=== PATIENT | male | born 1975 | race African-American/Black ===

== ENCOUNTER 2020-08-15 20:55 | Emergency (ER) | payer SELFPAY ==
[2020-08-15] MEDS ORDERED: IBUPROFEN 200 MG TAB PO ONE (21:28)
--- OUTSIDE RECORDS SUMMARY | 2020-08-15 22:19 | XMS REPORT | Continuity of Care Document ---
:1975 Author Organization [facility] t Address [address] [place] [address] Care Team Providers Name Role Phone Unavailable Unavailable Unavailable Problems Condition Condition Condition Status Onset Resolution Last Treating Co mments Source Name Details Category Date Date Treatment Clinician Date Adult BMI Adult BMI Diagnosis Active [facility] 40.0-44.9 40.0-44.9 Luke s - kg/sq m kg/sq m Memoria l [facility] ent Clinics Essential Essential Diagnosis Active C [facility] (primary) (primary) Luke s - hypertensi hypertensi [facility] Clin[facility] Tobacco Tobacco Diagnosis [facility] Clinics Pure Pure Problem Active [facility] hyperchole hyperchole Catrachita kes - sterolemia sterolemia [facility] ent Clinics Family Family Diagnosis Active [facility] history of history of Catrachita kes - heart heart Memoria disease in disease in l male male [facility] family family ent member member Clinics before age before age [age] Allergies, Adverse Reactions, Alerts This patient has no known allergies or adverse reactions. Medications Ordered Filled Start Stop Current Ordering Indication Dosage Frequency Signature Comments Components Source Medication Medication Date Date Medication? Clinician (SIG) Name Name Aspir-81 Aspir-81 2019-0 2019- No Dariel [address] [facility] 2-12 - [facility] - 00:00: 00:00 Memoria 00 :00 [facility] ent Clinics Lisinopril Lisinopril 2017- Yes Dariel [address] [facility] 2-13 [facility] - 00:00: Memoria 00 [facility] Immunizations Ordered Filled Immunization Date Status Comments Sourc e Immunization Name Name TDAP > 7 TDAP > 7 2018-04-[address] [facility] - Years-Adacel Years-Adacel 00:00:00 [facility] Flucelvax - Flucelvax - 2018-04-[address] [facility] multidose vial 00:00:[address] [facility] Outpatient Clinics Procedures This patient has no known procedures. Encounters Start End Encounter Admission Attending Care Care Encounter Source Date/Time Date/Time Type Type Clinicians Facility Department ID 2018-06-30 2018-06-30 Outpatient Milind Gil [id number] 11:30:00 11:30:00 [facility] 2018-05-18 2018-05-18 Outpatient Milind Gil [id number] 09:45:00 09:45:00 [facility] Clinics 2018-04-30 2018-04-30 Outpatient Milind Gil [id number] 14:30:00 14:30:00 [facility] Clinics Results This patient has no known results.
[2020-08-15 22:28] LABS: SARS-COV-2 RT PCR POSITIVE (NEGATIVE)
--- NOTE | 2020-08-15 22:51 | ER ---
Nurse's Notes [facility] Name: Jasbir Dewey Age: 45 yrs Sex: Male : 1975 Arrival Date: 08/15/2020 Time: 20:58 Bed 6 Private MD: Diagnosis: Coronavirus infection, unspecified;Pneumonia, unspecified organism Presentation: 08/15 21:04 Chief complaint: Patient states: Low grade fever since Friday. DENT, chills/sweating, ll1 high fever today. S.O. has tested positive for covid. Coronavirus screen: Client denies travel out of the [place] in the last 14 days. chills, congestion, diarrhea, fatigue, fever, headache, muscle pain, nausea, shaking with chills, Client presents with at least one sign or symptom that may indicate coronavirus-19. Standard/surgical mask placed on the client. Ebola Screen: Patient denies travel to an Ebola-affected area in the 21 days before illness onset. Initial Sepsis Screen: Does the patient meet any 2 criteria? HR > 90 bpm. No. Patient's initial sepsis screen is negative. Does the patient have a suspected source of infection? Yes: Productive cough/pneumonia. Risk Assessment: Do you want to hurt yourself or someone else? Patient reports no desire to harm self or others. Onset of symptoms was August 13, 2020. 21:04 Method Of Arrival: Ambulatory 1 21:04 Acuity: REJI 3 ll1 Historical: - Allergies: 21:04 No Known Allergies; ll1 - PMHx: 21:04 "occassional hypertension; ll1 - PSHx: 21:04 intestinal surgery at age 12; ll1 - Immunization history:: Flu vaccine is not up to date. - Social history:: Smoking status: Reported history of juuling and/or vaping. Patient denies any tobacco usage or history of. - Family history:: not pertinent. - Hospitalizations: : No recent hospitalization is reported. Screenin:01 Abuse screen: Denies threats or abuse. Nutritional screening: No deficits noted. ea Tuberculosis screening: No symptoms or risk factors identified. Fall Risk None identified. Assessment: 22:50 General: Appears uncomfortable, Behavior is appropriate for age. Pain: Denies pain. ea Neuro: Level of Consciousness is awake, alert, obeys commands, Oriented to person, place, time, situation. Cardiovascular: Patient's skin is warm and dry. Respiratory: Airway is patent Respiratory effort is even, unlabored, Respiratory pattern is regular, symmetrical. Derm: Skin is pink, warm \\T\\ dry. 23:02 Reassessment: Patient and/or family updated on plan of care and expected duration. Pain ea level reassessed. Patient is alert, oriented x 3, equal unlabored respirations, skin warm/dry/pink. Discharge instruction given to patient verbalized the understanding of instruction . Pt left ED ambulatory tolerating well. Vital Signs: 21:04 BP 145 / 92; Pulse 106; Resp 18; Temp 103.0; Pulse Ox 95% ; Weight 130.63 kg; Height 5 ll1 ft. 8 in. (172.72 cm); Pain 0/10; 22:36 Pulse 96; Resp 20; Temp 101.8; Pulse Ox 93% on R/A; ea 22:48 BP 101 / 73; ea 21:04 Body Mass Index 43.79 (130.63 kg, 172.72 cm) ll1 ED Course: 20:58 Patient arrived in ED. ag3 21:04 Arm band placed on. ll1 21:08 Triage completed. ll1 22:30 Adonay Luna MD is Attending Physician. rn 22:30 Anay Sher RN is Primary Nurse. ea 22:50 Rashaad Crenshaw MD is Referral Physician. rn 22:50 Patient has correct armband on for positive identification. Bed in low position. Call ea light in reach. 23:03 No provider procedures requiring assistance completed. Patient did not have IV access ea during this emergency room visit. Administered Medications: 21:17 Drug: Motrin 600 mg Route: PO; ll1 23:04 Follow up: Response: No adverse reaction ea 22:54 Drug: SOLU-Medrol 125 mg Route: IM; Site: left deltoid; ea 23:04 Follow up: Response: Medication administered at discharge. ea 22:55 Drug: Tylenol 1000 mg Route: PO; ea 23:05 Follow up: Response: Medication administered at discharge. ea Outcome: 22:50 Discharge ordered by . rn 23:03 Discharged to home ambulatory. ea 23:03 Condition: stable 23:03 Discharge instructions given to patient, Instructed on discharge instructions, follow up and referral plans. medication usage, Demonstrated understanding of instructions, follow-up care, medications, Prescriptions given X 3. 23:03 Patient left the ED. delio Signatures: Adonay Luna MD MD rn Antunez, Elena, RN RN ea Gomez, Alice ag3 Gosia Rouse RN RN ll1 Corrections: (The following items were deleted from the chart) 21:30 21:04 BP 145 / 92; Pulse 106bpm; Resp 18bpm; Pulse Ox 93%; Temp 103.0F; 130.63 kg; ll1 Height 5 ft. 8 in.; BMI: 43.7; Pain 0/10; ll1
--- NOTE | 2020-08-15 22:51 | EDPHYS ---
Physician Documentation [facility] Name: Jasbir Dewey Age: 45 yrs Sex: Male : 1975 Arrival Date: 08/15/2020 Time: 20:58 Bed 6 Private MD: ED Physician Adonay Luna HPI: 08/15 22:44 This 45 yrs old Black Male presents to ER via Ambulatory with complaints of Fever. rn 22:44 The patient reports fever, that was measured at 103 degrees Fahrenheit. Onset: The rn symptoms/episode began/occurred 3 day(s) ago. Modifying factors: The patient has had contact with sick significant other. Associated signs and symptoms: Pertinent positives: chills, cough, myalgias, runny nose, Pertinent negatives: altered mental status, hemoptysis, vomiting. Severity of symptoms: At their worst the symptoms were mild in the emergency department the symptoms are unchanged. The patient has not experienced similar symptoms in the past. The patient has not recently seen a physician. Reports fever, chills, cough, for 3 days, significant other tested Positive for COVID-19, denies chest pain or sob. + vapes. . Historical: - Allergies: 21:04 No Known Allergies; ll1 - PMHx: 21:04 "occassional hypertension; ll1 - PSHx: 21:04 intestinal surgery at age 12; ll1 - Immunization history:: Flu vaccine is not up to date. - Social history:: Smoking status: Reported history of juuling and/or vaping. Patient denies any tobacco usage or history of. - Family history:: not pertinent. - Hospitalizations: : No recent hospitalization is reported. ROS: 22:44 Constitutional: + fever and chills Eyes: Negative for injury, pain, redness, and infusion rn, Neck: Negative for injury, pain, and swelling, Cardiovascular: Negative for chest pain, palpitations, and edema, Respiratory: + cough, neg for sob. Abdomen/GI: Negative for abdominal pain, nausea, vomiting, diarrhea, and constipation, Back: Negative for injury MS/Extremity: Negative for injury and deformity, Skin: Negative for injury, rash, and discoloration, Neuro: + headache and gen weakness Exam: 22:44 Constitutional: This is a well developed, well nourished patient who is awake, alert, rn and in no acute distress. Head/Face: Normocephalic, atraumatic. ENT: no stridor Cardiovascular: Regular rate and rhythm. No pulse deficits. Respiratory: Speaking full sentences, unlabored. No increased work of breathing, no retractions or nasal flaring. Skin: Warm, dry with normal turgor. Normal color with no rashes, no lesions, and no evidence of cellulitis. MS/ Extremity: Pulses equal, no cyanosis. Neurovascular intact. Full, normal range of motion. Equal circumference. Neuro: Awake and alert, GCS 15, oriented to person, place, time, and situation. Cranial nerves II-XII grossly intact. Motor strength 5/5 in all extremities. Sensory grossly intact. Vital Signs: 21:04 BP 145 / 92; Pulse 106; Resp 18; Temp 103.0; Pulse Ox 95% ; Weight 130.63 kg; Height 5 ll1 ft. 8 in. (172.72 cm); Pain 0/10; 22:36 Pulse 96; Resp 20; Temp 101.8; Pulse Ox 93% on R/A; ea 22:48 BP 101 / 73; ea 21:04 Body Mass Index 43.79 (130.63 kg, 172.72 cm) ll1 MDM: 22:30 Patient medically screened. rn 22:49 Differential diagnosis: viral Infection, bacterial infection, URI, bronchitis, rn pneumonia COVID-19. Data reviewed: vital signs, nurses notes, lab test result(s), and as a result, I will discharge patient. Counseling: I had a detailed discussion with the patient and/or guardian regarding: the historical points, exam findings, and any diagnostic results supporting the discharge/admit diagnosis, lab results, radiology results, the need for outpatient follow up, to return to the emergency department if symptoms worsen or persist or if there are any questions or concerns that arise at home. Response to treatment: the patient's symptoms have mildly improved after treatment, and as a result, I will discharge patient. Special discussion: I discussed with the patient/guardian in detail that at this point there is no indication for admission to the hospital. It is understood, however, that if the symptoms persist or worsen the patient needs to return immediately for re-evaluation. ED course: Oxygen 93-95%, unlabored, biggest risk factors are being overweight and vapes, no dyspnea, will dc home for now with return precautions and medication. . 08/15 22:28 Order name: COVID-19/FLU A+B; Complete Time: 22:30 EDMS Administered Medications: 21:17 Drug: Motrin 600 mg Route: PO; ll1 23:04 Follow up: Response: No adverse reaction ea 22:54 Drug: SOLU-Medrol 125 mg Route: IM; Site: left deltoid; ea 23:04 Follow up: Response: Medication administered at discharge. ea 22:55 Drug: Tylenol 1000 mg Route: PO; ea 23:05 Follow up: Response: Medication administered at discharge. ea Disposition: 08/15/20 22:50 Discharged to Home. Impression: Coronavirus infection, unspecified, Pneumonia, unspecified organism. - Condition is Stable. - Discharge Instructions: Community-Acquired Pneumonia, Adult, COVID-19. - Prescriptions for Zithromax Z- David 250 mg Oral Tablet - take 1 tablet by ORAL route as directed for 5 days Day 1 - take two (2) tablets one time. Day 2, 3, 4 , 5 take one (1) tablet once daily.; 6 tablet. Prednisone 20 mg Oral Tablet - take 1 tablet by ORAL route as directed for 14 days Take 2 tablets by mouth daily for 7 days, followed by 1 tablet by mouth daily for 7 days, total of 14 days.; 21 tablet. Albuterol Sulfate 90 mcg/actuation - inhale 1-2 puff by INHALATION route every 4-6 hours; 1 Inhaler. - Medication Reconciliation Form, Thank You Letter, Antibiotic Education, Prescription Opioid Use, Work release form form. - Follow up: Rashaad Crenshaw MD; When: As needed; Reason: Recheck today's complaints, Re-evaluation by your physician. - Problem is new. - Symptoms have improved. Signatures: Dispatcher [employer] EDMS Saúl Leal RN RN em Nieto, Roman, MD MD rn Antunez, Elena, RN RN ea Lewis, Lynsay, RN RN ll1 Corrections: (The following items were deleted from the chart) 21:36 21:14 CORONAVIRUS+MR.LAB.BRZ ordered. EDMS EDMS 21:37 21:14 Influenza Screen (A \\T\\ B)+BA.LAB.BRZ ordered. EDMS EDMS 23:03 22:50 08/15/2020 22:50 Discharged to Home. Impression: Coronavirus infection, ea unspecified; Pneumonia, unspecified organism. Condition is Stable. Forms are Medication Reconciliation Form, Thank You Letter, Antibiotic Education, Prescription Opioid Use. Follow up: Rashaad Crenshaw; When: As needed; Reason: Recheck today's complaints, Re-evaluation by your physician. Problem is new. Symptoms have improved. rn
[2020-08-15] MEDS ORDERED: METHYLPREDNISOLONE 125 MG INJ ONE (23:08)
[2020-08-15] MEDS ORDERED: ACETAMINOPHEN 500 MG TAB ONE (23:08)
[2020-08-15 23:10] VITALS: BP 101/73; TEMP 101.8; O2SAT 93
== END 2020-08-15 23:03 | disposition home or self-care (01) ==
LOC: ER 20:55
DX: U07.1 COVID-19 (principal); J18.9 Pneumonia, unspecified organism
CPT/HCPCS: 0240U; 96372; 99283; J2930

== ENCOUNTER 2020-08-18 15:38 | Inpatient (IN) | payer SELFPAY ==
[~2020-08-18 15:38] MED LIST: IVERMECTIN 3 MG TABLET PO SCH
--- OUTSIDE RECORDS SUMMARY | 2020-08-18 15:40 | XMS REPORT | Continuity of Care Document ---
:1975 Author Organization [facility] t Address [address] [place] [address] Care Team Providers Name Role Phone Unavailable Unavailable Unavailable Problems Condition Condition Condition Status Onset Resolution Last Treating Co mments Source Name Details Category Date Date Treatment Clinician Date Adult BMI Adult BMI Diagnosis Active C [facility] 40.0-44.9 40.0-44.9 Luke s - kg/sq m kg/sq m Memoria l [facility] ent Clinics Essential Essential Diagnosis Active C [facility] (primary) (primary) Luke s - hypertensi hypertensi Me moria on on l [facility] ent Clinics Tobacco Tobacco Diagnosis [facility] Clinics Pure Pure Problem Active [facility] hyperchole hyperchole [facility] kes - sterolemia sterolemia [facility] ent Clinics Family Family Diagnosis Active [facility] history of history of Catr[place]ita kes - heart heart Memoria disease in disease in l male male [facility] family family ent member member Clinics before [...] Lukes - 00:00: 00:00 Memoria 00 :00 [facility] ent Clinics Lisinopril Lisinopril 2017- Yes Dariel [address] [facility] 2-13 Ad[facility]ita [facility] - 00:00: Memoria 00 [facility] ent [facility] Immunizations Ordered Filled Immunization Date Status Comments Sourc e Immunization Name Name TDAP > 7 TDAP > 7 2018-04-[address] [facility] - Years-Adacel Years-Adacel 00:00:00 [facility] Flucelvax - Flucelvax - 2018-04-[address] [facility]:00 [facility] Procedures This patient has no known procedures. Encounters Start End Encounter Admission Attending Care Care Encounter Source Date/Time Date/Time Type Type Clinicians Facility Department ID 2018-06-30 2018-06-30 Outpatient Milind Gil [id number] [facility] 11:30[facility]00 11:30:00 [facility] 2018-05-18 2018-05-18 Outpatient Milind Gil [id number] 09:45:00 09:45:00 [facility] 2018-04-30 2018-04-30 Outpatient Milind Gil [id number] [facility] 14:30:00 14:30:00 [facility] Results This patient has no known results.
[2020-08-18 16:54] LABS: Absolute Lymphocytes (CBC) 0.5 K/uL (0.7-4.9); Basophils % 0.3 % (0-1.3); Hematocrit 38.7 % (39.6-49.0); Lymphocytes % 6.5 % (15.3-44.8); MPV 10.9 fL (7.6-11.3); RBC Red Blood Cell Count 4.22 M/uL (4.33-5.43)
[2020-08-18 16:56] LABS: Protime INR 1.2
[2020-08-18 17:08] LABS: Bilirubin Direct 0.1 mg/dL (0-0.2); Bilirubin Total 0.3 mg/dL (0.2-1.0); CKMB Creatine Kinase MB 1.3 ng/mL (0.3-3.6); Potassium 3.3 mmol/L (3.5-5.1); Protein, Total 7.6 g/dL (6.4-8.2); Troponin (Emerg Dept Use Only) 0.04 ng/mL (0.0-0.045)
[2020-08-18] MEDS ORDERED: NA CHLORIDE 0.9% 1,000 ML ONE (17:13)
[2020-08-18] MEDS ORDERED: METHYLPREDNISOLONE 125 MG INJ ONE (17:13)
[2020-08-18 17:18] LABS: Blood Gas Oxyhemoglobin 94.6 % (94-97); Blood O2 Saturation 96.5 % (92-98.5)
--- NOTE | 2020-08-18 17:27 | ER ---
Nurse's Notes [facility] Name: Jasbir Dewey Age: 45 yrs Sex: Male : 1975 Arrival Date: 08/18/2020 Time: 15:41 Bed 3 Private MD: Diagnosis: Pneumonia due to SARS-associated coronavirus;Acute respiratory failure with hypoxia Presentation: 08/18 15:56 Chief complaint: Patient states: Covid+ 08/15/2020. S/S started 08/13/2020. SOB started ca1 today. Coronavirus screen: Client reports previous positive COVID test result. Date of collection: August 15, 2020. Ebola Screen: Patient negative for fever greater than or equal to 101.5 degrees Fahrenheit, and additional compatible Ebola Virus Disease symptoms Patient denies exposure to infectious person. Patient denies travel to an Ebola-affected area in the 21 days before illness onset. No symptoms or risks identified at this time. Initial Sepsis Screen: Does the patient meet any 2 criteria? RR > 20 per min. HR > 90 bpm. Yes Does the patient have a suspected source of infection? Yes: Productive cough/pneumonia. Risk Assessment: Do you want to hurt yourself or someone else? Patient reports no desire to harm self or others. Onset of symptoms was August 18, 2020. 15:56 Method Of Arrival: Wheelchair ca1 15:56 Acuity: REJI 2 ca1 Triage Assessment: 16:05 General: Appears distressed, uncomfortable, obese, Behavior is cooperative, appropriate bp for age, anxious. Pain: Denies pain. EENT: No deficits noted. Neuro: No deficits noted. Cardiovascular: No deficits noted. Respiratory: Reports shortness of breath. GI: No signs and/or symptoms were reported involving the gastrointestinal system. : No signs and/or symptoms were reported regarding the genitourinary system. Derm: No signs and/or symptoms reported regarding the dermatologic system. Musculoskeletal: No deficits noted. Historical: - Allergies: 16:02 No Known Allergies; ca1 - PMHx: 16:02 "occassional hypertension; ca1 - PSHx: 16:02 intestinal surgery at age 12; ca1 - Immunization history:: Flu vaccine is not up to date. - Social history:: Smoking status: Reported history of juuling and/or vaping. Screenin:10 Abuse screen: Denies threats or abuse. Denies injuries from another. Nutritional jl7 screening: No deficits noted. Tuberculosis screening: No symptoms or risk factors identified. Fall Risk None identified. Assessment: 16:10 General: SEE TRIAGE NOTE. bp 17:03 Reassessment: No changes from previously documented assessment. Patient and/or family jl7 updated on plan of care and expected duration. Pain level reassessed. RT AT B/S FOR ABG. Respiratory: Respiratory effort is even, labored. 18:45 Reassessment: No changes from previously documented assessment. Patient and/or family bp updated on plan of care and expected duration. Pain level reassessed. HOSPITALIST AT B/S. Respiratory: Airway is patent Respiratory effort is labored. 19:04 Reassessment: PT TRIALED ON HI-FRANCISCA, UNABLE TO TOLERATE. bp Vital Signs: 15:56 BP 132 / 70; Pulse 107; Resp 20 S; Temp 98.6(TE); Pulse Ox 43% on R/A; Weight 130.63 kg ca1 (R); Height 5 ft. 8 in. (172.72 cm) (R); 15:56 Pulse Ox 54% on 4 lpm NC; ca1 16:00 Pulse Ox 70% on 4 lpm NC; ca1 16:09 Pulse Ox 91% on Non-rebreather mask; ca1 16:27 BP 134 / 82; Pulse 85; Resp 17; Pulse Ox 94% on 15% Non-rebreather mask; bp 17:04 BP 114 / 59; Pulse 88; Resp 17; Pulse Ox 94% ; jl7 18:46 BP 135 / 82; Pulse 92; Resp 24; Pulse Ox 85% on 15% Non-rebreather mask; bp 19:30 BP 144 / 98; Pulse 94; Resp 23; Temp 98.5; Pulse Ox 92% on Non-rebreather mask; rv 15:56 Body Mass Index 43.79 (130.63 kg, 172.72 cm) ca1 ED Course: 15:41 Patient arrived in ED. ds1 16:01 Triage completed. ca1 16:02 Arm band placed on right wrist. ca1 16:03 Renuka Thomas MD is Attending Physician. ma2 16:05 Merrick Cuellar PA is PHCP. jr8 16:07 Quincy Espana, DEANDRA is Primary Nurse. bp 16:10 Patient has correct armband on for positive identification. Bed in low position. Call jl7 light in reach. Side rails up X2. 16:10 No provider procedures requiring assistance completed. jl7 16:20 Inserted saline lock: 20 gauge in right antecubital area, using aseptic technique. bp Blood collected. 17:05 EKG done, by ED staff, reviewed by Merrick ALBERT. [facility] 17:25 Jann Sanchez DO is Hospitalizing Provider. jr8 17:31 Chest Single View XRAY In Process Unspecified. EDMS 19:05 Patient admitted, IV remains in place. bp 19:55 Primary Nurse role handed off by Quincy Espana, RN sg Administered Medications: 16:05 CANCELLED (na): MethylPrednisoLONE 125 mg IVP once ma2 16:06 CANCELLED (na): AZITHromycin 500 mg IVPB once over 1 hrs; (mix in 250 mL NS) ma2 16:30 Drug: NS 0.9% 1000 ml Route: IV; Rate: 1 bolus; Site: right antecubital; jl7 20:15 Follow up: IV Status: Completed infusion; IV Intake: 1000ml rv 16:30 Drug: SOLU-Medrol 125 mg Route: IVP; Site: right antecubital; jl7 17:03 Follow up: Response: No adverse reaction jl7 Intake: 20:15 IV: 1000ml; Total: 1000ml. rv Outcome: 17:26 Decision to Hospitalize by Provider. jr8 20:07 Admitted to [facility] by [facility], via stretcher, room 412, with chart, Report called to [facility] 20:07 Condition: stable 20:07 Instructed on the need for admit. 20:08 Patient left the ED. Signatures: Dispatcher [employer] EDMS Chapin Rogers, DEANDRA RN sg Deysi Olvera ds1 Merrick Cuellar PA PA jr8 Kareen Gracia 5 Marylu Olea RN RN jl7 Janeth Chand RN RN Quincy Espana, RN RN Renuka Mancia MD MD ma2 Pedro Kaur RN RN rv Olesya Tatum RN RN ca1 Corrections: (The following items were deleted from the chart) 16:02 15:56 BP 132 / 70; Pulse 107bpm; Resp 43bpm; Spontaneous; Pulse Ox 43% RA; Temp 98.6F ca1 Temporal; 130.63 kg Reported; Height 5 ft. 8 in. Reported; BMI: 43.7; ca1
--- NOTE | 2020-08-18 17:42 | RAD REPORT ---
EXAM DESCRIPTION: [place] Single View08/18/2020 5:32 pm CLINICAL HISTORY: Congestion COMPARISON: none FINDINGS: Marked bilateral pulmonary opacities. The heart is probably upper limits normal size IMPRESSION: Marked bilateral pulmonary opacities probably pneumonia
[2020-08-18 18:10] LABS: Blood Morphology Comment NOT SEEN (NOT SEEN); Platelet Estimate ADEQ
--- NOTE | 2020-08-18 18:43 | RAD REPORT ---
EXAM DESCRIPTION: CT - Chest For Pe Angio - 08/18/2020 6:34 pm CLINICAL HISTORY: sob COMPARISON: August 18, 2020 chest x-ray TECHNIQUE: Dynamically enhanced axial 3 mm thick images of the chest were obtained during administra tion of <100> mL Isovue 370 IV contrast. Coronal and oblique reconstruction images were generated and reviewed. Exam utilizes a protocol for optimal evaluation of pulmonary arterial tree. Maximum intensity projections 3D imaging was utilized All CT scans are performed using dose optimization technique as appropriate and may include automated exposure control or mA/KV adjustment according to patient size. FINDINGS: A pulmonary embolus is not seen. A thoracic aortic aneurysm is not noted. A pleural effusion is not seen. A pericardial effusion is not seen. Marked bilateral ground-glass opacities within the lungs IMPRESSION: Negative for a pulmonary embolism. Marked bilateral ground-glass opacities within the lungs probably Covid pneumonia
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
[2020-08-18 19:50] LABS: Urine Blood Negative (Negative); Urine Glucose Negative (Negative); Urine Protein 1+ (Negative); Urine Specific Gravity 1.015 (1.005-1.030)
--- NOTE | 2020-08-18 20:09 | EDPHYS ---
Physician Documentation [facility] Name: Jasbir Dewey Age: 45 yrs Sex: Male : 1975 Arrival Date: 08/18/2020 Time: 15:41 Bed 3 Private MD: ED Physician Renuka Thomas HPI: 08/18 16:47 This 45 yrs old Black Male presents to ER via Wheelchair with complaints of Covid + SOB.jr8 16:47 Patient was diagnosed with COVID this past Friday and started to have difficulty jr8 breathing yesterday. S\\T\\S started Friday. Sats in the low 40s and 50s in triage. PMHx: HTN. 17:28 Associated signs and symptoms: Pertinent positives: cough. The patient has not jr8 experienced similar symptoms in the past. The patient has been recently seen by a physician:. Historical: - Allergies: 16:02 No Known Allergies; ca1 - PMHx: 16:02 "occassional hypertension; ca1 - PSHx: 16:02 intestinal surgery at age 12; ca1 - Immunization history:: Flu vaccine is not up to date. - Social history:: Smoking status: Reported history of juuling and/or vaping. ROS: 16:48 Cardiovascular: Negative for chest pain, palpitations, and edema, Abdomen/GI: Negative jr8 for abdominal pain, nausea, vomiting, diarrhea, and constipation, Skin: Negative for injury, rash, and discoloration, Neuro: Negative for headache, weakness, numbness, tingling, and seizure. 16:48 Respiratory: Positive for cough, shortness of breath, at rest. 16:48 All other systems are negative. jr8 Exam: 16:49 Constitutional: The patient appears alert, awake, in obvious distress, moderately jr8 distressed. 16:49 Respiratory: mild respiratory distress is noted, Respirations: labored breathing, tachypnea, that is moderate, Breath sounds: are clear throughout, Respiratory rate: 26 17:28 Eyes: Pupils equal round and reactive to light, extra-ocular motions intact. Lids and jr8 lashes normal. Conjunctiva and sclera are non-icteric and not injected. Cornea within normal limits. Periorbital areas with no swelling, redness, or edema. ENT: Nares patent. No nasal discharge, no septal abnormalities noted. Tympanic membranes are normal and external auditory canals are clear. Oropharynx with no redness, swelling, or masses, exudates, or evidence of obstruction, uvula midline. Mucous membranes moist. Neck: Trachea midline, no thyromegaly or masses palpated, and no cervical lymphadenopathy. Supple, full range of motion without nuchal rigidity, or vertebral point tenderness. No Meningismus. Cardiovascular: Regular rate and rhythm with a normal S1 and S2. No gallops, murmurs, or rubs. Normal PMI, no JVD. No pulse deficits. Abdomen/GI: Soft, non-tender, with normal bowel sounds. No distension or tympany. No guarding or rebound. No evidence of tenderness throughout. Back: No spinal tenderness. No costovertebral tenderness. Full range of motion. Skin: Warm, dry with normal turgor. Normal color with no rashes, no lesions, and no evidence of cellulitis. MS/ Extremity: Pulses equal, no cyanosis. Neurovascular intact. Full, normal range of motion. Neuro: Awake and alert, GCS 15, oriented to person, place, time, and situation. Cranial nerves II-XII grossly intact. Motor strength 5/5 in all extremities. Sensory grossly intact. Cerebellar exam normal. Normal gait. Vital Signs: 15:56 BP 132 / 70; Pulse 107; Resp 20 S; Temp 98.6(TE); Pulse Ox 43% on R/A; Weight 130.63 kg ca1 (R); Height 5 ft. 8 in. (172.72 cm) (R); 15:56 Pulse Ox 54% on 4 lpm NC; ca1 16:00 Pulse Ox 70% on 4 lpm NC; ca1 16:09 Pulse Ox 91% on Non-rebreather mask; ca1 16:27 BP 134 / 82; Pulse 85; Resp 17; Pulse Ox 94% on 15% Non-rebreather mask; bp 17:04 BP 114 / 59; Pulse 88; Resp 17; Pulse Ox 94% ; jl7 18:46 BP 135 / 82; Pulse 92; Resp 24; Pulse Ox 85% on 15% Non-rebreather mask; bp 19:30 BP 144 / 98; Pulse 94; Resp 23; Temp 98.5; Pulse Ox 92% on Non-rebreather mask; rv 15:56 Body Mass Index 43.79 (130.63 kg, 172.72 cm) ca1 MDM: 16:03 Patient medically screened. ma2 17:28 Data reviewed: vital signs, nurses notes, lab test result(s), EKG, radiologic studies, jr8 plain films. Data interpreted: Pulse oximetry: on 100 % NRB is 96 %. Interpretation: acceptable. Counseling: I had a detailed discussion with the patient and/or guardian regarding: the historical points, exam findings, and any diagnostic results supporting the discharge/admit diagnosis, lab results, radiology results, the need for further work-up and treatment in the hospital. 08/18 16:05 Order name: Amylase, Serum az2 08/18 16:05 Order name: Basic Metabolic Panel az2 08/18 16:05 Order name: Blood Culture Adult (2) az2 08/18 16:05 Order name: CBC with Diff az2 08/18 16:05 Order name: Ckmb; Complete Time: 17:13 az2 08/18 16:05 Order name: CPK; Complete Time: 17:13 az2 08/18 16:05 Order name: Lactate; Complete Time: 17:13 az2 08/18 16:05 Order name: LFT's; Complete Time: 17:13 ma2 08/18 16:05 Order name: Lipase; Complete Time: 17:13 ma2 08/18 16:05 Order name: Procalcitonin; Complete Time: 17:49 ma2 08/18 16:05 Order name: Protime (+inr); Complete Time: 17:13 ma2 08/18 16:05 Order name: Ptt, Activated; Complete Time: 17:13 az2 08/18 16:05 Order name: Troponin (emerg Dept Use Only); Complete Time: 17:13 ma2 08/18 16:05 Order name: Urine Microscopic Only az2 08/18 16:05 Order name: Chest Single View XRAY; Complete Time: 17:49 ma2 08/18 16:05 Order name: Amylase; Complete Time: 17:13 EDMS 08/18 16:05 Order name: Basic Metabolic Panel; Complete Time: 17:13 EDMS 08/18 16:06 Order name: Blood Culture EDAL 08/18 16:06 Order name: CBC with Automated Diff; Complete Time: 18:37 EDMS 08/18 16:09 Order name: ABG; Complete Time: 17:49 jr8 08/18 16:50 Order name: C-Reactive Protein; Complete Time: 17:13 EDMS 08/18 16:50 Order name: Ferritin; Complete Time: 17:13 EDMS 08/18 16:57 Order name: Manual Differential; Complete Time: 18:37 EDMS 08/18 17:49 Order name: CT Chest For PE Angio la1 08/18 18:44 Order name: CT; Complete Time: 19:10 EDMS 08/18 19:51 Order name: Urine Dipstick-Ancillary; Complete Time: 19:51 EDMS 08/18 16:05 Order name: Accucheck; Complete Time: 16:23 ma2 08/18 16:05 Order name: Cardiac monitoring; Complete Time: 16:22 az2 08/18 16:05 Order name: EKG - Nurse/Tech; Complete Time: 17:05 ma2 08/18 16:05 Order name: IV Saline Lock - Large Bore; Complete Time: 16:22 az2 08/18 16:05 Order name: Labs collected and sent; Complete Time: 16:22 az2 08/18 16:05 Order name: O2 Per Protocol; Complete Time: 16:22 ma2 08/18 16:05 Order name: O2 Sat Monitoring; Complete Time: 16:22 ma2 Administered Medications: 16:05 CANCELLED (na): MethylPrednisoLONE 125 mg IVP once ma2 16:06 CANCELLED (na): AZITHromycin 500 mg IVPB once over 1 hrs; (mix in 250 mL NS) ma2 16:30 Drug: NS 0.9% 1000 ml Route: IV; Rate: 1 bolus; Site: right antecubital; jl7 20:15 Follow up: IV Status: Completed infusion; IV Intake: 1000ml rv 16:30 Drug: SOLU-Medrol 125 mg Route: IVP; Site: right antecubital; jl7 17:03 Follow up: Response: No adverse reaction jl7 Disposition: 08/18/20 17:26 Hospitalization ordered by Jann Sanchez for Inpatient Admission. Preliminary diagnosis are Pneumonia due to SARS-associated coronavirus, Acute respiratory failure with hypoxia. - Bed requested for Telemetry/MedSurg (Inpatient). - Status is Inpatient Admission. wh - Condition is Fair. - Problem is new. - Symptoms have improved. Addendum: 08/20/2020 18:39 Co-signature as Attending Physician, Renuka Thomas MD. m a2 Signatures: Dispatcher [employer] EDMS Merrick Cuellar PA PA jr8 Oziel Carter, TUFTING MACHINE OPERATOR SINGLE NEEDLE-C TUFTING MACHINE OPERATOR SINGLE NEEDLE-Cla1 Melina Saucedo, RN RN Marylu Olea RN RN jl7 Janeth Chand RN RN Renuka Thomas MD [facility] Olesya Tatum RN RN [facility] Pedro Kaur RN rv Corrections: (The following items were deleted from the chart) 08/18 16:05 16:05 MethylPrednisoLONE 125 mg IVP once ordered. az2 az2 16:06 16:05 AZITHromycin 500 mg IVPB once over 1 hrs; (mix in 250 mL NS) ordered. [place] [id number] 16:48 16:13 C-REACTIVE PROTEIN+C.LAB.BRZ ordered. EDAL EDMS 16:48 16:13 FERRITIN+C.LAB.BRZ ordered. EDAL EDMS 16:50 16:47 Patient was diagnosed with COVID this past Friday and started to have difficulty jr8 breathing yesterday. S\\T\\S started Friday.. jr8 17:29 16:47 Patient was diagnosed with COVID this past Friday and started to have difficulty jr8 breathing yesterday. S\\T\\S started Friday. Sats in the low80s in triage. PMHx: HTN. jr8 19:03 17:26 Hospitalization Ordered by Jann Sanchez DO for Inpatient Admission. Preliminary cg diagnosis is Pneumonia due to SARS-associated coronavirus; Acute respiratory failure with hypoxia. Bed requested for Telemetry/MedSurg (Inpatient). Status is Inpatient Admission. Condition is Fair. Problem is new. Symptoms have improved. jr8 20:08 19:03 08/18/2020 17:26 Hospitalization Ordered by Jann Sanchez DO for Inpatient Admission. Preliminary diagnosis is Pneumonia due to SARS-associated coronavirus; Acute respiratory failure with hypoxia. Bed requested for Telemetry/MedSurg (Inpatient). Status is Inpatient Admission. Condition is Fair. Problem is new. Symptoms have improved. cg
[2020-08-18] MEDS ORDERED: ONDANSETRON 4 MG/2 ML VIAL IV PRN (20:56)
[2020-08-18] MEDS: APIXABAN 5 MG TABLET PO SCH (21:25)
[2020-08-18] MEDS: ASCORBIC ACID 500 MG TABLET PO SCH (21:25)
[2020-08-18] MEDS: THIAMINE HCL 100 MG TABLET PO SCH (21:25)
[2020-08-18] MEDS: METHYLPREDNISOLONE 125 MG INJ IV SCH (21:25)
[2020-08-18] MEDS: MELATONIN 5 MG TABLET PO SCH (21:25)
[2020-08-18 21:34] LABS: Urine Bacteria 20-50 /HPF (NONE SEEN); Urine RBC <5 /HPF (NONE SEEN)
[2020-08-19] MEDS: BENZONATATE 100 MG CAP PO PRN ×2 (01:18→19:55)
[2020-08-19] MEDS: LORazepam 2 MG/ML VIAL IV PRN (01:52)
[2020-08-19 05:09] LABS: Absolute Lymphocytes (CBC) 0.5 K/uL (0.7-4.9); Basophils % 0.1 % (0-1.3); Hematocrit 38.6 % (39.6-49.0); Lymphocytes % 5.7 % (15.3-44.8); MPV 10.9 fL (7.6-11.3); RBC Red Blood Cell Count 4.13 M/uL (4.33-5.43)
[2020-08-19 05:46] LABS: BUN Blood Urea Nitrogen 11 mg/dL (7-18); Bicarbonate 36 mmol/L (21-32); Ferritin 456.4 ng/mL (26-388); Glucose Level 199 mg/dL (74-106); Magnesium 2.5 mg/dL (1.8-2.4); Potassium 4.3 mmol/L (3.5-5.1); Sodium Level 141 mmol/L (136-145)
[2020-08-19] MEDS ORDERED: Remdesivir 200 MG in NA CHLORIDE 0.9% 250 ML IV ONE (09:00)
[2020-08-19] MEDS ORDERED: Remdesivir 100 MG in NA CHLORIDE 0.9% 250 ML IV SCH (09:00)
[2020-08-19] MEDS ORDERED: CEFTRIAXONE 1 GM/NS 50 ML 1 GM/50 ML BAG IV SCH (09:18)
[2020-08-19] MEDS ORDERED: GLUCAGON 1 MG/VIAL IM PRN (09:19)
--- NOTE | 2020-08-19 09:24 | P.PN ---
Subjective Date of Service: 08/19/20 Primary Care Provider: none Chief Complaint: COVID pneumonia Subjective: Other (Patient stable on BiPAP. Patient reports improvement.) Physical Examination - Vital Signs Temperature: 97.7 F Blood Pressure: 118/60 Pulse: 73 Respirations: 24 Pulse Ox (%): 95 - Studies Laboratory Data (last 24 hrs) 08/18/20 16:18: PT 13.8 H, INR 1.20, APTT 28.4 08/18/20 16:18: WBC 7.60, Hgb 13.0 L, Hct 38.7 L, Plt Count 167 08/18/20 16:18: Sodium 142, Potassium 3.3 L, BUN 10, Creatinine 1.13, Glucose 163 H, Total Bilirubin 0.3, AST 85 H, ALT 74, Alkaline Phosphatase 77, Amylase 64, Lipase 72 L Assessment & Plan Discharge Plan: Home Plan to discharge in: Greater than 2 days Physician Review Additional Text: Physical exam: Patient alert, cooperative. Currently on BiPAP at 100%. Heart: Regular rate and rhythm Lungs: Currently on BiPAP. No significant distress noted. Patient resting in bed. Abdomen: Soft nontender nondistended Extremities: No edema noted. Good range of motion Impression: Acute hypoxic respiratory failure secondary to COVID-19 pneumonia Hyperglycemia suspect diabetes mellitus type 2 UTI Obesity, BMI 44.5 Plan: Acute hypoxic respiratory failure secondary to COVID-19 pneumonia: Patient remains on BiPAP. Continue to wean off. Will have respiratory help in this process. Pulmonology consulted. Continue with IV steroids, oral supplements, remdecevir, ivermectin. Patient on Eliquis for prophylaxis. CT chest shows negative PE. Blood sugar elevated. Will check A1c. Will start sliding scale. Suspect diabetes. Await recommendations from pulmonology. Continue to monitor and adjust oxygen use. Anticipate improvement over the next several days. Hyperglycemia suspect diabetes mellitus type 2: Blood sugar elevated this morning. Will check A1c. Will provide sliding scale. May need to add basal insulin if blood sugars remain elevated. UTI: Procalcitonin elevated. Urinalysis shows bacteria. Will start Rocephin. Await urine and blood culture results. Obesity, BMI 44.5: Addressed lifestyle modification education. Time Spent Managing Pts Care (In Minutes): 55
[2020-08-19] MEDS ORDERED: D50W 25 GM/50 ML VIAL IV PRN (09:37)
[2020-08-19] MEDS: VITAMIN D 1000 UNIT TAB PO SCH (10:03)
[2020-08-19] MEDS: IVERMECTIN 3 MG TABLET PO SCH (10:03)
[2020-08-19] MEDS: ZINC SULFATE 220 MG CAP PO SCH (10:04)
[2020-08-19] MEDS: ASCORBIC ACID 500 MG TABLET PO SCH ×4 (10:04→21:00)
[2020-08-19] MEDS: APIXABAN 5 MG TABLET PO SCH ×2 (10:04→21:00)
[2020-08-19] MEDS: THIAMINE HCL 100 MG TABLET PO SCH ×2 (10:04→21:00)
[2020-08-19] MEDS: METHYLPREDNISOLONE 125 MG INJ IV SCH ×3 (10:05→21:00)
[2020-08-19] MEDS: CEFTRIAXONE/SWI 1gm 1 GM/10 ML SYR IVP SCH (10:08)
[2020-08-19] MEDS: INSULIN -REGULAR HUMAN 50 UNIT/0.5 ML ML SQ SCH ×3 (11:30→21:00)
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
[2020-08-19] MEDS: MELATONIN 5 MG TABLET PO SCH (21:00)
[2020-08-20 03:08] LABS: Urine Appearance CLEAR (Clear); Urine Bilirubin NEGATIVE (Negative); Urine Blood NEGATIVE (Negative); Urine Color YELLOW (Yellow); Urine Glucose NEGATIVE (Negative); Urine Protein 1+ (Negative); Urine Specific Gravity 1.025 (1.005-1.030)
[2020-08-20 03:17] LABS: Urine Microscopic Reflex ORDER UMIC
[2020-08-20 04:13] LABS: Urine Bacteria <20 /HPF (NONE SEEN); Urine RBC <5 /HPF (NONE SEEN); Urine Urothelial Cells <5 /HPF (NONE SEEN)
[2020-08-20 05:08] LABS: Absolute Lymphocytes (CBC) 0.4 K/uL (0.7-4.9); Basophils % 0.2 % (0-1.3); Hematocrit 37.4 % (39.6-49.0); Lymphocytes % 4.8 % (15.3-44.8); MPV 11.6 fL (7.6-11.3); RBC Red Blood Cell Count 4.03 M/uL (4.33-5.43)
[2020-08-20 05:43] LABS: Blood Morphology Comment NOT SEEN (NOT SEEN); Platelet Estimate ADEQ; White Blood Cell Scan OK (OK)
[2020-08-20 05:49] LABS: ALT/SGPT 43 U/L (12-78); AST/SGOT 44 U/L (15-37); Albumin 2.5 g/dL (3.4-5.0); Alkaline Phosphatase 96 U/L (45-117); BUN Blood Urea Nitrogen 15 mg/dL (7-18); Bicarbonate 35 mmol/L (21-32); Bilirubin Direct < 0.1 mg/dL (0-0.2); Bilirubin Total 0.3 mg/dL (0.2-1.0); Ferritin 538.5 ng/mL (26-388); Glucose Level 169 mg/dL (74-106); Magnesium 2.7 mg/dL (1.8-2.4); Potassium 4.2 mmol/L (3.5-5.1); Protein, Total 6.9 g/dL (6.4-8.2); Sodium Level 140 mmol/L (136-145)
[2020-08-20] MEDS: INSULIN -REGULAR HUMAN 50 UNIT/0.5 ML ML SQ SCH ×4 (07:30→21:00)
[2020-08-20] MEDS: ASCORBIC ACID 500 MG TABLET PO SCH ×4 (09:18→21:08)
[2020-08-20] MEDS: VITAMIN D 1000 UNIT TAB PO SCH (09:18)
[2020-08-20] MEDS: ZINC SULFATE 220 MG CAP PO SCH (09:19)
[2020-08-20] MEDS: APIXABAN 5 MG TABLET PO SCH ×2 (09:19→21:08)
[2020-08-20] MEDS: CEFTRIAXONE/SWI 1gm 1 GM/10 ML SYR IVP SCH (09:20)
[2020-08-20] MEDS: THIAMINE HCL 100 MG TABLET PO SCH ×2 (09:20→21:11)
[2020-08-20] MEDS: Remdesivir 100 MG in NA CHLORIDE 0.9% 250 ML IV SCH (09:20)
[2020-08-20] MEDS: METHYLPREDNISOLONE 125 MG INJ IV SCH ×3 (09:20→21:07)
--- NOTE | 2020-08-20 09:46 | P.PN ---
Subjective Date of Service: 08/20/20 Primary Care Provider: none Chief Complaint: COVID pneumonia Subjective: Other (Currently on BiPAP under percent. Patient appears comfortable.) Physical Examination - Vital Signs Temperature: 97 F Blood Pressure: 132/73 Pulse: 68 Respirations: 36 Pulse Ox (%): 85 Assessment & Plan Discharge Plan: Home Plan to discharge in: Greater than 2 days Physician Review Additional Text: Physical exam: Patient alert, cooperative. Patient appears comfortable. Still currently on BiPAP 100%. Heart: Regular rate and rhythm Lungs: Currently on BiPAP. No significant distress noted. Patient resting in bed. Lungs sound clear. Abdomen: Soft nontender nondistended Extremities: No edema noted. Good range of motion Impression: Acute hypoxic respiratory failure secondary to COVID-19 pneumonia Hyperglycemia suspect diabetes mellitus type 2 Obesity, BMI 44.5 Plan: Acute hypoxic respiratory failure secondary to COVID-19 pneumonia: Patient appears stable. No significant respiratory distress noted. Patient remains on BiPAP 100%. Will have respiratory continue to wean off. Continue current plan of care. Continue IV steroids, oral supplements, remdecevir, ivermectin. Patient on Eliquis for prophylaxis. CT chest shows negative for PE. A1c 6.1. Patient with prediabetes. Will monitor labs closely. There was some possibility of UTI but urine culture was negative. Discontinue Rocephin. Continue to monitor and wean off BiPAP. Encourage proning and ambulation. Continue with pulmonology recommendation. I will turn his service over to the hospitalist team tomorrow. I will go plan of care with him. Hyperglycemia secondary to prediabetes: A1c 6.1. Patient with prediabetes. Will monitor this closely. No need for insulin at this time. If blood sugars remain elevated above 200 will consider basal insulin. Obesity, BMI 44.5: Addressed lifestyle modification education. Time Spent Managing Pts Care (In Minutes): 55
[2020-08-20] MEDS: ASPIRIN EC 81 MG TAB PO SCH (13:19)
[2020-08-20] MEDS: MELATONIN 5 MG TABLET PO SCH (21:08)
[2020-08-21 05:02] LABS: Absolute Lymphocytes (CBC) 0.5 K/uL (0.7-4.9); Basophils % 0.1 % (0-1.3); Hematocrit 37.6 % (39.6-49.0); Lymphocytes % 5.1 % (15.3-44.8); MPV 9.8 fL (7.6-11.3)
[2020-08-21 05:28] LABS: Blood Morphology Comment NOT SEEN (NOT SEEN); Platelet Estimate ADEQ
[2020-08-21 05:37] LABS: ALT/SGPT 40 U/L (12-78); AST/SGOT 31 U/L (15-37); Albumin 2.6 g/dL (3.4-5.0); Alkaline Phosphatase 122 U/L (45-117); BUN Blood Urea Nitrogen 16 mg/dL (7-18); Bicarbonate 36 mmol/L (21-32); Bilirubin Direct 0.1 mg/dL (0-0.2); Bilirubin Total 0.5 mg/dL (0.2-1.0); Ferritin 587.9 ng/mL (26-388); Glucose Level 165 mg/dL (74-106); Magnesium 2.7 mg/dL (1.8-2.4); Potassium 4.1 mmol/L (3.5-5.1); Sodium Level 139 mmol/L (136-145)
[2020-08-21] MEDS: INSULIN -REGULAR HUMAN 50 UNIT/0.5 ML ML SQ SCH ×4 (07:30→20:21)
[2020-08-21] MEDS: ASPIRIN EC 81 MG TAB PO SCH (07:40)
[2020-08-21] MEDS: VITAMIN D 1000 UNIT TAB PO SCH (07:41)
[2020-08-21] MEDS: APIXABAN 5 MG TABLET PO SCH ×2 (07:41→20:19)
[2020-08-21] MEDS: THIAMINE HCL 100 MG TABLET PO SCH ×2 (07:41→20:19)
[2020-08-21] MEDS: ZINC SULFATE 220 MG CAP PO SCH (07:41)
[2020-08-21] MEDS: ASCORBIC ACID 500 MG TABLET PO SCH ×4 (07:41→20:19)
[2020-08-21] MEDS: METHYLPREDNISOLONE 125 MG INJ IV SCH ×3 (07:41→20:19)
--- NOTE | 2020-08-21 08:59 | EKG ---
Test Date: 2020-08-18 Test Time: 17:00:43 Director Emergency: LISA MEASUREMENT RESULTS: Intervals: Rate: 93 MD: 164 QRSD: 94 QT: 362 QTc: 450 [place]: P: 40 MD: 164 QRS: 16 T: -56 INTERPRETIVE STATEMENTS: Sinus rhythm with occasional premature ventricular complexes Possible Left atrial enlargement Left ventricular hypertrophy ST & T wave abnormality, consider inferolateral ischemia Abnormal ECG Compared to ECG 01/10/2017 11:00:35 ST (T wave) deviation now present Possible ischemia now present Electronically Signed On 08-21-20 08:55:32 CDT by Alejandro Sahni
[2020-08-21] MEDS: Remdesivir 100 MG in NA CHLORIDE 0.9% 250 ML IV SCH (09:15)
[2020-08-21] MEDS: IVERMECTIN 3 MG TABLET PO SCH (09:15)
--- NOTE | 2020-08-21 12:55 | P.PN ---
Subjective Date of Service: 08/21/20 Primary Care Provider: none Chief Complaint: Respiratory failure Subjective: Improving (Patient is subjectively feeling better although requiring high concentrations of oxygen) Review of Systems General: Weakness Respiratory: Shortness of Breath Physical Examination - Vital Signs Temperature: 96.8 F Blood Pressure: 108/41 Pulse: 68 Respirations: 18 Pulse Ox (%): 97 Assessment & Plan - Problems (Diagnosis) (1) Acute respiratory failure due to severe acute respiratory syndrome coronavirus 2 (SARS-CoV-2) infection Current Visit: Yes Status: Acute Plan: Respiratory failure from onofre virus still requiring high concentrations of oxygen continue with steroids vital signs reviewed continue with present treatment Physician Review Additional Text: Physical exam: Patient alert, cooperative. Patient appears comfortable. Still currently on BiPAP 100%. Heart: Regular rate and rhythm Lungs: Currently on BiPAP. No significant distress noted. Patient resting in bed. Lungs sound clear. Abdomen: Soft nontender nondistended Extremities: No edema noted. Good range of motion Impression: Acute hypoxic respiratory failure secondary to COVID-19 pneumonia Hyperglycemia suspect diabetes mellitus type 2 Obesity, BMI 44.5 Plan: Acute hypoxic respiratory failure secondary to COVID-19 pneumonia: Patient appears stable. No significant respiratory distress noted. Patient remains on BiPAP 100%. Will have respiratory continue to wean off. Continue current plan of care. Continue IV steroids, oral supplements, remdecevir, ivermectin. Patient on Eliquis for prophylaxis. CT chest shows negative for PE. A1c 6.1. Patient with prediabetes. Will monitor labs closely. There was some possibility of UTI but urine culture was negative. Discontinue Rocephin. Continue to monitor and wean off BiPAP. Encourage proning and ambulation. Continue with pulmonology recommendation. I will turn his service over to the hospitalist team tomorrow. I will go plan of care with him. Hyperglycemia secondary to prediabetes: A1c 6.1. Patient with prediabetes. Will monitor this closely. No need for insulin at this time. If blood sugars remain elevated above 200 will consider basal insulin. Obesity, BMI 44.5: Addressed lifestyle modification education.
[2020-08-21] MEDS: MELATONIN 5 MG TABLET PO SCH (20:19)
[2020-08-21] MEDS: clonazePAM 0.5 MG TAB PO PRN (20:19)
[2020-08-22 04:14] LABS: Albumin 2.4 g/dL (3.4-5.0); Bilirubin Direct 0.2 mg/dL (0-0.2); Bilirubin Total 0.7 mg/dL (0.2-1.0); Ferritin 661.1 ng/mL (26-388); Protein, Total 6.7 g/dL (6.4-8.2)
[2020-08-22] MEDS: INSULIN -REGULAR HUMAN 50 UNIT/0.5 ML ML SQ SCH ×4 (07:30→20:12)
[2020-08-22] MEDS: VITAMIN D 1000 UNIT TAB PO SCH (08:37)
[2020-08-22] MEDS: THIAMINE HCL 100 MG TABLET PO SCH ×2 (08:37→19:55)
[2020-08-22] MEDS: ASCORBIC ACID 500 MG TABLET PO SCH ×4 (08:37→19:55)
[2020-08-22] MEDS: ASPIRIN EC 81 MG TAB PO SCH (08:37)
[2020-08-22] MEDS: APIXABAN 5 MG TABLET PO SCH ×2 (08:38→19:54)
[2020-08-22] MEDS: Remdesivir 100 MG in NA CHLORIDE 0.9% 250 ML IV SCH (08:38)
[2020-08-22] MEDS: METHYLPREDNISOLONE 125 MG INJ IV SCH ×3 (08:38→19:55)
[2020-08-22] MEDS: ZINC SULFATE 220 MG CAP PO SCH (08:38)
[2020-08-22] MEDS: ACETAMINOPHEN 500 MG TAB PO PRN (19:55)
[2020-08-22] MEDS: MELATONIN 5 MG TABLET PO SCH (19:55)
[2020-08-22] MEDS: clonazePAM 0.5 MG TAB PO PRN (19:56)
[2020-08-23] MEDS: HYDRALAZINE HCL 20 MG/ML VIAL IV PRN (00:19)
[2020-08-23] MEDS: HYDROCODONE/APAP 5/325 MG TAB PO PRN (00:27)
[2020-08-23 04:44] LABS: Albumin 2.4 g/dL (3.4-5.0); Bilirubin Direct 0.2 mg/dL (0-0.2); Bilirubin Total 0.8 mg/dL (0.2-1.0); Protein, Total 6.7 g/dL (6.4-8.2)
[2020-08-23] MEDS: INSULIN -REGULAR HUMAN 50 UNIT/0.5 ML ML SQ SCH ×4 (07:30→21:00)
[2020-08-23] MEDS: VITAMIN D 1000 UNIT TAB PO SCH (08:27)
[2020-08-23] MEDS: ZINC SULFATE 220 MG CAP PO SCH (08:27)
[2020-08-23] MEDS: ASPIRIN EC 81 MG TAB PO SCH (08:27)
[2020-08-23] MEDS: THIAMINE HCL 100 MG TABLET PO SCH ×2 (08:28→20:53)
[2020-08-23] MEDS: ASCORBIC ACID 500 MG TABLET PO SCH ×4 (08:28→20:53)
[2020-08-23] MEDS: METHYLPREDNISOLONE 125 MG INJ IV SCH ×3 (08:28→20:53)
[2020-08-23] MEDS: Remdesivir 100 MG in NA CHLORIDE 0.9% 250 ML IV SCH (08:29)
--- NOTE | 2020-08-23 09:28 | P.PN ---
Subjective Date of Service: 08/21/20 Patient remains hypoxic. Page requiring significant oxygenation with FiO2 of 100%. Continue on BiPAP support. Pulmonary monitoring patient closely. Review of Systems 10-point ROS is otherwise unremarkable Physical Examination - Vital Signs Temperature: 97.1 F Blood Pressure: 143/74 Pulse: 75 Respirations: 22 Pulse Ox (%): 96 - Physical Exam General: Alert, In no apparent distress, Oriented x3 Respiratory: Diminished, Crackles/rales Cardiovascular: Regular rate/rhythm, Normal S1 S2, No murmurs Gastrointestinal: Normal bowel sounds, Soft and benign, Non-distended, No tenderness Musculoskeletal: No clubbing, No swelling, No tenderness Neurological: Sensation intact, Cranial nerves 3-12 intact - Studies Medications List Reviewed: Yes Assessment & Plan - Problems (Diagnosis) (1) Acute respiratory failure due to severe acute respiratory syndrome stephon navirus 2 (SARS-CoV-2) infection Current Visit: Yes Status: Acute - Plan 1. Continue with IV steroids 2. Monitor inflammatory markers 3. Repeat chest x-ray is symptoms are progressively worsening 4. O2 per protocol 5. Pulmonary consultation appreciated 6. Continue with albuterol inhaler therapy; also supportive care 7. Monitor LFTs 8. GI and DVT prophylaxis Discharge Plan: Home Plan to discharge in: Greater than 2 days - Advance Directives Does patient have a Living Will: No Does patient have a Durable POA for Healthcare: No - Code Status/Comfort Care Code Status Assessed: Yes Code Status: Full Code Critical Care: No Time Spent Managing PTS Care (In Minutes): 35
--- NOTE | 2020-08-23 09:29 | P.PN ---
Date of Service: 08/22/20 Subjective A little wean down the FiO2 slightly on the BiPAP. Currently at 85%. Continue monitoring closely. Hopefully patient keeps improving otherwise patient may need to be intubated. Review of Systems 10-point ROS is otherwise unremarkable Physical Examination - Vital Signs reviewed - Physical Exam General: Alert, In no apparent distress, Oriented x3 Respiratory: Diminished, Crackles/rales Cardiovascular: Regular rate/rhythm, Normal S1 S2, No murmurs Gastrointestinal: Normal bowel sounds, Soft and benign, Non-distended, No tenderness Musculoskeletal: No clubbing, No swelling, No tenderness Neurological: Sensation intact, Cranial nerves 3-12 intact Assessment & Plan - Problems (Diagnosis) (1) Acute respiratory failure due to severe acute respiratory syndrome coronavirus 2 (SARS-CoV-2) infection Current Visit: Yes Status: Acute - Plan 1. Continue with IV steroids 2. Monitor inflammatory markers 3. Repeat chest x-ray is symptoms are progressively worsening 4. O2 per protocol 5. Pulmonary consultation appreciated 6. Continue with albuterol inhaler therapy; also supportive care 7. Monitor LFTs 8. GI and DVT prophylaxis
[2020-08-23] MEDS: APIXABAN 5 MG TABLET PO SCH ×2 (10:43→20:52)
[2020-08-23 12:14] LABS: ALT/SGPT 34 U/L (12-78); AST/SGOT 35 U/L (15-37); Albumin 2.4 g/dL (3.4-5.0); Alkaline Phosphatase 131 U/L (45-117); BUN Blood Urea Nitrogen 14 mg/dL (7-18); Bicarbonate 31 mmol/L (21-32); Bilirubin Total 0.9 mg/dL (0.2-1.0); Ferritin 832.3 ng/mL (26-388); Glucose Level 133 mg/dL (74-106); Magnesium 2.5 mg/dL (1.8-2.4); Potassium 3.9 mmol/L (3.5-5.1); Protein, Total 6.6 g/dL (6.4-8.2); Sodium Level 138 mmol/L (136-145)
[2020-08-23 13:08] LABS: Absolute Lymphocytes (CBC) 0.3 K/uL (0.7-4.9); Hematocrit 41.3 % (39.6-49.0); Lymphocytes % 2.3 % (15.3-44.8); MPV 10.5 fL (7.6-11.3); RBC Red Blood Cell Count 4.54 M/uL (4.33-5.43)
[2020-08-23 19:42] LABS: Blood Morphology Comment NOT SEEN (NOT SEEN); Platelet Estimate ADEQ; White Blood Cell Scan OK (OK)
--- NOTE | 2020-08-23 20:38 | P.PN ---
Subjective Date of Service: 08/23/20 Primary Care Provider: none Chief Complaint: Respiratory failure Subjective: Improving (Feeling better StillSOB on high conc of O2) Review of Systems Respiratory: Shortness of Breath Physical Examination - Vital Signs Temperature: 97.7 F Blood Pressure: 149/73 Pulse: 78 Respirations: 18 Pulse Ox (%): 91 - Studies Microbiology Data (last 24 hrs): 08/18/20 16:18 Blood - Blood Aerobic Blood Culture - Final No growth in 5 days. 08/18/20 16:18 Blood - Blood Anaerobic Blood Culture - Final No growth in 5 days. 08/18/20 16:36 Blood - Blood Aerobic Blood Culture - Final No growth in 5 days. 08/18/20 16:36 Blood - Blood Anaerobic Blood Culture - Final No growth in 5 days. Medications List Reviewed: Yes Assessment & Plan - Problems (Diagnosis) (1) Acute respiratory failure due to severe acute respiratory syndrome coronavirus 2 (SARS-CoV-2) infection Current Visit: Yes Status: Acute Plan: Respiratory failure from onofre virus still requiring high concentrations of oxygen continue with steroids vital signs reviewed continue with present treatment, Labs reviewed. PT hypoxic. No PE.
[2020-08-23] MEDS: ACETAMINOPHEN 500 MG TAB PO PRN (20:53)
[2020-08-23] MEDS: MELATONIN 5 MG TABLET PO SCH (20:53)
[2020-08-23] MEDS: clonazePAM 0.5 MG TAB PO PRN (22:03)
[2020-08-24] MEDS: LORazepam 2 MG/ML VIAL IV PRN ×3 (03:05→20:14)
[2020-08-24 04:21] LABS: Absolute Lymphocytes (CBC) 0.3 K/uL (0.7-4.9); Basophils % 0.2 % (0-1.3); Hematocrit 41.1 % (39.6-49.0); Lymphocytes % 3.5 % (15.3-44.8); RBC Red Blood Cell Count 4.54 M/uL (4.33-5.43)
[2020-08-24 04:28] LABS: ALT/SGPT 34 U/L (12-78); AST/SGOT 32 U/L (15-37); Albumin 2.4 g/dL (3.4-5.0); Alkaline Phosphatase 130 U/L (45-117); BUN Blood Urea Nitrogen 16 mg/dL (7-18); Bicarbonate 32 mmol/L (21-32); Bilirubin Total 0.9 mg/dL (0.2-1.0); Ferritin 820.8 ng/mL (26-388); Glucose Level 151 mg/dL (74-106); Magnesium 2.7 mg/dL (1.8-2.4); Phosphorus 3.6 mg/dL (2.5-4.9); Potassium 4.2 mmol/L (3.5-5.1); Protein, Total 6.6 g/dL (6.4-8.2); Sodium Level 139 mmol/L (136-145)
[2020-08-24] MEDS ORDERED: FUROSEMIDE 20 MG/ 2ML VIAL IV ONE (06:00)
[2020-08-24] MEDS: INSULIN -REGULAR HUMAN 50 UNIT/0.5 ML ML SQ SCH ×4 (07:30→20:15)
[2020-08-24] MEDS: VITAMIN D 1000 UNIT TAB PO SCH (08:10)
[2020-08-24] MEDS: ASPIRIN EC 81 MG TAB PO SCH (08:10)
[2020-08-24] MEDS: METHYLPREDNISOLONE 125 MG INJ IV SCH ×3 (08:11→20:12)
[2020-08-24] MEDS: THIAMINE HCL 100 MG TABLET PO SCH ×2 (08:11→20:13)
[2020-08-24] MEDS: APIXABAN 5 MG TABLET PO SCH ×2 (08:11→20:13)
[2020-08-24] MEDS: ZINC SULFATE 220 MG CAP PO SCH (08:11)
[2020-08-24] MEDS: clonazePAM 0.5 MG TAB PO PRN ×2 (08:11→16:42)
[2020-08-24] MEDS: ASCORBIC ACID 500 MG TABLET PO SCH ×4 (08:11→20:13)
--- NOTE | 2020-08-24 13:40 | P.PN ---
Date of Service: 08/23/20 Subjective FiO2 requirements have increased. Patient looks to be a little more anxious. We don't have Precedex so will go ahead and try some Klonopin to help relax. Review of Systems 10-point ROS is otherwise unremarkable Physical Examination - Vital Signs reviewed - Physical Exam General: Alert, a little tachypneic, Oriented x3 Respiratory: Diminished, Crackles/rales Cardiovascular: Regular rate/rhythm, Normal S1 S2, No murmurs Gastrointestinal: Normal bowel sounds, Soft and benign, Non-distended, No tenderness Musculoskeletal: No clubbing, No swelling, No tenderness Neurological: Sensation intact, Cranial nerves 3-12 intact Assessment & Plan - Problems (Diagnosis) (1) Acute respiratory failure due to severe acute respiratory syndrome coronavirus 2 (SARS-CoV-2) infection Current Visit: Yes Status: Acute - Plan 1. Continue with IV steroids 2. Monitor inflammatory markers; will check ABGs 3. Chest x-ray in a.m. 4. O2 per protocol 5. Pulmonary consultation appreciated 6. Continue with albuterol inhaler therapy; also supportive care; may needy nebulizer treatments 7. GI and DVT prophylaxis
[2020-08-24 14:27] LABS: Arterial Blood Carboxyhemoglob 0.8 % (0-1.5); Blood Gas Oxyhemoglobin 91.2 % (94-97); Blood O2 Saturation 93.2 % (92-98.5)
--- NOTE | 2020-08-24 15:28 | RAD REPORT ---
EXAM DESCRIPTION: RAD - Chest Single View - 08/24/2020 2:28 pm CLINICAL HISTORY: dyspnea Chest pain. COMPARISON: Chest Single View dated 08/18/2020; Chest Pa And Lat (2 Views) dated 01/10/2017; Chest For Pe Angio dated 08/18/2020 FINDINGS: Portable technique limits examination quality. Moderate bilateral pulmonary opacities are again seen, mildly improved involved the left lung. There is possible the midshaft pneumomediastinum subcutaneous emphysema in the neck. The heart size is mild ly prominent.
[2020-08-24] MEDS ORDERED: OXYMETAZOLINE HCL 0.05% 15ML NAS PRN (16:58)
[2020-08-24] MEDS: FLUTICASONE 50MCG NASAL SPRAY NAS SCH (20:12)
[2020-08-24] MEDS: MELATONIN 5 MG TABLET PO SCH (20:13)
[2020-08-24] MEDS: HYDROCODONE/APAP 5/325 MG TAB PO PRN (20:16)
[2020-08-25 04:25] LABS: Absolute Lymphocytes (CBC) 0.4 K/uL (0.7-4.9); Basophils % 0.1 % (0-1.3); Hematocrit 44.4 % (39.6-49.0); Lymphocytes % 3.6 % (15.3-44.8); MPV 9.9 fL (7.6-11.3); RBC Red Blood Cell Count 4.81 M/uL (4.33-5.43)
[2020-08-25 04:41] LABS: ALT/SGPT 27 U/L (12-78); AST/SGOT 24 U/L (15-37); Albumin 2.5 g/dL (3.4-5.0); Alkaline Phosphatase 135 U/L (45-117); BUN Blood Urea Nitrogen 25 mg/dL (7-18); Bicarbonate 34 mmol/L (21-32); Bilirubin Total 0.7 mg/dL (0.2-1.0); Ferritin 833.7 ng/mL (26-388); Glucose Level 154 mg/dL (74-106); Magnesium 2.8 mg/dL (1.8-2.4); Phosphorus 4.3 mg/dL (2.5-4.9); Potassium 4.6 mmol/L (3.5-5.1); Protein, Total 6.9 g/dL (6.4-8.2); Sodium Level 137 mmol/L (136-145)
[2020-08-25] MEDS: HYDROCODONE/APAP 5/325 MG TAB PO PRN ×2 (06:38→17:09)
--- NOTE | 2020-08-25 07:16 | RAD REPORT ---
EXAM DESCRIPTION: RAD - Chest Single View - 08/25/2020 6:28 am CLINICAL HISTORY: Dyspnea COMPARISON: Portable August 24 TECHNIQUE: AP portable chest image was obtained 08/25/2020 6:28 am . FINDINGS: Extensive airspace opacification seen in the right lung field with less prominent left adina g field opacification. This is a slightly improved. Heart size is upper normal, stable with mild vasc ular engorgement. No measurable pleural effusion and no pneumothorax. No acute bony abnormality seen. The suspected pneumomediastinum and subcutaneous emphysema of the August 24 study are not identifiable . IMPRESSION: Extensive airspace opacification, right greater than left, showing mild improvement from August 24. Suspected subcutaneous emphysema and pneumomediastinum are not identifiable on this study.
[2020-08-25] MEDS: INSULIN -REGULAR HUMAN 50 UNIT/0.5 ML ML SQ SCH ×4 (07:30→21:00)
[2020-08-25] MEDS: ASCORBIC ACID 500 MG TABLET PO SCH ×4 (08:14→21:58)
[2020-08-25] MEDS: ASPIRIN EC 81 MG TAB PO SCH (08:14)
[2020-08-25] MEDS: VITAMIN D 1000 UNIT TAB PO SCH (08:14)
[2020-08-25] MEDS: METHYLPREDNISOLONE 125 MG INJ IV SCH ×3 (08:14→21:58)
[2020-08-25] MEDS: FLUTICASONE 50MCG NASAL SPRAY NAS SCH ×2 (08:15→21:59)
[2020-08-25] MEDS: THIAMINE HCL 100 MG TABLET PO SCH ×2 (08:15→21:58)
[2020-08-25] MEDS: APIXABAN 5 MG TABLET PO SCH ×2 (08:15→21:58)
[2020-08-25] MEDS: ZINC SULFATE 220 MG CAP PO SCH (08:15)
[2020-08-25] MEDS: ENSURE HIGH PROTEIN 237 ML CAN PO SCH ×3 (08:57→21:59)
--- NOTE | 2020-08-25 09:19 | P.PN ---
Subjective Date of Service: 08/25/20 Primary Care Provider: none Chief Complaint: Respiratory failure No change patient is still very hypoxic alert responsive cooperative chest x-ray shows extensive bilateral infiltrate Review of Systems General: Weakness Respiratory: Cough, Shortness of Breath Physical Examination - Vital Signs Temperature: 98.8 F Blood Pressure: 116/76 Pulse: 85 Respirations: 24 Pulse Ox (%): 90 - Studies Medications List Reviewed: Yes Assessment & Plan - Problems (Diagnosis) (1) Acute respiratory failure due to severe acute respiratory syndrome c oronavirus 2 (SARS-CoV-2) infection Current Visit: Yes Status: Acute Plan: Patient admitted with respiratory failure still requiring high concentrations of oxygen may have some pneumomediastinum yesterday continue with present therapy rays day his EPAP pressure slightly to improve his oxygenation also complains of nasal congestion at some a Flonase increase dose of steroids however today's x- ray does not show any evidence of pneumomediastinum maintain sat around 90%
[2020-08-25] MEDS: MELATONIN 5 MG TABLET PO SCH (21:58)
[2020-08-26] MEDS: LORazepam 2 MG/ML VIAL IV PRN (02:18)
[2020-08-26] MEDS: INSULIN -REGULAR HUMAN 50 UNIT/0.5 ML ML SQ SCH ×4 (07:30→20:20)
[2020-08-26] MEDS: ASPIRIN EC 81 MG TAB PO SCH (08:41)
[2020-08-26] MEDS: ZINC SULFATE 220 MG CAP PO SCH (08:41)
[2020-08-26] MEDS: THIAMINE HCL 100 MG TABLET PO SCH ×2 (08:41→20:11)
[2020-08-26] MEDS: METHYLPREDNISOLONE 125 MG INJ IV SCH ×3 (08:41→20:12)
[2020-08-26] MEDS: VITAMIN D 1000 UNIT TAB PO SCH (08:41)
[2020-08-26] MEDS: APIXABAN 5 MG TABLET PO SCH ×2 (08:41→20:11)
[2020-08-26] MEDS: ASCORBIC ACID 500 MG TABLET PO SCH ×4 (08:41→20:11)
[2020-08-26] MEDS: ENSURE HIGH PROTEIN 237 ML CAN PO SCH ×3 (08:42→20:15)
[2020-08-26] MEDS: FLUTICASONE 50MCG NASAL SPRAY NAS SCH ×2 (08:43→20:12)
[2020-08-26 11:42] LABS: Absolute Lymphocytes (CBC) 0.6 K/uL (0.7-4.9); Basophils % 0.1 % (0-1.3); Hematocrit 38.4 % (39.6-49.0); Lymphocytes % 4.5 % (15.3-44.8); MPV 11.6 fL (7.6-11.3)
[2020-08-26 12:32] LABS: ALT/SGPT 25 U/L (12-78); AST/SGOT 27 U/L (15-37); Albumin 2.4 g/dL (3.4-5.0); Alkaline Phosphatase 140 U/L (45-117); BUN Blood Urea Nitrogen 25 mg/dL (7-18); Bicarbonate 32 mmol/L (21-32); Bilirubin Total 0.5 mg/dL (0.2-1.0); Ferritin 728.1 ng/mL (26-388); Glucose Level 116 mg/dL (74-106); Magnesium 2.9 mg/dL (1.8-2.4); Phosphorus 3.7 mg/dL (2.5-4.9); Potassium 4.7 mmol/L (3.5-5.1); Protein, Total 6.3 g/dL (6.4-8.2); Sodium Level 137 mmol/L (136-145)
[2020-08-26 13:17] LABS: Blood Morphology Comment NOT SEEN (NOT SEEN); Platelet Estimate ADEQ; White Blood Cell Scan OK (OK)
[2020-08-26] MEDS ORDERED: FAMOTIDINE 20 MG TAB PO ONE (20:00)
[2020-08-26] MEDS: HYDROCODONE/APAP 5/325 MG TAB PO PRN (20:11)
[2020-08-26] MEDS: MELATONIN 5 MG TABLET PO SCH (20:11)
[2020-08-27] MEDS: HYDROCODONE/APAP 5/325 MG TAB PO PRN ×2 (02:43→20:07)
[2020-08-27] MEDS: INSULIN -REGULAR HUMAN 50 UNIT/0.5 ML ML SQ SCH ×4 (07:30→20:45)
[2020-08-27] MEDS: LORazepam 2 MG/ML VIAL IV PRN ×2 (07:53→20:16)
[2020-08-27] MEDS: FLUTICASONE 50MCG NASAL SPRAY NAS SCH ×2 (09:00→20:08)
[2020-08-27] MEDS: ASPIRIN EC 81 MG TAB PO SCH (09:52)
[2020-08-27] MEDS: APIXABAN 5 MG TABLET PO SCH ×2 (09:52→20:08)
[2020-08-27] MEDS: ASCORBIC ACID 500 MG TABLET PO SCH ×4 (09:53→20:08)
[2020-08-27] MEDS: THIAMINE HCL 100 MG TABLET PO SCH ×2 (09:53→20:07)
[2020-08-27] MEDS: VITAMIN D 1000 UNIT TAB PO SCH (09:53)
[2020-08-27] MEDS: ZINC SULFATE 220 MG CAP PO SCH (09:53)
[2020-08-27] MEDS: METHYLPREDNISOLONE 125 MG INJ IV SCH ×3 (09:53→20:08)
[2020-08-27] MEDS: ENSURE HIGH PROTEIN 237 ML CAN PO SCH ×3 (09:53→20:08)
--- NOTE | 2020-08-27 10:03 | P.PN ---
Subjective Date of Service: 08/27/20 Primary Care Provider: none Chief Complaint: Respiratory failure No change still requiring high concentrations of oxygen Review of Systems General: Weakness Respiratory: Shortness of Breath Physical Examination - Vital Signs Temperature: 97.8 F Blood Pressure: 132/80 Pulse: 90 Respirations: 17 Pulse Ox (%): 91 - Studies Medications List Reviewed: Yes Assessment & Plan - Problems (Diagnosis) (1) Acute respiratory failure due to severe acute respiratory syndrome coronavirus 2 (SARS-CoV-2) infection Current Visit: Yes Status: Acute Plan: Respiratory failure requiring high concentrations of oxygen continue with present treatment low-dose spironolactone to promote a negative fluid balance
[2020-08-27] MEDS: ACETAMINOPHEN 500 MG TAB PO PRN (10:44)
[2020-08-27] MEDS: SPIRONOLACTONE 25 MG TABLET PO SCH (10:46)
--- NOTE | 2020-08-27 11:19 | CON ---
Date of Consultation: 08/26/[address] Brady's service on 08/18/2020. I saw the patient on 08/26/2020. Reason For Consultation: Elevated troponin. History Of Present Illness: Mr. Dewey is a 45-year-old black male without any significant past medic al history. He does not take any medications at home. He does not have any allergies. He came in w ith COVID pneumonia on 08/18/2020. He is still on BiPAP. His SpO2 was 87%. Troponin was elevated a nd I was consulted. No chest pain. No congestive heart failure. Past Medical History: Negative. Allergies: NONE. Medications: At home are none. Review of Systems: Negative. Social History: Negative. Family History: Negative. Medications: Present medications include aspirin, Eliquis, and steroids. Physical Examination: Vital Signs: Stable, afebrile. HEENT: Negative. Neck: Supple with no bruit. Chest: Revealed crackles both bases. Cardiac: Normal. Abdomen: Obese, but normal. Extremities: Revealed 1+ edema. Diagnostic Data: Include a glucose of 145 with elevated troponin, 87% O2 saturation on BiPAP. Impression And Plan: 1.Elevated troponin secondary to demand ischemia. Echocardiogram is pending. 2.COVID pneumonia, being treated appropriately by Dr. Brady. He is on aspirin, Eliquis, and steroids . I will follow him if the echocardiogram is abnormal. HOLLY/NATALIE Voice ID: [id number] Report ID: [id number]
[2020-08-27] MEDS: MELATONIN 5 MG TABLET PO SCH (20:08)
[2020-08-27 21:01] LABS: Absolute Lymphocytes (CBC) 0.2 K/uL (0.7-4.9); Basophils % 0.2 % (0-1.3); Hematocrit 38.8 % (39.6-49.0); Lymphocytes % 1.8 % (15.3-44.8); RBC Red Blood Cell Count 4.24 M/uL (4.33-5.43)
[2020-08-27 21:20] LABS: ALT/SGPT 32 U/L (12-78); AST/SGOT 30 U/L (15-37); Albumin 2.3 g/dL (3.4-5.0); Alkaline Phosphatase 165 U/L (45-117); BUN Blood Urea Nitrogen 27 mg/dL (7-18); Bicarbonate 34 mmol/L (21-32); Bilirubin Total 0.5 mg/dL (0.2-1.0); Ferritin 795.4 ng/mL (26-388); Glucose Level 170 mg/dL (74-106); Protein, Total 6.2 g/dL (6.4-8.2); Sodium Level 138 mmol/L (136-145)
[2020-08-28 00:02] LABS: Arterial Blood Carboxyhemoglob 1.5 % (0-1.5); Blood Gas Oxyhemoglobin 61.4 % (94-97)
[2020-08-28] MEDS ORDERED: FUROSEMIDE 20 MG/ 2ML VIAL IV ONE (00:43)
[2020-08-28] MEDS ORDERED: propofoL 1,000 MG/100 ML VIAL IV ONE (01:18)
[2020-08-28] MEDS ORDERED: RSI MEDICATION KIT IV ONE (01:19)
[2020-08-28] MEDS ORDERED: ROCURONIUM 50 MG/5 ML VIAL IV ONE (01:22)
[2020-08-28] MEDS ORDERED: ETOMIDATE 20 MG/10 ML VIAL IV ONE (01:23)
[2020-08-28] MEDS ORDERED: NA CHLORIDE 0.9% 250 ML IV PRN (01:26)
[2020-08-28] MEDS: FENTANYL CITR 100 MCG/2 ML IV PRN ×2 (01:39→05:15)
[2020-08-28] MEDS: MIDAZOLAM HCL 2 MG/2 ML INJ IV PRN ×3 (01:55→09:37)
[2020-08-28] MEDS: CISATRACURIUM INJECTION 2 MG/ML (10 ML Vial) IV PRN (02:10)
[2020-08-28] MEDS ORDERED: MIDAZOLAM HCL 2 MG/2 ML INJ ONE (02:12)
[2020-08-28] MEDS: LORazepam 2 MG/ML VIAL IV PRN ×2 (02:22→09:15)
[2020-08-28] MEDS: HALOPERIDOL LACT 5 MG/ML INJ IV PRN (03:01)
[2020-08-28] MEDS: propofoL 1,000 MG/100 ML VIAL IV PRN ×5 (03:14→20:25)
[2020-08-28] MEDS: CISATRACURIUM BESYLATE 40 MG in NA CHLORIDE 0.9% 80 ML IV PRN ×2 (03:21→07:25)
[2020-08-28 03:25] LABS: Arterial Blood Carboxyhemoglob 1.3 % (0-1.5); Blood Gas Oxyhemoglobin 58.7 % (94-97)
[2020-08-28] MEDS ORDERED: NA CHLORIDE 0.9% 100 ML ONE (03:34)
[2020-08-28] MEDS ORDERED: CISATRACURIUM INJECTION 2 MG/ML (10 ML Vial) IV ONE (03:35)
[2020-08-28 04:44] LABS: Absolute Lymphocytes (CBC) 0.2 K/uL (0.7-4.9); Basophils % 0.2 % (0-1.3); Hematocrit 40.4 % (39.6-49.0); Lymphocytes % 1.5 % (15.3-44.8); MPV 9.7 fL (7.6-11.3); RBC Red Blood Cell Count 4.38 M/uL (4.33-5.43)
[2020-08-28 04:44] LABS: Arterial Blood Carboxyhemoglob 1.2 % (0-1.5); Blood Gas Oxyhemoglobin 59.5 % (94-97); Blood O2 Saturation 60.7 % (92-98.5)
--- NOTE | 2020-08-28 04:59 | P.PN ---
Date of Service: 08/24/20 Subjective Patient w/ no significant improvement. FiO2 requirements are still increase. Review of Systems 10-point ROS is otherwise unremarkable Physical Examination - Vital Signs reviewed - Physical Exam General: Alert, a little tachypneic, Oriented x3; continue on BiPAP support Respiratory: Diminished, Crackles/rales Cardiovascular: Regular rate/rhythm, Normal S1 S2, No murmurs Gastrointestinal: Normal bowel sounds, Soft and benign, Non-distended, No tenderness Musculoskeletal: No clubbing, No swelling, No tenderness Neurological: Sensation intact, Cranial nerves 3-12 intact Assessment & Plan - Problems (Diagnosis) (1) Acute respiratory failure due to severe acute respiratory syndrome coronavirus 2 (SARS-CoV-2) infection Current Visit: Yes Status: Acute (2) Morbid obesity Current Visit: Yes Status: Acute - Plan 1. Continue with IV steroids 2. Monitor inflammatory markers; will check ABGs 3. Repeat chest x-ray as needed 4. Continue with BiPAP support 5. Pulmonary consultation appreciated 6. Continue with albuterol inhaler therapy; also supportive care; may needy nebulizer treatments 7. GI and DVT prophylaxis
--- NOTE | 2020-08-28 05:00 | P.PN ---
Date of Service: 08/25/20 Subjective Patient still a little tachypneic. Respiratory status slightly worsened. Not really tolerating high-flow that well now. Review of Systems 10-point ROS is otherwise unremarkable Physical Examination - Vital Signs reviewed - Physical Exam General: Alert, a little tachypneic, Oriented x3; continue on BiPAP support Respiratory: Diminished, Crackles/rales Cardiovascular: Regular rate/rhythm, Normal S1 S2, No murmurs Gastrointestinal: Normal bowel sounds, Soft and benign, Non-distended, No tenderness Musculoskeletal: No clubbing, No swelling, No tenderness Neurological: Sensation intact, Cranial nerves 3-12 intact Assessment & Plan - Problems (Diagnosis) (1) Acute respiratory failure due to severe acute respiratory syndrome coronavirus 2 (SARS-CoV-2) infection Current Visit: Yes Status: Acute (2) Morbid obesity Current Visit: Yes Status: Acute - Plan 1. Continue with IV steroids 2. Monitor inflammatory markers; will check ABGs 3. Repeat chest x-ray as needed 4. Alternating between high-flow and BiPAP support. Still no significant improvement. 5. Pulmonary consultation appreciated 6. Continue with albuterol inhaler therapy; also supportive care; may needy nebulizer treatments 7. GI and DVT prophylaxis
--- NOTE | 2020-08-28 05:04 | P.PN ---
Date of Service: 08/26/20 Subjective Patient was able to eat steak tonight. However he is not really able to stay off of BiPAP at all. Oxygen requirements are worsened. Review of Systems 10-point ROS is otherwise unremarkable Physical Examination - Vital Signs reviewed - Physical Exam General: Alert, patient is tachypneic and not able to stay off of BiPAP support Respiratory: Diminished, Crackles/rales Cardiovascular: Regular rate/rhythm, Normal S1 S2, No murmurs Gastrointestinal: Normal bowel sounds, Soft and benign, Non-distended, No tenderness Musculoskeletal: No clubbing, No swelling, No tenderness Neurological: Sensation intact, Cranial nerves 3-12 intact Assessment & Plan - Problems (Diagnosis) (1) Acute respiratory failure due to severe acute respiratory syndrome coronavirus 2 (SARS-CoV-2) infection Current Visit: Yes Status: Acute (2) Morbid obesity Current Visit: Yes Status: Acute - Plan 1. Continue with IV steroids 2. Monitor inflammatory markers; will check ABGs 3. Chest x-ray from yesterday does show some questionable improvement 4. Remains on BiPAP support. Symptoms are worsened 5. Pulmonary consultation appreciated 6. Continue with albuterol inhaler therapy; also supportive care; may needy nebulizer treatments 7. GI and DVT prophylaxis
--- NOTE | 2020-08-28 05:07 | P.PN ---
Date of Service: 08/27/20 Subjective Patient clinically is not doing well. Oxygen requirements have worsened. Seen by Cardiology for elevated troponin. At this point time no acute intervention is necessary. Clinical condition continues to worsen. Placed orders for transferring to ICU. Waiting to get a bed assignment. Review of Systems 10-point ROS is otherwise unremarkable Physical Examination - Vital Signs reviewed - Physical Exam General: Alert, patient is tachypneic and not able to stay off of BiPAP support Respiratory: Diminished, Crackles/rales Cardiovascular: Regular rate/rhythm, Normal S1 S2, No murmurs Gastrointestinal: Normal bowel sounds, Soft and benign, Non-distended, No tenderness Musculoskeletal: No clubbing, No swelling, No tenderness Neurological: Sensation intact, Cranial nerves 3-12 intact Assessment & Plan - Problems (Diagnosis) (1) Acute respiratory failure due to severe acute respiratory syndrome coronavirus 2 (SARS-CoV-2) infection Current Visit: Yes Status: Acute (2) Morbid obesity Current Visit: Yes Status: Acute - Plan 1. Continue with IV steroids 2. Monitor inflammatory markers; continue with C reactive protein and ferritin level. We will check ABGs 3. Will repeat chest x-ray is symptoms continued to deteriorate 4. Remains on BiPAP support. Symptoms are worsened; may need intubation 5. Pulmonary and Cardiology consultation appreciated 6. Continue with albuterol inhaler therapy; also supportive care; may needy nebulizer treatments 7. GI and DVT prophylaxis
[2020-08-28 05:16] LABS: Albumin 2.5 g/dL (3.4-5.0); Bilirubin Total 0.7 mg/dL (0.2-1.0); C-Reactive Protein 70.2 mg/L (<3.00); Magnesium 2.9 mg/dL (1.8-2.4); Potassium 4.7 mmol/L (3.5-5.1); Protein, Total 6.5 g/dL (6.4-8.2)
--- NOTE | 2020-08-28 06:31 | P.PN ---
Date of Service: 08/27/20 Subjective Spoke with BETY Khanna. Patient is oxygen requirements are still not improving. We went ahead and proceeded with sending patient to the ICU. Spoke with BETY Khanna about notifying Pulmonary. Will go ahead and proceed with intubation as patient's arterial oxygen is very low. Patient is tachypneic and has been working quite hard. I will also notified that patient was remaining hypoxic tonight even after being intubated. We went ahead and started paralytics. Patient oxygen requirements have not been improving. Vent settings are at a rate of 20. I will increase aerobic respiratory rate to 28. PEEP is at 12. Will probably need to increase this as well. Will leave this w/ Pulmonary as a will be managing the ventilator. Family has been able to visit by bedside as well. Poor prognosis.
--- NOTE | 2020-08-28 07:14 | EKG ---
Test Date: 2020-08-28 Test Time: 02:02:20 Administrative Support Technician: ERICA MEASUREMENT RESULTS: Intervals: Rate: 113 WI: 132 QRSD: 92 QT: 320 QTc: 438 [place]: P: 43 WI: 132 QRS: 32 T: 154 INTERPRETIVE STATEMENTS: Sinus tachycardia Possible Left atrial enlargement RSR' or QR pattern in V1 suggests right ventricular conduction delay Marked ST abnormality, possible lateral subendocardial injury Abnormal ECG Compared to ECG 08/25/2020 18:41:21 RSR' in V1 or V2 now present Myocardial infarct finding no longer present Possible ischemia no longer present ST (T wave) deviation still present Electronically Signed On 08-28-20 07:13:50 CDT by Alejandro Sahni
--- NOTE | 2020-08-28 07:19 | EKG ---
Test Date: 2020-08-25 Test Time: 18:41:21 Service Line Coordinator: INGRID MEASUREMENT RESULTS: Intervals: Rate: 111 CT: 134 QRSD: 82 QT: 342 QTc: 465 [place]: P: 59 CT: 134 QRS: 19 T: -47 INTERPRETIVE STATEMENTS: Sinus tachycardia Right atrial enlargement Possible Inferior infarct, age undetermined ST & T wave abnormality, consider lateral ischemia Abnormal ECG Compared to ECG 08/18/2020 17:00:43 Myocardial infarct finding now present Sinus rhythm no longer present Ventricular premature complex(es) no longer present Left ventricular hypertrophy no longer present ST (T wave) deviation still present Possible ischemia still present Electronically Signed On 08-28-20 07:14:51 CDT by Alejandro Sahni
[2020-08-28] MEDS: ASPIRIN EC 81 MG TAB PO SCH (07:30)
[2020-08-28] MEDS: FLUTICASONE 50MCG NASAL SPRAY NAS SCH ×2 (07:30→20:00)
[2020-08-28] MEDS: ENSURE HIGH PROTEIN 237 ML CAN PO SCH ×3 (07:38→20:00)
[2020-08-28] MEDS: VITAMIN D 1000 UNIT TAB PO SCH (07:59)
[2020-08-28] MEDS: ASCORBIC ACID 500 MG TABLET PO SCH ×4 (08:00→20:23)
[2020-08-28] MEDS: APIXABAN 5 MG TABLET PO SCH (08:00)
[2020-08-28] MEDS: METHYLPREDNISOLONE 125 MG INJ IV SCH ×3 (08:00→20:22)
[2020-08-28] MEDS: SPIRONOLACTONE 25 MG TABLET PO SCH (08:00)
[2020-08-28] MEDS: FAMOTIDINE 20 MG/2 ML VIAL IV SCH ×2 (08:00→20:23)
[2020-08-28] MEDS: THIAMINE HCL 100 MG TABLET PO SCH ×2 (08:01→20:22)
[2020-08-28] MEDS: ZINC SULFATE 220 MG CAP PO SCH (08:01)
--- NOTE | 2020-08-28 09:03 | P.PN ---
Subjective Date of Service: 08/28/20 Primary Care Provider: none Chief Complaint: Respiratory failure Subjective: Other (patient is intubated and sedated) Physical Examination - Vital Signs Temperature: 97.2 F Blood Pressure: 100/61 Pulse: 125 Respirations: 28 Pulse Ox (%): 77 - Studies Medications List Reviewed: Yes Assessment & Plan Discharge Plan: LTAC Plan to discharge in: Greater than 2 days Physician Review Additional Text: Physical exam: Patient was intubated last night due to worsening oxygenation. Patient currently intubated, sedated and paralyzed. Patient on vent setting at 100%. Oxygenation still around 70 to 80% Heart: Sinus tachycardia Lungs: Currently intubated and sedated Abdomen: Soft nondistended Extremities: No edema noted. Impression: Acute hypoxic respiratory failure secondary to COVID-19 pneumonia Hyperglycemia suspect diabetes mellitus type 2 Elevated troponin likely ischemic demand related to above Obesity, BMI 44.5 Plan: Acute hypoxic respiratory failure secondary to COVID-19 pneumonia: Patient condition has worsened. Patient now intubated, sedated and paralyzed. Continue current medications. Patient currently requiring 100% FiO2. Oxygenation still poor with around 70 to 80%. Continue IV steroids. Continue other measures. Case discussed with pulmonology. Patient had elevated troponin likely ischemic demand. Cardiology does not plan any significant intervention at this time. Echocardiogram pending. Adjustments made per pulmonology. Will discuss with family about plan of care. Prognosis poor. Will address advanced directives again. Hyperglycemia secondary to prediabetes: A1c 6.1. Continue with Accu-Cheks and sliding scale. Elevated troponin likely ischemic demand related to above: Continue with above plan of care. Cardiology plans for no significant intervention at this time. Echocardiogram pending. Patient on Eliquis. Will provide metoprolol as needed. Obesity, BMI 44.5: Addressed lifestyle modification education. Time Spent Managing Pts Care (In Minutes): 55
[2020-08-28] MEDS: METOPROLOL TARTRATE 5 MG/5 ML INJ IV PRN (09:09)
[2020-08-28] MEDS: CISATRACURIUM BESYLATE 80 MG in NA CHLORIDE 0.9% 160 ML IV PRN (10:26)
[2020-08-28] MEDS: INSULIN -REGULAR HUMAN 50 UNIT/0.5 ML ML SQ SCH ×3 (12:00→23:37)
--- NOTE | 2020-08-28 12:10 | P.PN ---
Subjective Date of Service: 08/28/20 Primary Care Provider: none Chief Complaint: Respiratory failure Patient's condition worsened he was transferred to the ICU intubated he has cut diffuse bilateral changes very hypoxic Review of Systems is unable to be obtained Physical Examination - Vital Signs Temperature: 97.2 F Blood Pressure: 106/60 Pulse: 125 Respirations: 28 Pulse Ox (%): 77 - Studies Medications List Reviewed: Yes Assessment & Plan - Problems (Diagnosis) (1) Acute respiratory failure due to severe acute respiratory syndrome coronavirus 2 (SARS-CoV-2) infection Current Visit: Yes Status: Acute Plan: Respiratory failure from onofre virus is condition worsened is currently on a ventilator fortunately is prognosis is very poor increase Solu-Medrol drip 250 mg IV Q 8 chest x-ray reviewed patient's peep has been increased to 15
--- NOTE | 2020-08-28 12:25 | RAD REPORT ---
EXAM DESCRIPTION: RAD - Chest Single View - 08/28/2020 3:03 am XR Chest, 1 View CLINICAL HISTORY: The patient is 45 years old and is Male; S/P INTUBATION TECHNIQUE: Frontal view of the chest. COMPARISON: No relevant prior studies available. FINDINGS: Lungs: Diffuse airspace opacification of the lungs bilaterally. Pleural space: Right pleural effusion. No pneumothorax. Heart: Unremarkable. Mediastinum: Unremarkable. Bones/joints: Unremarkable. Tubes, lines and devices: Endotracheal tube with tip 1.5 cm above the josé. Nasogastric tube c oursing below the diaphragm and overlying the left upper quadrant. IMPRESSION: 1. Diffuse airspace opacification of the lungs bilaterally. 2. Right pleural effusion. Electronically signed by: Chris Belcher MD 08/28/2020 3:29 AM CDT Due to temporary technical issues with the PACS/Fluency reporting system, reports are being signed by the in house radiologist without review as a courtesy to ensure prompt reporting. The interpreting r adiologist is fully responsible for the content of the report.
[2020-08-28] MEDS: FUROSEMIDE 20 MG/ 2ML VIAL IV SCH (13:18)
[2020-08-28 15:12] LABS: Arterial Blood Carboxyhemoglob 1.4 % (0-1.5); Blood Gas Oxyhemoglobin 77.5 % (94-97); Blood O2 Saturation 79.5 % (92-98.5)
[2020-08-28] MEDS: MELATONIN 5 MG TABLET PO SCH (20:22)
[2020-08-28] MEDS: ENOXAPARIN 100 MG/ML SYR SQ SCH (20:23)
[2020-08-29] MEDS: propofoL 1,000 MG/100 ML VIAL IV PRN ×6 (02:18→22:05)
[2020-08-29] MEDS: CISATRACURIUM BESYLATE 80 MG in NA CHLORIDE 0.9% 160 ML IV PRN (02:19)
[2020-08-29] MEDS: INSULIN -REGULAR HUMAN 50 UNIT/0.5 ML ML SQ SCH ×4 (05:23→23:55)
[2020-08-29 05:24] LABS: Absolute Lymphocytes (CBC) 0.3 K/uL (0.7-4.9); Basophils % 0.2 % (0-1.3); Hematocrit 34.5 % (39.6-49.0); Lymphocytes % 1.8 % (15.3-44.8); MPV 10.6 fL (7.6-11.3); RBC Red Blood Cell Count 3.75 M/uL (4.33-5.43)
[2020-08-29 05:50] LABS: Albumin 2.2 g/dL (3.4-5.0); Bilirubin Total 0.6 mg/dL (0.2-1.0); Ferritin 932.4 ng/mL (26-388); Magnesium 3.2 mg/dL (1.8-2.4); Potassium 4.9 mmol/L (3.5-5.1); Protein, Total 5.9 g/dL (6.4-8.2)
[2020-08-29 06:35] LABS: Arterial Blood Carboxyhemoglob 1.4 % (0-1.5); Blood Gas Oxyhemoglobin 80.5 % (94-97); Blood O2 Saturation 82.7 % (92-98.5)
--- NOTE | 2020-08-29 08:18 | ECHO ---
HEIGHT: 5 ft 8 in WEIGHT: 276 lb 9 oz DATE OF STUDY: 08/28/[address]: Alejandro Sahni MD 2-DIMENSIONAL: YES M.MODE: YES DOPPLER: YES COLOR FLOW: YES TDS: YES PORTABLE: DEFINITY: BUBBLE STUDY: DIAGNOSIS: CHEST PAIN CARDIAC HISTORY: CATHERIZATION: NO SURGERY: NO PROSTHETIC VALVE: NO PACEMAKER: NO MEASUREMENTS (cm) DIASTOLIC (NORMALS) SYSTOLIC (NORMALS) IVSd 1.2 (0.6-1.2) LA Diam 2.8 (1.9-4.0) LVEF 61% LVIDd 3.7 (3.5-5.7) LVIDs 2.5 (2.0-3.5) %FS 32% LVPWd 1.2 (0.6-1.2) Ao Diam 2.3 (2.0-3.7) 2 DIMENSIONAL ASSESSMENT: RIGHT ATRIUM: NOT SEEN LEFT ATRIUM: NORMAL RIGHT VENTRICLE: NOT SEEN LEFT VENTRICLE: NORMAL TRICUSPID VALVE: NOT SEEN MITRAL VALVE: NORMAL PULMONIC VALVE: NOT SEEN AORTIC VALVE: NORMAL PERICARDIAL EFFUSION: NONE AORTIC ROOT: NORMAL LEFT VENTRICULAR WALL MOTION: APPEARS NORMAL DOPPLER/COLOR FLOW: COMMENTS: POOR WINDOWS. LEFT VENTRICULAR EJECTION FRACTION APPEARS NORMAL AT 55-60%. TECHNOLOGIST: RICK VALDERRAMA
[2020-08-29] MEDS: FLUTICASONE 50MCG NASAL SPRAY NAS SCH ×2 (09:00→20:04)
[2020-08-29] MEDS: ENSURE HIGH PROTEIN 237 ML CAN PO SCH (09:00)
[2020-08-29] MEDS: FUROSEMIDE 20 MG/ 2ML VIAL IV SCH (09:02)
[2020-08-29] MEDS: VITAMIN D 1000 UNIT TAB PO SCH (09:02)
[2020-08-29] MEDS: ENOXAPARIN 100 MG/ML SYR SQ SCH ×2 (09:02→20:33)
[2020-08-29] MEDS: ZINC SULFATE 220 MG CAP PO SCH (09:03)
[2020-08-29] MEDS: ASPIRIN 81 MG CHEWABLE TABLET PO SCH (09:03)
[2020-08-29] MEDS: FAMOTIDINE 20 MG/2 ML VIAL IV SCH ×2 (09:03→20:33)
[2020-08-29] MEDS: THIAMINE HCL 100 MG TABLET PO SCH ×2 (09:03→20:34)
[2020-08-29] MEDS: ASCORBIC ACID 500 MG TABLET PO SCH ×4 (09:03→20:34)
[2020-08-29] MEDS: METHYLPREDNISOLONE 125 MG INJ IV SCH ×3 (09:05→20:33)
[2020-08-29] MEDS: LORazepam 2 MG/ML VIAL IV PRN ×2 (09:19→14:50)
--- NOTE | 2020-08-29 10:16 | P.PN ---
Subjective Date of Service: 08/29/20 Primary Care Provider: none Chief Complaint: Respiratory failure Subjective: Other (Patient remains intubated and sedated.) Physical Examination - Vital Signs Temperature: 98.2 F Blood Pressure: 107/76 Pulse: 97 Respirations: 28 Pulse Ox (%): 93 - Studies Medications List Reviewed: Yes Assessment & Plan Discharge Plan: Home Plan to discharge in: Greater than 2 days Physician Review Additional Text: Physical exam: Patient remains intubated and sedated. She is also on paralytic. Heart: Regular rate and rhythm Lungs: Currently intubated and sedated Abdomen: Soft nondistended Extremities: No edema noted. Impression: Acute hypoxic respiratory failure secondary to COVID-19 pneumonia Hyperglycemia suspect diabetes mellitus type 2 Elevated troponin likely ischemic demand related to above Obesity, BMI 44.5 Plan: Acute hypoxic respiratory failure secondary to COVID-19 pneumonia: Patient remained stable on ventilator. Still sedated and on paralytic. Patient still requiring 100% FiO2. Oxygenation still poor. Pulmonology has adjusted it [place] including increase IV steroids. Troponin elevated likely from ischemic demand. Cardiology plans for no significant intervention due to his current status. Care discussed with in detail with family yesterday. We will continue to update family. Still with poor prognosis. Continue supportive care at this time. Hyperglycemia secondary to prediabetes: A1c 6.1. Continue with Accu-Cheks and sliding scale. Elevated troponin likely ischemic demand related to above: Continue with above plan of care. Cardiology plans for no significant intervention at this time. Echocardiogram pending. Now on Lovenox. Will provide metoprolol as needed. Obesity, BMI 44.5: Addressed lifestyle modification education. Time Spent Managing Pts Care (In Minutes): 55
[2020-08-29] MEDS: FENTANYL CITR 100 MCG/2 ML IV PRN (10:27)
--- NOTE | 2020-08-29 12:26 | P.PN ---
Subjective Date of Service: 08/29/20 Primary Care Provider: none Chief Complaint: Respiratory failure patient is in critical condition respiratory failure maximum ventilator support chest x-ray still shows diffuse changes Review of Systems is unable to be obtained Physical Examination - Vital Signs Temperature: 98.2 F Blood Pressure: 107/76 Pulse: 97 Respirations: 30 Pulse Ox (%): 93 - Physical Exam General: Unresponsive Respiratory: Diminished, Crackles/rales - Studies Medications List Reviewed: Yes Assessment & Plan - Problems (Diagnosis) (1) Acute respiratory failure due to severe acute respiratory syndrome coronavirus 2 (SARS-CoV-2) infection Current Visit: Yes Status: Acute Plan: respiratory failure prognosis poor chest x-ray review the renal function is worse is troponin is elevated likely multi-system involvement continues to remain very hypoxic his peep was increased to 15 start tube feeds wean off paralytics
[2020-08-29] MEDS: MELATONIN 5 MG TABLET PO SCH (20:33)
[2020-08-30] MEDS: MIDAZOLAM HCL 2 MG/2 ML INJ IV PRN (01:00)
[2020-08-30] MEDS: CISATRACURIUM INJECTION 2 MG/ML (10 ML Vial) IV PRN ×3 (01:05→14:04)
[2020-08-30] MEDS: propofoL 1,000 MG/100 ML VIAL IV PRN ×6 (01:30→21:15)
[2020-08-30] MEDS: FENTANYL CITR 100 MCG/2 ML IV PRN ×4 (01:47→21:19)
[2020-08-30 05:17] LABS: Absolute Lymphocytes (CBC) 0.3 K/uL (0.7-4.9); Basophils % 0.4 % (0-1.3); Hematocrit 34.3 % (39.6-49.0); Lymphocytes % 2.1 % (15.3-44.8); MPV 10.1 fL (7.6-11.3); RBC Red Blood Cell Count 3.77 M/uL (4.33-5.43)
[2020-08-30 05:46] LABS: Albumin 2.2 g/dL (3.4-5.0); Bilirubin Total 0.6 mg/dL (0.2-1.0); C-Reactive Protein 99.3 mg/L (<3.00); Ferritin 948.7 ng/mL (26-388); Potassium 4.4 mmol/L (3.5-5.1); Protein, Total 6.4 g/dL (6.4-8.2)
[2020-08-30 05:49] LABS: Magnesium 3.6 mg/dL (1.8-2.4)
[2020-08-30] MEDS ORDERED: NACHLORIDE 0.45% 1,000 ML IV SCH ×2 (06:00→08:10)
[2020-08-30] MEDS: INSULIN -REGULAR HUMAN 50 UNIT/0.5 ML ML SQ SCH ×3 (06:39→17:59)
--- NOTE | 2020-08-30 06:39 | RAD REPORT ---
EXAM DESCRIPTION: RAD - Chest Single View - 08/30/2020 5:38 am CLINICAL HISTORY: respiratory failure COMPARISON: August 28 TECHNIQUE: AP portable chest image was obtained 08/30/2020 5:38 am . FINDINGS: Endotracheal tube is in place 5 cm above the josé- good position. NG tube extends below the diaphragm, off the field of view. Right greater than left airspace opacification in the lung smith. Lungs appear better aerated than o n the prior study. Improved imaging technique on the current study exaggerates the differential betwe en the current and prior study. Mild cardiomegaly and vascular engorgement present. Heart size is similar or improved from comparison . No pneumothorax or enlarging pleural effusion. IMPRESSION: Well-positioned endotracheal tube. NG tube extends below the diaphragm. Partial clearing of bilateral airspace opacification.
[2020-08-30] MEDS: LORazepam 2 MG/ML VIAL IV PRN ×2 (07:50→14:04)
[2020-08-30] MEDS: NACHLORIDE 0.45% 1,000 ML IV SCH (08:13)
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
[2020-08-30 08:24] LABS: Blood Morphology Comment NOT SEEN (NOT SEEN); Platelet Estimate ADEQ
[2020-08-30] MEDS: FAMOTIDINE 20 MG/2 ML VIAL IV SCH ×2 (08:57→21:19)
[2020-08-30] MEDS: ENOXAPARIN 100 MG/ML SYR SQ SCH ×2 (08:57→21:16)
[2020-08-30] MEDS: METHYLPREDNISOLONE 125 MG INJ IV SCH ×3 (08:57→21:18)
[2020-08-30] MEDS: ZINC SULFATE 220 MG CAP PO SCH (08:57)
[2020-08-30] MEDS: ASPIRIN 81 MG CHEWABLE TABLET PO SCH (08:57)
[2020-08-30] MEDS: THIAMINE HCL 100 MG TABLET PO SCH ×2 (08:57→21:18)
[2020-08-30] MEDS: ASCORBIC ACID 500 MG TABLET PO SCH ×4 (08:58→21:18)
[2020-08-30] MEDS: FLUTICASONE 50MCG NASAL SPRAY NAS SCH (08:58)
[2020-08-30] MEDS: VITAMIN D 1000 UNIT TAB PO SCH (08:58)
[2020-08-30 11:10] LABS: Arterial Blood Carboxyhemoglob 1.1 % (0-1.5); Blood Gas Oxyhemoglobin 82.4 % (94-97); Blood O2 Saturation 84.3 % (92-98.5)
[2020-08-30] MEDS ORDERED: D50W 25 GM/50 ML SYRINGE IV PRN (12:05)
[2020-08-30] MEDS ORDERED: GLUCAGON 1 MG/VIAL IM PRN (12:05)
--- NOTE | 2020-08-30 12:06 | P.PN ---
Subjective Date of Service: 08/30/20 Primary Care Provider: none Chief Complaint: Respiratory failure Patient is not doing well respiratory failure high concentrations of oxygen pulse ox is not correlating with arterial blood gases he is on maximum support right now Review of Systems is unable to be obtained Physical Examination - Vital Signs Temperature: 98.2 F Blood Pressure: 131/83 Pulse: 93 Respirations: 30 Pulse Ox (%): 82 - Studies Medications List Reviewed: Yes Assessment & Plan - Problems (Diagnosis) (1) Acute respiratory failure due to severe acute respiratory syndrome coronavirus 2 (SARS-CoV-2) infection Current Visit: Yes Status: Acute Plan: respiratory failure patient is on maximum therapy renal function is worse white count is declining chest x-rays improving advance endotracheal tube 1 cm renal function is worse had insulin Physician Review Additional Text: Physical exam: Patient remains intubated and sedated. She is also on paralytic. Heart: Regular rate and rhythm Lungs: Currently intubated and sedated Abdomen: Soft nondistended Extremities: No edema noted. Impression: Acute hypoxic respiratory failure secondary to COVID-19 pneumonia Hyperglycemia suspect diabetes mellitus type 2 Elevated troponin likely ischemic demand related to above Obesity, BMI 44.5 Plan: Acute hypoxic respiratory failure secondary to COVID-19 pneumonia: Patient remai gerry stable on ventilator. Still sedated and on paralytic. Patient still requiring 100% FiO2. Oxygenation still poor. Pulmonology has adjusted it Acacian including increase IV steroids. Troponin elevated likely from ischemic demand. Cardiology plans for no significant intervention due to his current status. Care discussed with in detail with family yesterday. We will continue to update family. Still with poor prognosis. Continue supportive care at this time. Hyperglycemia secondary to prediabetes: A1c 6.1. Continue with Accu-Cheks and sliding scale. Elevated troponin likely ischemic demand related to above: Continue with above plan of care. Cardiology plans for no significant intervention at this time. Echocardiogram pending. Now on Lovenox. Will provide metoprolol as needed. Obesity, BMI 44.5: Addressed lifestyle modification education.
--- NOTE | 2020-08-30 16:13 | P.PN ---
Subjective Date of Service: 08/30/20 Primary Care Provider: none Chief Complaint: Respiratory failure Subjective: Other (Patient remains intubated.) Physical Examination - Vital Signs Temperature: 98.2 F Blood Pressure: 124/79 Pulse: 86 Respirations: 28 Pulse Ox (%): 84 - Studies Medications List Reviewed: Yes Assessment & Plan Discharge Plan: Home Plan to discharge in: Greater than 2 days Physician Review Additional Text: Physical exam: Patient remains intubated and sedated. Heart: Regular rate and rhythm Lungs: Currently intubated and sedated patient on 100% FiO2. Abdomen: Soft nondistended Extremities: No edema noted. Impression: Acute hypoxic respiratory failure secondary to COVID-19 pneumonia Hyperglycemia suspect diabetes mellitus type 2 Elevated troponin likely ischemic demand related to above Acute renal sufficiency Obesity, BMI 44.5 Plan: Acute hypoxic respiratory failure secondary to COVID-19 pneumonia: Patient remains intubated. Continue current plan of weaning process. Continuum of the patient closely. Case discussed with pulmonology. Pulmonology to further wean off ventilator. Nurses report patient was able to follow some commands off sedation. Continue IV steroids. Renal function compromised. Likely some deh ydration. Will start IV fluids. Nephrology consulted to help in the process. Will continue to update family. Hyperglycemia secondary to prediabetes: A1c 6.1. Continue with Accu-Cheks and sliding scale. Elevated troponin likely ischemic demand related to above: Continue with above plan of care. Cardiology plans for no significant intervention at this time. Echocardiogram pending. Now on Lovenox. Will provide metoprolol as needed. Acute renal insufficiency: Will start IV fluids. Nephrology consulted. Await further recommendations. Obesity, BMI 44.5: Addressed lifestyle modification education. Time Spent Managing Pts Care (In Minutes): 55
[2020-08-30] MEDS: INSULIN 70/30 100 UNITS/ML SQ SCH (17:58)
[2020-08-30] MEDS: VITAL AF 1,000 ML BOT RTH SCH (21:17)
[2020-08-30] MEDS: MELATONIN 5 MG TABLET PO SCH (21:19)
[2020-08-31] MEDS: propofoL 1,000 MG/100 ML VIAL IV PRN ×6 (01:01→19:58)
[2020-08-31] MEDS: FENTANYL CITR 100 MCG/2 ML IV PRN ×2 (02:10→07:45)
[2020-08-31] MEDS: NACHLORIDE 0.45% 1,000 ML IV SCH (02:15)
[2020-08-31 05:24] LABS: Absolute Lymphocytes (CBC) 0.2 K/uL (0.7-4.9); Basophils % 0.3 % (0-1.3); Hematocrit 33.8 % (39.6-49.0); Lymphocytes % 1.6 % (15.3-44.8); MPV 10.7 fL (7.6-11.3); RBC Red Blood Cell Count 3.69 M/uL (4.33-5.43)
[2020-08-31] MEDS: LORazepam 2 MG/ML VIAL IV PRN ×3 (05:25→11:21)
[2020-08-31 05:53] LABS: Albumin 2.1 g/dL (3.4-5.0); Bilirubin Total 0.5 mg/dL (0.2-1.0); C-Reactive Protein 43.5 mg/L (<3.00); Ferritin 866.6 ng/mL (26-388); Magnesium 3.5 mg/dL (1.8-2.4); Phosphorus 4.6 mg/dL (2.5-4.9); Potassium 4.6 mmol/L (3.5-5.1); Protein, Total 6.1 g/dL (6.4-8.2)
[2020-08-31 06:09] LABS: Blood Gas Oxyhemoglobin 77.7 % (94-97); Blood O2 Saturation 79.4 % (92-98.5)
[2020-08-31] MEDS: INSULIN -REGULAR HUMAN 50 UNIT/0.5 ML ML SQ SCH ×5 (06:10→23:45)
[2020-08-31] MEDS: ASCORBIC ACID 500 MG TABLET PO SCH ×4 (07:44→19:59)
[2020-08-31] MEDS: ASPIRIN 81 MG CHEWABLE TABLET PO SCH (07:44)
[2020-08-31] MEDS: THIAMINE HCL 100 MG TABLET PO SCH ×2 (07:44→19:59)
[2020-08-31] MEDS: VITAMIN D 1000 UNIT TAB PO SCH (07:44)
[2020-08-31] MEDS: ZINC SULFATE 220 MG CAP PO SCH (07:44)
[2020-08-31] MEDS: ENOXAPARIN 100 MG/ML SYR SQ SCH ×2 (07:45→19:59)
[2020-08-31] MEDS: METHYLPREDNISOLONE 125 MG INJ IV SCH ×3 (07:45→19:59)
[2020-08-31] MEDS: INSULIN 70/30 100 UNITS/ML SQ SCH ×2 (07:46→17:12)
[2020-08-31] MEDS: FAMOTIDINE 20 MG/2 ML VIAL IV SCH ×2 (07:46→19:59)
[2020-08-31] MEDS: CISATRACURIUM INJECTION 2 MG/ML (10 ML Vial) IV PRN ×2 (08:30→11:22)
--- NOTE | 2020-08-31 08:49 | RAD REPORT ---
EXAM DESCRIPTION: RAD - Chest Single View - 08/31/2020 5:17 am CLINICAL HISTORY: respiratory failure Chest pain. COMPARISON: Chest Single View dated 08/30/2020; Chest Single View dated 08/28/2020; Chest Single View dated 08/25/2020; Chest Single View dated 08/24/2020 FINDINGS: Portable technique limits examination quality. Since 08/30/2020, little overall change is seen in extensive bilateral pulmonary opacities. Tip of th e endotracheal tube is above the josé. Enteric tube descends in the stomach. Mild subcutaneous emph ysema and probable of pneumomediastinum seen.
[2020-08-31] MEDS: MIDAZOLAM HCL 2 MG/2 ML INJ IV PRN (11:21)
[2020-08-31] MEDS: CISATRACURIUM BESYLATE 80 MG in NA CHLORIDE 0.9% 160 ML IV PRN ×3 (11:34→23:03)
--- NOTE | 2020-08-31 13:46 | P.PN ---
Subjective Date of Service: 08/31/20 Primary Care Provider: none Chief Complaint: Respiratory failure Patient is not doing well still very hypoxic requiring high concentrations of oxygen requiring paralytic agents Review of Systems is unable to be obtained Physical Examination - Vital Signs Temperature: 97.6 F Blood Pressure: 142/84 Pulse: 95 Respirations: 28 Pulse Ox (%): 82 - Studies Medications List Reviewed: Yes Assessment & Plan - Problems (Diagnosis) (1) Acute respiratory failure due to severe acute respiratory syndrome coronavirus 2 (SARS-CoV-2) infection Current Visit: Yes Status: Acute Plan: Respiratory failure prognosis poor tracheal tube has been advanced via 1.5 cm renal function is better blood sugars around 200 white count is mildly elevated patient is on IV fluids blood pressure stable increase insulin
--- NOTE | 2020-08-31 14:07 | P.PN ---
Subjective Date of Service: 08/31/20 Primary Care Provider: none Chief Complaint: Respiratory failure Subjective: Other (No significant change. Patient remains intubated) Physical Examination - Vital Signs Temperature: 98.2 F Blood Pressure: 131/83 Pulse: 93 Respirations: 30 Pulse Ox (%): 82 - Studies Medications List Reviewed: Yes Assessment & Plan Discharge Plan: Home Plan to discharge in: Greater than 2 days Physician Review Additional Text: Physical exam: Patient remains intubated and sedated. Heart: Regular rate and rhythm Lungs: Currently intubated and sedated Abdomen: Soft nondistended Extremities: No edema noted. Impression: Acute hypoxic respiratory failure secondary to COVID-19 pneumonia Hyperglycemia suspect diabetes mellitus type 2 Elevated troponin likely ischemic demand related to above Obesity, BMI 44.5 Plan: Acute hypoxic respiratory failure secondary to COVID-19 pneumonia: Patient remains intubated at this time. Continue with plan of care of IV steroids and supplementation. Pulmonary continues to address vent settings. Will monitor closely. Care discussed with family yesterday. Nurse reports that family is considering convalescent plasma. If they agree will pursue this. We will continue to monitor closely. Patient still with poor prognosis. Hyperglycemia secondary to prediabetes: A1c 6.1. Continue with Accu-Cheks and sliding scale. Elevated troponin likely ischemic demand related to above: Continue with above plan of care. Cardiology plans for no significant intervention at this time. Echocardiogram pending. Now on Lovenox. Will provide metoprolol as needed. Obesity, BMI 44.5: Addressed lifestyle modification education. Time Spent Managing Pts Care (In Minutes): 55
--- NOTE | 2020-08-31 14:45 | RAD REPORT ---
EXAM DESCRIPTION: RAD - Chest Single View - 08/31/2020 2:25 pm CLINICAL HISTORY: Device placement PICC line placement IMPRESSION: PICC line with its tip in the distal superior vena cava An endotracheal tube has its tip 1 centimeter above the level of top of the aortic arch Nasogastric tube within proximal stomach
[2020-08-31] MEDS ORDERED: NA CHLORIDE 0.9% 250 ML ONE (17:58)
--- NOTE | 2020-08-31 21:53 | P.PN ---
Date of Service: 08/31/20 Vital Signs Temp Pulse Resp BP Pulse Ox 98.1 F 99 H 28 H 144/78 H 86 L 08/31/20 20:00 08/31/20 20:00 08/31/20 20:00 08/31/20 20:00 08/31/20 20:00 Medications Acetaminophen (Acetaminophen 500 Mg Tab) 500 mg PO Q4HP PRN PRN Reason: TEMP > 101' F Last Admin: 08/27/20 10:44 Dose: 500 mg Documented by: Ascorbic Acid (Ascorbic Acid 500 Mg Tablet) 500 mg PO QID [facility] Last Admin: 08/31/20 19:59 Dose: 500 mg Documented by: Aspirin (Aspirin 81 Mg Chewable Tablet) 162 mg PO DAILY [facility] Last Admin: 08/31/20 07:44 Dose: 162 mg Documented by: Benzonatate (Benzonatate 100 Mg Cap) 100 mg PO TID PRN PRN Reason: COUGH Last Admin: 08/19/20 19:55 Dose: 100 mg Documented by: Cholecalciferol (Vitamin D 1000 Unit Tab) 4,000 unit PO DAILY [facility] Last Admin: 08/31/20 07:44 Dose: 4,000 unit Documented by: Cisatracurium Besylate (Cisatracurium Injection 2 Mg/Ml (10 Ml Vial)) 4 mg IV Q2H PRN PRN Reason: AGITATION Last Admin: 08/31/20 11:22 Dose: 4 mg Documented by: Dextrose (D50w 25 Gm/50 Ml Vial) 12.5 gm IV PRN PRN; Protocol PRN Reason: HYPOGLYCEMIA Enoxaparin Sodium (Enoxaparin 100 Mg/Ml Syr) 90 mg 1 mg/kg (90 mg) SQ Q12HR [facility] Last Admin: 08/31/20 19:59 Dose: 90 mg Documented by: Famotidine (Famotidine 20 Mg/2 Ml Vial) 20 mg IV BID [facility] Last Admin: 08/31/20 19:59 Dose: 20 mg Documented by: Fentanyl Citrate (Fentanyl Citr 100 Mcg/2 Ml) 25 mcg IV Q4HP PRN PRN Reason: Pain scale 8-10 (Severe) Last Admin: 08/31/20 07:45 Dose: 25 mcg Documented by: Glucagon (Glucagon 1 Mg/Vial) 1 mg IM 1X PRN; Protocol PRN Reason: HYPOGLYCEMIA Haloperidol Lactate (Haloperidol Lact 5 Mg/Ml Inj) 2 mg IV Q4HP PRN PRN Reason: AGITATION Last Admin: 08/28/20 03:01 Dose: 2 mg Documented by: Hydralazine HCl (Hydralazine Hcl 20 Mg/Ml Vial) 10 mg IV Q6HP PRN PRN Reason: Titrate to SBP (MUST DEFINE) Last Admin: 08/23/20 00:19 Dose: 10 mg Documented by: Propofol (Diprivan) 1,000 mg in 100 mls @ 0 mls/hr IV PRN PRN; Protocol PRN Reason: SEDATION Last Admin: 08/31/20 19:58 Dose: 100 mls Documented by: Sodium Chloride (Sodium Chloride) 250 mls @ 999 mls/hr IV Q15M PRN PRN Reason: HYPOTENSION Cisatracurium Besylate 80 mg/ (Sodium Chloride) 200 mls @ 0 mls/hr IV PRN PRN; Protocol PRN Reason: NEUROMUSCULAR BLOCKAGE Last Admin: 08/31/20 18:46 Dose: 200 mls Documented by: Sodium Chloride (Sodium Chloride 0.45%) 1,000 mls @ 50 mls/hr IV .Q20H [facility] Last Admin: 08/31/20 02:15 Dose: 1,000 mls Documented by: Insulin Human Isoph/Insulin Regular (Insulin 70/30 100 Units/Ml) 20 unit SQ BIDAC [facility] Last Admin: 08/31/20 17:12 Dose: 20 units Documented by: Insulin Human Regular (Insulin -Regular Human 50 Unit/0.5 Ml Ml) 0 unit SQ Q6H GINA; Protocol Last Admin: 08/31/20 17:12 Dose: 2 unit Documented by: Lorazepam (Lorazepam 2 Mg/Ml Vial) 2 mg IV Q2HP PRN PRN Reason: SEDATION Last Admin: 08/31/20 11:21 Dose: 2 mg Documented by: Methylprednisolone Sodium Succinate (Methylprednisolone 125 Mg Inj) 250 mg IV TID [facility] Last Admin: 08/31/20 19:59 Dose: 250 mg Documented by: Metoprolol Tartrate (Metoprolol Tartrate 5 Mg/5 Ml Inj) 2.5 mg IV Q6H PRN PRN Reason: Titrate to SBP (MUST DEFINE) Last Admin: 08/28/20 09:09 Dose: 2.5 mg Documented by: Midazolam HCl (Midazolam Hcl 2 Mg/2 Ml Inj) 2 mg IV Q2HP PRN PRN Reason: SEDATION Last Admin: 08/31/20 11:21 Dose: 2 mg Documented by: Nutritional Formula (Vital Af 1,000 Ml Bot) 1,000 ml RTH CONT [facility] Last Admin: 08/30/20 21:17 Dose: 1,000 ml Documented by: Ondansetron HCl (Ondansetron 4 Mg/2 Ml Vial) 4 mg IV Q6HP PRN PRN Reason: NAUSEA / VOMITING Oxymetazoline HCl (Oxymetazoline Hcl 0.05% 15ml) 1 appl [place] BID PRN PRN Reason: NASAL CONGESTION Last Admin: 08/24/20 20:14 Dose: 1 edmundo Documented by: Sodium Chloride (Flush Normal Saline 10 Ml) 10 ml IV BID [facility] Last Admin: 08/31/20 20:00 Dose: 10 ml Documented by: Thiamine HCl (Thiamine Hcl 100 Mg Tablet) 100 mg PO BID [facility] Last Admin: 08/31/20 19:59 Dose: 100 mg Documented by: Zinc Sulfate (Zinc Sulfate 220 Mg Cap) 220 mg PO DAILY [facility] Last Admin: 08/31/20 07:44 Dose: 220 mg Documented by: Microbiology Results 08/18/20 16:18 Blood - Blood Aerobic Blood Culture - Final No growth in 5 days. 08/18/20 16:18 Blood - Blood Anaerobic Blood Culture - Final No growth in 5 days. 08/18/20 16:36 Blood - Blood Aerobic Blood Culture - Final No growth in 5 days. 08/18/20 16:36 Blood - Blood Anaerobic Blood Culture - Final No growth in 5 days. Assessment/ Plan: Nephrology Limited IH/ ROS due to AMS/ Sedation No acute events overnight. Vitals, medications, blood work and imaging reviewed in the chart. General: Unresponsive HEENT: Atraumatic Neck: No Thyromegaly Respiratory: Diminished Cardiovascular: Regular rate/rhythm Gastrointestinal: Soft and benign, Non-distended Musculoskeletal: No clubbing, No contractures Integumentary: No rashes, No cyanosis Neurological: Normal tone Blood work reviewed in the chart. Imagings Data: EXAM DESCRIPTION: RAD - Chest Single View - 08/30/2020 5:38 am CLINICAL HISTORY: respiratory failure COMPARISON: August 28 TECHNIQUE: AP portable chest image was obtained 08/30/2020 5:38 am . FINDINGS: Endotracheal tube is in place 5 cm above the josé- good position. NG tube extends below the diaphragm, off the field of view. Right greater than left airspace opacification in the lung smith. Lungs appear better aerated than on the prior study. Improved imaging technique on the current study exaggerates the differential between the current and prior study. Mild cardiomegaly and vascular engorgement present. Heart size is similar or improved from comparison. No pneumothorax or enlarging pleural effusion IMPRESSION: Well-positioned endotracheal tube. NG tube extends below the diaphragm. Partial clearing of bilateral airspace opacification. Conclusions/Impression: A/P ARMANI likely due to hypovolemia -Continue gentle IVF Hypocalcemia -Continue Vitamin D3 HTN -Continue IV metoprolol DM II -Continue Insulin 70/30 -Continue RISS Moderate malnutrition -Maintain nutrition Anemia in chronic illness -Monitor H&H COVID-19 PNA Acute hypoxic respiratory failure -Intubation with ventilatory support -Continue steroids Toxic metabolic encephalopathy -Continue sedation due to ARF/ Intubation Case reviewed with Dr. Sanchez. Greater than 30min patient care.
[2020-09-01] MEDS: NACHLORIDE 0.45% 1,000 ML IV SCH (00:13)
[2020-09-01] MEDS: VITAL AF 1,000 ML BOT RTH SCH (00:30)
[2020-09-01] MEDS: CISATRACURIUM BESYLATE 80 MG in NA CHLORIDE 0.9% 160 ML IV PRN ×2 (04:41→16:12)
[2020-09-01 05:29] LABS: Arterial Blood Carboxyhemoglob 1.1 % (0-1.5); Blood Gas Oxyhemoglobin 88.8 % (94-97)
[2020-09-01] MEDS: INSULIN -REGULAR HUMAN 50 UNIT/0.5 ML ML SQ SCH ×4 (06:00→23:51)
[2020-09-01 06:29] LABS: Absolute Lymphocytes (CBC) 0.4 K/uL (0.7-4.9); Basophils % 0.8 % (0-1.3); Hematocrit 34.6 % (39.6-49.0); Lymphocytes % 3.7 % (15.3-44.8); RBC Red Blood Cell Count 3.76 M/uL (4.33-5.43)
[2020-09-01 06:43] LABS: BUN Blood Urea Nitrogen 38 mg/dL (7-18); Bicarbonate 32 mmol/L (21-32); Ferritin 708.4 ng/mL (26-388); Glucose Level 213 mg/dL (74-106); Magnesium 3.2 mg/dL (1.8-2.4); Phosphorus 3.2 mg/dL (2.5-4.9); Potassium 4.9 mmol/L (3.5-5.1); Sodium Level 139 mmol/L (136-145)
[2020-09-01] MEDS: propofoL 1,000 MG/100 ML VIAL IV PRN ×5 (07:27→21:34)
[2020-09-01] MEDS: INSULIN 70/30 100 UNITS/ML SQ SCH ×2 (07:30→16:27)
[2020-09-01] MEDS ORDERED: SOD POLYSTYREN SUL 15 GM/60 ML UCUP FT ONE (08:02)
[2020-09-01] MEDS: THIAMINE HCL 100 MG TABLET PO SCH ×2 (08:27→19:58)
[2020-09-01] MEDS: ASPIRIN 81 MG CHEWABLE TABLET PO SCH (08:27)
[2020-09-01] MEDS: ASCORBIC ACID 500 MG TABLET PO SCH ×4 (08:27→19:58)
[2020-09-01] MEDS: VITAMIN D 1000 UNIT TAB PO SCH (08:28)
[2020-09-01] MEDS: ZINC SULFATE 220 MG CAP PO SCH (08:28)
[2020-09-01] MEDS: FAMOTIDINE 20 MG/2 ML VIAL IV SCH ×2 (08:28→19:58)
[2020-09-01] MEDS: METHYLPREDNISOLONE 125 MG INJ IV SCH ×4 (08:28→19:58)
[2020-09-01] MEDS: ENOXAPARIN 100 MG/ML SYR SQ SCH ×2 (08:29→19:57)
--- NOTE | 2020-09-01 09:02 | RAD REPORT ---
EXAM DESCRIPTION: RAD - Chest Single View - 09/01/2020 5:40 am CLINICAL HISTORY: respiratory failure Chest pain. COMPARISON: Chest Single View dated 08/31/2020; Chest Single View dated 08/31/2020; Chest Single View dated 08/30/2020; Chest Single View dated 08/28/2020 FINDINGS: Portable technique limits examination quality. Tip of the endotracheal tube is unchanged from yesterday's study and lies 1 cm above the level of the superior aortic arch. Enteric tube descends into the stomach. Right-sided PICC line is stable in pos ition. Bilateral pulmonary opacities persists, slightly progressive since comparative study.
[2020-09-01] MEDS: FENTANYL CITR 100 MCG/2 ML IV PRN ×3 (10:59→21:12)
[2020-09-01] MEDS: LORazepam 2 MG/ML VIAL IV PRN ×2 (12:43→19:30)
--- NOTE | 2020-09-01 13:40 | P.PN ---
Subjective Date of Service: 09/01/20 Primary Care Provider: none Chief Complaint: Respiratory failure Condition stable still requiring high concentration of oxygen on paralytic agents Review of Systems is unable to be obtained Physical Examination - Vital Signs Temperature: 97.2 F Blood Pressure: 129/81 Pulse: 105 Respirations: 27 Pulse Ox (%): 81 - Physical Exam General: Unresponsive Respiratory: Clear to auscultation bilaterally, Diminished - Studies Medications List Reviewed: Yes Assessment & Plan - Problems (Diagnosis) (1) Acute respiratory failure due to severe acute respiratory syndrome coronavirus 2 (SARS-CoV-2) infection Current Visit: Yes Status: Acute Plan: Respiratory failure advance endotracheal tube 1.5 cm no change in his chest x- ray appearance the reduce dose of Solu-Medrol add slow Rocephin and Diflucan labs reviewed 100% FiO2 continues to remain very hypoxic patient is in a peep of 15 cm on a on tube feeds
[2020-09-01] MEDS: CEFTRIAXONE/SWI 1gm 1 GM/10 ML SYR IVP SCH (14:00)
[2020-09-01] MEDS: CISATRACURIUM INJECTION 2 MG/ML (10 ML Vial) IV PRN ×2 (14:43→17:45)
--- NOTE | 2020-09-01 16:03 | P.PN ---
Subjective Date of Service: 09/01/20 Primary Care Provider: none Chief Complaint: Respiratory failure Subjective: Other (No significant change. Patient remains intubated.) Physical Examination - Vital Signs Temperature: 97.2 F Blood Pressure: 115/78 Pulse: 105 Respirations: 16 Pulse Ox (%): 83 - Studies Medications List Reviewed: Yes Assessment & Plan Discharge Plan: Home Plan to discharge in: Greater than 2 days Physician Review Additional Text: Physical exam: Patient remains intubated and sedated. Heart: Regular rate and rhythm Lungs: Currently intubated and sedated Abdomen: Soft nondistended Extremities: No edema noted. Impression: Acute hypoxic respiratory failure secondary to COVID-19 pneumonia Hyperglycemia suspect diabetes mellitus type 2 Elevated troponin likely ischemic demand related to above Acute renal insufficiency likely dehydration Obesity, BMI 44.5 Plan: Acute hypoxic respiratory failure secondary to COVID-19 pneumonia: No significant change in status. Patient remains intubated. Pulmonology plans to adjust IV steroids. Antifungal and antibacterial medication added due to chronic steroid use and risk of opportunistic infection. Patient received convalescent plasma yesterday. Continue with weaning process. Continue with plan of care. Case discussed with nephrology. Nephrology will discontinue IV fluids as renal function improved. Patient overall stable. I will turn the service over to the hospitalist team tomorrow. I will go plan of care with him. Hyperglycemia secondary to prediabetes: A1c 6.1. Continue with Accu-Cheks and sliding scale. Elevated troponin likely ischemic demand related to above: Continue with above plan of care. Cardiology plans for no significant intervention at this time. Echocardiogram pending. Now on Lovenox. Will provide metoprolol as needed. Acute renal insufficiency likely dehydration: Nephrology has discontinued IV fluids. Renal function back to baseline. We will continue to monitor. Obesity, BMI 44.5: Addressed lifestyle modification education. Time Spent Managing Pts Care (In Minutes): 55
[2020-09-01] MEDS: MIDAZOLAM HCL 2 MG/2 ML INJ IV PRN (20:22)
--- NOTE | 2020-09-01 23:13 | P.PN ---
Date of Service: 09/01/20 Vital Signs Temp Pulse Resp BP Pulse Ox 97.4 F 88 19 116/85 85 L 09/01/20 20:00 09/01/20 22:00 09/01/20 22:00 09/01/20 22:00 09/01/20 22:00 Medications Acetaminophen (Acetaminophen 500 Mg Tab) 500 mg PO Q4HP PRN PRN Reason: TEMP > 101' F Last Admin: 08/27/20 10:44 Dose: 500 mg Documented by: Ascorbic Acid (Ascorbic Acid 500 Mg Tablet) 500 mg PO QID [facility] Last Admin: 09/01/20 19:58 Dose: 500 mg Documented by: Aspirin (Aspirin 81 Mg Chewable Tablet) 162 mg PO DAILY [facility] Last Admin: 09/01/20 08:27 Dose: 162 mg Documented by: Benzonatate (Benzonatate 100 Mg Cap) 100 mg PO TID PRN PRN Reason: COUGH Last Admin: 08/19/20 19:55 Dose: 100 mg Documented by: Cholecalciferol (Vitamin D 1000 Unit Tab) 4,000 unit PO DAILY [facility] Last Admin: 09/01/20 08:28 Dose: 4,000 unit Documented by: Cisatracurium Besylate (Cisatracurium Injection 2 Mg/Ml (10 Ml Vial)) 4 mg IV Q2H PRN PRN Reason: AGITATION Last Admin: 09/01/20 17:45 Dose: 4 mg Documented by: Dextrose (D50w 25 Gm/50 Ml Vial) 12.5 gm IV PRN PRN; Protocol PRN Reason: HYPOGLYCEMIA Enoxaparin Sodium (Enoxaparin 100 Mg/Ml Syr) 90 mg 1 mg/kg (90 mg) SQ Q12HR [facility] Last Admin: 09/01/20 19:57 Dose: 90 mg Documented by: Famotidine (Famotidine 20 Mg/2 Ml Vial) 20 mg IV BID [facility] Last Admin: 09/01/20 19:58 Dose: 20 mg Documented by: Fentanyl Citrate (Fentanyl Citr 100 Mcg/2 Ml) 25 mcg IV Q4HP PRN PRN Reason: Pain scale 8-10 (Severe) Last Admin: 09/01/20 21:12 Dose: 25 mcg Documented by: Fluconazole (Fluconazole 100 Mg Tab) 200 mg PO DAILY [facility]; Protocol Glucagon (Glucagon 1 Mg/Vial) 1 mg IM 1X PRN; Protocol PRN Reason: HYPOGLYCEMIA Haloperidol Lactate (Haloperidol Lact 5 Mg/Ml Inj) 2 mg IV Q4HP PRN PRN Reason: AGITATION Last Admin: 08/28/20 03:01 Dose: 2 mg Documented by: Hydralazine HCl (Hydralazine Hcl 20 Mg/Ml Vial) 10 mg IV Q6HP PRN PRN Reason: Titrate to SBP (MUST DEFINE) Last Admin: 08/23/20 00:19 Dose: 10 mg Documented by: Propofol (Diprivan) 1,000 mg in 100 mls @ 0 mls/hr IV PRN PRN; Protocol PRN Reason: SEDATION Last Admin: 09/01/20 21:34 Dose: 100 mls Documented by: Sodium Chloride (Sodium Chloride) 250 mls @ 999 mls/hr IV Q15M PRN PRN Reason: HYPOTENSION Cisatracurium Besylate 80 mg/ (Sodium Chloride) 200 mls @ 0 mls/hr IV PRN PRN; Protocol PRN Reason: NEUROMUSCULAR BLOCKAGE Last Admin: 09/01/20 16:12 Dose: 200 mls Documented by: Ceftriaxone Sodium/Sodium Chloride (Rocephin 1 Gm/10 Ml Swi Ivp) 1 gm in 10 mls @ 600 mls/hr IVP DAILY [facility]; Protocol Last Admin: 09/01/20 14:00 Dose: 10 mls Documented by: Insulin Human Isoph/Insulin Regular (Insulin 70/30 100 Units/Ml) 20 unit SQ BIDAC [facility] Last Admin: 09/01/20 16:27 Dose: 20 units Documented by: Insulin Human Regular (Insulin -Regular Human 50 Unit/0.5 Ml Ml) 0 unit SQ Q6H [facility]; Protocol Last Admin: 09/01/20 17:13 Dose: Not Given Documented by: Lorazepam (Lorazepam 2 Mg/Ml Vial) 2 mg IV Q2HP PRN PRN Reason: SEDATION Last Admin: 09/01/20 19:30 Dose: 2 mg Documented by: Methylprednisolone Sodium Succinate (Methylprednisolone 125 Mg Inj) 125 mg IV TID [facility] Last Admin: 09/01/20 19:58 Dose: 125 mg Documented by: Metoprolol Tartrate (Metoprolol Tartrate 5 Mg/5 Ml Inj) 2.5 mg IV Q6H PRN PRN Reason: Titrate to SBP (MUST DEFINE) Last Admin: 08/28/20 09:09 Dose: 2.5 mg Documented by: Midazolam HCl (Midazolam Hcl 2 Mg/2 Ml Inj) 2 mg IV Q2HP PRN PRN Reason: SEDATION Last Admin: 09/01/20 20:22 Dose: 2 mg Documented by: Nutritional Formula (Vital Af 1,000 Ml Bot) 1,000 ml RTH CONT [facility] Last Admin: 09/01/20 00:30 Dose: 1,000 ml Documented by: Ondansetron HCl (Ondansetron 4 Mg/2 Ml Vial) 4 mg IV Q6HP PRN PRN Reason: NAUSEA / VOMITING Oxymetazoline HCl (Oxymetazoline Hcl 0.05% 15ml) 1 appl [place] BID PRN PRN Reason: NASAL CONGESTION Last Admin: 08/24/20 20:14 Dose: 1 edmundo Documented by: Sodium Chloride (Flush Normal Saline 10 Ml) 10 ml IV BID [facility] Last Admin: 09/01/20 19:57 Dose: 10 ml Documented by: Thiamine HCl (Thiamine Hcl 100 Mg Tablet) 100 mg PO BID [facility] Last Admin: 09/01/20 19:58 Dose: 100 mg Documented by: Zinc Sulfate (Zinc Sulfate 220 Mg Cap) 220 mg PO DAILY [facility] Last Admin: 09/01/20 08:28 Dose: 220 mg Documented by: Microbiology Results 08/18/20 16:18 Blood - Blood Aerobic Blood Culture - Final No growth in 5 days. 08/18/20 16:18 Blood - Blood Anaerobic Blood Culture - Final No growth in 5 days. 08/18/20 16:36 Blood - Blood Aerobic Blood Culture - Final No growth in 5 days. 08/18/20 16:36 Blood - Blood Anaerobic Blood Culture - Final No growth in 5 days. Assessment/ Plan: Nephrology Limited IH/ ROS due to AMS/ Sedation No acute events overnight. Vitals, medications, blood work and imaging reviewed in the chart. General: Unresponsive HEENT: Atraumatic Neck: No Thyromegaly Respiratory: Diminished Cardiovascular: Regular rate/rhythm Gastrointestinal: Soft and benign, Non-distended Musculoskeletal: No clubbing, No contractures Integumentary: No rashes, No cyanosis Neurological: Normal tone Blood work reviewed in the chart. Imagings Data: EXAM DESCRIPTION: RAD - Chest Single View - 08/30/2020 5:38 am CLINICAL HISTORY: respiratory failure COMPARISON: August 28 TECHNIQUE: AP portable chest image was obtained 08/30/2020 5:38 am . FINDINGS: Endotracheal tube is in place 5 cm above the josé- good position. NG tube extends below the diaphragm, off the field of view. Right greater than left airspace opacification in the lung smith. Lungs appear better aerated than on the prior study. Improved imaging technique on the current study exaggerates the differential between the current and prior study. Mild cardiomegaly and vascular engorgement present. Heart size is similar or improved from comparison. No pneumothorax or enlarging pleural effusion IMPRESSION: Well-positioned endotracheal tube. NG tube extends below the diaphragm. Partial clearing of bilateral airspace opacification. Conclusions/Impression: A/P ARMANI likely due to hypovolemia -Discontinue IVF Hypocalcemia -Continue Vitamin D3 HTN -Continue IV metoprolol DM II -Continue Insulin 70/30 -Continue RISS Moderate malnutrition -Maintain nutrition Anemia in chronic illness -Monitor H&H COVID-19 PNA Acute hypoxic respiratory failure -Intubation with ventilatory support -Continue steroids Toxic metabolic encephalopathy -Continue sedation due to ARF/ Intubation Case reviewed with Dr. Sanchez. Greater than 30min patient care.
[2020-09-02] MEDS: LORazepam 2 MG/ML VIAL IV PRN ×4 (00:55→13:38)
[2020-09-02] MEDS: propofoL 1,000 MG/100 ML VIAL IV PRN ×4 (02:29→18:25)
[2020-09-02] MEDS: FENTANYL CITR 100 MCG/2 ML IV PRN ×3 (04:00→14:04)
[2020-09-02] MEDS: MIDAZOLAM HCL 2 MG/2 ML INJ IV PRN ×5 (04:00→23:33)
[2020-09-02 05:08] LABS: Absolute Lymphocytes (CBC) 0.5 K/uL (0.7-4.9); Basophils % 0.5 % (0-1.3); Hematocrit 33.3 % (39.6-49.0); Lymphocytes % 3.5 % (15.3-44.8); MPV 10.5 fL (7.6-11.3); RBC Red Blood Cell Count 3.59 M/uL (4.33-5.43)
[2020-09-02] MEDS: CISATRACURIUM BESYLATE 80 MG in NA CHLORIDE 0.9% 160 ML IV PRN ×3 (05:34→23:26)
[2020-09-02 05:39] LABS: BUN Blood Urea Nitrogen 35 mg/dL (7-18); Bicarbonate 34 mmol/L (21-32); Ferritin 664.1 ng/mL (26-388); Glucose Level 180 mg/dL (74-106); Magnesium 3.1 mg/dL (1.8-2.4); Phosphorus 3.9 mg/dL (2.5-4.9); Potassium 4.7 mmol/L (3.5-5.1); Sodium Level 142 mmol/L (136-145)
[2020-09-02] MEDS: INSULIN -REGULAR HUMAN 50 UNIT/0.5 ML ML SQ SCH ×3 (05:59→16:32)
[2020-09-02] MEDS: VITAL AF 1,000 ML BOT RTH SCH (06:00)
[2020-09-02 06:48] LABS: Arterial Blood Carboxyhemoglob 1.3 % (0-1.5); Blood Gas Oxyhemoglobin 90.5 % (94-97); Blood O2 Saturation 92.7 % (92-98.5)
--- NOTE | 2020-09-02 07:46 | RAD REPORT ---
EXAM DESCRIPTION: RAD - Chest Single View - 09/02/2020 7:10 am CLINICAL HISTORY: respiratory failure COMPARISON: September 01 TECHNIQUE: AP portable chest image was obtained 09/02/2020 7:10 am . FINDINGS: Endotracheal tube is in place with no change in positioning. This is approximately 6 cm ab ove the josé and 1 centimeter superior to the aortic arch, neither structure well-visualized on thi s exam. NG/OG tube extends below the diaphragm. Lung volumes are low. Patchy lung parenchymal opacification is present. Right lung field is stable. L eft lung field is fractionally improved. Heart size is prominent but stable. No measurable pleural ef fusion and no pneumothorax. IMPRESSION: Stable positioning of the endotracheal tube as detailed. NG tube extends below the diaph ragm. Patchy lung parenchymal opacification stable to fractionally improved.
[2020-09-02] MEDS: ZINC SULFATE 220 MG CAP PO SCH (08:38)
[2020-09-02] MEDS: INSULIN 70/30 100 UNITS/ML SQ SCH ×2 (08:38→16:31)
[2020-09-02] MEDS: ASPIRIN 81 MG CHEWABLE TABLET PO SCH (08:38)
[2020-09-02] MEDS: ASCORBIC ACID 500 MG TABLET PO SCH ×4 (08:39→19:38)
[2020-09-02] MEDS: FAMOTIDINE 20 MG/2 ML VIAL IV SCH ×2 (08:39→19:37)
[2020-09-02] MEDS: VITAMIN D 1000 UNIT TAB PO SCH (08:40)
[2020-09-02] MEDS: THIAMINE HCL 100 MG TABLET PO SCH ×2 (08:40→19:38)
[2020-09-02] MEDS: CEFTRIAXONE/SWI 1gm 1 GM/10 ML SYR IVP SCH (08:41)
[2020-09-02] MEDS: ENOXAPARIN 100 MG/ML SYR SQ SCH (08:42)
[2020-09-02] MEDS: METHYLPREDNISOLONE 125 MG INJ IV SCH ×3 (08:42→19:37)
[2020-09-02] MEDS: FLUCONAZOLE 100 MG TAB PO SCH (08:42)
[2020-09-02] MEDS: APIXABAN 5 MG TABLET PO SCH ×2 (09:00→19:37)
--- NOTE | 2020-09-02 10:29 | P.PN ---
Subjective Date of Service: 09/02/20 Primary Care Provider: none Chief Complaint: Respiratory failure Subjective: No new changes (Patient is still on mechanical ventilator. Opening eyes to sternal rub.) Review of Systems is unable to be obtained Physical Examination - Vital Signs Temperature: 98.0 F Blood Pressure: 127/90 Pulse: 90 Respirations: 28 Pulse Ox (%): 100 - Physical Exam General: Other (sedated) HEENT: Atraumatic, Normocephalic Respiratory: Diminished, Other (mechanically ventilated) Cardiovascular: No edema, Regular rate/rhythm, Normal S1 S2 Gastrointestinal: Soft and benign, Non-distended, No tenderness - Studies Medications List Reviewed: Yes Assessment & Plan Physician Review Additional Text: Impression: Acute hypoxic respiratory failure secondary to COVID-19 pneumonia Hyperglycemia suspect diabetes mellitus type 2 Elevated troponin likely ischemic demand related to above Acute renal insufficiency likely dehydration Obesity, BMI 44.5 Plan: Acute hypoxic respiratory failure secondary to COVID-19 pneumonia: - S/P Remdesivir, and Convalescent plasma on 08/31 - No significant change in status. Still hypoxic and requiring high vent settings: FiO2 100% and PEEP of 15 - CXR unchanged. ABG with PaO2 of 70 - Pulmonary following, plans to reduced corticosteroids and add rocephin and diflucan - Continue vitamins B1, C, D and zinc and DVT ppx with apixaban - Will continue to monitor with daily ABG, CXR and inflammatory markers. - Patient is a good candidate for tracheostomy and LTAC placement Hyperglycemia secondary to prediabetes: - A1c 6.1. - Hyperglycemia steroid-induced - Continue scheduled NPH along with insulin sliding scale Elevated troponin likely ischemic demand related to above: - Continue ASA - No intervention as per cardiology - Follow up 2-D echo. Acute renal insufficiency likely dehydration: Nephrology has discontinued IV fluids. Renal function back to baseline. Obesity, BMI 44.5: - Unable to provide couseling with lifestyle modification education at this time - This will most likely complicates care and add to poor prognosis GI ppx: famotidine DVT ppx: apixaban
--- NOTE | 2020-09-02 10:51 | P.PN ---
Subjective Date of Service: 09/02/20 Primary Care Provider: none Chief Complaint: Respiratory failure Condition improving oxygen requirements have improved chest x-rays also improve Review of Systems is unable to be obtained Physical Examination - Vital Signs Temperature: 98.0 F Blood Pressure: 127/90 Pulse: 90 Respirations: 28 Pulse Ox (%): 100 - Studies Medications List Reviewed: Yes Assessment & Plan - Problems (Diagnosis) (1) Acute respiratory failure due to severe acute respiratory syndrome coronavirus 2 (SARS-CoV-2) infection Current Visit: Yes Status: Acute Plan: respiratory failure patient is clinically improving and plan to titrate his sat down to 90% repeat at atrial blood gases chest x-ray shows a slight imp rovement labs reviewed advance endotracheal tube 1 dose of Lasix white count mildly elevated
[2020-09-02] MEDS ORDERED: FUROSEMIDE 20 MG/ 2ML VIAL IV ONE (11:00)
[2020-09-02 13:15] LABS: Arterial Blood Carboxyhemoglob 1.3 % (0-1.5); Blood Gas Oxyhemoglobin 67.8 % (94-97); Blood O2 Saturation 69.4 % (92-98.5)
[2020-09-02] MEDS: HALOPERIDOL LACT 5 MG/ML INJ IV PRN (18:19)
[2020-09-02] MEDS: METOPROLOL TARTRATE 5 MG/5 ML INJ IV PRN (18:26)
--- NOTE | 2020-09-02 20:00 | PN ---
Date of Progress Note: 09/02/2020 Subjective: The patient was seen. Vital signs have been reviewed. Interval history: The patient has been paralyzed with Nimbex. He is still responsive. He is gettin g nutrition through the NG tube. Physical Examination: Vital signs: Showing temperature of 98.6, pulse rate of 120, respiratory rate of 28, and blood press ure 128/85. General: He is intubated, sedated and paralyzed. HEENT: Shows atraumatic head. Extremities: Showed no evidence of edema. Exam was limited secondary to COVID. Laboratory Data: Showing creatinine stable, BUN of 35, sodium of 142, potassium of 4.7, WBC count of 13.4, hemoglobin of 10.8, hematocrit 33.3, and platelet count of 208. Impression: 1.Acute renal failure secondary to dehydration from COVID, improving. 2.COVID-19 pneumonia with hypoxic respiratory failure, currently intubated, status post remdesivir a nd convalescent plasma. No significant change in status. The patient remains on high oxygen require ment. Continue to monitor closely with poor prognosis. 3.Malnutrition. Has been started on tube feeds. Continue to monitor. 4.Hyperglycemia secondary to steroids. Continue insulin and monitor. 5.Elevated troponin secondary to demand ischemia. Conservative management for now. 6.Volume overload, continues to receive intermittent lower doses of Lasix. VV/MODL Voice ID: [id number] Report ID: [id number]
[2020-09-03] MEDS: propofoL 1,000 MG/100 ML VIAL IV PRN ×5 (00:26→22:11)
[2020-09-03] MEDS: FENTANYL CITR 100 MCG/2 ML IV PRN ×3 (03:50→15:22)
[2020-09-03] MEDS: MIDAZOLAM HCL 2 MG/2 ML INJ IV PRN ×3 (03:50→22:11)
[2020-09-03 05:42] LABS: Absolute Lymphocytes (CBC) 0.3 K/uL (0.7-4.9); Basophils % 0.1 % (0-1.3); Hematocrit 31.4 % (39.6-49.0); Lymphocytes % 2.3 % (15.3-44.8); MPV 10.6 fL (7.6-11.3)
[2020-09-03] MEDS: INSULIN -REGULAR HUMAN 50 UNIT/0.5 ML ML SQ SCH ×4 (06:00→16:27)
[2020-09-03 06:07] LABS: BUN Blood Urea Nitrogen 35 mg/dL (7-18); Bicarbonate 34 mmol/L (21-32); Ferritin 666.1 ng/mL (26-388); Glucose Level 177 mg/dL (74-106); Magnesium 2.9 mg/dL (1.8-2.4); Potassium 4.9 mmol/L (3.5-5.1); Sodium Level 142 mmol/L (136-145)
[2020-09-03 06:54] LABS: Blood Morphology Comment NOT SEEN (NOT SEEN); Platelet Estimate ADEQ; White Blood Cell Scan OK (OK)
[2020-09-03] MEDS: INSULIN 70/30 100 UNITS/ML SQ SCH ×2 (08:24→16:26)
[2020-09-03] MEDS: VITAMIN D 1000 UNIT TAB PO SCH (08:25)
[2020-09-03] MEDS: LORazepam 2 MG/ML VIAL IV PRN (08:25)
[2020-09-03] MEDS: FAMOTIDINE 20 MG/2 ML VIAL IV SCH ×2 (08:25→20:33)
[2020-09-03] MEDS: THIAMINE HCL 100 MG TABLET PO SCH ×2 (08:26→20:33)
[2020-09-03] MEDS: METHYLPREDNISOLONE 125 MG INJ IV SCH ×3 (08:26→20:33)
[2020-09-03] MEDS: ZINC SULFATE 220 MG CAP PO SCH (08:26)
[2020-09-03] MEDS: ASCORBIC ACID 500 MG TABLET PO SCH ×4 (08:26→20:33)
[2020-09-03] MEDS: CEFTRIAXONE/SWI 1gm 1 GM/10 ML SYR IVP SCH (08:28)
[2020-09-03] MEDS: APIXABAN 5 MG TABLET PO SCH ×2 (08:32→20:31)
[2020-09-03] MEDS: ASPIRIN 81 MG CHEWABLE TABLET PO SCH (08:32)
[2020-09-03] MEDS: FLUCONAZOLE 100 MG TAB PO SCH (08:37)
[2020-09-03] MEDS: CISATRACURIUM BESYLATE 80 MG in NA CHLORIDE 0.9% 160 ML IV PRN ×2 (09:14→18:21)
--- NOTE | 2020-09-03 09:48 | P.PN ---
Subjective Date of Service: 09/03/20 Primary Care Provider: none Chief Complaint: Respiratory failure Subjective: No new changes (Continues to require maximum FiO2 and high PEEP for oxygenation. Sedated and paralyzed) Physical Examination - Vital Signs Temperature: 98.4 F Blood Pressure: 117/80 Pulse: 83 Respirations: 28 Pulse Ox (%): 89 - Physical Exam General: Obese (sedated), Other HEENT: Atraumatic, Normocephalic Respiratory: Other (mechanically ventilated) Cardiovascular: Normal pulses, Regular rate/rhythm, Normal S1 S2 Gastrointestinal: Soft and benign, Non-distended Musculoskeletal: No clubbing, No swelling, No contractures, No erythema, No tenderness, No warmth - Studies Medications List Reviewed: Yes Assessment & Plan Physician Review Additional Text: Assessment Patient is a 45 year old male with morbid obesity admitted with acute hypoxemic respiratory failure secondary to COVID 19 PNA. On mechanical ventilation for the past 2 weeks. Patient has received Remdesivir and convalescent plasma, still in severe ARDS. Poor prognosis Impression: Acute hypoxic respiratory failure secondary to COVID-19 pneumonia ARDS Steroid-induced hyperglycemia Elevated troponin likely ischemic demand Acute renal insufficiency likely dehydration Obesity, BMI 44.5 Plan: Acute hypoxic respiratory failure secondary to COVID-19 pneumonia: - S/P Remdesivir, and Convalescent plasma on 08/31 - Mechanically ventilated for ARDS: FiO2 100% and PEEP of 15. Last PaO2 54 mmHg - On corticosteroids, rocephin and diflucan - Continue vitamins B1, C, D and zinc and DVT ppx with apixaban - GI ppx with famotidine - Will continue to monitor with daily ABG, CXR and inflammatory markers. - Prognosis poor overall. Appreciate assistance from Pulmonary medicine. Hyperglycemia secondary to prediabetes: - A1c 6.1. - Hyperglycemia steroid-induced - Continue scheduled NPH along with insulin sliding scale Elevated troponin likely ischemic demand related to above: - Continue ASA - No intervention as per cardiology - Follow up 2-D echo (ordered on 08/28). Acute renal insufficiency likely dehydration: Nephrology has discontinued IV fluids. Renal function back to baseline. Obesity, BMI 44.5: - Unable to provide counseling with lifestyle modification education at this time - This will most likely complicates care and add to poor prognosis GI ppx: famotidine DVT ppx: apixaban
[2020-09-03 10:18] LABS: Arterial Blood Carboxyhemoglob 1.3 % (0-1.5); Blood Gas Oxyhemoglobin 86.9 % (94-97); Blood O2 Saturation 89.1 % (92-98.5)
--- NOTE | 2020-09-03 10:18 | RAD REPORT ---
EXAM DESCRIPTION: [place] Single View09/03/2020 6:43 am CLINICAL HISTORY: Respiratory failure COMPARISON: September 02, 2020 FINDINGS: An endotracheal tube has its tip overlying the top of the aortic arch. PICC line place. NG tube stomach. There has been worsening in right lung opacities. Left lung opacities are unchanged. The heart remains enlarged IMPRESSION: Worsening in right no significant change in left pulmonary opacities
[2020-09-03] MEDS: VITAL AF 1,000 ML BOT RTH SCH (10:24)
[2020-09-03] MEDS: ACETAMINOPHEN 500 MG TAB PO PRN ×2 (15:22→23:19)
[2020-09-04] MEDS: propofoL 1,000 MG/100 ML VIAL IV PRN ×3 (03:12→21:45)
[2020-09-04] MEDS: FENTANYL CITR 100 MCG/2 ML IV PRN ×2 (03:13→08:15)
[2020-09-04] MEDS: MIDAZOLAM HCL 2 MG/2 ML INJ IV PRN ×3 (03:14→17:31)
[2020-09-04] MEDS: ACETAMINOPHEN 500 MG TAB PO PRN ×2 (04:00→13:00)
[2020-09-04] MEDS: CISATRACURIUM BESYLATE 80 MG in NA CHLORIDE 0.9% 160 ML IV PRN ×2 (05:44→20:22)
[2020-09-04] MEDS: INSULIN -REGULAR HUMAN 50 UNIT/0.5 ML ML SQ SCH ×4 (06:00→17:21)
--- NOTE | 2020-09-04 07:24 | RAD REPORT ---
EXAM DESCRIPTION: RAD - Chest Single View - 09/04/2020 6:09 am CLINICAL HISTORY: respiratory failure COMPARISON: Portable September 03, portable September 02 TECHNIQUE: AP portable chest image was obtained 09/04/2020 6:09 am . FINDINGS: Stable positioning of the ETT near top of the aortic arch. This is 5-6 cm above the josé . NG/OG tube extends below the diaphragm, off the field of view. Right-sided PICC line in place with the tip near the SVC atrial junction. Patchy left lung parenchymal opacification has not changed. Slight improvement in the right lung fiel d opacification. New or increased subcutaneous emphysema seen at the right base of the neck and probably in the deeper soft tissues of the neck. Pneumomediastinum is not confirmed. Heart and vasculature are normal. No measurable pneumothorax. No acute bony abnormality seen. No acu te aortic findings suspected. IMPRESSION: Stable positioning of the ETT 5-6 cm above the josé. NG/OG tube extends below the diap hragm with the tip off the field of view. Lung parenchymal opacification has not changed. New or progressive subcutaneous emphysema right-side of the neck with air in the deep soft tissues of the lower neck. Pneumomediastinum is not confirmed.
[2020-09-04] MEDS: LORazepam 2 MG/ML VIAL IV PRN ×2 (08:17→13:00)
[2020-09-04] MEDS: METHYLPREDNISOLONE 125 MG INJ IV SCH ×3 (08:29→19:29)
[2020-09-04] MEDS: INSULIN 70/30 100 UNITS/ML SQ SCH ×2 (08:29→17:21)
[2020-09-04] MEDS: CEFTRIAXONE/SWI 1gm 1 GM/10 ML SYR IVP SCH (08:29)
[2020-09-04] MEDS: ASPIRIN 81 MG CHEWABLE TABLET PO SCH (08:30)
[2020-09-04] MEDS: VITAMIN D 1000 UNIT TAB PO SCH (08:30)
[2020-09-04] MEDS: THIAMINE HCL 100 MG TABLET PO SCH ×2 (08:30→19:31)
[2020-09-04] MEDS: FAMOTIDINE 20 MG/2 ML VIAL IV SCH ×2 (08:30→19:29)
[2020-09-04] MEDS: ASCORBIC ACID 500 MG TABLET PO SCH ×4 (08:30→19:31)
[2020-09-04] MEDS: ZINC SULFATE 220 MG CAP PO SCH (08:30)
[2020-09-04] MEDS: FLUCONAZOLE 100 MG TAB PO SCH (08:31)
[2020-09-04] MEDS: APIXABAN 5 MG TABLET PO SCH ×2 (08:31→19:28)
--- NOTE | 2020-09-04 10:09 | RAD REPORT ---
EXAM DESCRIPTION: RAD - Chest Single View - 09/04/2020 9:58 am CLINICAL HISTORY: E-Tube placementor repositioning COMPARISON: September 04 portable TECHNIQUE: AP portable chest image was obtained 09/04/2020 9:58 am . FINDINGS: Endotracheal tube has been advanced. Tip is 3.5 cm above the josé mid aortic arch level. No change the PICC line or NG/OG tube. Subcutaneous emphysema is not significantly different. Heart a nd lung parenchyma are unchanged. IMPRESSION: Endotracheal tube has been advanced. Tip is 3.5 cm above the josé.
[2020-09-04] MEDS ORDERED: SUCCINYLCHOLINE 20 MG/ML (10 ML) IV ONE (11:44)
[2020-09-04] MEDS ORDERED: ETOMIDATE 20 MG/10 ML VIAL IV ONE (11:46)
[2020-09-04] MEDS ORDERED: ROCURONIUM 50 MG/5 ML VIAL IV ONE (11:46)
--- NOTE | 2020-09-04 12:47 | P.PN ---
Subjective Date of Service: 09/04/20 Primary Care Provider: none Chief Complaint: Respiratory failure no change in patient's condition still requiring high concentrations of oxygen patient has developed subcutaneous emphysema Review of Systems is unable to be obtained Physical Examination - Vital Signs Temperature: 98.7 F Blood Pressure: 139/76 Pulse: 85 Respirations: 25 Pulse Ox (%): 93 - Studies Medications List Reviewed: Yes Assessment & Plan - Problems (Diagnosis) (1) Acute respiratory failure due to severe acute respiratory syndrome coronavirus 2 (SARS-CoV-2) infection Current Visit: Yes Status: Acute Plan: respiratory failure patient not doing well still requiring high concentrations of oxygen the keel tube was repositioned the some subcutaneous emphysema peep has been reduced to 12 labs reviewed reduce Solu-Medrol to 80 mg 3 times a day patient is on Rocephin and fluconazole
[2020-09-04 12:50] LABS: Arterial Blood Carboxyhemoglob 1.2 % (0-1.5); Blood Gas Oxyhemoglobin 87.3 % (94-97); Blood O2 Saturation 89.4 % (92-98.5)
[2020-09-04] MEDS: HALOPERIDOL LACT 5 MG/ML INJ IV PRN (13:00)
--- NOTE | 2020-09-04 18:41 | P.PN ---
Date of Service: 09/04/20 Vital Signs Temp Pulse Resp BP Pulse Ox 98.5 F 82 28 H 130/74 91 09/04/20 16:00 09/04/20 17:00 09/04/20 17:00 09/04/20 17:00 09/04/20 17:00 Medications Acetaminophen (Acetaminophen 500 Mg Tab) 500 mg PO Q4HP PRN PRN Reason: TEMP > 101' F Last Admin: 09/04/20 13:00 Dose: 500 mg Documented by: Apixaban (Apixaban 5 Mg Tablet) 5 mg PO BID [facility] Last Admin: 09/04/20 08:31 Dose: 5 mg Documented by: Ascorbic Acid (Ascorbic Acid 500 Mg Tablet) 500 mg PO QID [facility] Last Admin: 09/04/20 17:22 Dose: 500 mg Documented by: Aspirin (Aspirin 81 Mg Chewable Tablet) 162 mg PO DAILY [facility] Last Admin: 09/04/20 08:30 Dose: 162 mg Documented by: Benzonatate (Benzonatate 100 Mg Cap) 100 mg PO TID PRN PRN Reason: COUGH Last Admin: 08/19/20 19:55 Dose: 100 mg Documented by: Cholecalciferol (Vitamin D 1000 Unit Tab) 4,000 unit PO DAILY [facility] Last Admin: 09/04/20 08:30 Dose: 4,000 unit Documented by: Cisatracurium Besylate (Cisatracurium Injection 2 Mg/Ml (10 Ml Vial)) 4 mg IV Q2H PRN PRN Reason: AGITATION Last Admin: 09/01/20 17:45 Dose: 4 mg Documented by: Dextrose (D50w 25 Gm/50 Ml Vial) 12.5 gm IV PRN PRN; Protocol PRN Reason: HYPOGLYCEMIA Famotidine (Famotidine 20 Mg/2 Ml Vial) 20 mg IV BID [facility] Last Admin: 09/04/20 08:30 Dose: 20 mg Documented by: Fentanyl Citrate (Fentanyl Citr 100 Mcg/2 Ml) 25 mcg IV Q4HP PRN PRN Reason: Pain scale 8-10 (Severe) Last Admin: 09/04/20 08:15 Dose: 25 mcg Documented by: Fluconazole (Fluconazole 100 Mg Tab) 200 mg PO DAILY [facility]; Protocol Last Admin: 09/04/20 08:31 Dose: 200 mg Documented by: Glucagon (Glucagon 1 Mg/Vial) 1 mg IM 1X PRN; Protocol PRN Reason: HYPOGLYCEMIA Haloperidol Lactate (Haloperidol Lact 5 Mg/Ml Inj) 2 mg IV Q4HP PRN PRN Reason: AGITATION Last Admin: 09/04/20 13:00 Dose: 2 mg Documented by: Hydralazine HCl (Hydralazine Hcl 20 Mg/Ml Vial) 10 mg IV Q6HP PRN PRN Reason: Titrate to SBP (MUST DEFINE) Last Admin: 08/23/20 00:19 Dose: 10 mg Documented by: Propofol (Diprivan) 1,000 mg in 100 mls @ 0 mls/hr IV PRN PRN; Protocol PRN Reason: SEDATION Last Admin: 09/04/20 10:23 Dose: 100 mls Documented by: Sodium Chloride (Sodium Chloride) 250 mls @ 999 mls/hr IV Q15M PRN PRN Reason: HYPOTENSION Cisatracurium Besylate 80 mg/ (Sodium Chloride) 200 mls @ 0 mls/hr IV PRN PRN; Protocol PRN Reason: NEUROMUSCULAR BLOCKAGE Last Admin: 09/04/20 05:44 Dose: 200 mls Documented by: Ceftriaxone Sodium/Sodium Chloride (Rocephin 1 Gm/10 Ml Swi Ivp) 1 gm in 10 mls @ 600 mls/hr IVP DAILY [facility]; Protocol Last Admin: 09/04/20 08:29 Dose: 10 mls Documented by: Insulin Human Isoph/Insulin Regular (Insulin 70/30 100 Units/Ml) 20 unit SQ BIDAC [facility] Last Admin: 09/04/20 17:21 Dose: 20 units Documented by: Insulin Human Regular (Insulin -Regular Human 50 Unit/0.5 Ml Ml) 0 unit SQ Q6H [facility]; Protocol Last Admin: 09/04/20 17:21 Dose: Not Given Documented by: Lorazepam (Lorazepam 2 Mg/Ml Vial) 2 mg IV Q2HP PRN PRN Reason: SEDATION Last Admin: 09/04/20 13:00 Dose: 2 mg Documented by: Methylprednisolone Sodium Succinate (Methylprednisolone 125 Mg Inj) 80 mg IV TID [facility] Last Admin: 09/04/20 13:18 Dose: 80 mg Documented by: Metoprolol Tartrate (Metoprolol Tartrate 5 Mg/5 Ml Inj) 2.5 mg IV Q6H PRN PRN Reason: Titrate to SBP (MUST DEFINE) Last Admin: 09/02/20 18:26 Dose: 2.5 mg Documented by: Midazolam HCl (Midazolam Hcl 2 Mg/2 Ml Inj) 2 mg IV Q2HP PRN PRN Reason: SEDATION Last Admin: 09/04/20 17:31 Dose: 2 mg Documented by: Nutritional Formula (Vital Af 1,000 Ml Bot) 1,000 ml RTH CONT [facility] Last Admin: 09/03/20 10:24 Dose: 1,000 ml Documented by: Ondansetron HCl (Ondansetron 4 Mg/2 Ml Vial) 4 mg IV Q6HP PRN PRN Reason: NAUSEA / VOMITING Oxymetazoline HCl (Oxymetazoline Hcl 0.05% 15ml) 1 appl [place] BID PRN PRN Reason: NASAL CONGESTION Last Admin: 08/24/20 20:14 Dose: 1 edmundo Documented by: Sodium Chloride (Flush Normal Saline 10 Ml) 10 ml IV BID [facility] Last Admin: 09/04/20 08:31 Dose: 10 ml Documented by: Thiamine HCl (Thiamine Hcl 100 Mg Tablet) 100 mg PO BID [facility] Last Admin: 09/04/20 08:30 Dose: 100 mg Documented by: Zinc Sulfate (Zinc Sulfate 220 Mg Cap) 220 mg PO DAILY [facility] Last Admin: 09/04/20 08:30 Dose: 220 mg Documented by: Microbiology Results 08/18/20 16:18 Blood - Blood Aerobic Blood Culture - Final No growth in 5 days. 08/18/20 16:18 Blood - Blood Anaerobic Blood Culture - Final No growth in 5 days. 08/18/20 16:36 Blood - Blood Aerobic Blood Culture - Final No growth in 5 days. 08/18/20 16:36 Blood - Blood Anaerobic Blood Culture - Final No growth in 5 days. Assessment/ Plan: Nephrology Limited IH/ ROS due to AMS/ Sedation Isabel with good urine output. No acute events overnight. Vitals, medications, blood work and imaging reviewed in the chart. General: Unresponsive HEENT: Atraumatic Neck: No Thyromegaly Respiratory: Diminished Cardiovascular: Regular rate/rhythm. LE Edema trace. Gastrointestinal: Soft and benign, Non-distended Musculoskeletal: No clubbing, No contractures Integumentary: No rashes, No cyanosis Neurological: Normal tone Blood work reviewed in the chart. Imagings Data: EXAM DESCRIPTION: RAD - Chest Single View - 08/30/2020 5:38 am CLINICAL HISTORY: respiratory failure COMPARISON: August 28 TECHNIQUE: AP portable chest image was obtained 08/30/2020 5:38 am . FINDINGS: Endotracheal tube is in place 5 cm above the josé- good position. NG tube extends below the diaphragm, off the field of view. Right greater than left airspace opacification in the lung smith. Lungs appear better aerated than on the prior study. Improved imaging technique on the current study exaggerates the differential between the current and prior study. Mild cardiomegaly and vascular engorgement present. Heart size is similar or improved from comparison. No pneumothorax or enlarging pleural effusion IMPRESSION: Well-positioned endotracheal tube. NG tube extends below the diaphragm. Partial clearing of bilateral airspace opacification. EXAM DESCRIPTION: RAD - Chest Single View - 09/04/2020 9:58 am CLINICAL HISTORY: E-Tube placementor repositioning COMPARISON: September 04 portable TECHNIQUE: AP portable chest image was obtained 09/04/2020 9:58 am . FINDINGS: Endotracheal tube has been advanced. Tip is 3.5 cm above the josé mid aortic arch level. No change the PICC line or NG/OG tube. Subcutaneous emphysema is not significantly different. Heart and lung parenchyma are unchanged. IMPRESSION: Endotracheal tube has been advanced. Tip is 3.5 cm above the josé. Conclusions/Impression: A/P ARMANI likely due to hypovolemia -No NSAIDs Hypocalcemia -Continue Vitamin D3 HTN -Continue IV metoprolol DM II -Continue Insulin 70/30 -Continue RISS Moderate malnutrition -Maintain nutrition Anemia in chronic illness -Monitor H&H COVID-19 PNA Acute hypoxic respiratory failure -Intubation with ventilatory support -Continue steroids Toxic metabolic encephalopathy -Continue sedation due to ARF/ Intubation Case reviewed with Dr. Brady. Greater than 30min patient care.
[2020-09-05] MEDS: FENTANYL CITR 100 MCG/2 ML IV PRN ×3 (00:10→13:12)
[2020-09-05] MEDS: MIDAZOLAM HCL 2 MG/2 ML INJ IV PRN ×2 (00:10→09:57)
[2020-09-05] MEDS: INSULIN -REGULAR HUMAN 50 UNIT/0.5 ML ML SQ SCH ×5 (06:00→23:27)
[2020-09-05] MEDS: propofoL 1,000 MG/100 ML VIAL IV PRN (06:30)
[2020-09-05] MEDS: INSULIN 70/30 100 UNITS/ML SQ SCH ×2 (07:34→17:46)
[2020-09-05] MEDS: THIAMINE HCL 100 MG TABLET PO SCH ×2 (07:35→20:18)
[2020-09-05] MEDS: ZINC SULFATE 220 MG CAP PO SCH (07:35)
[2020-09-05] MEDS: ASCORBIC ACID 500 MG TABLET PO SCH ×4 (07:35→20:18)
[2020-09-05] MEDS: APIXABAN 5 MG TABLET PO SCH ×2 (07:35→20:17)
[2020-09-05] MEDS: ASPIRIN 81 MG CHEWABLE TABLET PO SCH (07:35)
[2020-09-05] MEDS: CISATRACURIUM BESYLATE 80 MG in NA CHLORIDE 0.9% 160 ML IV PRN ×3 (07:35→21:25)
[2020-09-05] MEDS: VITAMIN D 1000 UNIT TAB PO SCH (07:36)
[2020-09-05] MEDS: FLUCONAZOLE 100 MG TAB PO SCH (07:36)
[2020-09-05] MEDS: CEFTRIAXONE/SWI 1gm 1 GM/10 ML SYR IVP SCH (07:37)
[2020-09-05] MEDS: METHYLPREDNISOLONE 125 MG INJ IV SCH ×3 (07:37→20:18)
[2020-09-05] MEDS: LORazepam 2 MG/ML VIAL IV PRN (07:37)
[2020-09-05] MEDS: FAMOTIDINE 20 MG/2 ML VIAL IV SCH ×2 (07:37→20:18)
--- NOTE | 2020-09-05 07:50 | RAD REPORT ---
EXAM DESCRIPTION: RAD - Chest Single View - 09/05/2020 6:54 am CLINICAL HISTORY: respiratory failure COMPARISON: Portable September 04 TECHNIQUE: AP portable chest image was obtained 09/05/2020 6:54 am . FINDINGS: Endotracheal tube remains in place. Tip is top of the aortic arch. This measures 4 cm abov e the josé, not significantly different from the prior day examination. Right-side PICC line tip is SVC atrial junction. NG/OG tube is in place. The tip is not well visualized and may be in the distal esophagus rather than the stomach. Bilateral pulmonary opacities may be fractionally improved. No new or progressive pneumomediastinum. The upper chest and neck subcutaneous emphysema appears improved. However, most of the supraclavicula r and left apex region are excluded from the view of this examination. Heart size is prominent but stable. Pulmonary vasculature stable. No measurable pleural effusion and no pneumothorax. No acute bony abnormality seen. No acute aortic findings suspected. IMPRESSION: Fractional improvement in the bilateral pulmonary opacities since September 04 imaging. Endotracheal tube tip is top of the aortic arch measuring 4 cm the josé. This is stable positioning from prior day examination. NG/ OG tip is not well visualized and may be in the distal most esophagus rather than stomach.
[2020-09-05] MEDS: MIDAZOLAM HCL 100 MG in NA CHLORIDE 0.9% 80 ML IV PRN ×3 (10:11→23:47)
[2020-09-05] MEDS: HYDROMORPHONE HCL 2 MG/ML inj IV PRN ×2 (13:18→17:47)
--- NOTE | 2020-09-05 13:28 | P.PN ---
Subjective Date of Service: 09/05/20 Primary Care Provider: none Chief Complaint: Respiratory failure No change still requiring high concentrations of oxygen Review of Systems is unable to be obtained Physical Examination - Vital Signs Temperature: 97.9 F Blood Pressure: 119/70 Pulse: 75 Respirations: 28 Pulse Ox (%): 91 - Physical Exam General: Unresponsive Respiratory: Clear to auscultation bilaterally Cardiovascular: No edema, Normal S1 S2 - Studies Medications List Reviewed: Yes Assessment & Plan - Problems (Diagnosis) (1) Acute respiratory failure due to severe acute respiratory syndrome coronavirus 2 (SARS-CoV-2) infection Current Visit: Yes Status: Acute Plan: Respiratory failure which is still requiring high concentrations of oxygen chest x-ray reviewed maybe a slight improvement white count minimally elevated and change to Versed said drip and narcotics as needed pressure control was decreased to 25 no evidence of progression of his pneumomediastinum
[2020-09-05] MEDS: CISATRACURIUM INJECTION 2 MG/ML (10 ML Vial) IV PRN (16:00)
[2020-09-05 17:12] LABS: Absolute Lymphocytes (CBC) 0.1 K/uL (0.7-4.9); Basophils % 0.2 % (0-1.3); MPV 10.1 fL (7.6-11.3); RBC Red Blood Cell Count 3.56 M/uL (4.33-5.43)
[2020-09-05 17:13] LABS: Arterial Blood Carboxyhemoglob 1.3 % (0-1.5); Blood Gas Oxyhemoglobin 74.1 % (94-97)
[2020-09-05 17:29] LABS: ALT/SGPT 53 U/L (12-78); AST/SGOT 19 U/L (15-37); Albumin 1.9 g/dL (3.4-5.0); Alkaline Phosphatase 69 U/L (45-117); BUN Blood Urea Nitrogen 38 mg/dL (7-18); Bicarbonate 32 mmol/L (21-32); Bilirubin Total 0.4 mg/dL (0.2-1.0); Ferritin 622.2 ng/mL (26-388); Glucose Level 187 mg/dL (74-106); Potassium 5.1 mmol/L (3.5-5.1); Protein, Total 5.7 g/dL (6.4-8.2); Sodium Level 141 mmol/L (136-145)
[2020-09-05 17:35] LABS: Blood Morphology Comment NOT SEEN (NOT SEEN); Platelet Estimate ADEQ; White Blood Cell Scan OK (OK)
[2020-09-05] MEDS ORDERED: SOD POLYSTYREN SUL 15 GM/60 ML UCUP FT ONE (17:47)
--- NOTE | 2020-09-05 17:58 | P.PN ---
Date of Service: 09/05/20 Vital Signs Temp Pulse Resp BP Pulse Ox 98.7 F 85 25 H 139/76 93 09/05/20 13:49 09/05/20 13:49 09/05/20 13:49 09/05/20 13:49 09/05/20 13:49 Medications Acetaminophen (Acetaminophen 500 Mg Tab) 500 mg PO Q4HP PRN PRN Reason: TEMP > 101' F Last Admin: 09/04/20 13:00 Dose: 500 mg Documented by: Apixaban (Apixaban 5 Mg Tablet) 5 mg PO BID [facility] Last Admin: 09/05/20 07:35 Dose: 5 mg Documented by: Ascorbic Acid (Ascorbic Acid 500 Mg Tablet) 500 mg PO QID [facility] Last Admin: 09/05/20 17:47 Dose: 500 mg Documented by: Aspirin (Aspirin 81 Mg Chewable Tablet) 162 mg PO DAILY [facility] Last Admin: 09/05/20 07:35 Dose: 162 mg Documented by: Benzonatate (Benzonatate 100 Mg Cap) 100 mg PO TID PRN PRN Reason: COUGH Last Admin: 08/19/20 19:55 Dose: 100 mg Documented by: Cholecalciferol (Vitamin D 1000 Unit Tab) 4,000 unit PO DAILY [facility] Last Admin: 09/05/20 07:36 Dose: 4,000 unit Documented by: Cisatracurium Besylate (Cisatracurium Injection 2 Mg/Ml (10 Ml Vial)) 4 mg IV Q2H PRN PRN Reason: AGITATION Last Admin: 09/01/20 17:45 Dose: 4 mg Documented by: Dextrose (D50w 25 Gm/50 Ml Vial) 12.5 gm IV PRN PRN; Protocol PRN Reason: HYPOGLYCEMIA Famotidine (Famotidine 20 Mg/2 Ml Vial) 20 mg IV BID [facility] Last Admin: 09/05/20 07:37 Dose: 20 mg Documented by: Fentanyl Citrate (Fentanyl Citr 100 Mcg/2 Ml) 25 mcg IV Q4HP PRN PRN Reason: Pain scale 8-10 (Severe) Last Admin: 09/05/20 13:12 Dose: 25 mcg Documented by: Fluconazole (Fluconazole 100 Mg Tab) 200 mg PO DAILY [facility]; Protocol Last Admin: 09/05/20 07:36 Dose: 200 mg Documented by: Glucagon (Glucagon 1 Mg/Vial) 1 mg IM 1X PRN; Protocol PRN Reason: HYPOGLYCEMIA Haloperidol Lactate (Haloperidol Lact 5 Mg/Ml Inj) 2 mg IV Q4HP PRN PRN Reason: AGITATION Last Admin: 09/04/20 13:00 Dose: 2 mg Documented by: Hydralazine HCl (Hydralazine Hcl 20 Mg/Ml Vial) 10 mg IV Q6HP PRN PRN Reason: Titrate to SBP (MUST DEFINE) Last Admin: 08/23/20 00:19 Dose: 10 mg Documented by: Hydromorphone HCl (Hydromorphone Hcl 2 Mg/Ml Inj) 2 mg IV Q4H PRN PRN Reason: Pain scale 8-10 (Severe) Last Admin: 09/05/20 17:47 Dose: 2 mg Documented by: Propofol (Diprivan) 1,000 mg in 100 mls @ 0 mls/hr IV PRN PRN; Protocol PRN Reason: SEDATION Last Admin: 09/05/20 06:30 Dose: 100 mls Documented by: Sodium Chloride (Sodium Chloride) 250 mls @ 999 mls/hr IV Q15M PRN PRN Reason: HYPOTENSION Cisatracurium Besylate 80 mg/ (Sodium Chloride) 200 mls @ 0 mls/hr IV PRN PRN; Protocol PRN Reason: NEUROMUSCULAR BLOCKAGE Last Admin: 09/05/20 16:26 Dose: 200 mls Documented by: Ceftriaxone Sodium/Sodium Chloride (Rocephin 1 Gm/10 Ml Swi Ivp) 1 gm in 10 mls @ 600 mls/hr IVP DAILY [facility]; Protocol Last Admin: 09/05/20 07:37 Dose: 10 mls Documented by: Midazolam HCl 100 mg/ Sodium (Chloride) 100 mls @ 0 mls/hr IV PRN PRN; Protocol PRN Reason: SEDATION Last Admin: 09/05/20 16:26 Dose: 100 mls Documented by: Insulin Human Isoph/Insulin Regular (Insulin 70/30 100 Units/Ml) 20 unit SQ BIDAC [facility] Last Admin: 09/05/20 17:46 Dose: 20 units Documented by: Insulin Human Regular (Insulin -Regular Human 50 Unit/0.5 Ml Ml) 0 unit SQ Q6H [facility]; Protocol Last Admin: 09/05/20 17:47 Dose: 3 unit Documented by: Lorazepam (Lorazepam 2 Mg/Ml Vial) 2 mg IV Q2HP PRN PRN Reason: SEDATION Last Admin: 09/05/20 07:37 Dose: 2 mg Documented by: Methylprednisolone Sodium Succinate (Methylprednisolone 125 Mg Inj) 80 mg IV TID [facility] Last Admin: 09/05/20 13:18 Dose: 80 mg Documented by: Metoprolol Tartrate (Metoprolol Tartrate 5 Mg/5 Ml Inj) 2.5 mg IV Q6H PRN PRN Reason: Titrate to SBP (MUST DEFINE) Last Admin: 09/02/20 18:26 Dose: 2.5 mg Documented by: Midazolam HCl (Midazolam Hcl 2 Mg/2 Ml Inj) 2 mg IV Q2HP PRN PRN Reason: SEDATION Last Admin: 09/05/20 09:57 Dose: 2 mg Documented by: Nutritional Formula (Vital Af 1,000 Ml Bot) 1,000 ml RTH CONT [facility] Last Admin: 09/03/20 10:24 Dose: 1,000 ml Documented by: Ondansetron HCl (Ondansetron 4 Mg/2 Ml Vial) 4 mg IV Q6HP PRN PRN Reason: NAUSEA / VOMITING Oxymetazoline HCl (Oxymetazoline Hcl 0.05% 15ml) 1 appl [place] BID PRN PRN Reason: NASAL CONGESTION Last Admin: 08/24/20 20:14 Dose: 1 edmundo Documented by: Sodium Chloride (Flush Normal Saline 10 Ml) 10 ml IV BID [facility] Last Admin: 09/05/20 07:36 Dose: 10 ml Documented by: Thiamine HCl (Thiamine Hcl 100 Mg Tablet) 100 mg PO BID [facility] Last Admin: 09/05/20 07:35 Dose: 100 mg Documented by: Zinc Sulfate (Zinc Sulfate 220 Mg Cap) 220 mg PO DAILY [facility] Last Admin: 09/05/20 07:35 Dose: 220 mg Documented by: Microbiology Results 08/18/20 16:18 Blood - Blood Aerobic Blood Culture - Final No growth in 5 days. 08/18/20 16:18 Blood - Blood Anaerobic Blood Culture - Final No growth in 5 days. 08/18/20 16:36 Blood - Blood Aerobic Blood Culture - Final No growth in 5 days. 08/18/20 16:36 Blood - Blood Anaerobic Blood Culture - Final No growth in 5 days. Assessment/ Plan: Nephrology Limited IH/ ROS due to AMS/ Sedation No acute events overnight. Vitals, medications, blood work and imaging reviewed in the chart. General: Unresponsive HEENT: Atraumatic Neck: No Thyromegaly Respiratory: Diminished Cardiovascular: Regular rate/rhythm. LE Edema trace. Gastrointestinal: Soft and benign, Non-distended Musculoskeletal: No clubbing, No contractures Integumentary: No rashes, No cyanosis Neurological: Normal tone Greater than 30min patient care. Blood work reviewed in the chart. Imagings Data: EXAM DESCRIPTION: RAD - Chest Single View - 08/30/2020 5:38 am CLINICAL HISTORY: respiratory failure COMPARISON: August 28 TECHNIQUE: AP portable chest image was obtained 08/30/2020 5:38 am . FINDINGS: Endotracheal tube is in place 5 cm above the josé- good position. NG tube extends below the diaphragm, off the field of view. Right greater than left airspace opacification in the lung smith. Lungs appear better aerated than on the prior study. Improved imaging technique on the current study exaggerates the differential between the current and prior study. Mild cardiomegaly and vascular engorgement present. Heart size is similar or improved from comparison. No pneumothorax or enlarging pleural effusion IMPRESSION: Well-positioned endotracheal tube. NG tube extends below the diaphragm. Partial clearing of bilateral airspace opacification. EXAM DESCRIPTION: RAD - Chest Single View - 09/04/2020 9:58 am CLINICAL HISTORY: E-Tube placementor repositioning COMPARISON: September 04 portable TECHNIQUE: AP portable chest image was obtained 09/04/2020 9:58 am . FINDINGS: Endotracheal tube has been advanced. Tip is 3.5 cm above the josé mid aortic arch level. No change the PICC line or NG/OG tube. Subcutaneous emphysema is not significantly different. Heart and lung parenchyma are unchanged. IMPRESSION: Endotracheal tube has been advanced. Tip is 3.5 cm above the josé. Conclusions/Impression: A/P ARMANI likely due to hypovolemia -No NSAIDs Hypocalcemia -Continue Vitamin D3 HTN -Continue IV metoprolol DM II -Continue Insulin 70/30 -Continue RISS Moderate malnutrition -Maintain nutrition Anemia in chronic illness -Monitor H&H COVID-19 PNA Acute hypoxic respiratory failure -Intubation with ventilatory support -Continue steroids Toxic metabolic encephalopathy -Continue sedation due to ARF/ Intubation Addendum: Nurse called regarding poor urine output throughout the day. Repeat blood work not siginificant for ARMANI. Urine studies ordered. Bladder scan and cruz flushing also recommended.
[2020-09-05 18:43] LABS: Arterial Blood Carboxyhemoglob 1.5 % (0-1.5); Blood O2 Saturation 85.1 % (92-98.5)
[2020-09-06] MEDS: VITAL AF 1,000 ML BOT RTH SCH (02:00)
[2020-09-06] MEDS: HYDROMORPHONE HCL 2 MG/ML inj IV PRN (03:10)
[2020-09-06] MEDS: INSULIN -REGULAR HUMAN 50 UNIT/0.5 ML ML SQ SCH ×3 (05:46→18:00)
[2020-09-06 06:19] LABS: ALT/SGPT 49 U/L (12-78); AST/SGOT 14 U/L (15-37); Albumin 1.7 g/dL (3.4-5.0); Alkaline Phosphatase 59 U/L (45-117); BUN Blood Urea Nitrogen 34 mg/dL (7-18); Bicarbonate 32 mmol/L (21-32); Bilirubin Total 0.3 mg/dL (0.2-1.0); Glucose Level 143 mg/dL (74-106); Sodium Level 142 mmol/L (136-145)
[2020-09-06 06:31] LABS: Arterial Blood Carboxyhemoglob 1.5 % (0-1.5); Blood Gas Oxyhemoglobin 86.4 % (94-97); Blood O2 Saturation 88.6 % (92-98.5)
[2020-09-06 06:55] LABS: Urine Appearance CLOUDY (Clear); Urine Bilirubin NEGATIVE (Negative); Urine Blood 3+ (Negative); Urine Color YELLOW (Yellow); Urine Glucose NEGATIVE (Negative); Urine Protein TRACE (Negative); Urine Specific Gravity >=1.030 (1.005-1.030); Urine pH 5.5 (5.0-7.0)
[2020-09-06 07:07] LABS: Urine Bacteria <20 /HPF (NONE SEEN); Urine RBC >50 /HPF (NONE SEEN)
[2020-09-06 07:08] LABS: Urine Mucus SLIGHT /HPF (NONE SEEN)
[2020-09-06] MEDS: CISATRACURIUM BESYLATE 80 MG in NA CHLORIDE 0.9% 160 ML IV PRN ×2 (08:02→17:32)
[2020-09-06] MEDS: METHYLPREDNISOLONE 125 MG INJ IV SCH ×3 (08:35→20:15)
[2020-09-06] MEDS: INSULIN 70/30 100 UNITS/ML SQ SCH ×2 (08:35→18:50)
[2020-09-06] MEDS: CEFTRIAXONE/SWI 1gm 1 GM/10 ML SYR IVP SCH (08:36)
[2020-09-06] MEDS: THIAMINE HCL 100 MG TABLET PO SCH ×2 (08:36→20:15)
[2020-09-06] MEDS: FLUCONAZOLE 100 MG TAB PO SCH (08:36)
[2020-09-06] MEDS: ASCORBIC ACID 500 MG TABLET PO SCH ×4 (08:36→20:15)
[2020-09-06] MEDS: ASPIRIN 81 MG CHEWABLE TABLET PO SCH (08:36)
[2020-09-06] MEDS: FAMOTIDINE 20 MG/2 ML VIAL IV SCH ×2 (08:36→20:15)
[2020-09-06] MEDS: ZINC SULFATE 220 MG CAP PO SCH (08:36)
[2020-09-06] MEDS: VITAMIN D 1000 UNIT TAB PO SCH (08:37)
[2020-09-06] MEDS: APIXABAN 5 MG TABLET PO SCH ×2 (08:37→20:15)
[2020-09-06] MEDS: MIDAZOLAM HCL 100 MG in NA CHLORIDE 0.9% 80 ML IV PRN ×2 (11:50→20:14)
--- NOTE | 2020-09-06 16:51 | P.PN ---
Date of Service: 09/04/20 Subjective Patient remains intubated and sedated. Still oxygenating poorly. Clinical symptoms are not really improving much. Review of Systems 10-point ROS is otherwise unremarkable Physical Examination - Vital Signs reviewed - Physical Exam General: Alert, patient is tachypneic and not able to stay off of BiPAP support Respiratory: Diminished, Crackles/rales Cardiovascular: Regular rate/rhythm, Normal S1 S2, No murmurs Gastrointestinal: Normal bowel sounds, Soft and benign, Non-distended, No t enderness Musculoskeletal: No clubbing, No swelling, No tenderness Neurological: Sensation intact, Cranial nerves 3-12 intact Assessment & Plan - Problems (Diagnosis) (1) Acute respiratory failure due to severe acute respiratory syndrome coronavirus 2 (SARS-CoV-2) infection Current Visit: Yes Status: Acute (2) Morbid obesity Current Visit: Yes Status: Acute - Plan 1. Continue mechanical ventilation per Pulmonary 2. Continue with IV steroids 3. Will repeat chest x-ray Q 48 hrs 4. Continue neb treatments 5. Prognosis remains poor. May need to initiate transfer as patient is fairly young with no significant chronic medical comorbidities. May benefit from ECMO therapy. 6. GI and DVT prophylaxis
--- NOTE | 2020-09-06 16:54 | P.PN ---
Date of Service: 09/05/20 Subjective Still oxygenating poorly. Vent settings changed. Patient has remained hypoxic for most of the day. Arterial blood gases reveal persisted hypoxemia. We did initiate transfer to [facility] but they are on ECMO diversion. We also attempted [facility] but with little success. Will try a reach out to other additional facilities; concerned that patient is hypoxic and may not be able to transfer at this time but will try to make some arrangements. Review of Systems 10-point ROS is otherwise unremarkable Physical Examination - Vital Signs reviewed - Physical Exam General: Remains intubated and sedated Respiratory: Diminished, Crackles/rales Cardiovascular: Regular rate/rhythm, Normal S1 S2, No murmurs Gastrointestinal: Normal bowel sounds, Soft and benign, Non-distended, No tenderness Musculoskeletal: Edematous in his extremities Neurological: Sedated and intubated as well as paralyzed Assessment & Plan - Problems (Diagnosis) (1) Acute respiratory failure due to severe acute respiratory syndrome coronavirus 2 (SARS-CoV-2) infection Current Visit: Yes Status: Acute (2) Morbid obesity Current Visit: Yes Status: Acute - Plan 1. Continue mechanical ventilation per Pulmonary 2. Continue with IV steroids 3. Chest x-ray with no significant changes 4. Continue neb treatments 5. Prognosis remains poor. May need to initiate transfer as patient is fairly young with no significant chronic medical comorbidities. May benefit from ECMO therapy. 6. GI and DVT prophylaxis
--- NOTE | 2020-09-06 16:56 | P.PN ---
Date of Service: 09/06/20 Subjective Patient is still on paralytics but he is awake and moving his head. Will attempt to paralyze him and sedated better. Tried to transfer but no bed availability at this time. Physical Examination - Vital Signs reviewed - Physical Exam General: Remains intubated and sedated Respiratory: Diminished, Crackles/rales Cardiovascular: Regular rate/rhythm, Normal S1 S2, No murmurs Gastrointestinal: Normal bowel sounds, Soft and benign, Non-distended, No tenderness Musculoskeletal: Edematous in his extremities Neurological: Sedated and intubated as well as paralyzed Assessment & Plan - Problems (Diagnosis) (1) Acute respiratory failure due to severe acute respiratory syndrome coronavirus 2 (SARS-CoV-2) infection Current Visit: Yes Status: Acute (2) Morbid obesity Current Visit: Yes Status: Acute - Plan Continue with plan of care as mentioned below; poor prognosis 1. Continue mechanical ventilation and sedation per Pulmonary 2. Continue with IV steroids 3. Chest x-ray with no significant changes 4. Continue neb treatments 5. Prognosis remains poor. Attempting transfer but unsuccessful 6. GI and DVT prophylaxis
--- NOTE | 2020-09-06 19:40 | P.PN ---
Date of Service: 09/06/20 Vital Signs Temp Pulse Resp BP Pulse Ox 98.7 F 93 H 28 H 142/96 H 87 L 09/06/20 16:00 09/06/20 18:00 09/06/20 18:00 09/06/20 18:00 09/06/20 18:00 Medications Acetaminophen (Acetaminophen 500 Mg Tab) 500 mg PO Q4HP PRN PRN Reason: TEMP > 101' F Last Admin: 09/04/20 13:00 Dose: 500 mg Documented by: Apixaban (Apixaban 5 Mg Tablet) 5 mg PO BID [facility] Last Admin: 09/06/20 08:37 Dose: 5 mg Documented by: Ascorbic Acid (Ascorbic Acid 500 Mg Tablet) 500 mg PO QID [facility] Last Admin: 09/06/20 18:50 Dose: 500 mg Documented by: Aspirin (Aspirin 81 Mg Chewable Tablet) 162 mg PO DAILY [facility] Last Admin: 09/06/20 08:36 Dose: 162 mg Documented by: Benzonatate (Benzonatate 100 Mg Cap) 100 mg PO TID PRN PRN Reason: COUGH Last Admin: 08/19/20 19:55 Dose: 100 mg Documented by: Cholecalciferol (Vitamin D 1000 Unit Tab) 4,000 unit PO DAILY [facility] Last Admin: 09/06/20 08:37 Dose: 4,000 unit Documented by: Cisatracurium Besylate (Cisatracurium Injection 2 Mg/Ml (10 Ml Vial)) 4 mg IV Q2H PRN PRN Reason: AGITATION Last Admin: 09/05/20 16:00 Dose: 4 mg Documented by: Dextrose (D50w 25 Gm/50 Ml Vial) 12.5 gm IV PRN PRN; Protocol PRN Reason: HYPOGLYCEMIA Famotidine (Famotidine 20 Mg/2 Ml Vial) 20 mg IV BID [facility] Last Admin: 09/06/20 08:36 Dose: 20 mg Documented by: Fentanyl Citrate (Fentanyl Citr 100 Mcg/2 Ml) 25 mcg IV Q4HP PRN PRN Reason: Pain scale 8-10 (Severe) Last Admin: 09/05/20 13:12 Dose: 25 mcg Documented by: Fluconazole (Fluconazole 100 Mg Tab) 200 mg PO DAILY [facility]; Protocol Last Admin: 09/06/20 08:36 Dose: 200 mg Documented by: Glucagon (Glucagon 1 Mg/Vial) 1 mg IM 1X PRN; Protocol PRN Reason: HYPOGLYCEMIA Haloperidol Lactate (Haloperidol Lact 5 Mg/Ml Inj) 2 mg IV Q4HP PRN PRN Reason: AGITATION Last Admin: 09/04/20 13:00 Dose: 2 mg Documented by: Hydralazine HCl (Hydralazine Hcl 20 Mg/Ml Vial) 10 mg IV Q6HP PRN PRN Reason: Titrate to SBP (MUST DEFINE) Last Admin: 08/23/20 00:19 Dose: 10 mg Documented by: Hydromorphone HCl (Hydromorphone Hcl 2 Mg/Ml Inj) 2 mg IV Q4H PRN PRN Reason: Pain scale 8-10 (Severe) Last Admin: 09/06/20 03:10 Dose: 2 mg Documented by: Propofol (Diprivan) 1,000 mg in 100 mls @ 0 mls/hr IV PRN PRN; Protocol PRN Reason: SEDATION Last Admin: 09/05/20 06:30 Dose: 100 mls Documented by: Sodium Chloride (Sodium Chloride) 250 mls @ 999 mls/hr IV Q15M PRN PRN Reason: HYPOTENSION Cisatracurium Besylate 80 mg/ (Sodium Chloride) 200 mls @ 0 mls/hr IV PRN PRN; Protocol PRN Reason: NEUROMUSCULAR BLOCKAGE Last Admin: 09/06/20 17:32 Dose: 200 mls Documented by: Ceftriaxone Sodium/Sodium Chloride (Rocephin 1 Gm/10 Ml Swi Ivp) 1 gm in 10 mls @ 600 mls/hr IVP DAILY [facility]; Protocol Last Admin: 09/06/20 08:36 Dose: 10 mls Documented by: Midazolam HCl 100 mg/ Sodium (Chloride) 100 mls @ 0 mls/hr IV PRN PRN; Protocol PRN Reason: SEDATION Last Admin: 09/06/20 11:50 Dose: 100 mls Documented by: Insulin Human Isoph/Insulin Regular (Insulin 70/30 100 Units/Ml) 20 unit SQ BIDAC [facility] Last Admin: 09/06/20 18:50 Dose: 20 units Documented by: Insulin Human Regular (Insulin -Regular Human 50 Unit/0.5 Ml Ml) 0 unit SQ Q6H [facility]; Protocol Last Admin: 09/06/20 18:00 Dose: Not Given Documented by: Lorazepam (Lorazepam 2 Mg/Ml Vial) 2 mg IV Q2HP PRN PRN Reason: SEDATION Last Admin: 09/05/20 07:37 Dose: 2 mg Documented by: Methylprednisolone Sodium Succinate (Methylprednisolone 125 Mg Inj) 80 mg IV TID [facility] Last Admin: 09/06/20 13:57 Dose: 80 mg Documented by: Metoprolol Tartrate (Metoprolol Tartrate 5 Mg/5 Ml Inj) 2.5 mg IV Q6H PRN PRN Reason: Titrate to SBP (MUST DEFINE) Last Admin: 09/02/20 18:26 Dose: 2.5 mg Documented by: Midazolam HCl (Midazolam Hcl 2 Mg/2 Ml Inj) 2 mg IV Q2HP PRN PRN Reason: SEDATION Last Admin: 09/05/20 09:57 Dose: 2 mg Documented by: Nutritional Formula (Vital Af 1,000 Ml Bot) 1,000 ml RTH CONT [facility] Last Admin: 09/06/20 02:00 Dose: 1,000 ml Documented by: Ondansetron HCl (Ondansetron 4 Mg/2 Ml Vial) 4 mg IV Q6HP PRN PRN Reason: NAUSEA / VOMITING Oxymetazoline HCl (Oxymetazoline Hcl 0.05% 15ml) 1 appl [place] BID PRN PRN Reason: NASAL CONGESTION Last Admin: 08/24/20 20:14 Dose: 1 edmundo Documented by: Sodium Chloride (Flush Normal Saline 10 Ml) 10 ml IV BID [facility] Last Admin: 09/06/20 08:37 Dose: 10 ml Documented by: Thiamine HCl (Thiamine Hcl 100 Mg Tablet) 100 mg PO BID [facility] Last Admin: 09/06/20 08:36 Dose: 100 mg Documented by: Zinc Sulfate (Zinc Sulfate 220 Mg Cap) 220 mg PO DAILY [facility] Last Admin: 09/06/20 08:36 Dose: 220 mg Documented by: Microbiology Results 08/18/20 16:18 Blood - Blood Aerobic Blood Culture - Final No growth in 5 days. 08/18/20 16:18 Blood - Blood Anaerobic Blood Culture - Final No growth in 5 days. 08/18/20 16:36 Blood - Blood Aerobic Blood Culture - Final No growth in 5 days. 08/18/20 16:36 Blood - Blood Anaerobic Blood Culture - Final No growth in 5 days. Assessment/ Plan: Nephrology Limited IH/ ROS due to AMS/ Sedation No acute events overnight. Vitals, medications, blood work and imaging reviewed in the chart. General: Unresponsive HEENT: Atraumatic Neck: No Thyromegaly Respiratory: Diminished Cardiovascular: Regular rate/rhythm. LE Edema trace. Gastrointestinal: Soft and benign, Non-distended Musculoskeletal: No clubbing, No contractures Integumentary: No rashes, No cyanosis Neurological: Normal tone Greater than 30min patient care. Blood work reviewed in the chart. Imagings Data: EXAM DESCRIPTION: RAD - Chest Single View - 08/30/2020 5:38 am CLINICAL HISTORY: respiratory failure COMPARISON: August 28 TECHNIQUE: AP portable chest image was obtained 08/30/2020 5:38 am . FINDINGS: Endotracheal tube is in place 5 cm above the josé- good position. NG tube extends below the diaphragm, off the field of view. Right greater than left airspace opacification in the lung smith. Lungs appear better aerated than on the prior study. Improved imaging technique on the current study exaggerates the differential between the current and prior study. Mild cardiomegaly and vascular engorgement present. Heart size is similar or improved from comparison. No pneumothorax or enlarging pleural effusion IMPRESSION: Well-positioned endotracheal tube. NG tube extends below the diaphragm. Partial clearing of bilateral airspace opacification. EXAM DESCRIPTION: RAD - Chest Single View - 09/04/2020 9:58 am CLINICAL HISTORY: E-Tube placementor repositioning COMPARISON: September 04 portable TECHNIQUE: AP portable chest image was obtained 09/04/2020 9:58 am . FINDINGS: Endotracheal tube has been advanced. Tip is 3.5 cm above the josé mid aortic arch level. No change the PICC line or NG/OG tube. Subcutaneous emphysema is not significantly different. Heart and lung parenchyma are unchanged. IMPRESSION: Endotracheal tube has been advanced. Tip is 3.5 cm above the josé. Conclusions/Impression: A/P: Continue the current POC and Medications other than the changes listed. AM Labs PRN. Recommend daily weight. Please see the orders for complete details. ARMANI likely due to hypovolemia -No NSAIDs Hypocalcemia -Continue Vitamin D3 HTN -Continue IV metoprolol DM II -Continue Insulin 70/30 -Continue RISS Moderate malnutrition -Maintain nutrition Anemia in chronic illness -Monitor H&H COVID-19 PNA Acute hypoxic respiratory failure -Intubation with ventilatory support -Continue steroids Toxic metabolic encephalopathy -Continue sedation due to ARF/ Intubation Addendum: Nurse called regarding poor urine output throughout the day. Repeat blood work not siginificant for AMRANI. Urine studies ordered. Bladder scan and cruz flushing also recommended.
[2020-09-07] MEDS: CISATRACURIUM BESYLATE 80 MG in NA CHLORIDE 0.9% 160 ML IV PRN ×3 (01:57→23:30)
[2020-09-07] MEDS: INSULIN -REGULAR HUMAN 50 UNIT/0.5 ML ML SQ SCH ×4 (06:00→17:26)
[2020-09-07 06:33] LABS: Arterial Blood Carboxyhemoglob 1.4 % (0-1.5); Blood Gas Oxyhemoglobin 89.6 % (94-97)
[2020-09-07 06:43] LABS: Absolute Lymphocytes (CBC) 0.3 K/uL (0.7-4.9); Basophils % 0.2 % (0-1.3); Hematocrit 31.3 % (39.6-49.0); Lymphocytes % 2.3 % (15.3-44.8); MPV 10.1 fL (7.6-11.3); RBC Red Blood Cell Count 3.37 M/uL (4.33-5.43)
[2020-09-07] MEDS: HYDROMORPHONE HCL 2 MG/ML inj IV PRN ×3 (06:51→17:55)
[2020-09-07 07:12] LABS: BUN Blood Urea Nitrogen 30 mg/dL (7-18); Bicarbonate 32 mmol/L (21-32); C-Reactive Protein 8.85 mg/L (<3.00); Ferritin 569.4 ng/mL (26-388); Glucose Level 149 mg/dL (74-106); Magnesium 2.3 mg/dL (1.8-2.4); Phosphorus 2.9 mg/dL (2.5-4.9); Potassium 4.5 mmol/L (3.5-5.1); Sodium Level 140 mmol/L (136-145)
[2020-09-07] MEDS: MIDAZOLAM HCL 100 MG in NA CHLORIDE 0.9% 80 ML IV PRN ×2 (07:26→17:09)
--- NOTE | 2020-09-07 07:35 | RAD REPORT ---
EXAM DESCRIPTION: RAD - Chest Single View - 09/07/2020 5:59 am CLINICAL HISTORY: covidpneumonia, intubation COMPARISON: September 05 TECHNIQUE: AP portable chest image was obtained 09/07/2020 5:59 am . FINDINGS: Endotracheal tube remains in place. Tip is mid aortic arch level. This is 3.5 cm above the josé. Right-side PICC line remains in place. NG/OG tube extends below the diaphragm, off the field of view. Bilateral pneumonia findings are stable from prior day imaging. Subcutaneous emphysema present along the right base the neck and supraclavicular region. No significant pneumomediastinum appreciated. Heart and vasculature are normal. No measurable pleural effusion and no pneumothorax. No acute bony abnormality seen. No acute aortic findings suspected. IMPRESSION: Bilateral pneumonia findings not significantly different from prior day imaging. ET tube tip is mid aortic arch level, 3.5 cm above the josé.
--- NOTE | 2020-09-07 08:17 | P.PN ---
Subjective Date of Service: 09/07/20 Primary Care Provider: none Chief Complaint: Respiratory failure Patient continues to remain hypoxic still responsive is on high doses of Versed said requiring paralytic agents significant coughing spells Review of Systems is unable to be obtained Physical Examination - Vital Signs Temperature: 99.0 F Blood Pressure: 141/93 Pulse: 99 Respirations: 19 Pulse Ox (%): 94 - Studies Medications List Reviewed: Yes Assessment & Plan - Problems (Diagnosis) (1) Acute respiratory failure due to severe acute respiratory syndrome coronavirus 2 (SARS-CoV-2) infection Current Visit: Yes Status: Acute Plan: Respiratory failure chest x-ray looks improved endotracheal tube satisfactory position still very hypoxic 100% FiO2 continue with present treatment reduce dose of Solu-Medrol labs reviewed Physician Review Additional Text: Assessment Patient is a 45 year old male with morbid obesity admitted with acute hypoxemic respiratory failure secondary to COVID 19 PNA. On mechanical ventilation for the past 2 weeks. Patient has received Remdesivir and convalescent plasma, still in severe ARDS. Poor prognosis Impression: Acute hypoxic respiratory failure secondary to COVID-19 pneumonia ARDS Steroid-induced hyperglycemia Elevated troponin likely ischemic demand Acute renal insufficiency likely dehydration Obesity, BMI 44.5 Plan: Acute hypoxic respiratory failure secondary to COVID-19 pneumonia: - S/P Remdesivir, and Convalescent plasma on 08/31 - Mechanically ventilated for ARDS: FiO2 100% and PEEP of 15. Last PaO2 54 mmHg - On corticosteroids, rocephin and diflucan - Continue vitamins B1, C, D and zinc and DVT ppx with apixaban - GI ppx with famotidine - Will continue to monitor with daily ABG, CXR and inflammatory markers. - Prognosis poor overall. Appreciate assistance from Pulmonary medicine. Hyperglycemia secondary to prediabetes: - A1c 6.1. - Hyperglycemia steroid-induced - Continue scheduled NPH along with insulin sliding scale Elevated troponin likely ischemic demand related to above: - Continue ASA - No intervention as per cardiology - Follow up 2-D echo (ordered on 08/28). Acute renal insufficiency likely dehydration: Nephrology has discontinued IV fluids. Renal function back to baseline. Obesity, BMI 44.5: - Unable to provide counseling with lifestyle modification education at this time - This will most likely complicates care and add to poor prognosis GI ppx: famotidine DVT ppx: apixaban
--- NOTE | 2020-09-07 09:18 | P.PN ---
Date of Service: 09/07/20 Subjective Patient with no new changes. Remains on mechanical ventilation. Remains hypoxic. Attempted transfer with very little locked. Physical Examination - Vital Signs reviewed - Physical Exam General: Remains intubated and sedated Respiratory: Diminished, Crackles/rales Cardiovascular: Regular rate/rhythm, Normal S1 S2, No murmurs Gastrointestinal: Normal bowel sounds, Soft and benign, Non-distended, No tenderness Musculoskeletal: Edematous in his extremities Neurological: Sedated and intubated as well as paralyzed Assessment & Plan - Problems (Diagnosis) (1) Acute respiratory failure due to severe acute respiratory syndrome coronavirus 2 (SARS-CoV-2) infection Current Visit: Yes Status: Acute (2) Morbid obesity Current Visit: Yes Status: Acute - Plan Continue with plan of care as mentioned below; poor prognosis 1. Continue mechanical ventilation and sedation per Pulmonary 2. Continue with IV steroids 3. Chest x-ray with no significant changes 4. Continue neb treatments 5. Prognosis remains poor. Attempting transfer but unsuccessful 6. GI and DVT prophylaxis
[2020-09-07] MEDS: FLUCONAZOLE 100 MG TAB PO SCH (10:13)
[2020-09-07] MEDS: ASPIRIN 81 MG CHEWABLE TABLET PO SCH (10:13)
[2020-09-07] MEDS: ZINC SULFATE 220 MG CAP PO SCH (10:13)
[2020-09-07] MEDS: THIAMINE HCL 100 MG TABLET PO SCH ×2 (10:13→21:16)
[2020-09-07] MEDS: METHYLPREDNISOLONE 40 MG INJ IV SCH ×3 (10:13→21:16)
[2020-09-07] MEDS: APIXABAN 5 MG TABLET PO SCH ×2 (10:13→21:16)
[2020-09-07] MEDS: ASCORBIC ACID 500 MG TABLET PO SCH ×4 (10:13→21:16)
[2020-09-07] MEDS: FAMOTIDINE 20 MG/2 ML VIAL IV SCH ×2 (10:13→21:16)
[2020-09-07] MEDS: CEFTRIAXONE/SWI 1gm 1 GM/10 ML SYR IVP SCH (10:14)
[2020-09-07] MEDS: INSULIN 70/30 100 UNITS/ML SQ SCH ×2 (10:27→17:26)
[2020-09-07] MEDS: VITAMIN D 1000 UNIT TAB PO SCH (13:24)
--- NOTE | 2020-09-07 21:01 | P.PN ---
Date of Service: 09/07/20 Vital Signs Temp Pulse Resp BP Pulse Ox 97.9 F 74 18 99/72 97 09/07/20 20:00 09/07/20 20:00 09/07/20 20:00 09/07/20 20:00 09/07/20 20:00 Medications Acetaminophen (Acetaminophen 500 Mg Tab) 500 mg PO Q4HP PRN PRN Reason: TEMP > 101' F Last Admin: 09/04/20 13:00 Dose: 500 mg Documented by: Apixaban (Apixaban 5 Mg Tablet) 5 mg PO BID [facility] Last Admin: 09/07/20 10:13 Dose: 5 mg Documented by: Ascorbic Acid (Ascorbic Acid 500 Mg Tablet) 500 mg PO QID [facility] Last Admin: 09/07/20 17:26 Dose: 500 mg Documented by: Aspirin (Aspirin 81 Mg Chewable Tablet) 162 mg PO DAILY [facility] Last Admin: 09/07/20 10:13 Dose: 162 mg Documented by: Benzonatate (Benzonatate 100 Mg Cap) 100 mg PO TID PRN PRN Reason: COUGH Last Admin: 08/19/20 19:55 Dose: 100 mg Documented by: Cholecalciferol (Vitamin D 1000 Unit Tab) 4,000 unit PO DAILY [facility] Last Admin: 09/07/20 13:24 Dose: 4,000 unit Documented by: Cisatracurium Besylate (Cisatracurium Injection 2 Mg/Ml (10 Ml Vial)) 4 mg IV Q2H PRN PRN Reason: AGITATION Last Admin: 09/05/20 16:00 Dose: 4 mg Documented by: Dextrose (D50w 25 Gm/50 Ml Vial) 12.5 gm IV PRN PRN; Protocol PRN Reason: HYPOGLYCEMIA Famotidine (Famotidine 20 Mg/2 Ml Vial) 20 mg IV BID [facility] Last Admin: 09/07/20 10:13 Dose: 20 mg Documented by: Fentanyl Citrate (Fentanyl Citr 100 Mcg/2 Ml) 25 mcg IV Q4HP PRN PRN Reason: Pain scale 8-10 (Severe) Last Admin: 09/05/20 13:12 Dose: 25 mcg Documented by: Fluconazole (Fluconazole 100 Mg Tab) 200 mg PO DAILY [facility]; Protocol Last Admin: 09/07/20 10:13 Dose: 200 mg Documented by: Glucagon (Glucagon 1 Mg/Vial) 1 mg IM 1X PRN; Protocol PRN Reason: HYPOGLYCEMIA Haloperidol Lactate (Haloperidol Lact 5 Mg/Ml Inj) 2 mg IV Q4HP PRN PRN Reason: AGITATION Last Admin: 09/04/20 13:00 Dose: 2 mg Documented by: Hydralazine HCl (Hydralazine Hcl 20 Mg/Ml Vial) 10 mg IV Q6HP PRN PRN Reason: Titrate to SBP (MUST DEFINE) Last Admin: 08/23/20 00:19 Dose: 10 mg Documented by: Hydromorphone HCl (Hydromorphone Hcl 2 Mg/Ml Inj) 2 mg IV Q4H PRN PRN Reason: Pain scale 8-10 (Severe) Last Admin: 09/07/20 17:55 Dose: 2 mg Documented by: Propofol (Diprivan) 1,000 mg in 100 mls @ 0 mls/hr IV PRN PRN; Protocol PRN Reason: SEDATION Last Admin: 09/05/20 06:30 Dose: 100 mls Documented by: Sodium Chloride (Sodium Chloride) 250 mls @ 999 mls/hr IV Q15M PRN PRN Reason: HYPOTENSION Cisatracurium Besylate 80 mg/ (Sodium Chloride) 200 mls @ 0 mls/hr IV PRN PRN; Protocol PRN Reason: NEUROMUSCULAR BLOCKAGE Last Admin: 09/07/20 14:23 Dose: 200 mls Documented by: Ceftriaxone Sodium/Sodium Chloride (Rocephin 1 Gm/10 Ml Swi Ivp) 1 gm in 10 mls @ 600 mls/hr IVP DAILY [facility]; Protocol Last Admin: 09/07/20 10:14 Dose: 10 mls Documented by: Midazolam HCl 100 mg/ Sodium (Chloride) 100 mls @ 0 mls/hr IV PRN PRN; Protocol PRN Reason: SEDATION Last Admin: 09/07/20 17:09 Dose: 100 mls Documented by: Insulin Human Isoph/Insulin Regular (Insulin 70/30 100 Units/Ml) 20 unit SQ BIDAC [facility] Last Admin: 09/07/20 17:26 Dose: 20 units Documented by: Insulin Human Regular (Insulin -Regular Human 50 Unit/0.5 Ml Ml) 0 unit SQ Q6H [facility]; Protocol Last Admin: 09/07/20 17:26 Dose: Not Given Documented by: Lorazepam (Lorazepam 2 Mg/Ml Vial) 2 mg IV Q2HP PRN PRN Reason: SEDATION Last Admin: 09/05/20 07:37 Dose: 2 mg Documented by: Methylprednisolone Sodium Succinate (Methylprednisolone 40 Mg Inj) 40 mg IV TID [facility] Last Admin: 09/07/20 13:24 Dose: 40 mg Documented by: Metoprolol Tartrate (Metoprolol Tartrate 5 Mg/5 Ml Inj) 2.5 mg IV Q6H PRN PRN Reason: Titrate to SBP (MUST DEFINE) Last Admin: 09/02/20 18:26 Dose: 2.5 mg Documented by: Midazolam HCl (Midazolam Hcl 2 Mg/2 Ml Inj) 2 mg IV Q2HP PRN PRN Reason: SEDATION Last Admin: 09/05/20 09:57 Dose: 2 mg Documented by: Nutritional Formula (Vital Af 1,000 Ml Bot) 1,000 ml RTH CONT [facility] Last Admin: 09/06/20 02:00 Dose: 1,000 ml Documented by: Ondansetron HCl (Ondansetron 4 Mg/2 Ml Vial) 4 mg IV Q6HP PRN PRN Reason: NAUSEA / VOMITING Oxymetazoline HCl (Oxymetazoline Hcl 0.05% 15ml) 1 appl [place] BID PRN PRN Reason: NASAL CONGESTION Last Admin: 08/24/20 20:14 Dose: 1 edmundo Documented by: Sodium Chloride (Flush Normal Saline 10 Ml) 10 ml IV BID [facility] Last Admin: 09/07/20 10:27 Dose: 10 ml Documented by: Thiamine HCl (Thiamine Hcl 100 Mg Tablet) 100 mg PO BID [facility] Last Admin: 09/07/20 10:13 Dose: 100 mg Documented by: Zinc Sulfate (Zinc Sulfate 220 Mg Cap) 220 mg PO DAILY [facility] Last Admin: 09/07/20 10:13 Dose: 220 mg Documented by: Microbiology Results 08/18/20 16:18 Blood - Blood Aerobic Blood Culture - Final No growth in 5 days. 08/18/20 16:18 Blood - Blood Anaerobic Blood Culture - Final No growth in 5 days. 08/18/20 16:36 Blood - Blood Aerobic Blood Culture - Final No growth in 5 days. 08/18/20 16:36 Blood - Blood Anaerobic Blood Culture - Final No growth in 5 days. Assessment/ Plan: Nephrology Limited IH/ ROS due to AMS/ Sedation Tolerating tube feeds. Good urine output. -BM No acute events overnight. Vitals, medications, blood work and imaging reviewed in the chart. General: Unresponsive HEENT: Atraumatic Neck: No Thyromegaly Respiratory: Diminished Cardiovascular: Regular rate/rhythm. LE Edema trace. Gastrointestinal: Soft and benign, Non-distended Musculoskeletal: No clubbing, No contractures Integumentary: No rashes, No cyanosis Neurological: Normal tone Greater than 30min patient care. Blood work reviewed in the chart. Imagings Data: EXAM DESCRIPTION: RAD - Chest Single View - 08/30/2020 5:38 am CLINICAL HISTORY: respiratory failure COMPARISON: August 28 TECHNIQUE: AP portable chest image was obtained 08/30/2020 5:38 am . FINDINGS: Endotracheal tube is in place 5 cm above the josé- good position. NG tube extends below the diaphragm, off the field of view. Right greater than left airspace opacification in the lung smith. Lungs appear better aerated than on the prior study. Improved imaging technique on the current study exaggerates the differential between the current and prior study. Mild cardiomegaly and vascular engorgement present. Heart size is similar or improved from comparison. No pneumothorax or enlarging pleural effusion IMPRESSION: Well-positioned endotracheal tube. NG tube extends below the diaphragm. Partial clearing of bilateral airspace opacification. EXAM DESCRIPTION: RAD - Chest Single View - 09/04/2020 9:58 am CLINICAL HISTORY: E-Tube placementor repositioning COMPARISON: September 04 portable TECHNIQUE: AP portable chest image was obtained 09/04/2020 9:58 am . FINDINGS: Endotracheal tube has been advanced. Tip is 3.5 cm above the josé mid aortic arch level. No change the PICC line or NG/OG tube. Subcutaneous emphysema is not significantly different. Heart and lung parenchyma are unchanged. IMPRESSION: Endotracheal tube has been advanced. Tip is 3.5 cm above the josé. Conclusions/Impression: A/P: Continue the current POC and Medications other than the changes listed. AM Labs PRN. Recommend daily weight. Please see the orders for complete details. ARMANI likely due to hypovolemia -No NSAIDs Hypocalcemia -Continue Vitamin D3 HTN -Continue IV metoprolol prn DM II -Continue Insulin 70/30 -Continue RISS Moderate malnutrition -Maintain nutrition Anemia in chronic illness -Monitor H&H COVID-19 PNA Acute hypoxic respiratory failure -Intubation with ventilatory support -Continue steroids Toxic metabolic encephalopathy -Continue sedation due to ARF/ Intubation
[2020-09-08] MEDS: MIDAZOLAM HCL 100 MG in NA CHLORIDE 0.9% 80 ML IV PRN ×3 (00:24→19:53)
[2020-09-08] MEDS: HYDROMORPHONE HCL 2 MG/ML inj IV PRN ×3 (00:55→09:30)
[2020-09-08] MEDS: INSULIN -REGULAR HUMAN 50 UNIT/0.5 ML ML SQ SCH ×5 (06:00→23:33)
[2020-09-08 06:06] LABS: Absolute Lymphocytes (CBC) 0.3 K/uL (0.7-4.9); Basophils % 0.1 % (0-1.3); Hematocrit 32.6 % (39.6-49.0); Lymphocytes % 2.7 % (15.3-44.8); MPV 10.3 fL (7.6-11.3); RBC Red Blood Cell Count 3.47 M/uL (4.33-5.43)
[2020-09-08 06:24] LABS: Arterial Blood Carboxyhemoglob 1.5 % (0-1.5); Blood Gas Oxyhemoglobin 91.3 % (94-97); Blood O2 Saturation 93.7 % (92-98.5)
[2020-09-08 06:37] LABS: BUN Blood Urea Nitrogen 28 mg/dL (7-18); Bicarbonate 33 mmol/L (21-32); Ferritin 599.2 ng/mL (26-388); Glucose Level 127 mg/dL (74-106); Magnesium 2.3 mg/dL (1.8-2.4); Phosphorus 2.9 mg/dL (2.5-4.9); Potassium 4.7 mmol/L (3.5-5.1); Sodium Level 140 mmol/L (136-145)
--- NOTE | 2020-09-08 08:35 | RAD REPORT ---
EXAM DESCRIPTION: [place] Single View09/08/2020 6:00 am CLINICAL HISTORY: Shortness of breath COMPARISON: September 07, 2020 FINDINGS: Endotracheal tube with its tip 3 millimeters above the top of the aortic arch. PICC line i n place. NG tube within stomach. There has been considerable worsening in the left and mild worsening in the right pulmonary opacities . The heart remains enlarged. Mild improvement in the subcutaneous emphysema and pneumomediastinum IMPRESSION: Worsening in the bilateral pulmonary opacities probably pneumonia
[2020-09-08] MEDS: INSULIN 70/30 100 UNITS/ML SQ SCH ×2 (10:14→17:07)
[2020-09-08] MEDS: CEFTRIAXONE/SWI 1gm 1 GM/10 ML SYR IVP SCH (10:17)
[2020-09-08] MEDS: THIAMINE HCL 100 MG TABLET PO SCH ×2 (10:18→21:17)
[2020-09-08] MEDS: VITAMIN D 1000 UNIT TAB PO SCH (10:18)
[2020-09-08] MEDS: FAMOTIDINE 20 MG/2 ML VIAL IV SCH ×2 (10:18→21:19)
[2020-09-08] MEDS: APIXABAN 5 MG TABLET PO SCH ×2 (10:18→21:17)
[2020-09-08] MEDS: ASCORBIC ACID 500 MG TABLET PO SCH ×4 (10:18→21:17)
[2020-09-08] MEDS: ASPIRIN 81 MG CHEWABLE TABLET PO SCH (10:18)
[2020-09-08] MEDS: ZINC SULFATE 220 MG CAP PO SCH (10:18)
[2020-09-08] MEDS: FLUCONAZOLE 100 MG TAB PO SCH (10:18)
[2020-09-08] MEDS: CISATRACURIUM BESYLATE 80 MG in NA CHLORIDE 0.9% 160 ML IV PRN ×2 (10:22→17:38)
[2020-09-08] MEDS: METHYLPREDNISOLONE 40 MG INJ IV SCH ×3 (11:19→21:16)
--- NOTE | 2020-09-08 12:49 | P.PN ---
Subjective Date of Service: 09/08/20 Primary Care Provider: none Chief Complaint: Respiratory failure NC Still on 100% FIO2 and paralytic agen Physical Examination - Vital Signs Temperature: 97.4 F Blood Pressure: 96/67 Pulse: 109 Respirations: 28 Pulse Ox (%): 89 - Physical Exam General: Unresponsive Respiratory: Clear to auscultation bilaterally - Studies Medications List Reviewed: Yes Assessment & Plan - Problems (Diagnosis) (1) Acute respiratory failure due to severe acute respiratory syndrome coronavirus 2 (SARS-CoV-2) infection Current Visit: Yes Status: Acute Plan: Respiratory failure. CXRY no change. ET satisfactory VS stable. labs reviewed. Gino setting reviewed
--- NOTE | 2020-09-08 19:24 | P.PN ---
Date of Service: 09/08/20 Vital Signs Temp Pulse Resp BP Pulse Ox 98.7 F 93 H 28 H 124/95 H 91 09/08/20 16:00 09/08/20 18:00 09/08/20 18:00 09/08/20 18:00 09/08/20 18:00 Medications Acetaminophen (Acetaminophen 500 Mg Tab) 500 mg PO Q4HP PRN PRN Reason: TEMP > 101' F Last Admin: 09/04/20 13:00 Dose: 500 mg Documented by: Apixaban (Apixaban 5 Mg Tablet) 5 mg PO BID [facility] Last Admin: 09/08/20 10:18 Dose: 5 mg Documented by: Ascorbic Acid (Ascorbic Acid 500 Mg Tablet) 500 mg PO QID [facility] Last Admin: 09/08/20 17:08 Dose: 500 mg Documented by: Aspirin (Aspirin 81 Mg Chewable Tablet) 162 mg PO DAILY [facility] Last Admin: 09/08/20 10:18 Dose: 162 mg Documented by: Benzonatate (Benzonatate 100 Mg Cap) 100 mg PO TID PRN PRN Reason: COUGH Last Admin: 08/19/20 19:55 Dose: 100 mg Documented by: Cholecalciferol (Vitamin D 1000 Unit Tab) 4,000 unit PO DAILY [facility] Last Admin: 09/08/20 10:18 Dose: 4,000 unit Documented by: Cisatracurium Besylate (Cisatracurium Injection 2 Mg/Ml (10 Ml Vial)) 4 mg IV Q2H PRN PRN Reason: AGITATION Last Admin: 09/05/20 16:00 Dose: 4 mg Documented by: Dextrose (D50w 25 Gm/50 Ml Vial) 12.5 gm IV PRN PRN; Protocol PRN Reason: HYPOGLYCEMIA Famotidine (Famotidine 20 Mg/2 Ml Vial) 20 mg IV BID [facility] Last Admin: 09/08/20 10:18 Dose: 20 mg Documented by: Fentanyl Citrate (Fentanyl Citr 100 Mcg/2 Ml) 25 mcg IV Q4HP PRN PRN Reason: Pain scale 8-10 (Severe) Last Admin: 09/05/20 13:12 Dose: 25 mcg Documented by: Fluconazole (Fluconazole 100 Mg Tab) 200 mg PO DAILY [facility]; Protocol Last Admin: 09/08/20 10:18 Dose: 200 mg Documented by: Glucagon (Glucagon 1 Mg/Vial) 1 mg IM 1X PRN; Protocol PRN Reason: HYPOGLYCEMIA Haloperidol Lactate (Haloperidol Lact 5 Mg/Ml Inj) 2 mg IV Q4HP PRN PRN Reason: AGITATION Last Admin: 09/04/20 13:00 Dose: 2 mg Documented by: Hydralazine HCl (Hydralazine Hcl 20 Mg/Ml Vial) 10 mg IV Q6HP PRN PRN Reason: Titrate to SBP (MUST DEFINE) Last Admin: 08/23/20 00:19 Dose: 10 mg Documented by: Hydromorphone HCl (Hydromorphone Hcl 2 Mg/Ml Inj) 2 mg IV Q4H PRN PRN Reason: Pain scale 8-10 (Severe) Last Admin: 09/08/20 09:30 Dose: 2 mg Documented by: Propofol (Diprivan) 1,000 mg in 100 mls @ 0 mls/hr IV PRN PRN; Protocol PRN Reason: SEDATION Last Admin: 09/05/20 06:30 Dose: 100 mls Documented by: Sodium Chloride (Sodium Chloride) 250 mls @ 999 mls/hr IV Q15M PRN PRN Reason: HYPOTENSION Cisatracurium Besylate 80 mg/ (Sodium Chloride) 200 mls @ 0 mls/hr IV PRN PRN; Protocol PRN Reason: NEUROMUSCULAR BLOCKAGE Last Admin: 09/08/20 17:38 Dose: 200 mls Documented by: Ceftriaxone Sodium/Sodium Chloride (Rocephin 1 Gm/10 Ml Swi Ivp) 1 gm in 10 mls @ 600 mls/hr IVP DAILY [facility]; Protocol Last Admin: 09/08/20 10:17 Dose: 10 mls Documented by: Midazolam HCl 100 mg/ Sodium (Chloride) 100 mls @ 0 mls/hr IV PRN PRN; Protocol PRN Reason: SEDATION Last Admin: 09/08/20 11:41 Dose: 100 mls Documented by: Insulin Human Isoph/Insulin Regular (Insulin 70/30 100 Units/Ml) 20 unit SQ BIDAC [facility] Last Admin: 09/08/20 17:07 Dose: 20 units Documented by: Insulin Human Regular (Insulin -Regular Human 50 Unit/0.5 Ml Ml) 0 unit SQ Q6H [facility]; Protocol Last Admin: 09/08/20 17:08 Dose: Not Given Documented by: Lorazepam (Lorazepam 2 Mg/Ml Vial) 2 mg IV Q2HP PRN PRN Reason: SEDATION Last Admin: 09/05/20 07:37 Dose: 2 mg Documented by: Methylprednisolone Sodium Succinate (Methylprednisolone 40 Mg Inj) 40 mg IV TID [facility] Last Admin: 09/08/20 13:02 Dose: 40 mg Documented by: Metoprolol Tartrate (Metoprolol Tartrate 5 Mg/5 Ml Inj) 2.5 mg IV Q6H PRN PRN Reason: Titrate to SBP (MUST DEFINE) Last Admin: 09/02/20 18:26 Dose: 2.5 mg Documented by: Midazolam HCl (Midazolam Hcl 2 Mg/2 Ml Inj) 2 mg IV Q2HP PRN PRN Reason: SEDATION Last Admin: 09/05/20 09:57 Dose: 2 mg Documented by: Mineral Oil (Mineral Oil 30 Ml Ucup) 30 ml PO 1X ONE Stop: 09/08/20 20:01 Nutritional Formula (Vital Af 1,000 Ml Bot) 1,000 ml RTH CONT [facility] Last Admin: 09/06/20 02:00 Dose: 1,000 ml Documented by: Ondansetron HCl (Ondansetron 4 Mg/2 Ml Vial) 4 mg IV Q6HP PRN PRN Reason: NAUSEA / VOMITING Oxymetazoline HCl (Oxymetazoline Hcl 0.05% 15ml) 1 appl [place] BID PRN PRN Reason: NASAL CONGESTION Last Admin: 08/24/20 20:14 Dose: 1 edmundo Documented by: Sodium Chloride (Flush Normal Saline 10 Ml) 10 ml IV BID [facility] Last Admin: 09/08/20 10:18 Dose: 10 ml Documented by: Thiamine HCl (Thiamine Hcl 100 Mg Tablet) 100 mg PO BID [facility] Last Admin: 09/08/20 10:18 Dose: 100 mg Documented by: Zinc Sulfate (Zinc Sulfate 220 Mg Cap) 220 mg PO DAILY [facility] Last Admin: 09/08/20 10:18 Dose: 220 mg Documented by: Microbiology Results 08/18/20 16:18 Blood - Blood Aerobic Blood Culture - Final No growth in 5 days. 08/18/20 16:18 Blood - Blood Anaerobic Blood Culture - Final No growth in 5 days. 08/18/20 16:36 Blood - Blood Aerobic Blood Culture - Final No growth in 5 days. 08/18/20 16:36 Blood - Blood Anaerobic Blood Culture - Final No growth in 5 days. Assessment/ Plan: Nephrology Limited IH/ ROS due to AMS/ Sedation Tolerating tube feeds. Good urine output. -BM No acute events overnight. Vitals, medications, blood work and imaging reviewed in the chart. General: Unresponsive HEENT: Atraumatic Neck: No Thyromegaly Respiratory: Diminished Cardiovascular: Regular rate/rhythm. LE Edema trace. Gastrointestinal: Soft and benign, Non-distended Musculoskeletal: No clubbing, No contractures Integumentary: No rashes, No cyanosis Neurological: Normal tone Greater than 30min patient care. Blood work reviewed in the chart. Imagings Data: EXAM DESCRIPTION: RAD - Chest Single View - 08/30/2020 5:38 am CLINICAL HISTORY: respiratory failure COMPARISON: August 28 TECHNIQUE: AP portable chest image was obtained 08/30/2020 5:38 am . FINDINGS: Endotracheal tube is in place 5 cm above the josé- good position. NG tube extends below the diaphragm, off the field of view. Right greater than left airspace opacification in the lung smith. Lungs appear better aerated than on the prior study. Improved imaging technique on the current study exaggerates the differential between the current and prior study. Mild cardiomegaly and vascular engorgement present. Heart size is similar or im proved from comparison. No pneumothorax or enlarging pleural effusion IMPRESSION: Well-positioned endotracheal tube. NG tube extends below the diaphragm. Partial clearing of bilateral airspace opacification. EXAM DESCRIPTION: RAD - Chest Single View - 09/04/2020 9:58 am CLINICAL HISTORY: E-Tube placementor repositioning COMPARISON: September 04 portable TECHNIQUE: AP portable chest image was obtained 09/04/2020 9:58 am . FINDINGS: Endotracheal tube has been advanced. Tip is 3.5 cm above the josé mid aortic arch level. No change the PICC line or NG/OG tube. Subcutaneous emphysema is not sig nificantly different. Heart and lung parenchyma are unchanged. IMPRESSION: Endotracheal tube has been advanced. Tip is 3.5 cm above the josé. Conclusions/Impression: A/P: Continue the current POC and Medications other than the changes listed. AM Labs PRN. Recommend daily weight. Please see the orders for complete details. ARMANI likely due to hypovolemia -No NSAIDs Hypocalcemia -Continue Vitamin D3 HTN -Continue IV metoprolol prn DM II -Continue Insulin 70/30 -Continue RISS Moderate malnutrition -Maintain nutrition Anemia in chronic illness -Monitor H&H COVID-19 PNA Acute hypoxic respiratory failure -Intubation with ventilatory support -Continue steroids Toxic metabolic encephalopathy -Continue sedation due to ARF/ Intubation Agree with mineral oil for constipation.
[2020-09-08] MEDS ORDERED: MINERAL OIL 30 ML UCUP PO ONE (20:00)
[2020-09-08] MEDS: FENTANYL CITR 100 MCG/2 ML IV PRN (21:16)
[2020-09-09] MEDS: HYDROMORPHONE HCL 2 MG/ML inj IV PRN ×2 (01:04→06:38)
[2020-09-09] MEDS: CISATRACURIUM BESYLATE 80 MG in NA CHLORIDE 0.9% 160 ML IV PRN ×2 (02:30→14:37)
[2020-09-09] MEDS: INSULIN -REGULAR HUMAN 50 UNIT/0.5 ML ML SQ SCH ×4 (05:34→23:51)
[2020-09-09 06:04] LABS: Absolute Lymphocytes (CBC) 0.3 K/uL (0.7-4.9); Basophils % 0.3 % (0-1.3); Hematocrit 29.4 % (39.6-49.0); Lymphocytes % 2.8 % (15.3-44.8); MPV 10.3 fL (7.6-11.3); RBC Red Blood Cell Count 3.15 M/uL (4.33-5.43)
[2020-09-09 06:06] LABS: Arterial Blood Carboxyhemoglob 1.6 % (0-1.5); Blood Gas Oxyhemoglobin 91.8 % (94-97); Blood O2 Saturation 94.4 % (92-98.5)
[2020-09-09 06:23] LABS: BUN Blood Urea Nitrogen 25 mg/dL (7-18); Bicarbonate 33 mmol/L (21-32); Ferritin 556.1 ng/mL (26-388); Glucose Level 133 mg/dL (74-106); Magnesium 2.3 mg/dL (1.8-2.4); Phosphorus 3.3 mg/dL (2.5-4.9); Potassium 4.8 mmol/L (3.5-5.1); Sodium Level 141 mmol/L (136-145)
[2020-09-09] MEDS ORDERED: POTASS/SODIUM PHOSPHATE 1 PKT POWD.PACK PO SCH (07:00)
[2020-09-09] MEDS: MIDAZOLAM HCL 100 MG in NA CHLORIDE 0.9% 80 ML IV PRN ×2 (07:27→16:10)
[2020-09-09] MEDS: INSULIN 70/30 100 UNITS/ML SQ SCH ×2 (08:19→16:11)
[2020-09-09] MEDS: ASPIRIN 81 MG CHEWABLE TABLET PO SCH (08:25)
[2020-09-09] MEDS: FLUCONAZOLE 100 MG TAB PO SCH (08:25)
[2020-09-09] MEDS: VITAMIN D 1000 UNIT TAB PO SCH (08:25)
[2020-09-09] MEDS: CEFTRIAXONE/SWI 1gm 1 GM/10 ML SYR IVP SCH (08:26)
[2020-09-09] MEDS: METHYLPREDNISOLONE 40 MG INJ IV SCH ×3 (08:26→20:30)
[2020-09-09] MEDS: THIAMINE HCL 100 MG TABLET PO SCH ×2 (08:26→20:29)
[2020-09-09] MEDS: ZINC SULFATE 220 MG CAP PO SCH (08:26)
[2020-09-09] MEDS: FAMOTIDINE 20 MG/2 ML VIAL IV SCH ×2 (08:26→20:30)
[2020-09-09] MEDS: ASCORBIC ACID 500 MG TABLET PO SCH ×4 (08:26→20:30)
[2020-09-09] MEDS: APIXABAN 5 MG TABLET PO SCH ×2 (08:26→20:29)
[2020-09-09 09:29] LABS: Blood Morphology Comment NOT SEEN (NOT SEEN); Platelet Estimate ADEQ
--- NOTE | 2020-09-09 09:32 | P.PN ---
Subjective Date of Service: 09/09/20 (TV) Primary Care Provider: none Chief Complaint: Respiratory failure NC requiring paralytic agents Physical Examination - Vital Signs Temperature: 98.1 F Blood Pressure: 104/74 Pulse: 75 Respirations: 28 Pulse Ox (%): 100 - Studies Medications List Reviewed: Yes Assessment & Plan - Problems (Diagnosis) (1) Acute respiratory failure due to severe acute respiratory syndrome coronavirus 2 (SARS-CoV-2) infection Current Visit: Yes Status: Acute Plan: REsp failure. Advance ET tube. O2 has improved. Labs reviewed. CW weaning doen on O2 to sat of 90% repeat ABG. PC Peep of 15, 100% Fio2
--- NOTE | 2020-09-09 11:48 | RAD REPORT ---
EXAM DESCRIPTION: RAD - Chest Single View - 09/09/2020 6:42 am CLINICAL HISTORY: vent Chest pain. COMPARISON: Chest Single View dated 09/08/2020; Chest Single View dated 09/07/2020; Chest Single View dated 09/05/2020; Chest Single View dated 09/04/2020 FINDINGS: Portable technique limits examination quality. Tip of the endotracheal tube is at the level of the aortic arch. Enteric tube tip is in the stomach. Right-sided PICC line has tip in the SVC. Bilateral pulmonary opacities appear mildly improved since comparative study. There is persistent opacity noted in the right mid lung.
[2020-09-09] MEDS: ACETAMINOPHEN 500 MG TAB PO PRN ×2 (13:12→20:29)
--- NOTE | 2020-09-09 14:20 | P.PN ---
Date of Service: 09/08/20 Subjective Symptoms have not improved. Remains hypoxic. Spoke to sister to update the patient. Remains awake; interacts briefly. Physical Examination - Vital Signs reviewed - Physical Exam General: Remains intubated and sedated Respiratory: Diminished, Crackles/rales Cardiovascular: Regular rate/rhythm, Normal S1 S2, No murmurs Gastrointestinal: Normal bowel sounds, Soft and benign, Non-distended, No tenderness Musculoskeletal: Edematous in his extremities Neurological: Sedated and intubated as well as paralyzed Assessment & Plan - Problems (Diagnosis) (1) Acute respiratory failure due to severe acute respiratory syndrome coronavirus 2 (SARS-CoV-2) infection Current Visit: Yes Status: Acute (2) Morbid obesity Current Visit: Yes Status: Acute - Plan Continue with plan of care as mentioned below; poor prognosis 1. Continue mechanical ventilation and sedation per Pulmonary 2. Continue with IV steroids 3. Chest x-ray with no significant changes 4. Continue neb treatments 5. Prognosis remains poor. Attempting transfer but unsuccessful 6. GI and DVT prophylaxis
--- NOTE | 2020-09-09 14:22 | P.PN ---
Date of Service: 09/09/20 Subjective Patient with no new changes. Clinically still no changes. Continue with the current plan of care. Physical Examination - Vital Signs reviewed - Physical Exam General: Remains intubated and sedated Respiratory: Diminished, Crackles/rales Cardiovascular: Regular rate/rhythm, Normal S1 S2, No murmurs Gastrointestinal: Normal bowel sounds, Soft and benign, Non-distended, No tenderness Musculoskeletal: Edematous in his extremities Neurological: Sedated and intubated as well as paralyzed Assessment & Plan - Problems (Diagnosis) (1) Acute respiratory failure due to severe acute respiratory syndrome coronavirus 2 (SARS-CoV-2) infection Current Visit: Yes Status: Acute (2) Morbid obesity Current Visit: Yes Status: Acute - Plan Continue with plan of care as mentioned below; poor prognosis 1. Continue mechanical ventilation and sedation per Pulmonary 2. Continue with IV steroids 3. Chest x-ray with no significant changes 4. Continue neb treatments 5. Prognosis remains poor. Attempting transfer but unsuccessful 6. GI and DVT prophylaxis
[2020-09-10] MEDS: CISATRACURIUM BESYLATE 80 MG in NA CHLORIDE 0.9% 160 ML IV PRN ×3 (01:48→20:54)
[2020-09-10] MEDS: MIDAZOLAM HCL 100 MG in NA CHLORIDE 0.9% 80 ML IV PRN ×3 (01:48→18:54)
[2020-09-10 05:59] LABS: Absolute Lymphocytes (CBC) 0.3 K/uL (0.7-4.9); Basophils % 0.4 % (0-1.3); Hematocrit 30.8 % (39.6-49.0); Lymphocytes % 3.1 % (15.3-44.8); MPV 9.8 fL (7.6-11.3); RBC Red Blood Cell Count 3.28 M/uL (4.33-5.43)
[2020-09-10] MEDS: INSULIN -REGULAR HUMAN 50 UNIT/0.5 ML ML SQ SCH ×3 (06:00→18:00)
[2020-09-10 06:13] LABS: BUN Blood Urea Nitrogen 23 mg/dL (7-18); Bicarbonate 34 mmol/L (21-32); Ferritin 603.2 ng/mL (26-388); Glucose Level 121 mg/dL (74-106); Magnesium 2.2 mg/dL (1.8-2.4); Potassium 4.1 mmol/L (3.5-5.1); Sodium Level 142 mmol/L (136-145)
[2020-09-10 06:27] LABS: Arterial Blood Carboxyhemoglob 1.5 % (0-1.5); Blood Gas Oxyhemoglobin 89.1 % (94-97); Blood O2 Saturation 91.7 % (92-98.5)
[2020-09-10] MEDS: HYDROMORPHONE HCL 2 MG/ML inj IV PRN (08:37)
[2020-09-10] MEDS: INSULIN 70/30 100 UNITS/ML SQ SCH ×2 (08:38→18:04)
--- NOTE | 2020-09-10 08:42 | RAD REPORT ---
EXAM DESCRIPTION: [place] Single View09/10/2020 4:33 am CLINICAL HISTORY: Respiratory failure COMPARISON: September 09, 2020 and September 07, 2020 FINDINGS: Endotracheal tube has its tip 2 millimeters above of the top of the aortic arch. Nasogast lj tube within the stomach. Minimal improvement in the bilateral pulmonary opacities. Heart is probably upper limits normal size Subcutaneous emphysema right lateral neck without significant change from September 07, 2020
[2020-09-10] MEDS: LORazepam 2 MG/ML VIAL IV PRN ×2 (09:11→21:32)
[2020-09-10] MEDS: FLUCONAZOLE 100 MG TAB PO SCH (09:41)
[2020-09-10] MEDS: ASCORBIC ACID 500 MG TABLET PO SCH ×4 (09:41→20:44)
[2020-09-10] MEDS: APIXABAN 5 MG TABLET PO SCH ×2 (09:41→20:45)
[2020-09-10] MEDS: VITAMIN D 1000 UNIT TAB PO SCH (09:41)
[2020-09-10] MEDS: ASPIRIN 81 MG CHEWABLE TABLET PO SCH (09:41)
[2020-09-10] MEDS: METHYLPREDNISOLONE 40 MG INJ IV SCH ×3 (09:42→20:44)
[2020-09-10] MEDS: ZINC SULFATE 220 MG CAP PO SCH (09:42)
[2020-09-10] MEDS: THIAMINE HCL 100 MG TABLET PO SCH ×2 (09:42→20:44)
[2020-09-10] MEDS: FAMOTIDINE 20 MG/2 ML VIAL IV SCH ×2 (09:42→20:45)
[2020-09-10] MEDS: CEFTRIAXONE/SWI 1gm 1 GM/10 ML SYR IVP SCH (09:42)
[2020-09-10] MEDS ORDERED: BISACODYL 10 MG RECTAL SUPP PR ONE (21:00)
[2020-09-11] MEDS: HYDRALAZINE HCL 20 MG/ML VIAL IV PRN (00:20)
[2020-09-11] MEDS: LORazepam 2 MG/ML VIAL IV PRN (01:12)
[2020-09-11] MEDS ORDERED: FAMOTIDINE 20 MG/2 ML VIAL IV ONE (02:53)
[2020-09-11] MEDS ORDERED: MIDAZOLAM HCL 5 ML ONE ×2 (03:38→03:40)
[2020-09-11] MEDS ORDERED: MIDAZOLAM HCL 20 ML ONE (03:39)
[2020-09-11] MEDS ORDERED: MIDAZOLAM HCL 2 MG/2 ML INJ ONE ×3 (03:42→03:49)
[2020-09-11] MEDS ORDERED: NA CHLORIDE 0.9% 100 ML ONE (03:50)
[2020-09-11] MEDS ORDERED: CISATRACURIUM INJECTION 2 MG/ML (10 ML Vial) IV ONE (03:51)
[2020-09-11] MEDS: MIDAZOLAM HCL 100 MG in NA CHLORIDE 0.9% 80 ML IV PRN ×3 (04:06→22:50)
[2020-09-11 05:45] LABS: Absolute Lymphocytes (CBC) 0.2 K/uL (0.7-4.9); Basophils % 0.2 % (0-1.3); Hematocrit 29.9 % (39.6-49.0); Lymphocytes % 2.4 % (15.3-44.8); MPV 9.8 fL (7.6-11.3); RBC Red Blood Cell Count 3.18 M/uL (4.33-5.43)
--- NOTE | 2020-09-11 05:46 | P.PN ---
Date of Service: 09/10/20 Subjective Patient remains on mechanical ventilation. FiO2 of 90%. Waking up and following commands. Long-term prognosis is poor. Spoke to sister to update her on condition. Physical Examination - Vital Signs reviewed - Physical Exam General: Remains intubated and sedated Respiratory: Diminished, Crackles/rales Cardiovascular: Regular rate/rhythm, Normal S1 S2, No murmurs Gastrointestinal: Normal bowel sounds, Soft and benign, Non-distended, No tenderness Musculoskeletal: Edematous in his extremities Neurological: Sedated and intubated as well as paralyzed Assessment & Plan - Problems (Diagnosis) (1) Acute respiratory failure due to severe acute respiratory syndrome coronavirus 2 (SARS-CoV-2) infection Current Visit: Yes Status: Acute (2) Morbid obesity Current Visit: Yes Status: Acute - Plan Continue with plan of care as mentioned below; poor prognosis 1. Continue mechanical ventilation and sedation per Pulmonary 2. Continue with IV steroids 3. Chest x-ray with no significant changes 4. Continue neb treatments 5. long term prognosis remains poor. Attempting transfer but unsuccessful 6. GI and DVT prophylaxis
[2020-09-11 06:03] LABS: BUN Blood Urea Nitrogen 25 mg/dL (7-18); Bicarbonate 35 mmol/L (21-32); Ferritin 526.5 ng/mL (26-388); Glucose Level 157 mg/dL (74-106); Magnesium 2.3 mg/dL (1.8-2.4); Potassium 4.4 mmol/L (3.5-5.1); Sodium Level 143 mmol/L (136-145)
[2020-09-11 06:10] LABS: Arterial Blood Carboxyhemoglob 1.3 % (0-1.5); Blood Gas Oxyhemoglobin 91.4 % (94-97); Blood O2 Saturation 93.6 % (92-98.5)
[2020-09-11] MEDS: CISATRACURIUM BESYLATE 80 MG in NA CHLORIDE 0.9% 160 ML IV PRN ×2 (07:25→18:04)
--- NOTE | 2020-09-11 07:58 | P.PN ---
Subjective Date of Service: 09/11/20 Primary Care Provider: none Chief Complaint: Respiratory failure Patient oxygenation is improving as sitter low-dose paralytics as episodic coughing spells Review of Systems is unable to be obtained Physical Examination - Vital Signs Temperature: 99.0 F Blood Pressure: 131/84 Pulse: 86 Respirations: 24 Pulse Ox (%): 98 - Physical Exam General: Unresponsive Respiratory: Clear to auscultation bilaterally Cardiovascular: No edema - Studies Medications List Reviewed: Yes Assessment & Plan - Problems (Diagnosis) (1) Acute respiratory failure due to severe acute respiratory syndrome coronavirus 2 (SARS-CoV-2) infection Current Visit: Yes Status: Acute Plan: Respiratory failure episodic coughing spells plan to wean off the paralytic agent and then the Versed said chest x-ray advance endotracheal tube the less some bilateral interstitial changes FiO2 70% will try and wean him down patient is hypoxic hypercapnic tolerating tube feeds
--- NOTE | 2020-09-11 08:53 | RAD REPORT ---
EXAM DESCRIPTION: RAD - Chest Single View - 09/11/2020 7:08 am CLINICAL HISTORY: vent Chest pain. COMPARISON: Chest Single View dated 09/10/2020; Chest Single View dated 09/09/2020; Chest Single View dated 09/08/2020; Chest Single View dated 09/07/2020 FINDINGS: Portable technique limits examination quality. Tip of the endotracheal tube is approximately 1-2 cm proximal to the superior margin of the aortic ar ch. Mild to moderate bilateral pulmonary opacities are present, unchanged. Enteric tube tip is in the stomach.The heart size is mildly enlarged. Right-sided PICC line has its tip at the SVC/right atrial junction. Dr. Crenshaw notified.
[2020-09-11] MEDS: APIXABAN 5 MG TABLET PO SCH ×2 (08:54→20:47)
[2020-09-11] MEDS: ASCORBIC ACID 500 MG TABLET PO SCH ×4 (08:54→20:47)
[2020-09-11] MEDS: METHYLPREDNISOLONE 40 MG INJ IV SCH ×3 (08:54→20:46)
[2020-09-11] MEDS: FAMOTIDINE 20 MG/2 ML VIAL IV SCH ×2 (08:54→20:47)
[2020-09-11] MEDS: FLUCONAZOLE 100 MG TAB PO SCH (08:54)
[2020-09-11] MEDS: INSULIN 70/30 100 UNITS/ML SQ SCH ×2 (08:55→16:13)
[2020-09-11] MEDS: ASPIRIN 81 MG CHEWABLE TABLET PO SCH (08:55)
[2020-09-11] MEDS: HYDROMORPHONE HCL 2 MG/ML inj IV PRN (08:59)
[2020-09-11] MEDS: VITAMIN D 1000 UNIT TAB PO SCH (09:00)
[2020-09-11] MEDS ORDERED: FLEET ENEMA ADULT PR PRN (09:00)
[2020-09-11] MEDS: ZINC SULFATE 220 MG CAP PO SCH (09:00)
[2020-09-11] MEDS: THIAMINE HCL 100 MG TABLET PO SCH ×2 (09:00→20:48)
[2020-09-11] MEDS: CEFTRIAXONE/SWI 1gm 1 GM/10 ML SYR IVP SCH (09:01)
--- NOTE | 2020-09-11 10:16 | RAD REPORT ---
EXAM DESCRIPTION: RAD - Chest Single View - 09/11/2020 10:10 am CLINICAL HISTORY: trachial tube placement Chest pain. COMPARISON: Chest Single View dated 09/11/2020; Chest Single View dated 09/10/2020; Chest Single View dated 09/09/2020; Chest Single View dated 09/08/2020 FINDINGS: Portable technique limits examination quality. Tip of the endotracheal tube is at the level of the superior aortic arch. Enteric tube is coiled in t he stomach. Right-sided PICC line is stable in position.
[2020-09-11] MEDS: INSULIN -REGULAR HUMAN 50 UNIT/0.5 ML ML SQ SCH ×4 (11:34→23:36)
--- NOTE | 2020-09-11 17:01 | P.PN ---
Subjective Date of Service: 09/11/20 Primary Care Provider: none Chief Complaint: Respiratory failure Subjective: Other (Patient remains intubated.) Physical Examination - Vital Signs Temperature: 97.0 F Blood Pressure: 118/73 Pulse: 76 Respirations: 28 Pulse Ox (%): 91 - Studies Medications List Reviewed: Yes Assessment & Plan Discharge Plan: Home Plan to discharge in: Greater than 2 days Physician Review Additional Text: Physical exam: Patient remains intubated and sedated. Heart: Regular rate and rhythm Lungs: Currently intubated and sedated currently on 80% FiO2.. Abdomen: Soft nondistended Extremities: No edema noted. Impression: Acute hypoxic respiratory failure secondary to COVID-19 pneumonia Hyperglycemia suspect diabetes mellitus type 2 Elevated troponin likely ischemic demand related to above Acute renal insufficiency likely dehydration Obesity, BMI 44.5 Plan: Acute hypoxic respiratory failure secondary to COVID-19 pneumonia: No significant change in status. Patient remains intubated. Case discussed with pulmonology. Pulmonology continues to wean off ventilator. Will monitor closely. Continue DVT prophylaxis. Hyperglycemia secondary to prediabetes: A1c 6.1. Continue with Accu-Cheks and sliding scale. Elevated troponin likely ischemic demand related to above: Continue with above plan of care. Cardiology plans for no significant intervention at this time. Echocardiogram pending. Now on Lovenox. Will provide metoprolol as needed. Acute renal insufficiency likely dehydration: Continue with nephrology recommendation. Obesity, BMI 44.5: Addressed lifestyle modification education. Time Spent Managing Pts Care (In Minutes): 55 Time Spent Managing Pts Care (In Minutes): 55
--- NOTE | 2020-09-11 20:53 | P.PN ---
Date of Service: 09/11/20 Vital Signs Temp Pulse Resp BP Pulse Ox 97.3 F 82 28 H 119/73 97 09/11/20 20:00 09/11/20 20:00 09/11/20 20:00 09/11/20 20:00 09/11/20 20:00 Medications Acetaminophen (Acetaminophen 500 Mg Tab) 500 mg PO Q4HP PRN PRN Reason: TEMP > 101' F Last Admin: 09/09/20 20:29 Dose: 500 mg Documented by: Apixaban (Apixaban 5 Mg Tablet) 5 mg PO BID [facility] Last Admin: 09/11/20 20:47 Dose: 5 mg Documented by: Ascorbic Acid (Ascorbic Acid 500 Mg Tablet) 500 mg PO QID [facility] Last Admin: 09/11/20 20:47 Dose: 500 mg Documented by: Aspirin (Aspirin 81 Mg Chewable Tablet) 162 mg PO DAILY [facility] Last Admin: 09/11/20 08:55 Dose: 162 mg Documented by: Benzonatate (Benzonatate 100 Mg Cap) 100 mg PO TID PRN PRN Reason: COUGH Last Admin: 08/19/20 19:55 Dose: 100 mg Documented by: Cholecalciferol (Vitamin D 1000 Unit Tab) 4,000 unit PO DAILY [facility] Last Admin: 09/11/20 09:00 Dose: 4,000 unit Documented by: Cisatracurium Besylate (Cisatracurium Injection 2 Mg/Ml (10 Ml Vial)) 4 mg IV Q2H PRN PRN Reason: AGITATION Last Admin: 09/05/20 16:00 Dose: 4 mg Documented by: Dextrose (D50w 25 Gm/50 Ml Vial) 12.5 gm IV PRN PRN; Protocol PRN Reason: HYPOGLYCEMIA Famotidine (Famotidine 20 Mg/2 Ml Vial) 20 mg IV BID [facility] Last Admin: 09/11/20 20:47 Dose: 20 mg Documented by: Fentanyl Citrate (Fentanyl Citr 100 Mcg/2 Ml) 25 mcg IV Q4HP PRN PRN Reason: Pain scale 8-10 (Severe) Last Admin: 09/08/20 21:16 Dose: 25 mcg Documented by: Fluconazole (Fluconazole 100 Mg Tab) 200 mg PO DAILY [facility]; Protocol Last Admin: 09/11/20 08:54 Dose: 200 mg Documented by: Glucagon (Glucagon 1 Mg/Vial) 1 mg IM 1X PRN; Protocol PRN Reason: HYPOGLYCEMIA Haloperidol Lactate (Haloperidol Lact 5 Mg/Ml Inj) 2 mg IV Q4HP PRN PRN Reason: AGITATION Last Admin: 09/04/20 13:00 Dose: 2 mg Documented by: Hydralazine HCl (Hydralazine Hcl 20 Mg/Ml Vial) 10 mg IV Q6HP PRN PRN Reason: Titrate to SBP (MUST DEFINE) Last Admin: 09/11/20 00:20 Dose: 10 mg Documented by: Hydromorphone HCl (Hydromorphone Hcl 2 Mg/Ml Inj) 2 mg IV Q4H PRN PRN Reason: Pain scale 8-10 (Severe) Last Admin: 09/11/20 08:59 Dose: 2 mg Documented by: Propofol (Diprivan) 1,000 mg in 100 mls @ 0 mls/hr IV PRN PRN; Protocol PRN Reason: SEDATION Last Admin: 09/05/20 06:30 Dose: 100 mls Documented by: Sodium Chloride (Sodium Chloride) 250 mls @ 999 mls/hr IV Q15M PRN PRN Reason: HYPOTENSION Cisatracurium Besylate 80 mg/ (Sodium Chloride) 200 mls @ 0 mls/hr IV PRN PRN; Protocol PRN Reason: NEUROMUSCULAR BLOCKAGE Last Admin: 09/11/20 18:04 Dose: 200 mls Documented by: Ceftriaxone Sodium/Sodium Chloride (Rocephin 1 Gm/10 Ml Swi Ivp) 1 gm in 10 mls @ 600 mls/hr IVP DAILY [facility]; Protocol Last Admin: 09/11/20 09:01 Dose: 10 mls Documented by: Midazolam HCl 100 mg/ Sodium (Chloride) 100 mls @ 0 mls/hr IV PRN PRN; Protocol PRN Reason: SEDATION Last Admin: 09/11/20 12:12 Dose: 100 mls Documented by: Insulin Human Isoph/Insulin Regular (Insulin 70/30 100 Units/Ml) 20 unit SQ BIDAC [facility] Last Admin: 09/11/20 16:13 Dose: 20 units Documented by: Insulin Human Regular (Insulin -Regular Human 50 Unit/0.5 Ml Ml) 0 unit SQ Q6H [facility]; Protocol Last Admin: 09/11/20 17:19 Dose: Not Given Documented by: Lorazepam (Lorazepam 2 Mg/Ml Vial) 2 mg IV Q2HP PRN PRN Reason: SEDATION Last Admin: 09/11/20 01:12 Dose: 2 mg Documented by: Methylprednisolone Sodium Succinate (Methylprednisolone 40 Mg Inj) 40 mg IV TID [facility] Last Admin: 09/11/20 20:46 Dose: 40 mg Documented by: Metoprolol Tartrate (Metoprolol Tartrate 5 Mg/5 Ml Inj) 2.5 mg IV Q6H PRN PRN Reason: Titrate to SBP (MUST DEFINE) Last Admin: 09/02/20 18:26 Dose: 2.5 mg Documented by: Midazolam HCl (Midazolam Hcl 2 Mg/2 Ml Inj) 2 mg IV Q2HP PRN PRN Reason: SEDATION Last Admin: 09/05/20 09:57 Dose: 2 mg Documented by: Nutritional Formula (Vital Af 1,000 Ml Bot) 1,000 ml RTH CONT [facility] Last Admin: 09/06/20 02:00 Dose: 1,000 ml Documented by: Ondansetron HCl (Ondansetron 4 Mg/2 Ml Vial) 4 mg IV Q6HP PRN PRN Reason: NAUSEA / VOMITING Oxymetazoline HCl (Oxymetazoline Hcl 0.05% 15ml) 1 appl [place] BID PRN PRN Reason: NASAL CONGESTION Last Admin: 08/24/20 20:14 Dose: 1 edmundo Documented by: Sodium Biphosphate/Sodium Phosphate (Fleet Enema Adult) 133 ml [place] 1X PRN PRN Reason: CONSTIPATION Sodium Chloride (Flush Normal Saline 10 Ml) 10 ml IV BID [facility] Last Admin: 09/11/20 20:47 Dose: 10 ml Documented by: Thiamine HCl (Thiamine Hcl 100 Mg Tablet) 100 mg PO BID [facility] Last Admin: 09/11/20 20:48 Dose: 100 mg Documented by: Zinc Sulfate (Zinc Sulfate 220 Mg Cap) 220 mg PO DAILY [facility] Last Admin: 09/11/20 09:00 Dose: 220 mg Documented by: Microbiology Results 08/18/20 16:18 Blood - Blood Aerobic Blood Culture - Final No growth in 5 days. 08/18/20 16:18 Blood - Blood Anaerobic Blood Culture - Final No growth in 5 days. 08/18/20 16:36 Blood - Blood Aerobic Blood Culture - Final No growth in 5 days. 08/18/20 16:36 Blood - Blood Anaerobic Blood Culture - Final No growth in 5 days. Assessment/ Plan: Nephrology Limited IH/ ROS due to AMS/ Sedation No acute events overnight. Vitals, medications, blood work and imaging reviewed in the chart. General: Unresponsive HEENT: Atraumatic Neck: No Thyromegaly Respiratory: Diminished Cardiovascular: Regular rate/rhythm. LE Edema trace. Gastrointestinal: Soft and benign, Non-distended Musculoskeletal: No clubbing, No contractures Integumentary: No rashes, No cyanosis Neurological: Normal tone Greater than 30min patient care. Blood work reviewed in the chart. Imagings Data: EXAM DESCRIPTION: RAD - Chest Single View - 08/30/2020 5:38 am CLINICAL HISTORY: respiratory failure COMPARISON: August 28 TECHNIQUE: AP portable chest image was obtained 08/30/2020 5:38 am . FINDINGS: Endotracheal tube is in place 5 cm above the josé- good position. NG tube extends below the diaphragm, off the field of view. Right greater than left airspace opacification in the lung smith. Lungs appear better aerated than on the prior study. Improved imaging technique on the current study exaggerates the differential between the current and prior study. Mild cardiomegaly and vascular engorgement present. Heart size is similar or improved from comparison. No pneumothorax or enlarging pleural effusion IMPRESSION: Well-positioned endotracheal tube. NG tube extends below the diaphragm. Partial clearing of bilateral airspace opacification. EXAM DESCRIPTION: RAD - Chest Single View - 09/04/2020 9:58 am CLINICAL HISTORY: E-Tube placementor repositioning COMPARISON: September 04 portable TECHNIQUE: AP portable chest image was obtained 09/04/2020 9:58 am . FINDINGS: Endotracheal tube has been advanced. Tip is 3.5 cm above the josé mid aortic arch level. No change the PICC line or NG/OG tube. Subcutaneous emphysema is not significantly different. Heart and lung parenchyma are unchanged. IMPRESSION: Endotracheal tube has been advanced. Tip is 3.5 cm above the josé. Conclusions/Impression: A/P: Continue the current POC and Medications other than the changes listed. AM Labs PRN. Recommend daily weight. Please see the orders for complete details. ARMANI likely due to hypovolemia -No NSAIDs Hypocalcemia -Continue Vitamin D3 HTN -Continue IV metoprolol prn DM II -Continue Insulin 70/30 -Continue RISS Moderate malnutrition -Maintain nutrition Anemia in chronic illness -Monitor H&H COVID-19 PNA Acute hypoxic respiratory failure -Intubation with ventilatory support -Continue steroids Toxic metabolic encephalopathy -Continue sedation due to ARF/ Intubation
[2020-09-12] MEDS: CISATRACURIUM BESYLATE 80 MG in NA CHLORIDE 0.9% 160 ML IV PRN ×3 (03:54→23:00)
[2020-09-12] MEDS: INSULIN -REGULAR HUMAN 50 UNIT/0.5 ML ML SQ SCH ×4 (05:14→23:19)
[2020-09-12 05:27] LABS: BUN Blood Urea Nitrogen 24 mg/dL (7-18); Bicarbonate 34 mmol/L (21-32); Ferritin 565.8 ng/mL (26-388); Glucose Level 135 mg/dL (74-106); Magnesium 2.1 mg/dL (1.8-2.4); Phosphorus 2.6 mg/dL (2.5-4.9); Potassium 4.1 mmol/L (3.5-5.1); Sodium Level 143 mmol/L (136-145)
[2020-09-12 05:40] LABS: Absolute Lymphocytes (CBC) 0.3 K/uL (0.7-4.9); Basophils % 0.1 % (0-1.3); Hematocrit 30.2 % (39.6-49.0); Lymphocytes % 2.3 % (15.3-44.8); RBC Red Blood Cell Count 3.22 M/uL (4.33-5.43)
[2020-09-12] MEDS: MIDAZOLAM HCL 100 MG in NA CHLORIDE 0.9% 80 ML IV PRN ×3 (07:04→23:59)
[2020-09-12] MEDS: INSULIN 70/30 100 UNITS/ML SQ SCH ×2 (08:00→17:08)
[2020-09-12] MEDS: FLUCONAZOLE 100 MG TAB PO SCH (08:56)
[2020-09-12] MEDS: VITAMIN D 1000 UNIT TAB PO SCH (08:56)
[2020-09-12] MEDS: ASPIRIN 81 MG CHEWABLE TABLET PO SCH (08:56)
[2020-09-12] MEDS: CEFTRIAXONE/SWI 1gm 1 GM/10 ML SYR IVP SCH (08:57)
[2020-09-12] MEDS: METHYLPREDNISOLONE 40 MG INJ IV SCH ×3 (08:57→20:22)
[2020-09-12] MEDS: APIXABAN 5 MG TABLET PO SCH ×2 (08:57→20:21)
[2020-09-12] MEDS: FUROSEMIDE 20 MG/ 2ML VIAL IV SCH (08:57)
[2020-09-12] MEDS: FAMOTIDINE 20 MG/2 ML VIAL IV SCH ×2 (08:57→20:22)
[2020-09-12] MEDS: ZINC SULFATE 220 MG CAP PO SCH (08:57)
[2020-09-12] MEDS: THIAMINE HCL 100 MG TABLET PO SCH ×2 (08:58→20:25)
[2020-09-12] MEDS: ASCORBIC ACID 500 MG TABLET PO SCH ×4 (08:58→20:21)
--- NOTE | 2020-09-12 09:25 | RAD REPORT ---
EXAM DESCRIPTION: RAD - Chest Single View - 09/12/2020 9:14 am CLINICAL HISTORY: Resp failure COMPARISON: September 11 TECHNIQUE: AP portable chest image was obtained 09/12/2020 9:14 am . FINDINGS: Tip of the endotracheal tube is top of the aortic arch. This is 4 cm above the josé and similar in position to the prior day study. Enteric tube extends below the diaphragm, off the field o f view. Scattered bilateral lung parenchymal opacification present not substantially different from the prior day study. Heart size and pulmonary vasculature are normal range and stable. No measurable pleural e ffusion and no pneumothorax. Right neck base subcutaneous emphysema not substantially different. IMPRESSION: Stable bilateral lung parenchymal opacification from September 11 imaging. Stable positioning of the ET tube 4 cm above the josé.
[2020-09-12 09:38] LABS: Arterial Blood Carboxyhemoglob 1.3 % (0-1.5); Blood Gas Oxyhemoglobin 87.8 % (94-97); Blood O2 Saturation 89.6 % (92-98.5)
[2020-09-12] MEDS: LORazepam 2 MG/ML VIAL IV PRN (11:38)
--- NOTE | 2020-09-12 12:20 | P.PN ---
Subjective Date of Service: 09/12/20 Primary Care Provider: none Chief Complaint: Respiratory failure No change patient is still unresponsive requiring paralytic agents significant coughing spells chest x-ray reviewed Physical Examination - Vital Signs Temperature: 98.1 F Blood Pressure: 147/97 Pulse: 108 Respirations: 29 Pulse Ox (%): 87 - Physical Exam General: Unresponsive Respiratory: Clear to auscultation bilaterally, Diminished Cardiovascular: No edema, Regular rate/rhythm - Studies Medications List Reviewed: Yes Assessment & Plan - Problems (Diagnosis) (1) Acute respiratory failure due to severe acute respiratory syndrome coronavirus 2 (SARS-CoV-2) infection Current Visit: Yes Status: Acute Plan: Respiratory failure will on 80% FiO2 chest x-ray stable maybe slightly better endotracheal tube satisfactory chemistries and labs satisfactory patient started on low-dose Lasix other was no change in medication
[2020-09-12 13:06] LABS: White Blood Cell Scan OK (OK)
[2020-09-12 13:07] LABS: Blood Morphology Comment NOT SEEN (NOT SEEN); Platelet Estimate ADEQ
[2020-09-12] MEDS: HYDROMORPHONE HCL 2 MG/ML inj IV PRN ×2 (13:27→22:39)
--- NOTE | 2020-09-12 15:21 | P.PN ---
Subjective Date of Service: 09/12/20 Primary Care Provider: none Chief Complaint: Respiratory failure Subjective: Other (Patient remains intubated) Physical Examination - Vital Signs Temperature: 98.1 F Blood Pressure: 148/102 Pulse: 109 Respirations: 24 Pulse Ox (%): 94 - Studies Medications List Reviewed: Yes Assessment & Plan Discharge Plan: Home Plan to discharge in: Greater than 2 days Physician Review Additional Text: Physical exam: Patient remains intubated and slightly sedated. Heart: Regular rate and rhythm Lungs: Currently intubated and sedated currently on 80% FiO2.. Abdomen: Soft nondistended Extremities: No edema noted. Impression: Acute hypoxic respiratory failure secondary to COVID-19 pneumonia Hyperglycemia suspect diabetes mellitus type 2 Elevated troponin likely ischemic demand related to above Acute renal insufficiency likely dehydration Obesity, BMI 44.5 Plan: Acute hypoxic respiratory failure secondary to COVID-19 pneumonia: Patient remains intubated and sedated. Slight improvement noted. Continue with pulmono logy recommendations. Continue to monitor labs and trend closely. Patient on DVT prophylaxis. We will continue to monitor and address medications Hyperglycemia secondary to prediabetes: A1c 6.1. Will decrease insulin. Continue to wean off if not required. Elevated troponin likely ischemic demand related to above: Continue with above plan of care. Cardiology plans for no significant intervention at this time. Echocardiogram pending. Now on Lovenox. Will provide metoprolol as needed. Acute renal insufficiency likely dehydration: Continue with nephrology recommendation. Obesity, BMI 44.5: Addressed lifestyle modification education. Time Spent Managing Pts Care (In Minutes): 55 Time Spent Managing Pts Care (In Minutes): 55
--- NOTE | 2020-09-12 21:06 | P.PN ---
Date of Service: 09/12/20 Vital Signs Temp Pulse Resp BP Pulse Ox 97.1 F 84 25 H 122/74 97 09/12/20 16:00 09/12/20 18:00 09/12/20 18:00 09/12/20 18:00 09/12/20 18:00 Medications Acetaminophen (Acetaminophen 500 Mg Tab) 500 mg PO Q4HP PRN PRN Reason: TEMP > 101' F Last Admin: 09/09/20 20:29 Dose: 500 mg Documented by: Apixaban (Apixaban 5 Mg Tablet) 5 mg PO BID [facility] Last Admin: 09/12/20 20:21 Dose: 5 mg Documented by: Ascorbic Acid (Ascorbic Acid 500 Mg Tablet) 500 mg PO QID [facility] Last Admin: 09/12/20 20:21 Dose: 500 mg Documented by: Aspirin (Aspirin 81 Mg Chewable Tablet) 162 mg PO DAILY [facility] Last Admin: 09/12/20 08:56 Dose: 162 mg Documented by: Benzonatate (Benzonatate 100 Mg Cap) 100 mg PO TID PRN PRN Reason: COUGH Last Admin: 08/19/20 19:55 Dose: 100 mg Documented by: Cholecalciferol (Vitamin D 1000 Unit Tab) 4,000 unit PO DAILY [facility] Last Admin: 09/12/20 08:56 Dose: 4,000 unit Documented by: Cisatracurium Besylate (Cisatracurium Injection 2 Mg/Ml (10 Ml Vial)) 4 mg IV Q2H PRN PRN Reason: AGITATION Last Admin: 09/05/20 16:00 Dose: 4 mg Documented by: Dextrose (D50w 25 Gm/50 Ml Vial) 12.5 gm IV PRN PRN; Protocol PRN Reason: HYPOGLYCEMIA Famotidine (Famotidine 20 Mg/2 Ml Vial) 20 mg IV BID [facility] Last Admin: 09/12/20 20:22 Dose: 20 mg Documented by: Fentanyl Citrate (Fentanyl Citr 100 Mcg/2 Ml) 25 mcg IV Q4HP PRN PRN Reason: Pain scale 8-10 (Severe) Last Admin: 09/08/20 21:16 Dose: 25 mcg Documented by: Fluconazole (Fluconazole 100 Mg Tab) 200 mg PO DAILY [facility]; Protocol Last Admin: 09/12/20 08:56 Dose: 200 mg Documented by: Furosemide (Furosemide 20 Mg/ 2ml Vial) 20 mg IV DAILY [facility] Last Admin: 09/12/20 08:57 Dose: 20 mg Documented by: Glucagon (Glucagon 1 Mg/Vial) 1 mg IM 1X PRN; Protocol PRN Reason: HYPOGLYCEMIA Haloperidol Lactate (Haloperidol Lact 5 Mg/Ml Inj) 2 mg IV Q4HP PRN PRN Reason: AGITATION Last Admin: 09/04/20 13:00 Dose: 2 mg Documented by: Hydralazine HCl (Hydralazine Hcl 20 Mg/Ml Vial) 10 mg IV Q6HP PRN PRN Reason: Titrate to SBP (MUST DEFINE) Last Admin: 09/11/20 00:20 Dose: 10 mg Documented by: Hydromorphone HCl (Hydromorphone Hcl 2 Mg/Ml Inj) 2 mg IV Q4H PRN PRN Reason: Pain scale 8-10 (Severe) Last Admin: 09/12/20 13:27 Dose: 2 mg Documented by: Propofol (Diprivan) 1,000 mg in 100 mls @ 0 mls/hr IV PRN PRN; Protocol PRN Reason: SEDATION Last Admin: 09/05/20 06:30 Dose: 100 mls Documented by: Sodium Chloride (Sodium Chloride) 250 mls @ 999 mls/hr IV Q15M PRN PRN Reason: HYPOTENSION Cisatracurium Besylate 80 mg/ (Sodium Chloride) 200 mls @ 0 mls/hr IV PRN PRN; Protocol PRN Reason: NEUROMUSCULAR BLOCKAGE Last Admin: 09/12/20 13:01 Dose: 200 mls Documented by: Ceftriaxone Sodium/Sodium Chloride (Rocephin 1 Gm/10 Ml Swi Ivp) 1 gm in 10 mls @ 600 mls/hr IVP DAILY [facility]; Protocol Last Admin: 09/12/20 08:57 Dose: 10 mls Documented by: Midazolam HCl 100 mg/ Sodium (Chloride) 100 mls @ 0 mls/hr IV PRN PRN; Protocol PRN Reason: SEDATION Last Admin: 09/12/20 13:35 Dose: 100 mls Documented by: Insulin Human Isoph/Insulin Regular (Insulin 70/30 100 Units/Ml) 15 unit SQ BIDAC [facility] Last Admin: 09/12/20 17:08 Dose: 15 units Documented by: Insulin Human Regular (Insulin -Regular Human 50 Unit/0.5 Ml Ml) 0 unit SQ Q6H [facility]; Protocol Last Admin: 09/12/20 17:09 Dose: Not Given Documented by: Lorazepam (Lorazepam 2 Mg/Ml Vial) 2 mg IV Q2HP PRN PRN Reason: SEDATION Last Admin: 09/12/20 11:38 Dose: 2 mg Documented by: Methylprednisolone Sodium Succinate (Methylprednisolone 40 Mg Inj) 40 mg IV TID [facility] Last Admin: 09/12/20 20:22 Dose: 40 mg Documented by: Metoprolol Tartrate (Metoprolol Tartrate 5 Mg/5 Ml Inj) 2.5 mg IV Q6H PRN PRN Reason: Titrate to SBP (MUST DEFINE) Last Admin: 09/02/20 18:26 Dose: 2.5 mg Documented by: Midazolam HCl (Midazolam Hcl 2 Mg/2 Ml Inj) 2 mg IV Q2HP PRN PRN Reason: SEDATION Last Admin: 09/05/20 09:57 Dose: 2 mg Documented by: Nutritional Formula (Vital Af 1,000 Ml Bot) 1,000 ml RTH CONT [facility] Last Admin: 09/06/20 02:00 Dose: 1,000 ml Documented by: Ondansetron HCl (Ondansetron 4 Mg/2 Ml Vial) 4 mg IV Q6HP PRN PRN Reason: NAUSEA / VOMITING Oxymetazoline HCl (Oxymetazoline Hcl 0.05% 15ml) 1 appl [place] BID PRN PRN Reason: NASAL CONGESTION Last Admin: 08/24/20 20:14 Dose: 1 edmundo Documented by: Sodium Biphosphate/Sodium Phosphate (Fleet Enema Adult) 133 ml [place] 1X PRN PRN Reason: CONSTIPATION Sodium Chloride (Flush Normal Saline 10 Ml) 10 ml IV BID [facility] Last Admin: 09/12/20 20:20 Dose: 10 ml Documented by: Thiamine HCl (Thiamine Hcl 100 Mg Tablet) 100 mg PO BID [facility] Last Admin: 09/12/20 20:25 Dose: 100 mg Documented by: Zinc Sulfate (Zinc Sulfate 220 Mg Cap) 220 mg PO DAILY [facility] Last Admin: 09/12/20 08:57 Dose: 220 mg Documented by: Microbiology Results 08/18/20 16:18 Blood - Blood Aerobic Blood Culture - Final No growth in 5 days. 08/18/20 16:18 Blood - Blood Anaerobic Blood Culture - Final No growth in 5 days. 08/18/20 16:36 Blood - Blood Aerobic Blood Culture - Final No growth in 5 days. 08/18/20 16:36 Blood - Blood Anaerobic Blood Culture - Final No growth in 5 days. Assessment/ Plan: Nephrology Limited IH/ ROS due to AMS/ Sedation No acute events overnight. Vitals, medications, blood work and imaging reviewed in the chart. General: Unresponsive HEENT: Atraumatic Neck: No Thyromegaly Respiratory: Diminished Cardiovascular: Regular rate/rhythm. LE Edema 1+. Gastrointestinal: Soft and benign, Non-distended Musculoskeletal: No clubbing, No contractures Integumentary: No rashes, No cyanosis Neurological: Normal tone Greater than 30min patient care. Blood work reviewed in the chart. Imagings Data: EXAM DESCRIPTION: RAD - Chest Single View - 08/30/2020 5:38 am CLINICAL HISTORY: respiratory failure COMPARISON: August 28 TECHNIQUE: AP portable chest image was obtained 08/30/2020 5:38 am . FINDINGS: Endotracheal tube is in place 5 cm above the josé- good position. NG tube extends below the diaphragm, off the field of view. Right greater than left airspace opacification in the lung smith. Lungs appear better aerated than on the prior study. Improved imaging technique on the current study exaggerates the differential between the current and prior study. Mild cardiomegaly and vascular engorgement present. Heart size is similar or improved from comparison. No pneumothorax or enlarging pleural effusion IMPRESSION: Well-positioned endotracheal tube. NG tube extends below the diaphragm. Partial clearing of bilateral airspace opacification. EXAM DESCRIPTION: RAD - Chest Single View - 09/04/2020 9:58 am CLINICAL HISTORY: E-Tube placementor repositioning COMPARISON: September 04 portable TECHNIQUE: AP portable chest image was obtained 09/04/2020 9:58 am . FINDINGS: Endotracheal tube has been advanced. Tip is 3.5 cm above the josé mid aortic arch level. No change the PICC line or NG/OG tube. Subcutaneous emphysema is not significantly different. Heart and lung parenchyma are unchanged. IMPRESSION: Endotracheal tube has been advanced. Tip is 3.5 cm above the josé. Conclusions/Impression: A/P: Continue the current POC and Medications other than the changes listed. AM Labs PRN. Recommend daily weight. Please see the orders for complete details. ARMANI likely due to hypovolemia -No NSAIDs Hypocalcemia -Continue Vitamin D3 HTN -Continue IV metoprolol prn DM II -Continue Insulin 70/30 -Continue RISS Moderate malnutrition -Maintain nutrition Anemia in chronic illness -Monitor H&H COVID-19 PNA Acute hypoxic respiratory failure -Intubation with ventilatory support -Continue steroids Toxic metabolic encephalopathy -Continue sedation due to ARF/ Intubation
[2020-09-13 05:45] LABS: ALT/SGPT 37 U/L (12-78); AST/SGOT 15 U/L (15-37); Alkaline Phosphatase 81 U/L (45-117); BUN Blood Urea Nitrogen 29 mg/dL (7-18); Bicarbonate 33 mmol/L (21-32); Bilirubin Total 0.3 mg/dL (0.2-1.0); Glucose Level 168 mg/dL (74-106); Phosphorus 3.1 mg/dL (2.5-4.9); Potassium 4.3 mmol/L (3.5-5.1); Protein, Total 5.8 g/dL (6.4-8.2); Sodium Level 142 mmol/L (136-145)
[2020-09-13] MEDS: INSULIN -REGULAR HUMAN 50 UNIT/0.5 ML ML SQ SCH ×4 (06:00→23:28)
[2020-09-13 06:24] LABS: Arterial Blood Carboxyhemoglob 1.4 % (0-1.5); Blood Gas Oxyhemoglobin 90.6 % (94-97); Blood O2 Saturation 92.8 % (92-98.5)
--- NOTE | 2020-09-13 07:17 | RAD REPORT ---
EXAM DESCRIPTION: [place] Single View09/13/2020 6:14 am CLINICAL HISTORY: Chest pain COMPARISON: none FINDINGS: An endotracheal tube has its tip at the top of the aortic arch. Enteric tube coiled withi n the gastric fundus. PICC line in place No significant change in the diffuse bilateral pulmonary opacities. The heart is normal size IMPRESSION: No significant change in the diffuse bilateral pulmonary opacities
[2020-09-13] MEDS: VITAMIN D 1000 UNIT TAB PO SCH (08:18)
[2020-09-13] MEDS: FUROSEMIDE 20 MG/ 2ML VIAL IV SCH (08:19)
[2020-09-13] MEDS: FLUCONAZOLE 100 MG TAB PO SCH (08:19)
[2020-09-13] MEDS: METHYLPREDNISOLONE 40 MG INJ IV SCH ×3 (08:20→20:14)
[2020-09-13] MEDS: ZINC SULFATE 220 MG CAP PO SCH (08:20)
[2020-09-13] MEDS: INSULIN 70/30 100 UNITS/ML SQ SCH ×2 (08:20→17:13)
[2020-09-13] MEDS: FAMOTIDINE 20 MG/2 ML VIAL IV SCH ×2 (08:20→20:15)
[2020-09-13] MEDS: CEFTRIAXONE/SWI 1gm 1 GM/10 ML SYR IVP SCH (08:20)
[2020-09-13] MEDS: ASPIRIN 81 MG CHEWABLE TABLET PO SCH (08:21)
[2020-09-13] MEDS: APIXABAN 5 MG TABLET PO SCH ×2 (08:31→20:15)
[2020-09-13] MEDS: ASCORBIC ACID 500 MG TABLET PO SCH ×4 (08:32→20:15)
[2020-09-13] MEDS: THIAMINE HCL 100 MG TABLET PO SCH ×2 (08:32→20:15)
[2020-09-13] MEDS: HYDROMORPHONE HCL 2 MG/ML inj IV PRN ×3 (08:39→17:20)
[2020-09-13] MEDS: CISATRACURIUM BESYLATE 80 MG in NA CHLORIDE 0.9% 160 ML IV PRN (08:49)
[2020-09-13] MEDS: MIDAZOLAM HCL 100 MG in NA CHLORIDE 0.9% 80 ML IV PRN ×2 (09:00→17:35)
--- NOTE | 2020-09-13 12:25 | P.PN ---
Subjective Date of Service: 09/13/20 Primary Care Provider: none Chief Complaint: Respiratory failure No change requiring paralytic agents oxygenation has improved chest x-ray reviewed Physical Examination - Vital Signs Temperature: 96.8 F Blood Pressure: 124/91 Pulse: 94 Respirations: 32 Pulse Ox (%): 90 - Studies Medications List Reviewed: Yes Assessment & Plan - Problems (Diagnosis) (1) Acute respiratory failure due to severe acute respiratory syndrome coronavirus 2 (SARS-CoV-2) infection Current Visit: Yes Status: Acute Plan: Respiratory failure continue to titrate O2 down to 88-90% patient is still requiring paralytic agents will try to wean off the Nimbex and use Dilaudid also try reducing dose of Versed currently an 80% FiO2 PO2 65 patient is on pressure control stop Rocephin reduce the dose of aspirin labs reviewed continue with IV Lasix
--- NOTE | 2020-09-13 14:22 | P.PN ---
Subjective Date of Service: 09/13/20 Primary Care Provider: none Chief Complaint: Respiratory failure Subjective: Doing well Physical Examination - Vital Signs Temperature: 96.8 F Blood Pressure: 124/91 Pulse: 94 Respirations: 29 Pulse Ox (%): 89 - Studies Medications List Reviewed: Yes Assessment & Plan Discharge Plan: Home Plan to discharge in: Greater than 2 days Physician Review Additional Text: Physical exam: Patient remains intubated and slightly sedated. Patient was able to follow commands. Patient alert. Heart: Regular rate and rhythm Lungs: Currently intubated and sedated currently on 80% FiO2.. Abdomen: Soft nondistended Extremities: No edema noted. Impression: Acute hypoxic respiratory failure secondary to COVID-19 pneumonia Hyperglycemia suspect diabetes mellitus type 2 Elevated troponin likely ischemic demand related to above Acute renal insufficiency likely dehydration Obesity, BMI 44.5 Plan: Acute hypoxic respiratory failure secondary to COVID-19 pneumonia: Patient remains intubated and sedated. He was able to follow commands. Slight improvement noted. Continue with pulmonology recommendations. Continue to monitor labs and trend closely. Patient on DVT prophylaxis. We will continue to monitor and address medications Hyperglycemia secondary to prediabetes: A1c 6.1. Insulin was decreased yesterday. Continue to adjust and wean off. Elevated troponin likely ischemic demand related to above: Continue with above plan of care. Cardiology plans for no significant intervention at this time. Now on Lovenox. Will provide metoprolol as needed. Echo unremarkable. Acute renal insufficiency likely dehydration: Continue with nephrology recommendation. Obesity, BMI 44.5: Addressed lifestyle modification education. Time Spent Managing Pts Care (In Minutes): 55 Time Spent Managing Pts Care (In Minutes): 55
--- NOTE | 2020-09-13 22:40 | P.PN ---
Date of Service: 09/13/20 Vital Signs Temp Pulse Resp BP Pulse Ox 96.7 F L 96 H 17 138/87 94 09/13/20 20:00 09/13/20 20:00 09/13/20 20:00 09/13/20 20:00 09/13/20 20:00 Medications Acetaminophen (Acetaminophen 500 Mg Tab) 500 mg PO Q4HP PRN PRN Reason: TEMP > 101' F Last Admin: 09/09/20 20:29 Dose: 500 mg Documented by: Apixaban (Apixaban 5 Mg Tablet) 5 mg PO BID [facility] Last Admin: 09/13/20 20:15 Dose: 5 mg Documented by: Ascorbic Acid (Ascorbic Acid 500 Mg Tablet) 500 mg PO QID [facility] Last Admin: 09/13/20 20:15 Dose: 500 mg Documented by: Aspirin (Aspirin 81 Mg Chewable Tablet) 81 mg PO DAILY [facility] Benzonatate (Benzonatate 100 Mg Cap) 100 mg PO TID PRN PRN Reason: COUGH Last Admin: 08/19/20 19:55 Dose: 100 mg Documented by: Cholecalciferol (Vitamin D 1000 Unit Tab) 4,000 unit PO DAILY [facility] Last Admin: 09/13/20 08:18 Dose: 4,000 unit Documented by: Cisatracurium Besylate (Cisatracurium Injection 2 Mg/Ml (10 Ml Vial)) 4 mg IV Q2H PRN PRN Reason: AGITATION Last Admin: 09/05/20 16:00 Dose: 4 mg Documented by: Dextrose (D50w 25 Gm/50 Ml Vial) 12.5 gm IV PRN PRN; Protocol PRN Reason: HYPOGLYCEMIA Famotidine (Famotidine 20 Mg/2 Ml Vial) 20 mg IV BID [facility] Last Admin: 09/13/20 20:15 Dose: 20 mg Documented by: Fentanyl Citrate (Fentanyl Citr 100 Mcg/2 Ml) 25 mcg IV Q4HP PRN PRN Reason: Pain scale 8-10 (Severe) Last Admin: 09/08/20 21:16 Dose: 25 mcg Documented by: Fluconazole (Fluconazole 100 Mg Tab) 200 mg PO DAILY [facility]; Protocol Last Admin: 09/13/20 08:19 Dose: 200 mg Documented by: Furosemide (Furosemide 20 Mg/ 2ml Vial) 20 mg IV DAILY [facility] Last Admin: 09/13/20 08:19 Dose: 20 mg Documented by: Glucagon (Glucagon 1 Mg/Vial) 1 mg IM 1X PRN; Protocol PRN Reason: HYPOGLYCEMIA Haloperidol Lactate (Haloperidol Lact 5 Mg/Ml Inj) 2 mg IV Q4HP PRN PRN Reason: AGITATION Last Admin: 09/04/20 13:00 Dose: 2 mg Documented by: Hydralazine HCl (Hydralazine Hcl 20 Mg/Ml Vial) 10 mg IV Q6HP PRN PRN Reason: Titrate to SBP (MUST DEFINE) Last Admin: 09/11/20 00:20 Dose: 10 mg Documented by: Hydromorphone HCl (Hydromorphone Hcl 2 Mg/Ml Inj) 2 mg IV Q4H PRN PRN Reason: Pain scale 8-10 (Severe) Last Admin: 09/13/20 17:20 Dose: 2 mg Documented by: Propofol (Diprivan) 1,000 mg in 100 mls @ 0 mls/hr IV PRN PRN; Protocol PRN Reason: SEDATION Last Admin: 09/05/20 06:30 Dose: 100 mls Documented by: Sodium Chloride (Sodium Chloride) 250 mls @ 999 mls/hr IV Q15M PRN PRN Reason: HYPOTENSION Cisatracurium Besylate 80 mg/ (Sodium Chloride) 200 mls @ 0 mls/hr IV PRN PRN; Protocol PRN Reason: NEUROMUSCULAR BLOCKAGE Last Admin: 09/13/20 08:49 Dose: 200 mls Documented by: Midazolam HCl 100 mg/ Sodium (Chloride) 100 mls @ 0 mls/hr IV PRN PRN; Protocol PRN Reason: SEDATION Last Admin: 09/13/20 17:35 Dose: 100 mls Documented by: Insulin Human Isoph/Insulin Regular (Insulin 70/30 100 Units/Ml) 15 unit SQ BIDAC [facility] Last Admin: 09/13/20 17:13 Dose: 15 units Documented by: Insulin Human Regular (Insulin -Regular Human 50 Unit/0.5 Ml Ml) 0 unit SQ Q6H [facility]; Protocol Last Admin: 09/13/20 17:16 Dose: Not Given Documented by: Lorazepam (Lorazepam 2 Mg/Ml Vial) 2 mg IV Q2HP PRN PRN Reason: SEDATION Last Admin: 09/12/20 11:38 Dose: 2 mg Documented by: Methylprednisolone Sodium Succinate (Methylprednisolone 40 Mg Inj) 40 mg IV TID [facility] Last Admin: 09/13/20 20:14 Dose: 40 mg Documented by: Metoprolol Tartrate (Metoprolol Tartrate 5 Mg/5 Ml Inj) 2.5 mg IV Q6H PRN PRN Reason: Titrate to SBP (MUST DEFINE) Last Admin: 09/02/20 18:26 Dose: 2.5 mg Documented by: Midazolam HCl (Midazolam Hcl 2 Mg/2 Ml Inj) 2 mg IV Q2HP PRN PRN Reason: SEDATION Last Admin: 09/05/20 09:57 Dose: 2 mg Documented by: Nutritional Formula (Vital Af 1,000 Ml Bot) 1,000 ml RTH CONT [facility] Last Admin: 09/06/20 02:00 Dose: 1,000 ml Documented by: Ondansetron HCl (Ondansetron 4 Mg/2 Ml Vial) 4 mg IV Q6HP PRN PRN Reason: NAUSEA / VOMITING Oxymetazoline HCl (Oxymetazoline Hcl 0.05% 15ml) 1 appl [place] BID PRN PRN Reason: NASAL CONGESTION Last Admin: 08/24/20 20:14 Dose: 1 edmundo Documented by: Sodium Biphosphate/Sodium Phosphate (Fleet Enema Adult) [address] 1X PRN PRN Reason: CONSTIPATION Sodium Chloride (Flush Normal Saline 10 Ml) 10 ml IV BID [facility] Last Admin: 09/13/20 20:15 Dose: 10 ml Documented by: Thiamine HCl (Thiamine Hcl 100 Mg Tablet) 100 mg PO BID [facility] Last Admin: 09/13/20 20:15 Dose: 100 mg Documented by: Zinc Sulfate (Zinc Sulfate 220 Mg Cap) 220 mg PO DAILY [facility] Last Admin: 09/13/20 08:20 Dose: 220 mg Documented by: Microbiology Results 08/18/20 16:18 Blood - Blood Aerobic Blood Culture - Final No growth in 5 days. 08/18/20 16:18 Blood - Blood Anaerobic Blood Culture - Final No growth in 5 days. 08/18/20 16:36 Blood - Blood Aerobic Blood Culture - Final No growth in 5 days. 08/18/20 16:36 Blood - Blood Anaerobic Blood Culture - Final No growth in 5 days. Assessment/ Plan: Nephrology Limited IH/ ROS due to AMS/ Sedation No acute events overnight. Vitals, medications, blood work and imaging reviewed in the chart. General: Unresponsive HEENT: Atraumatic Neck: No Thyromegaly Respiratory: Diminished Cardiovascular: Regular rate/rhythm. LE Edema 1+. Gastrointestinal: Soft and benign, Non-distended Musculoskeletal: No clubbing, No contractures Integumentary: No rashes, No cyanosis Neurological: Normal tone Greater than 30min patient care. Blood work reviewed in the chart. Imagings Data: EXAM DESCRIPTION: RAD - Chest Single View - 08/30/2020 5:38 am CLINICAL HISTORY: respiratory failure COMPARISON: August 28 TECHNIQUE: AP portable chest image was obtained 08/30/2020 5:38 am . FINDINGS: Endotracheal tube is in place 5 cm above the josé- good position. NG tube extends below the diaphragm, off the field of view. Right greater than left airspace opacification in the lung smith. Lungs appear better aerated than on the prior study. Improved imaging technique on the current study exaggerates the differential between the current and prior study. Mild cardiomegaly and vascular engorgement present. Heart size is similar or improved from comparison. No pneumothorax or enlarging pleural effusion IMPRESSION: Well-positioned endotracheal tube. NG tube extends below the mohini phragm. Partial clearing of bilateral airspace opacification. EXAM DESCRIPTION: RAD - Chest Single View - 09/04/2020 9:58 am CLINICAL HISTORY: E-Tube placementor repositioning COMPARISON: September 04 portable TECHNIQUE: AP portable chest image was obtained 09/04/2020 9:58 am . FINDINGS: Endotracheal tube has been advanced. Tip is 3.5 cm above the josé mid aortic arch level. No change the PICC line or NG/OG tube. Subcutaneous emphysema is not significantly different. Heart and lung parenchyma are unchanged. IMPRESSION: Endotracheal tube has been advanced. Tip is 3.5 cm above the josé. Conclusions/Impression: A/P: Continue the current POC and Medications other than the changes listed. AM Labs PRN. Recommend daily weight. Please see the orders for complete details. ARMANI likely due to hypovolemia -No NSAIDs Hypocalcemia -Continue Vitamin D3 HTN -Continue IV metoprolol prn DM II -Continue Insulin 70/30 -Continue RISS Moderate malnutrition -Maintain nutrition Anemia in chronic illness -Monitor H&H COVID-19 PNA Acute hypoxic respiratory failure -Intubation with ventilatory support -Continue steroids Toxic metabolic encephalopathy -Continue sedation due to ARF/ Intubation
[2020-09-14] MEDS: MIDAZOLAM HCL 100 MG in NA CHLORIDE 0.9% 80 ML IV PRN ×3 (00:35→18:49)
[2020-09-14] MEDS: HYDROMORPHONE HCL 2 MG/ML inj IV PRN (03:02)
[2020-09-14] MEDS: CISATRACURIUM BESYLATE 80 MG in NA CHLORIDE 0.9% 160 ML IV PRN ×2 (04:21→18:56)
[2020-09-14] MEDS: INSULIN -REGULAR HUMAN 50 UNIT/0.5 ML ML SQ SCH ×3 (05:33→18:00)
[2020-09-14 05:56] LABS: Arterial Blood Carboxyhemoglob 1.6 % (0-1.5); Blood Gas Oxyhemoglobin 89.9 % (94-97); Blood O2 Saturation 92.5 % (92-98.5)
[2020-09-14] MEDS: INSULIN 70/30 100 UNITS/ML SQ SCH ×2 (08:29→16:30)
[2020-09-14 08:47] LABS: BUN Blood Urea Nitrogen 26 mg/dL (7-18); Bicarbonate 36 mmol/L (21-32); C-Reactive Protein 3.15 mg/L (<3.00); Ferritin 514.9 ng/mL (26-388); Glucose Level 138 mg/dL (74-106); Sodium Level 142 mmol/L (136-145)
[2020-09-14 08:58] LABS: Absolute Lymphocytes (CBC) 0.5 K/uL (0.7-4.9); Basophils % 0.1 % (0-1.3); Hematocrit 28.3 % (39.6-49.0); Lymphocytes % 4.5 % (15.3-44.8); MPV 9.5 fL (7.6-11.3); RBC Red Blood Cell Count 3.02 M/uL (4.33-5.43)
[2020-09-14] MEDS: THIAMINE HCL 100 MG TABLET PO SCH ×2 (09:00→21:00)
--- NOTE | 2020-09-14 09:03 | RAD REPORT ---
EXAM DESCRIPTION: RAD - Chest Single View - 09/14/2020 6:21 am CLINICAL HISTORY: Resp failure Chest pain. COMPARISON: Chest Single View dated 09/13/2020; Chest Single View dated 09/12/2020; Chest Single View dated 09/11/2020; Chest Single View dated 09/11/2020 FINDINGS: Portable technique limits examination quality. Tip of the endotracheal tube is at the level of the superior aortic arch. Enteric tube tip extends in to the stomach. Right-sided PICC line is unchanged.Mild improvement is seen in lung aeration. The hea rt is mildly prominent.
[2020-09-14] MEDS: ASPIRIN 81 MG CHEWABLE TABLET PO SCH (09:26)
[2020-09-14] MEDS: VITAMIN D 1000 UNIT TAB PO SCH (09:26)
[2020-09-14] MEDS: ZINC SULFATE 220 MG CAP PO SCH (09:26)
[2020-09-14] MEDS: FLUCONAZOLE 100 MG TAB PO SCH (09:26)
[2020-09-14] MEDS: FUROSEMIDE 20 MG/ 2ML VIAL IV SCH (09:27)
[2020-09-14] MEDS: APIXABAN 5 MG TABLET PO SCH ×2 (09:27→21:23)
[2020-09-14] MEDS: ASCORBIC ACID 500 MG TABLET PO SCH ×4 (09:27→21:24)
[2020-09-14] MEDS: FAMOTIDINE 20 MG/2 ML VIAL IV SCH ×2 (09:28→21:24)
[2020-09-14] MEDS: METHYLPREDNISOLONE 40 MG INJ IV SCH ×2 (09:28→17:53)
--- NOTE | 2020-09-14 13:31 | P.PN ---
Subjective Date of Service: 09/14/20 Primary Care Provider: none Chief Complaint: Respiratory failure No change patient is still alert requiring sedation on high concentrations of oxygen chest x-rays history of improved still requiring paralytic drugs Review of Systems is unable to be obtained Physical Examination - Vital Signs Temperature: 98.2 F Blood Pressure: 109/91 Pulse: 19 Respirations: 28 Pulse Ox (%): 97 - Physical Exam Respiratory: Clear to auscultation bilaterally, Diminished Cardiovascular: No edema, Regular rate/rhythm - Studies Medications List Reviewed: Yes Assessment & Plan - Problems (Diagnosis) (1) Acute respiratory failure due to severe acute respiratory syndrome coronavirus 2 (SARS-CoV-2) infection Current Visit: Yes Status: Acute Plan: Would change still requiring high concentrations of oxygen chest x-ray looks a little better under tracheal tube is satisfactory still remains hypoxic vital signs stable continue with Lasix in steroid still requiring low-dose paralytic continue with low-dose Lasix reduce dose of Solu-Medrol
--- NOTE | 2020-09-14 15:34 | P.PN ---
Subjective Date of Service: 09/14/20 Primary Care Provider: none Chief Complaint: Respiratory failure Subjective: Doing well Physical Examination - Vital Signs Temperature: 98.2 F Blood Pressure: 109/91 Pulse: 19 Respirations: 28 Pulse Ox (%): 97 - Studies Medications List Reviewed: Yes Assessment & Plan Discharge Plan: Home Plan to discharge in: Greater than 2 days Physician Review Additional Text: Physical exam: Patient remains intubated and slightly sedated. Patient was able to follow commands. Patient alert. Heart: Regular rate and rhythm Lungs: Currently intubated and sedated currently on 80% FiO2.. Abdomen: Soft nondistended Extremities: No edema noted. Impression: Acute hypoxic respiratory failure secondary to COVID-19 pneumonia Hyperglycemia suspect diabetes mellitus type 2 Elevated troponin likely ischemic demand related to above Acute renal insufficiency likely dehydration Obesity, BMI 44.5 Plan: Acute hypoxic respiratory failure secondary to COVID-19 pneumonia: No new changes. Patient remains intubated and sedated. He was able to follow commands. Slight improvement noted. Continue with pulmonology recommendations. Continue to monitor labs and trend closely. Patient on DVT prophylaxis. We will continue to monitor and address medications Hyperglycemia secondary to prediabetes: A1c 6.1. Continue to decrease insulin. Continue to adjust and wean off. Elevated troponin likely ischemic demand related to above: Continue with above plan of care. Cardiology plans for no significant intervention at this time. Now on Lovenox. Will provide metoprolol as needed. Echo unremarkable. Acute renal insufficiency likely dehydration: Continue with nephrology recommendation. Obesity, BMI 44.5: Addressed lifestyle modification education. Time Spent Managing Pts Care (In Minutes): 55 Time Spent Managing Pts Care (In Minutes): 55
[2020-09-14] MEDS ORDERED: RSI MEDICATION KIT IV ONE (18:29)
[2020-09-14] MEDS ORDERED: SUCCINYLCHOLINE 20 MG/ML (10 ML) IV ONE (18:51)
[2020-09-14] MEDS ORDERED: ETOMIDATE 20 MG/10 ML VIAL IV ONE (18:51)
--- NOTE | 2020-09-14 19:10 | RAD REPORT ---
EXAM DESCRIPTION: RAD - Chest Single View - 09/14/2020 6:59 pm CLINICAL HISTORY: trachial tube vplacement COMPARISON: Portable September 14 TECHNIQUE: AP portable chest image was obtained 09/14/2020 6:59 pm . FINDINGS: Endotracheal tube is in place. Tip is top of the aortic arch which measures 4.5 cm above t he josé. NG/OG tube is in place curled in the stomach. Bilateral lung parenchymal opacification rem ains. No pneumothorax or enlarging pleural effusion. Upper abdominal bowel gas pattern is nonspecific , limited in detail by motion. No free air or pneumatosis suspected. IMPRESSION: Endotracheal tube in place tip at the top of the aortic arch. This is 4.5 cm above the c kal. NG tube curled in the stomach. Lung parenchymal pattern similar to comparison.
--- NOTE | 2020-09-14 19:33 | P.PN ---
Date of Service: 09/14/20 Vital Signs Temp Pulse Resp BP Pulse Ox 98.5 F 139 H 28 H 136/118 H 56 L 09/14/20 16:00 09/14/20 18:15 09/14/20 18:00 09/14/20 18:15 09/14/20 18:15 Medications Acetaminophen (Acetaminophen 500 Mg Tab) 500 mg PO Q4HP PRN PRN Reason: TEMP > 101' F Last Admin: 09/09/20 20:29 Dose: 500 mg Documented by: Apixaban (Apixaban 5 Mg Tablet) 5 mg PO BID [facility] Last Admin: 09/14/20 09:27 Dose: 5 mg Documented by: Ascorbic Acid (Ascorbic Acid 500 Mg Tablet) 500 mg PO QID [facility] Last Admin: 09/14/20 17:54 Dose: 500 mg Documented by: Aspirin (Aspirin 81 Mg Chewable Tablet) 81 mg PO DAILY [facility] Last Admin: 09/14/20 09:26 Dose: 81 mg Documented by: Benzonatate (Benzonatate 100 Mg Cap) 100 mg PO TID PRN PRN Reason: COUGH Last Admin: 08/19/20 19:55 Dose: 100 mg Documented by: Cholecalciferol (Vitamin D 1000 Unit Tab) 4,000 unit PO DAILY [facility] [place] Last Admin: 09/14/20 09:26 Dose: 4,000 unit Documented by: Cisatracurium Besylate (Cisatracurium Injection 2 Mg/Ml (10 Ml Vial)) 4 mg IV Q2H PRN PRN Reason: AGITATION Last Admin: 09/05/20 16:00 Dose: 4 mg Documented by: Dextrose (D50w 25 Gm/50 Ml Vial) 12.5 gm IV PRN PRN; Protocol PRN Reason: HYPOGLYCEMIA Famotidine (Famotidine 20 Mg/2 Ml Vial) 20 mg IV BID [facility] Last Admin: 09/14/20 09:28 Dose: 20 mg Documented by: Fentanyl Citrate (Fentanyl Citr 100 Mcg/2 Ml) 25 mcg IV Q4HP PRN PRN Reason: Pain scale 8-10 (Severe) Last Admin: 09/08/20 21:16 Dose: 25 mcg Documented by: Fluconazole (Fluconazole 100 Mg Tab) 200 mg PO DAILY [facility]; Protocol Last Admin: 09/14/20 09:26 Dose: 200 mg Documented by: Furosemide (Furosemide 20 Mg/ 2ml Vial) 20 mg IV DAILY [facility] Last Admin: 09/14/20 09:27 Dose: 20 mg Documented by: Glucagon (Glucagon 1 Mg/Vial) 1 mg IM 1X PRN; Protocol PRN Reason: HYPOGLYCEMIA Haloperidol Lactate (Haloperidol Lact 5 Mg/Ml Inj) 2 mg IV Q4HP PRN PRN Reason: AGITATION Last Admin: 09/04/20 13:00 Dose: 2 mg Documented by: Hydralazine HCl (Hydralazine Hcl 20 Mg/Ml Vial) 10 mg IV Q6HP PRN PRN Reason: Titrate to SBP (MUST DEFINE) Last Admin: 09/11/20 00:20 Dose: 10 mg Documented by: Hydromorphone HCl (Hydromorphone Hcl 2 Mg/Ml Inj) 2 mg IV Q4H PRN PRN Reason: Pain scale 8-10 (Severe) Last Admin: 09/14/20 03:02 Dose: 2 mg Documented by: Propofol (Diprivan) 1,000 mg in 100 mls @ 0 mls/hr IV PRN PRN; Protocol PRN Reason: SEDATION Last Admin: 09/05/20 06:30 Dose: 100 mls Documented by: Sodium Chloride (Sodium Chloride) 250 mls @ 999 mls/hr IV Q15M PRN PRN Reason: HYPOTENSION Cisatracurium Besylate 80 mg/ (Sodium Chloride) 200 mls @ 0 mls/hr IV PRN PRN; Protocol PRN Reason: NEUROMUSCULAR BLOCKAGE Last Admin: 09/14/20 18:56 Dose: 200 mls Documented by: Midazolam HCl 100 mg/ Sodium (Chloride) 100 mls @ 0 mls/hr IV PRN PRN; Protocol PRN Reason: SEDATION Last Admin: 09/14/20 18:49 Dose: 100 mls Documented by: Insulin Human Isoph/Insulin Regular (Insulin 70/30 100 Units/Ml) 10 unit SQ BIDAC [facility] Last Admin: 09/14/20 16:30 Dose: Not Given Documented by: Insulin Human Regular (Insulin -Regular Human 50 Unit/0.5 Ml Ml) 0 unit SQ Q6H [facility]; Protocol Last Admin: 09/14/20 18:00 Dose: Not Given Documented by: Lorazepam (Lorazepam 2 Mg/Ml Vial) 2 mg IV Q2HP PRN PRN Reason: SEDATION Last Admin: 09/12/20 11:38 Dose: 2 mg Documented by: Methylprednisolone Sodium Succinate (Methylprednisolone 40 Mg Inj) 40 mg IV Q6HR [facility] Last Admin: 09/14/20 17:53 Dose: 40 mg Documented by: Metoprolol Tartrate (Metoprolol Tartrate 5 Mg/5 Ml Inj) 2.5 mg IV Q6H PRN PRN Reason: Titrate to SBP (MUST DEFINE) Last Admin: 09/02/20 18:26 Dose: 2.5 mg Documented by: Midazolam HCl (Midazolam Hcl 2 Mg/2 Ml Inj) 2 mg IV Q2HP PRN PRN Reason: SEDATION Last Admin: 09/05/20 09:57 Dose: 2 mg Documented by: Nutritional Formula (Vital Af 1,000 Ml Bot) 1,000 ml RTH CONT [facility] Last Admin: 09/06/20 02:00 Dose: 1,000 ml Documented by: Ondansetron HCl (Ondansetron 4 Mg/2 Ml Vial) 4 mg IV Q6HP PRN PRN Reason: NAUSEA / VOMITING Oxymetazoline HCl (Oxymetazoline Hcl 0.05% 15ml) 1 appl [place] BID PRN PRN Reason: NASAL CONGESTION Last Admin: 08/24/20 20:14 Dose: 1 edmundo Documented by: Sodium Biphosphate/Sodium Phosphate (Fleet Enema Adult) 133 ml [place] 1X PRN PRN Reason: CONSTIPATION Sodium Chloride (Flush Normal Saline 10 Ml) 10 ml IV BID [facility] Last Admin: 09/14/20 09:29 Dose: 10 ml Documented by: Thiamine HCl (Thiamine Hcl 100 Mg Tablet) 100 mg PO BID [facility] Last Admin: 09/14/20 09:00 Dose: 100 mg Documented by: Zinc Sulfate (Zinc Sulfate 220 Mg Cap) 220 mg PO DAILY [facility] Last Admin: 09/14/20 09:26 Dose: 220 mg Documented by: Microbiology Results 08/18/20 16:18 Blood - Blood Aerobic Blood Culture - Final No growth in 5 days. 08/18/20 16:18 Blood - Blood Anaerobic Blood Culture - Final No growth in 5 days. 08/18/20 16:36 Blood - Blood Aerobic Blood Culture - Final No growth in 5 days. 08/18/20 16:36 Blood - Blood Anaerobic Blood Culture - Final No growth in 5 days. Assessment/ Plan: Nephrology Limited IH/ ROS due to AMS. More awake today and following commands. No acute events overnight. Vitals, medications, blood work and imaging reviewed in the chart. General: Unresponsive HEENT: Atraumatic Neck: No Thyromegaly Respiratory: Diminished Cardiovascular: Regular rate/rhythm. LE Edema 1+. Gastrointestinal: Soft and benign, Non-distended Musculoskeletal: No clubbing, No contractures Integumentary: No rashes, No cyanosis Neurological: Normal tone Greater than 30min patient care. Blood work reviewed in the chart. Imagings Data: EXAM DESCRIPTION: RAD - Chest Single View - 08/30/2020 5:38 am CLINICAL HISTORY: respiratory failure COMPARISON: August 28 TECHNIQUE: AP portable chest image was obtained 08/30/2020 5:38 am . FINDINGS: Endotracheal tube is in place 5 cm above the josé- good position. NG tube extends below the diaphragm, off the field of view. Right greater than left airspace opacification in the lung smith. Lungs appear better aerated than on the prior study. Improved imaging technique on the current study exaggerates the differential between the current and prior study. Mild cardiomegaly and vascular engorgement present. Heart size is similar or improved from comparison. No pneumothorax or enlarging pleural effusion IMPRESSION: Well-positioned endotracheal tube. NG tube extends below the diaphragm. Partial clearing of bilateral airspace opacification. EXAM DESCRIPTION: RAD - Chest Single View - 09/04/2020 9:58 am CLINICAL HISTORY: E-Tube placementor repositioning COMPARISON: September 04 portable TECHNIQUE: AP portable chest image was obtained 09/04/2020 9:58 am . FINDINGS: Endotracheal tube has been advanced. Tip is 3.5 cm above the josé mid aortic arch level. No change the PICC line or NG/OG tube. Subcutaneous emphysema is not significantly different. Heart and lung parenchyma are unchanged. IMPRESSION: Endotracheal tube has been advanced. Tip is 3.5 cm above the josé. Conclusions/Impression: A/P: Continue the current POC and Medications other than the changes listed. AM Labs PRN. Recommend daily weight. Please see the orders for complete details. ARMANI likely due to hypovolemia -No NSAIDs Hypocalcemia -Continue Vitamin D3 HTN -Continue IV metoprolol prn DM II -Continue Insulin 70/30 -Continue RISS Moderate malnutrition -Maintain nutrition Anemia in chronic illness -Monitor H&H COVID-19 PNA Acute hypoxic respiratory failure -Intubation with ventilatory support -Continue steroids Toxic metabolic encephalopathy -Improving with less sedation
[2020-09-14] MEDS: VITAL AF 1,000 ML BOT RTH SCH (23:28)
[2020-09-15] MEDS: METHYLPREDNISOLONE 40 MG INJ IV SCH ×3 (00:01→17:19)
[2020-09-15] MEDS: MIDAZOLAM HCL 100 MG in NA CHLORIDE 0.9% 80 ML IV PRN ×3 (02:43→20:01)
[2020-09-15] MEDS: HYDRALAZINE HCL 20 MG/ML VIAL IV PRN (02:48)
[2020-09-15] MEDS: LORazepam 2 MG/ML VIAL IV PRN ×2 (02:49→11:31)
[2020-09-15] MEDS: HYDROMORPHONE HCL 2 MG/ML inj IV PRN ×2 (03:21→22:29)
[2020-09-15] MEDS: INSULIN -REGULAR HUMAN 50 UNIT/0.5 ML ML SQ SCH ×4 (05:43→17:14)
[2020-09-15 05:48] LABS: Arterial Blood Carboxyhemoglob 1.2 % (0-1.5); Blood Gas Oxyhemoglobin 88.7 % (94-97); Blood O2 Saturation 90.9 % (92-98.5)
[2020-09-15 06:40] LABS: C-Reactive Protein 12.8 mg/L (<3.00); Ferritin 599.7 ng/mL (26-388)
[2020-09-15] MEDS: CISATRACURIUM BESYLATE 80 MG in NA CHLORIDE 0.9% 160 ML IV PRN ×2 (07:35→18:33)
--- NOTE | 2020-09-15 08:51 | RAD REPORT ---
EXAM DESCRIPTION: RAD - Chest Single View - 09/15/2020 5:41 am CLINICAL HISTORY: Resp failure Chest pain. COMPARISON: Chest Single View dated 09/14/2020; Chest Single View dated 09/14/2020; Chest Single View dated 09/13/2020; Chest Single View dated 09/12/2020 FINDINGS: Portable technique limits examination quality. Tip of the endotracheal tube is at the level of the aortic arch superior aspect. Enteric tube descend s into the stomach. Mild bilateral asymmetric lung opacities are similar to prior study.The heart is mildly enlarged in size. Right-sided PICC line has tip in the SVC.
[2020-09-15] MEDS: FUROSEMIDE 20 MG/ 2ML VIAL IV SCH (08:52)
[2020-09-15] MEDS: FAMOTIDINE 20 MG/2 ML VIAL IV SCH (08:52)
[2020-09-15] MEDS: INSULIN 70/30 100 UNITS/ML SQ SCH ×2 (08:53→17:19)
[2020-09-15] MEDS: APIXABAN 5 MG TABLET PO SCH ×2 (08:54→20:00)
[2020-09-15] MEDS: ASCORBIC ACID 500 MG TABLET PO SCH ×4 (08:54→20:00)
[2020-09-15] MEDS: ASPIRIN 81 MG CHEWABLE TABLET PO SCH (08:54)
[2020-09-15] MEDS: FLUCONAZOLE 100 MG TAB PO SCH (08:54)
[2020-09-15] MEDS: ZINC SULFATE 220 MG CAP PO SCH (08:54)
[2020-09-15] MEDS: VITAMIN D 1000 UNIT TAB PO SCH (08:55)
[2020-09-15] MEDS: THIAMINE HCL 100 MG TABLET PO SCH ×2 (09:00→20:00)
[2020-09-15] MEDS: METOPROLOL TARTRATE 5 MG/5 ML INJ IV PRN (10:20)
--- NOTE | 2020-09-15 11:36 | P.PN ---
Subjective Date of Service: 09/15/20 Primary Care Provider: none Chief Complaint: Respiratory failure Subjective: Other (Patient self extubated yesterday due to agitation. Patient was a reintubated. Overall stable at this time. Patient remains slightly sedated and intubated.) Physical Examination - Vital Signs Temperature: 97.2 F Blood Pressure: 163/116 Pulse: 106 Respirations: 24 Pulse Ox (%): 97 - Studies Medications List Reviewed: Yes Assessment & Plan Discharge Plan: Home Plan to discharge in: Greater than 2 days Physician Review Additional Text: Physical exam: Patient remains intubated and slightly sedated. Patient was able to follow commands. Patient alert. Heart: Regular rate and rhythm Lungs: Currently intubated and sedated currently on 85% FiO2.. Abdomen: Soft nondistended Extremities: No edema noted. Impression: Acute hypoxic respiratory failure secondary to COVID-19 pneumonia Hyperglycemia suspect diabetes mellitus type 2 Elevated troponin likely ischemic demand related to above Acute renal insufficiency likely dehydration Obesity, BMI 44.5 Plan: Acute hypoxic respiratory failure secondary to COVID-19 pneumonia: Patient self extubated him yesterday. He was reintubated by anesthesia. Overall stable. Continue with sedation medication. We will continue to monitor closely. Patient on DVT prophylaxis. Will discuss with pulmonology. Anticipate continued improvement. Hyperglycemia secondary to prediabetes: A1c 6.1. Continue to decrease insulin. Continue to adjust and wean off. Elevated troponin likely ischemic demand related to above: Continue with above plan of care. Cardiology plans for no significant intervention at this time. Now on Lovenox. Will provide metoprolol as needed. Echo unremarkable. Acute renal insufficiency likely dehydration: Continue with nephrology recommendation. Obesity, BMI 44.5: Addressed lifestyle modification education. Time Spent Managing Pts Care (In Minutes): 55 Time Spent Managing Pts Care (In Minutes): 55
--- NOTE | 2020-09-15 11:49 | P.PN ---
Subjective Date of Service: 09/15/20 Primary Care Provider: none Chief Complaint: Respiratory failure Patient self-extubated yesterday was Re intubated requiring low-dose paralytics oxygenation has improved Review of Systems is unable to be obtained Physical Examination - Vital Signs Temperature: 97.2 F Blood Pressure: 163/116 Pulse: 106 Respirations: 24 Pulse Ox (%): 97 - Studies Medications List Reviewed: Yes Assessment & Plan - Problems (Diagnosis) (1) Acute respiratory failure due to severe acute respiratory syndrome coronavirus 2 (SARS-CoV-2) infection Current Visit: Yes Status: Acute Plan: Patient self-extubated yesterday is Re intubated condition is stable oxygenation has improved chest x-ray no change labs reviewed apparently blood cultures were positive will await ID he is at risk for infection chest x-ray reviewed plan to wean down on the paralytic agents for said and will reduce the peep to 10 once is FiO2 requirements is between 50 and 60% seems to be improving patient has some permissive hypercapnia vent settings reviewed
[2020-09-15 12:26] LABS: Absolute Lymphocytes (CBC) 0.2 K/uL (0.7-4.9); Basophils % 0.2 % (0-1.3); Hematocrit 31.5 % (39.6-49.0); Lymphocytes % 1.3 % (15.3-44.8); MPV 9.7 fL (7.6-11.3); RBC Red Blood Cell Count 3.34 M/uL (4.33-5.43)
[2020-09-15 12:45] LABS: BUN Blood Urea Nitrogen 24 mg/dL (7-18); Bicarbonate 34 mmol/L (21-32); Glucose Level 227 mg/dL (74-106); Potassium 4.2 mmol/L (3.5-5.1); Sodium Level 143 mmol/L (136-145)
--- NOTE | 2020-09-15 19:17 | P.PN ---
Date of Service: 09/15/20 Vital Signs Temp Pulse Resp BP Pulse Ox 98.4 F 96 H 30 H 114/68 92 09/15/20 16:00 09/15/20 18:00 09/15/20 18:00 09/15/20 18:00 09/15/20 18:00 Medications Acetaminophen (Acetaminophen 500 Mg Tab) 500 mg PO Q4HP PRN PRN Reason: TEMP > 101' F Last Admin: 09/09/20 20:29 Dose: 500 mg Documented by: Apixaban (Apixaban 5 Mg Tablet) 5 mg PO BID [facility] Last Admin: 09/15/20 08:54 Dose: 5 mg Documented by: Ascorbic Acid (Ascorbic Acid 500 Mg Tablet) 500 mg PO QID [facility] Last Admin: 09/15/20 17:19 Dose: 500 mg Documented by: Aspirin (Aspirin 81 Mg Chewable Tablet) 81 mg PO DAILY [facility] Last Admin: 09/15/20 08:54 Dose: 81 mg Documented by: Benzonatate (Benzonatate 100 Mg Cap) 100 mg PO TID PRN PRN Reason: COUGH Last Admin: 08/19/20 19:55 Dose: 100 mg Documented by: Cholecalciferol (Vitamin D 1000 Unit Tab) 4,000 unit PO DAILY [facility] Last Admin: 09/15/20 08:55 Dose: 4,000 unit Documented by: Cisatracurium Besylate (Cisatracurium Injection 2 Mg/Ml (10 Ml Vial)) 4 mg IV Q2H PRN PRN Reason: AGITATION Last Admin: 09/05/20 16:00 Dose: 4 mg Documented by: Dextrose (D50w 25 Gm/50 Ml Vial) 12.5 gm IV PRN PRN; Protocol PRN Reason: HYPOGLYCEMIA Famotidine (Famotidine 20 Mg Tab) 20 mg PO BID [facility]; Protocol Fentanyl Citrate (Fentanyl Citr 100 Mcg/2 Ml) 25 mcg IV Q4HP PRN PRN Reason: Pain scale 8-10 (Severe) Last Admin: 09/08/20 21:16 Dose: 25 mcg Documented by: Fluconazole (Fluconazole 100 Mg Tab) 200 mg PO DAILY [facility]; Protocol Last Admin: 09/15/20 08:54 Dose: 200 mg Documented by: Furosemide (Furosemide 20 Mg/ 2ml Vial) 20 mg IV DAILY [facility] Last Admin: 09/15/20 08:52 Dose: 20 mg Documented by: Glucagon (Glucagon 1 Mg/Vial) 1 mg IM 1X PRN; Protocol PRN Reason: HYPOGLYCEMIA Haloperidol Lactate (Haloperidol Lact 5 Mg/Ml Inj) 2 mg IV Q4HP PRN PRN Reason: AGITATION Last Admin: 09/04/20 13:00 Dose: 2 mg Documented by: Hydralazine HCl (Hydralazine Hcl 20 Mg/Ml Vial) 10 mg IV Q6HP PRN PRN Reason: Titrate to SBP (MUST DEFINE) Last Admin: 09/15/20 02:48 Dose: 10 mg Documented by: Hydromorphone HCl (Hydromorphone Hcl 2 Mg/Ml Inj) 2 mg IV Q4H PRN PRN Reason: Pain scale 8-10 (Severe) Last Admin: 09/15/20 03:21 Dose: 2 mg Documented by: Propofol (Diprivan) 1,000 mg in 100 mls @ 0 mls/hr IV PRN PRN; Protocol PRN Reason: SEDATION Last Admin: 09/05/20 06:30 Dose: 100 mls Documented by: Sodium Chloride (Sodium Chloride) 250 mls @ 999 mls/hr IV Q15M PRN PRN Reason: HYPOTENSION Cisatracurium Besylate 80 mg/ (Sodium Chloride) 200 mls @ 0 mls/hr IV PRN PRN; Protocol PRN Reason: NEUROMUSCULAR BLOCKAGE Last Admin: 09/15/20 18:33 Dose: 200 mls Documented by: Midazolam HCl 100 mg/ Sodium (Chloride) 100 mls @ 0 mls/hr IV PRN PRN; Protocol PRN Reason: SEDATION Last Admin: 09/15/20 10:49 Dose: 100 mls Documented by: Insulin Human Isoph/Insulin Regular (Insulin 70/30 100 Units/Ml) 10 unit SQ BIDAC [facility] Last Admin: 09/15/20 17:19 Dose: 10 units Documented by: Insulin Human Regular (Insulin -Regular Human 50 Unit/0.5 Ml Ml) 0 unit SQ Q6H [facility]; Protocol Last Admin: 09/15/20 17:14 Dose: Not Given Documented by: Lorazepam (Lorazepam 2 Mg/Ml Vial) 2 mg IV Q2HP PRN PRN Reason: SEDATION Last Admin: 09/15/20 11:31 Dose: 2 mg Documented by: Methylprednisolone Sodium Succinate (Methylprednisolone 40 Mg Inj) 40 mg IV Q8HR [facility] Last Admin: 09/15/20 17:19 Dose: 40 mg Documented by: Metoprolol Tartrate (Metoprolol Tartrate 5 Mg/5 Ml Inj) 2.5 mg IV Q6H PRN PRN Reason: Titrate to SBP (MUST DEFINE) Last Admin: 09/15/20 10:20 Dose: 2.5 mg Documented by: Midazolam HCl (Midazolam Hcl 2 Mg/2 Ml Inj) 2 mg IV Q2HP PRN PRN Reason: SEDATION Last Admin: 09/05/20 09:57 Dose: 2 mg Documented by: Nutritional Formula (Vital Af 1,000 Ml Bot) 1,000 ml RTH CONT [facility] Last Admin: 09/14/20 23:28 Dose: 1,000 ml Documented by: Ondansetron HCl (Ondansetron 4 Mg/2 Ml Vial) 4 mg IV Q6HP PRN PRN Reason: NAUSEA / VOMITING Oxymetazoline HCl (Oxymetazoline Hcl 0.05% 15ml) 1 appl [place] BID PRN PRN Reason: NASAL CONGESTION Last Admin: 08/24/20 20:14 Dose: 1 edmundo Documented by: Sodium Biphosphate/Sodium Phosphate (Fleet Enema Adult) 133 ml [place] 1X PRN PRN Reason: CONSTIPATION Sodium Chloride (Flush Normal Saline 10 Ml) 10 ml IV BID [facility] Last Admin: 09/15/20 08:55 Dose: 10 ml Documented by: Thiamine HCl (Thiamine Hcl 100 Mg Tablet) 100 mg PO BID [facility] Last Admin: 09/15/20 09:00 Dose: 100 mg Documented by: Zinc Sulfate (Zinc Sulfate 220 Mg Cap) 220 mg PO DAILY [facility] Last Admin: 09/15/20 08:54 Dose: 220 mg Documented by: Microbiology Results 08/18/20 16:18 Blood - Blood Aerobic Blood Culture - Final No growth in 5 days. 08/18/20 16:18 Blood - Blood Anaerobic Blood Culture - Final No growth in 5 days. 08/18/20 16:36 Blood - Blood Aerobic Blood Culture - Final No growth in 5 days. 08/18/20 16:36 Blood - Blood Anaerobic Blood Culture - Final No growth in 5 days. Assessment/ Plan: Nephrology Limited IH/ ROS due to AMS. Self extubated and reintubated yesterday. No acute events overnight. Vitals, medications, blood work and imaging reviewed in the chart. General: Unresponsive HEENT: Atraumatic Neck: No Thyromegaly Respiratory: Diminished Cardiovascular: Regular rate/rhythm. LE Edema 1+. Gastrointestinal: Soft and benign, Non-distended Musculoskeletal: No clubbing, No contractures Integumentary: No rashes, No cyanosis Neurological: Normal tone Greater than 30min patient care. Blood work reviewed in the chart. Imagings Data: EXAM DESCRIPTION: RAD - Chest Single View - 08/30/2020 5:38 am CLINICAL HISTORY: respiratory failure COMPARISON: August 28 TECHNIQUE: AP portable chest image was obtained 08/30/2020 5:38 am . FINDINGS: Endotracheal tube is in place 5 cm above the josé- good position. NG tube extends below the diaphragm, off the field of view. Right greater than left airspace opacification in the lung smith. Lungs appear better aerated than on the prior study. Improved imaging technique on the current study exaggerates the differential between the current and prior study. Mild cardiomegaly and vascular engorgement present. Heart size is similar or improved from comparison. No pneumothorax or enlarging pleural effusion IMPRESSION: Well-positioned endotracheal tube. NG tube extends below the diaphragm. Partial clearing of bilateral airspace opacification. EXAM DESCRIPTION: RAD - Chest Single View - 09/04/2020 9:58 am CLINICAL HISTORY: E-Tube placementor repositioning COMPARISON: September 04 portable TECHNIQUE: AP portable chest image was obtained 09/04/2020 9:58 am . FINDINGS: Endotracheal tube has been advanced. Tip is 3.5 cm above the josé mid aortic arch level. No change the PICC line or NG/OG tube. Subcutaneous emphysema is not significantly different. Heart and lung parenchyma are unchanged. IMPRESSION: Endotracheal tube has been advanced. Tip is 3.5 cm above the josé. Conclusions/Impression: A/P: Continue the current POC and Medications other than the changes listed. AM Labs PRN. Recommend daily weight. Please see the orders for complete details. ARMANI likely due to hypovolemia, resolved. -No NSAIDs Hypocalcemia -Continue Vitamin D3 HTN -Continue IV metoprolol prn DM II -Continue Insulin 70/30 -Continue RISS Moderate malnutrition -Maintain nutrition Anemia in chronic illness -Monitor H&H COVID-19 PNA Acute hypoxic respiratory failure -Intubation with ventilatory support -Continue steroids Toxic metabolic encephalopathy
[2020-09-15] MEDS: FAMOTIDINE 20 MG TAB PO SCH (20:00)
[2020-09-16] MEDS: METHYLPREDNISOLONE 40 MG INJ IV SCH ×3 (00:16→16:59)
[2020-09-16] MEDS: VITAL AF 1,000 ML BOT RTH SCH (02:52)
[2020-09-16] MEDS: MIDAZOLAM HCL 100 MG in NA CHLORIDE 0.9% 80 ML IV PRN ×3 (04:41→20:07)
[2020-09-16 05:24] LABS: Absolute Lymphocytes (CBC) 0.2 K/uL (0.7-4.9); Basophils % 0.4 % (0-1.3); Hematocrit 30.7 % (39.6-49.0); Lymphocytes % 2.3 % (15.3-44.8); MPV 10.3 fL (7.6-11.3); RBC Red Blood Cell Count 3.22 M/uL (4.33-5.43)
[2020-09-16 05:52] LABS: BUN Blood Urea Nitrogen 30 mg/dL (7-18); Bicarbonate 34 mmol/L (21-32); Ferritin 535.3 ng/mL (26-388); Glucose Level 173 mg/dL (74-106); Potassium 4.3 mmol/L (3.5-5.1); Sodium Level 143 mmol/L (136-145)
[2020-09-16] MEDS: INSULIN -REGULAR HUMAN 50 UNIT/0.5 ML ML SQ SCH ×4 (05:54→16:56)
[2020-09-16] MEDS: HYDROMORPHONE HCL 2 MG/ML inj IV PRN ×2 (06:55→21:31)
--- NOTE | 2020-09-16 07:59 | RAD REPORT ---
EXAM DESCRIPTION: RAD - Chest Single View - 09/16/2020 6:45 am CLINICAL HISTORY: Resp failure COMPARISON: September 15 portable study TECHNIQUE: AP portable chest image was obtained 09/16/2020 6:45 am . FINDINGS: Enteric tube is in place extending below the diaphragm, off the field of view. Right-side PICC line tip is near the SVC atrial junction, stable positioning. ET tube tip is top of the aortic arch, 3.5 cm above the josé. Bilateral interstitial and alveolar opacities are present similar or minimally improved. There is no progressive lung parenchymal finding. Heart size remains prominent with prominent central vasculature . These are stable findings. No new or enlarging pleural effusion. No pneumothorax. No acute bony abnormality seen. No acute aort ic findings suspected. IMPRESSION: Lung parenchymal opacification similar or only slightly improved from prior day imaging. Tubes and lines are stable.
[2020-09-16] MEDS: VITAMIN D 1000 UNIT TAB PO SCH (08:40)
[2020-09-16] MEDS: FAMOTIDINE 20 MG TAB PO SCH ×2 (08:40→20:07)
[2020-09-16] MEDS: ASPIRIN 81 MG CHEWABLE TABLET PO SCH (08:40)
[2020-09-16] MEDS: APIXABAN 5 MG TABLET PO SCH ×2 (08:41→20:07)
[2020-09-16] MEDS: FLUCONAZOLE 100 MG TAB PO SCH (08:41)
[2020-09-16] MEDS: INSULIN 70/30 100 UNITS/ML SQ SCH ×2 (08:41→16:59)
[2020-09-16] MEDS: ASCORBIC ACID 500 MG TABLET PO SCH ×4 (08:41→20:07)
[2020-09-16] MEDS: ZINC SULFATE 220 MG CAP PO SCH (08:41)
[2020-09-16] MEDS: FUROSEMIDE 20 MG/ 2ML VIAL IV SCH (08:41)
[2020-09-16] MEDS: THIAMINE HCL 100 MG TABLET PO SCH ×2 (08:42→20:06)
[2020-09-16 09:09] LABS: Arterial Blood Carboxyhemoglob 1.7 % (0-1.5); Blood O2 Saturation 90.3 % (92-98.5)
[2020-09-16] MEDS: CISATRACURIUM BESYLATE 80 MG in NA CHLORIDE 0.9% 160 ML IV PRN (09:13)
--- NOTE | 2020-09-16 10:43 | P.PN ---
Subjective Date of Service: 09/16/20 (TV) Primary Care Provider: none Chief Complaint: Respiratory failure No change. Still requiring high PEEP and FIO2. Physical Examination - Vital Signs Temperature: 97.7 F Blood Pressure: 127/77 Pulse: 90 Respirations: 28 Pulse Ox (%): 93 - Studies Medications List Reviewed: Yes Assessment & Plan - Problems (Diagnosis) (1) Acute respiratory failure due to severe acute respiratory syndrome coronavi rosi 2 (SARS-CoV-2) infection Current Visit: Yes Status: Acute Plan: REsp failure. NC. CW PEEP of 15 . Wean off paralytics labs and CXRY rev. ET satisfactory. NC in [place] plan
[2020-09-16] MEDS: FUROSEMIDE 40 MG/4 ML VIAL IV ONE ×2 (12:42→13:00)
--- NOTE | 2020-09-16 13:08 | P.PN ---
Subjective Date of Service: 09/16/20 Primary Care Provider: none Chief Complaint: Respiratory failure Subjective: Doing well Physical Examination - Vital Signs Temperature: 97.6 F Blood Pressure: 143/126 Pulse: 84 Respirations: 25 Pulse Ox (%): 94 - Studies Medications List Reviewed: Yes Assessment & Plan Discharge Plan: Home Plan to discharge in: Greater than 2 days Physician Review Additional Text: Physical exam: Patient remains intubated and slightly sedated. Patient was able to follow commands. Patient alert. Heart: Regular rate and rhythm Lungs: Currently intubated and sedated currently on 85% FiO2.. Abdomen: Soft nondistended Extremities: No edema noted. Impression: Acute hypoxic respiratory failure secondary to COVID-19 pneumonia Hyperglycemia suspect diabetes mellitus type 2 Elevated troponin likely ischemic demand related to above Acute renal insufficiency likely dehydration Obesity, BMI 44.5 Plan: Acute hypoxic respiratory failure secondary to COVID-19 pneumonia: Patient doing well at this time. Patient remains intubated and slightly sedated. Pulmonology plans to wean off. Continue DVT prophylaxis. Continue to monitor closely. Will update family. Hyperglycemia secondary to prediabetes: A1c 6.1. Continue to decrease insulin. Continue to adjust and wean off. Elevated troponin likely ischemic demand related to above: Continue with above plan of care. Cardiology plans for no significant intervention at this time. Now on Lovenox. Will provide metoprolol as needed. Echo unremarkable. Acute renal insufficiency likely dehydration: Continue with nephrology recommendation. Obesity, BMI 44.5: Addressed lifestyle modification education. Time Spent Managing Pts Care (In Minutes): 55 Time Spent Managing Pts Care (In Minutes): 55
[2020-09-16] MEDS: LORazepam 2 MG/ML VIAL IV PRN (15:34)
--- NOTE | 2020-09-16 19:18 | PN ---
Subjective: The patient is seen in intensive care unit, room 2A at [facility]. The patient is at this point, sedated. He is able to open his eyes and nods his head to a couple of commands. He does seem to have a high blood pressure. Currently he has been having some secreti ons and recently had some suctioning done. His systolic blood pressure is about 160, diastolic about 110 but blood pressure readings before that had been in 120 to 130 systolic range. He does seem to have a swelling in his lower extremities. He is currently on a PEEP of about 15. He is getting wean ed off his paralytics. Objective: Vital signs: His vitals at this point seem reasonably stable except for the blood pressu re being a little bit on the elevated side at 160/100. His O2 sats around low 90s. His pulse rate i s about 80-90 and regular. He is afebrile. Lungs: Clear to auscultation anteriorly. Abdomen: Soft. Extremities: Revealed positive 1-2 edema bilaterally. Medications: Reviewed. Laboratory Data: Reviewed. The patient's labs show WBC count of 10.9, hemoglobin 9.9, hematocrit 30 .7, platelet count of 197. Assessment/plan: 1.The patient with acute kidney injury in the setting of COVID-19 pneumonia. At this point, his blo od pressure is slightly on the higher side. Likely partly due to suctioning and agitation from back his intubated still in guarded condition. His volume status does seem to be close to euvolemic perha ps slightly overloaded. At this point, we will go ahead and give him 40 mg IV Lasix along with rosaline nuing his current Lasix dose. To improve his volume status further, may need further dosages of Lasi x as needed. At this point, he does not seem to be hypovolemic or volume depleted. Avoid NSAIDs and other nephrotoxins. 2.Hypocalcemia, on vitamin D. 3.Hypertension, seems to be reasonably controlled. We will give a dose of Lasix now. Discussed wit h the nursing staff. 4.Diabetes mellitus, on insulin. Being monitored. 5.COVID-19 pneumonia. 6.Acute respiratory failure. Appreciate Dr. Crenshaw's assistance with this. He is on steroids, al ready has had medications including remdesivir. From what I understand from the nursing staff, he is on steroids currently. He is also now on ventilator support but attempting to wean him off paralyti cs. At this point, his volume status seems to be close to euvolemic or perhaps slightly over. We wi ll give him a dose of Lasix now. /NATALIE Voice ID: [id number] Report ID: [id number]
[2020-09-17] MEDS: METHYLPREDNISOLONE 40 MG INJ IV SCH ×3 (00:36→16:12)
[2020-09-17] MEDS: HYDROMORPHONE HCL 2 MG/ML inj IV PRN ×3 (02:26→23:30)
[2020-09-17] MEDS: INSULIN -REGULAR HUMAN 50 UNIT/0.5 ML ML SQ SCH ×4 (06:00→16:08)
[2020-09-17 06:12] LABS: Arterial Blood Carboxyhemoglob 1.6 % (0-1.5); Blood Gas Oxyhemoglobin 90.3 % (94-97); Blood O2 Saturation 92.8 % (92-98.5)
[2020-09-17 06:23] LABS: Absolute Lymphocytes (CBC) 0.2 K/uL (0.7-4.9); Basophils % 0.3 % (0-1.3); Hematocrit 27.8 % (39.6-49.0); Lymphocytes % 2.5 % (15.3-44.8); MPV 10.1 fL (7.6-11.3); RBC Red Blood Cell Count 2.95 M/uL (4.33-5.43)
[2020-09-17] MEDS: VITAL AF 1,000 ML BOT RTH SCH (06:38)
[2020-09-17 08:04] LABS: BUN Blood Urea Nitrogen 33 mg/dL (7-18); Bicarbonate 35 mmol/L (21-32); Ferritin 505.6 ng/mL (26-388); Glucose Level 186 mg/dL (74-106); Potassium 4.1 mmol/L (3.5-5.1); Sodium Level 140 mmol/L (136-145)
[2020-09-17 08:06] LABS: Blood Morphology Comment NOT SEEN (NOT SEEN); Platelet Estimate ADEQ; White Blood Cell Scan OK (OK)
[2020-09-17] MEDS: MIDAZOLAM HCL 100 MG in NA CHLORIDE 0.9% 80 ML IV PRN ×2 (08:42→18:05)
[2020-09-17] MEDS: THIAMINE HCL 100 MG TABLET PO SCH ×2 (09:00→20:18)
[2020-09-17] MEDS: ASCORBIC ACID 500 MG TABLET PO SCH ×4 (09:08→20:19)
[2020-09-17] MEDS: APIXABAN 5 MG TABLET PO SCH ×2 (09:08→20:17)
[2020-09-17] MEDS: ZINC SULFATE 220 MG CAP PO SCH (09:08)
[2020-09-17] MEDS: ASPIRIN 81 MG CHEWABLE TABLET PO SCH (09:08)
[2020-09-17] MEDS: FUROSEMIDE 20 MG/ 2ML VIAL IV SCH (09:09)
[2020-09-17] MEDS: VITAMIN D 1000 UNIT TAB PO SCH (09:10)
[2020-09-17] MEDS: FLUCONAZOLE 100 MG TAB PO SCH (09:10)
[2020-09-17] MEDS: INSULIN 70/30 100 UNITS/ML SQ SCH ×2 (09:10→16:11)
--- NOTE | 2020-09-17 09:19 | P.PN ---
Subjective Date of Service: 09/17/20 Primary Care Provider: none Chief Complaint: Respiratory failure Subjective: No new changes, Improving Physical Examination - Vital Signs Temperature: 99.3 F Blood Pressure: 155/89 Pulse: 82 Respirations: 16 Pulse Ox (%): 95 - Studies Medications List Reviewed: Yes Assessment & Plan Discharge Plan: Home Plan to discharge in: Greater than 2 days Physician Review Additional Text: Physical exam: Patient remains intubated. Patient alert. Follows commands. Heart: Regular rate and rhythm Lungs: Currently intubated and sedated currently on 90% FiO2.. Abdomen: Soft nondistended Extremities: No significant edema to the lower extremities noted. Impression: Acute hypoxic respiratory failure secondary to COVID-19 pneumonia Hyperglycemia suspect diabetes mellitus type 2 Elevated troponin likely ischemic demand related to above Acute renal insufficiency likely dehydration Anemia of chronic disease Obesity, BMI 44.5 Plan: Acute hypoxic respiratory failure secondary to COVID-19 pneumonia: Patient remains stable at this time. Patient remains intubated. Currently on 90% FiO2. Patient given sedation as needed. Patient alert and cooperative. Patient receiving IV Lasix with the help of nephrology. Renal function back to baseline. Pulmonology continues to wean off ventilator. DVT prophylaxisEliquis in place. We will continue to monitor closely. Will update family. Anticipate continued improvement. I will turn the service over to the hospitalist team tomorrow. I will go plan of care with him. Hyperglycemia secondary to prediabetes: A1c 6.1. Continue to decrease insulin. Continue to adjust and wean off. Elevated troponin likely ischemic demand related to above: Continue with above plan of care. Cardiology plans for no significant intervention at this time. Now on Lovenox. Will provide metoprolol as needed. Echo unremarkable. Acute renal insufficiency likely dehydration: No function back to baseline. Patient continues with Lasix low-dose to keep on the dry side. Overall stable. Continue with nephrology recommendation. Obesity, BMI 44.5: Addressed lifestyle modification education. Anemia of chronic disease: Overall stable. Will monitor closely. Time Spent Managing Pts Care (In Minutes): 55 Time Spent Managing Pts Care (In Minutes): 55
[2020-09-17] MEDS: ACETAMINOPHEN 500 MG TAB PO PRN (09:43)
--- NOTE | 2020-09-17 10:10 | P.PN ---
Subjective Date of Service: 09/17/20 Primary Care Provider: none Chief Complaint: Respiratory failure Improving is alert still requiring low-dose of paralytic agents oxygenation has improved chest x-ray reviewed patient is cooperative despite being on IV Versed said and low-dose paralytic IV Review of Systems is unable to be obtained Physical Examination - Vital Signs Temperature: 99.3 F Blood Pressure: 155/89 Pulse: 82 Respirations: 16 Pulse Ox (%): 95 - Studies Medications List Reviewed: Yes Assessment & Plan - Problems (Diagnosis) (1) Acute respiratory failure due to severe acute respiratory syndrome coronavirus 2 (SARS-CoV-2) infection Current Visit: Yes Status: Acute Plan: Respiratory failure continue to wean down the oxygen chest x-ray reviewed perhaps is a little better at [facility] blood gases reviewed plan to wean him down to a sat of 90% repeat ABGs mildly hypoxic and hypercapnic O fully to be able to wean him off the ventilator
[2020-09-17] MEDS: FAMOTIDINE 20 MG TAB PO SCH ×2 (10:40→20:18)
--- NOTE | 2020-09-17 11:15 | RAD REPORT ---
EXAM DESCRIPTION: RAD - Chest Single View - 09/17/2020 6:03 am CLINICAL HISTORY: Resp failure Chest pain. COMPARISON: Chest Single View dated 09/16/2020; Chest Single View dated 09/15/2020; Chest Single View d ated 09/14/2020; Chest Single View dated 09/14/2020 FINDINGS: Portable technique limits examination quality. Tip of the endotracheal tube is at the level of the superior aortic arch. Enteric tube descends in th e upper abdomen. Right-sided PICC line has tip in the SVC.Bilateral pulmonary opacities have mildly w orsened on the left since prior study. The heart is mildly prominent.
[2020-09-17] MEDS ORDERED: FUROSEMIDE 20 MG/ 2ML VIAL IV ONE (15:53)
[2020-09-17 18:24] LABS: Urine Appearance TURBID (Clear); Urine Bilirubin NEGATIVE (Negative); Urine Blood 3+ (Negative); Urine Color Red (Yellow); Urine Glucose NEGATIVE (Negative); Urine Protein TRACE (Negative)
[2020-09-17 18:41] LABS: Urine Microscopic Reflex ORDER UMIC
[2020-09-17 19:13] LABS: Urine Amorphous Sediment 1+ /HPF (NONE SEEN); Urine Bacteria <20 /HPF (NONE SEEN); Urine Mucus HEAVY /HPF (NONE SEEN); Urine RBC >50 /HPF (NONE SEEN)
--- NOTE | 2020-09-17 20:25 | PN ---
Subjective: The patient is seen in intensive care unit at [facility]. The patient is s till reasonably sedated. He is able to follow some basic instructions but not able to respond well, currently intubated still. Blood pressures are stable, not requiring any pressors. His last blood p ressure was 129/70, his blood pressure is consistently running in about 120s. Today his respiration looks comfortable. He is afebrile. He does not seem to be uncomfortable. Currently O2 sats were in the 90s. His glucose has been running around 130 to 200 range. Objective: Lungs: Do sound clear on the anterior examination. Decreased breath sounds at the bases of the lungs. Abdomen: Soft. Extremities: Do show some edema bilaterally. Intake: Has been about 1230 cc in task shift of which he is taking in tube feeds about 1004 and 226 IV. Laboratory Data: Shows a WBC count 9.1, hemoglobin, hematocrit 9.4 and 27.8, platelet count of 190. His sodium is 140, potassium 4.1, chloride 101, bicarb is 35, BUN is 33, creatinine 0.52. His C-jackie ctive protein is still 25. Assessment/plan: The patient with still guarded condition but improved. Overall paralytics are bein g weaned down slowly and watch that is going to be weaned down as well to assist the patient hopefull y to get off the ventilator but before that can be done, the patient needs to have improved oxygenati on. He is still requiring about 60% of oxygenation, currently on 65% or so. He is on Lasix and tole rating that well with hemodynamic stability and blood pressures in reasonable position. He is on 20 mg of IV Lasix daily. We will go ahead and give him another dose of 20 mg IV right now. Continue to monitor blood pressure and electrolyte. The patient's renal function seems to stabilize. His potass ium currently is okay at 4.1. /NATALIE Voice ID: [id number] Report ID: [id number]
[2020-09-18] MEDS: LORazepam 2 MG/ML VIAL IV PRN ×2 (00:48→22:58)
[2020-09-18] MEDS: METHYLPREDNISOLONE 40 MG INJ IV SCH ×3 (00:48→20:05)
[2020-09-18] MEDS: HYDROMORPHONE HCL 2 MG/ML inj IV PRN ×3 (04:30→20:05)
[2020-09-18 05:29] LABS: Absolute Lymphocytes (CBC) 0.5 K/uL (0.7-4.9); Basophils % 0.3 % (0-1.3); Hematocrit 27.5 % (39.6-49.0); Lymphocytes % 6.4 % (15.3-44.8); MPV 10.1 fL (7.6-11.3); RBC Red Blood Cell Count 2.89 M/uL (4.33-5.43)
[2020-09-18 05:56] LABS: BUN Blood Urea Nitrogen 33 mg/dL (7-18); Bicarbonate 35 mmol/L (21-32); Ferritin 470.5 ng/mL (26-388); Glucose Level 172 mg/dL (74-106); Sodium Level 140 mmol/L (136-145)
[2020-09-18] MEDS: INSULIN -REGULAR HUMAN 50 UNIT/0.5 ML ML SQ SCH ×4 (06:00→16:36)
[2020-09-18] MEDS: MIDAZOLAM HCL 100 MG in NA CHLORIDE 0.9% 80 ML IV PRN ×2 (07:27→20:16)
[2020-09-18] MEDS: APIXABAN 5 MG TABLET PO SCH ×2 (08:56→20:04)
[2020-09-18] MEDS: ASCORBIC ACID 500 MG TABLET PO SCH ×4 (08:56→20:05)
[2020-09-18] MEDS: FLUCONAZOLE 100 MG TAB PO SCH (08:56)
[2020-09-18] MEDS: ASPIRIN 81 MG CHEWABLE TABLET PO SCH (08:56)
[2020-09-18] MEDS: FUROSEMIDE 20 MG/ 2ML VIAL IV SCH (08:57)
[2020-09-18] MEDS: VITAMIN D 1000 UNIT TAB PO SCH (08:57)
[2020-09-18] MEDS: THIAMINE HCL 100 MG TABLET PO SCH ×2 (08:57→20:05)
[2020-09-18] MEDS: INSULIN 70/30 100 UNITS/ML SQ SCH ×2 (08:58→16:59)
[2020-09-18] MEDS: LACTULOSE 20 GM/30 ML UCUP PO PRN (09:40)
[2020-09-18] MEDS: FAMOTIDINE 20 MG TAB PO SCH ×2 (09:40→20:05)
[2020-09-18] MEDS: ZINC SULFATE 220 MG CAP PO SCH (09:40)
--- NOTE | 2020-09-18 12:21 | P.PN ---
Subjective Date of Service: 09/18/20 Primary Care Provider: none Chief Complaint: Respiratory failure Patient is improving off the paralytic agents he is sitting up bride alert responsive cooperative Review of Systems is unable to be obtained Physical Examination - Vital Signs Temperature: 98.1 F Blood Pressure: 131/82 Pulse: 72 Respirations: 19 Pulse Ox (%): 89 - Studies Medications List Reviewed: Yes Assessment & Plan - Problems (Diagnosis) (1) Acute respiratory failure due to severe acute respiratory syndrome coronavirus 2 (SARS-CoV-2) infection Current Visit: Yes Status: Acute Plan: Respiratory failure patient is improving continue to wean reduce peep chest x- ray ordered labs reviewed vent settings reviewed
[2020-09-18] MEDS ORDERED: FUROSEMIDE 40 MG/4 ML VIAL IV ONE (15:00)
--- NOTE | 2020-09-18 20:05 | PN ---
Subjective: The patient seen in intensive care unit on third floor at [facility]. The patient is intubated, getting reduction in paralytics. At this point, he is still requiring signific ant oxygen and his O2 sats have dropped a little bit at times down to 87% from 91%, currently up to 9 5%. Objective: Vital Signs: His blood pressure has creeped up a little bit. Last blood pressure at 148 /100, pulse of 75 currently, on the last check respirations around 20. Lungs: Few crackles, otherwise clear anteriorly. Few crackles at the bases. Abdomen: Soft. Extremities: Positive edema bilaterally. The patient does seem slightly more edematous than yesterd ay. Medications: Reviewed. The patient continues to be on Eliquis, continues to get vitamin D, given fe ntanyl for pain control, has fluconazole, Lasix ordered at 20 mg IV daily. He is on hydralazine q.6 hours p.r.n. for high blood pressure with parameters. He is on insulin. He is on steroids and he is on Zofran. Laboratory Data: Reviewed. WBC count has come down to 7.4, hemoglobin and hematocrit are reasonably stable at 9/27.5, platelet count is at about 200. His chemistries show sodium 140, potassium 4.0, c hloride 101, bicarb is 35, BUN and creatinine are 33 and 0.58, glucose is 164, C-reactive protein is 10.1. Assessment And Plan: The patient with significant respiratory failure. At this point, still requiri ng significant amount of oxygen. He is volume overloaded with increase in edema. Blood pressure has been on the higher side. X-rays still show some volume overload. The patient has COVID status posi tive also. Doctors are while attempting to reduce PEEP and improve the oxygen status to see if the p atient can be weaned off. At this point, we will go ahead and give him a dose of Lasix in addition t o what he is getting right now to improve his volume status further. Monitor blood pressure, which also hopefully will improve with the Lasix dose . /NATALIE Voice ID: [id number] Report ID: [id number]
[2020-09-19] MEDS: HYDROMORPHONE HCL 2 MG/ML inj IV PRN ×4 (00:38→20:01)
[2020-09-19 05:29] LABS: C-Reactive Protein 6.12 mg/L (<3.00); Ferritin 447.2 ng/mL (26-388)
[2020-09-19] MEDS: INSULIN -REGULAR HUMAN 50 UNIT/0.5 ML ML SQ SCH ×4 (05:48→17:10)
--- NOTE | 2020-09-19 06:58 | RAD REPORT ---
EXAM DESCRIPTION: RAD - Chest Single View - 09/19/2020 6:11 am CLINICAL HISTORY: Respiratory failure COMPARISON: Portable September 17 TECHNIQUE: AP portable chest image was obtained 09/19/2020 6:11 am . FINDINGS: Endotracheal tube is 3.5 cm above the josé. NG/OG tube extends below the diaphragm, off the field of view. No change to positioning of the PICC line. Lung parenchymal opacification has decreased since the comparison imaging. Remnant opacification mayda ins particularly left perihilar region. Heart size is prominent but stable. Central vasculature also remains mildly prominent. Left costophre sara angle blunting is present from pleural effusion or portable artifact. No pneumothorax identified. No acute bony abnormality seen. No acute aortic findings suspected. IMPRESSION: Partial clearing of bilateral lung parenchymal opacification since September 17. No progressi ve lung finding. ET tube is 3.5 cm above the josé. Enteric tube extends below the diaphragm. No change to the PICC l ine position.
[2020-09-19] MEDS: INSULIN 70/30 100 UNITS/ML SQ SCH ×2 (07:38→16:49)
[2020-09-19] MEDS: MIDAZOLAM HCL 100 MG in NA CHLORIDE 0.9% 80 ML IV PRN ×2 (07:58→20:26)
[2020-09-19] MEDS: FUROSEMIDE 20 MG/ 2ML VIAL IV SCH ×2 (07:59→20:02)
[2020-09-19] MEDS: THIAMINE HCL 100 MG TABLET PO SCH ×2 (07:59→20:03)
[2020-09-19] MEDS: FLUCONAZOLE 100 MG TAB PO SCH (07:59)
[2020-09-19] MEDS: VITAMIN D 1000 UNIT TAB PO SCH (07:59)
[2020-09-19] MEDS: APIXABAN 5 MG TABLET PO SCH ×2 (08:00→20:03)
[2020-09-19] MEDS: ZINC SULFATE 220 MG CAP PO SCH (08:00)
[2020-09-19] MEDS: FAMOTIDINE 20 MG TAB PO SCH ×2 (08:00→20:03)
[2020-09-19] MEDS: ASPIRIN 81 MG CHEWABLE TABLET PO SCH (08:00)
[2020-09-19] MEDS: ASCORBIC ACID 500 MG TABLET PO SCH ×4 (08:00→20:02)
[2020-09-19] MEDS: METHYLPREDNISOLONE 40 MG INJ IV SCH ×2 (08:00→20:02)
[2020-09-19] MEDS: LACTULOSE 20 GM/30 ML UCUP PO PRN (08:10)
--- NOTE | 2020-09-19 12:16 | P.PN ---
Subjective Date of Service: 09/19/20 Primary Care Provider: none Chief Complaint: Respiratory failure Doing well sitting upright is alert responsive cooperative wants to be extubated Physical Examination - Vital Signs Temperature: 98.9 F Blood Pressure: 136/83 Pulse: 92 Respirations: 22 Pulse Ox (%): 89 - Studies Medications List Reviewed: Yes Assessment & Plan - Problems (Diagnosis) (1) Acute respiratory failure due to severe acute respiratory syndrome coronavirus 2 (SARS-CoV-2) infection Current Visit: Yes Status: Acute Plan: Respiratory failure patient is improving FiO2 has been decreased to 65% will continue to wean plan to hopefully extubate in a day or so he is off the paralytic agent ready alert responsive cooperative still little hypoxic labs chest x-ray reviewed
[2020-09-19 13:15] LABS: Arterial Blood Carboxyhemoglob 1.8 % (0-1.5); Blood Gas Oxyhemoglobin 90.8 % (94-97); Blood O2 Saturation 93.2 % (92-98.5)
--- NOTE | 2020-09-19 19:05 | PN ---
Subjective: The patient is seen in intensive care unit in room 2A. The patient is alert enough to f ollow some basic commands. He is still intubated on high oxygen level. Paralytics are tapered off. He is still requiring some pain control with fentanyl and he gets agitated. He seems to have quite a bit of swelling in his lower extremities about the same as yesterday. His lungs also shows some cr ackles on examination at the bases. His abdomen is soft. He does not seem to be in any distress cur rently. His vitals are stable at blood pressure 136/83, pulse of 92, respirations around 18 to 20. He is afebrile. His O2 sats have been in the low 90s to 89 and 87% at times. Laboratory Data: Lab data reviewed. Labs show WBC count of 7.4, hemoglobin and hematocrit of 9/27.5 , and platelet count of 200. This was lab work from yesterday. Chemistries from yesterday show sodi um 140, potassium 4.0, chloride 101, bicarb 35, BUN 33, creatinine 0.58. Assessment And Plan: The patient with significant respiratory failure, still intubated on high oxyge n requirement. The patient does have a swelling in his lower extremities. His lungs do reveal some crackles. His O2 sats are running on the lower side. Blood pressure is reasonably stable. We will go ahead and change his Lasix settings to b.i.d. We will give a dose this evening. He has just chloe en a dose right now. We will check a BMP tomorrow morning. I have discussed the case and orders wit h the registered nurse caring for the patient as well. /NATALIE Voice ID: [id number] Report ID: [id number]
[2020-09-20] MEDS: HYDROMORPHONE HCL 2 MG/ML inj IV PRN ×5 (00:32→22:18)
[2020-09-20 05:37] LABS: BUN Blood Urea Nitrogen 29 mg/dL (7-18); Bicarbonate 38 mmol/L (21-32); C-Reactive Protein 7.93 mg/L (<3.00); Ferritin 423.6 ng/mL (26-388); Glucose Level 203 mg/dL (74-106); Magnesium 2.3 mg/dL (1.8-2.4); Phosphorus 3.4 mg/dL (2.5-4.9); Potassium 3.9 mmol/L (3.5-5.1); Sodium Level 139 mmol/L (136-145)
[2020-09-20 05:39] LABS: Arterial Blood Carboxyhemoglob 1.6 % (0-1.5); Blood Gas Oxyhemoglobin 83.5 % (94-97); Blood O2 Saturation 85.6 % (92-98.5)
[2020-09-20] MEDS: INSULIN -REGULAR HUMAN 50 UNIT/0.5 ML ML SQ SCH ×4 (06:02→17:53)
[2020-09-20] MEDS: MIDAZOLAM HCL 100 MG in NA CHLORIDE 0.9% 80 ML IV PRN ×2 (07:59→20:24)
[2020-09-20] MEDS: INSULIN 70/30 100 UNITS/ML SQ SCH ×2 (08:05→16:08)
[2020-09-20] MEDS ORDERED: INSULIN 70/30 100 UNITS/ML SQ ONE (08:10)
[2020-09-20] MEDS: FLUCONAZOLE 100 MG TAB PO SCH (08:49)
[2020-09-20] MEDS: THIAMINE HCL 100 MG TABLET PO SCH ×2 (08:49→20:26)
[2020-09-20] MEDS: VITAMIN D 1000 UNIT TAB PO SCH (08:49)
[2020-09-20] MEDS: ZINC SULFATE 220 MG CAP PO SCH (08:49)
[2020-09-20] MEDS: FUROSEMIDE 20 MG/ 2ML VIAL IV SCH (08:49)
[2020-09-20] MEDS: APIXABAN 5 MG TABLET PO SCH ×2 (08:49→20:25)
[2020-09-20] MEDS: METHYLPREDNISOLONE 40 MG INJ IV SCH ×2 (08:49→20:26)
[2020-09-20] MEDS: ASPIRIN 81 MG CHEWABLE TABLET PO SCH (08:49)
[2020-09-20] MEDS: FAMOTIDINE 20 MG TAB PO SCH ×2 (08:50→20:25)
--- NOTE | 2020-09-20 08:58 | RAD REPORT ---
EXAM DESCRIPTION: [facility] Single View09/20/2020 8:43 am CLINICAL HISTORY: Respiratory failure COMPARISON: September 19, 2020 FINDINGS: Minimal improvement in the bilateral pulmonary opacities. Heart is mildly enlarged. Endotracheal tube has its tip 1 centimeter above the josé. It is at the distal aspect of the aortic arch. Nasogastric tube within the stomach IMPRESSION: Minimal improvement in bilateral pulmonary opacities Endotracheal tube has its tip 1 centimeter above the josé. It is at the distal aspect of the aortic arch.
[2020-09-20] MEDS ORDERED: POTASSIUM 25 MEQ EFFERV TAB PO ONE (09:00)
[2020-09-20] MEDS: ASCORBIC ACID 500 MG TABLET PO SCH ×4 (10:02→20:26)
--- NOTE | 2020-09-20 12:36 | P.PN ---
Subjective Date of Service: 09/20/20 Primary Care Provider: none Chief Complaint: Respiratory failure Doing well very alert responsive no new complain Physical Examination - Vital Signs Temperature: 97.6 F Blood Pressure: 114/98 Pulse: 86 Respirations: 28 Pulse Ox (%): 91 - Physical Exam General: Alert, Cooperative Respiratory: Clear to auscultation bilaterally, Diminished - Studies Medications List Reviewed: Yes Assessment & Plan - Problems (Diagnosis) (1) Acute respiratory failure due to severe acute respiratory syndrome coronavirus 2 (SARS-CoV-2) infection Current Visit: Yes Status: Acute Plan: Respiratory failure vent change to SIMV pressure support will try and wean off from the ventilator hopefully extubate in 1 or 2 days labs medications read vital signs stable
[2020-09-20] MEDS: LACTULOSE 20 GM/30 ML UCUP PO PRN (16:08)
[2020-09-21] MEDS: HYDROMORPHONE HCL 2 MG/ML inj IV PRN ×3 (04:15→21:38)
[2020-09-21] MEDS: INSULIN -REGULAR HUMAN 50 UNIT/0.5 ML ML SQ SCH ×4 (06:00→17:05)
[2020-09-21] MEDS: INSULIN 70/30 100 UNITS/ML SQ SCH ×2 (07:37→17:06)
--- NOTE | 2020-09-21 08:38 | P.PN ---
Date of Service: 09/18/20 Subjective Chart reviewed and events the last week have been noted. Patient continues to gradually improve. Continue with gentle diuresing. Physical Examination - Vital Signs reviewed - Physical Exam General: Remains intubated and sedated Respiratory: Diminished, Crackles/rales Cardiovascular: Regular rate/rhythm, Normal S1 S2, No murmurs Gastrointestinal: Normal bowel sounds, Soft and benign, Non-distended, No tenderness Musculoskeletal: Edematous in his extremities Neurological: Sedated and intubated; patient is following commands; patient responds appropriately Assessment & Plan - Problems (Diagnosis) (1) Acute respiratory failure due to severe acute respiratory syndrome coronavirus 2 (SARS-CoV-2) infection Current Visit: Yes Status: Acute (2) Morbid obesity Current Visit: Yes Status: Acute - Plan Continue with plan of care as mentioned below; poor prognosis 1. Continue mechanical ventilation and sedation per Pulmonary; patient awake and following commands at this time 2. Continue with IV steroids 3. Chest x-ray with mild improvements 4. Continue neb treatments 5. Prognosis remains poor. Last week, we were unsuccessful in transferring patient. Continue with current management and plan of care. Patient improving but still remains hypoxic. 6. GI and DVT prophylaxis
--- NOTE | 2020-09-21 08:53 | P.PN ---
Date of Service: 09/19/20 Subjective Patient improving but with no significant changes. Continuing current plan of care at this time. Continue on mechanical ventilation. Physical Examination - Vital Signs reviewed - Physical Exam General: Remains intubated and sedated Respiratory: Diminished, Crackles/rales Cardiovascular: Regular rate/rhythm, Normal S1 S2, No murmurs Gastrointestinal: Normal bowel sounds, Soft and benign, Non-distended, No tenderness Musculoskeletal: Edematous in his extremities Neurological: Sedated and intubated; patient is following commands; patient responds appropriately Assessment & Plan - Problems (Diagnosis) (1) Acute respiratory failure due to severe acute respiratory syndrome coronavirus 2 (SARS-CoV-2) infection Current Visit: Yes Status: Acute (2) Morbid obesity Current Visit: Yes Status: Acute - Plan Continue with plan of care as mentioned below; poor prognosis 1. Trying to wean him off of the ventilator. He remains pretty hypoxic and is been difficult to get an weaned off. Also diuresing him 2. Continue with IV steroids 3. Patient labs chest x-ray with mild improvements 4. Continue neb treatments 5. Prognosis remains poor. Last week, we were unsuccessful in transferring patient. Continue with current management and plan of care. Patient improving but still remains hypoxic. 6. GI and DVT prophylaxis
[2020-09-21] MEDS ORDERED: FUROSEMIDE 20 MG/ 2ML VIAL IV SCH (09:00)
[2020-09-21] MEDS: METHYLPREDNISOLONE 40 MG INJ IV SCH ×2 (09:08→21:18)
[2020-09-21] MEDS: ASPIRIN 81 MG CHEWABLE TABLET PO SCH (09:09)
[2020-09-21] MEDS: ASCORBIC ACID 500 MG TABLET PO SCH ×2 (09:09→11:48)
[2020-09-21] MEDS: VITAMIN D 1000 UNIT TAB PO SCH (09:09)
[2020-09-21] MEDS: FAMOTIDINE 20 MG TAB PO SCH ×2 (09:10→21:18)
[2020-09-21] MEDS: THIAMINE HCL 100 MG TABLET PO SCH (09:10)
[2020-09-21] MEDS: ZINC SULFATE 220 MG CAP PO SCH (09:10)
[2020-09-21] MEDS: APIXABAN 5 MG TABLET PO SCH (09:10)
--- NOTE | 2020-09-21 09:15 | RAD REPORT ---
EXAM DESCRIPTION: RAD - Chest Single View - 09/21/2020 5:53 am CLINICAL HISTORY: Respiratory failure Chest pain. COMPARISON: Chest Single View dated 09/20/2020; Chest Single View dated 09/19/2020; Chest Single View da nadya 09/17/2020; Chest Single View dated 09/16/2020 FINDINGS: Portable technique limits examination quality. Tip of the ET tube is at 1.5 cm above the josé at the level of the mid aortic arch. Enteric tube de scends into the upper abdomen. Right-sided PICC line has tip in the SVC. Bilateral pulmonary opacitie s show little overall change since comparative study. The heart size is mildly prominent. IMPRESSION: Stable chest since 09/20/2020.
--- NOTE | 2020-09-21 09:31 | P.PN ---
Date of Service: 09/20/20 Subjective Patient with no significant changes. Patient's symptoms are not really improving. Oxygenation is stagnant. Slowly weaning off the ventilator Physical Examination - Vital Signs reviewed - Physical Exam General: Remains intubated and sedated Respiratory: Diminished, Crackles/rales Cardiovascular: Regular rate/rhythm, Normal S1 S2, No murmurs Gastrointestinal: Normal bowel sounds, Soft and benign, Non-distended, No tenderness Musculoskeletal: Edematous in his extremities Neurological: Sedated and intubated; patient is following commands; patient responds appropriately Assessment & Plan - Problems (Diagnosis) (1) Acute respiratory failure due to severe acute respiratory syndrome coronavirus 2 (SARS-CoV-2) infection Current Visit: Yes Status: Acute (2) Morbid obesity Current Visit: Yes Status: Acute - Plan Continue with plan of care as mentioned below; poor prognosis 1. Continuing weaning him off the ventilator. Continue gentle sedation. Patient following commands. 2. Continue with IV steroids and continue with diuretics 3. Patient labs chest x-ray with mild improvements 4. Continue neb treatments 5. Prognosis is stable. No new changes 6. GI and DVT prophylaxis
[2020-09-21] MEDS: MIDAZOLAM HCL 100 MG in NA CHLORIDE 0.9% 80 ML IV PRN ×2 (10:48→20:23)
[2020-09-21] MEDS ORDERED: CEFTRIAXONE/SWI 1gm 1 GM/10 ML SYR ONE (11:08)
[2020-09-21] MEDS: LACTULOSE 20 GM/30 ML UCUP PO PRN (11:47)
--- NOTE | 2020-09-21 12:51 | P.PN ---
Subjective Date of Service: 09/21/20 Primary Care Provider: none Chief Complaint: Respiratory failure Patient is doing really well is very alert responsive cooperate will try to wean him off own his ventilator support today Review of Systems General: Weakness Physical Examination - Vital Signs Temperature: 97.8 F Blood Pressure: 160/88 Pulse: 97 Respirations: 23 Pulse Ox (%): 90 - Physical Exam General: Alert, Cooperative Respiratory: Clear to auscultation bilaterally Cardiovascular: No edema, Regular rate/rhythm - Studies Medications List Reviewed: Yes Assessment & Plan - Problems (Diagnosis) (1) Acute respiratory failure due to severe acute respiratory syndrome coronavirus 2 (SARS-CoV-2) infection Current Visit: Yes Status: Acute Plan: Respiratory failure patient is doing much better of decrease the peep plan to we an and extubate still has prominent interstitial changes on the left side of his lung patient is mildly anemic
[2020-09-21] MEDS: AMOXICILLIN TRIHYDR 250 MG CAP PO SCH ×2 (14:12→21:18)
--- NOTE | 2020-09-21 16:24 | P.PN ---
Date of Service: 09/21/20 Subjective No significant changes. Physical Examination - Vital Signs reviewed - Physical Exam General: Remains intubated and sedated Respiratory: Diminished, Crackles/rales Cardiovascular: Regular rate/rhythm, Normal S1 S2, No murmurs Gastrointestinal: Normal bowel sounds, Soft and benign, Non-distended, No tenderness Musculoskeletal: Edematous in his extremities Neurological: Sedated and intubated; patient is following commands; patient responds appropriately Assessment & Plan - Problems (Diagnosis) (1) Acute respiratory failure due to severe acute respiratory syndrome coronavirus 2 (SARS-CoV-2) infection Current Visit: Yes Status: Acute (2) Morbid obesity Current Visit: Yes Status: Acute - Plan Continue with plan of care as mentioned below; poor prognosis 1. Continuing weaning him off the ventilator. Continue gentle sedation. Patient following commands. 2. Continue with IV steroids and continue with diuretics 3. Patient labs chest x-ray with mild improvements 4. Continue neb treatments 5. Prognosis is stable. No new changes 6. GI and DVT prophylaxis
[2020-09-21] MEDS: FUROSEMIDE 20 MG/ 2ML VIAL IV SCH (17:05)
[2020-09-21] MEDS ORDERED: ENOXAPARIN 60 MG/0.6 ML SQ SCH (18:00)
[2020-09-21] MEDS: LORazepam 2 MG/ML VIAL IV PRN (18:34)
[2020-09-21] MEDS: ACETAMINOPHEN 500 MG TAB PO PRN (21:38)
[2020-09-22] MEDS: HYDROMORPHONE HCL 2 MG/ML inj IV PRN ×3 (03:30→22:16)
[2020-09-22] MEDS: FUROSEMIDE 20 MG/ 2ML VIAL IV SCH ×2 (04:55→16:53)
[2020-09-22] MEDS: INSULIN -REGULAR HUMAN 50 UNIT/0.5 ML ML SQ SCH ×4 (05:46→16:50)
[2020-09-22 05:54] LABS: Absolute Lymphocytes (CBC) 0.3 K/uL (0.7-4.9); Basophils % 0.3 % (0-1.3); Hematocrit 28.5 % (39.6-49.0); MPV 10.2 fL (7.6-11.3)
[2020-09-22 06:11] LABS: BUN Blood Urea Nitrogen 20 mg/dL (7-18); Bicarbonate 40 mmol/L (21-32); Ferritin 487.5 ng/mL (26-388); Glucose Level 174 mg/dL (74-106); Magnesium 2.3 mg/dL (1.8-2.4); Potassium 3.9 mmol/L (3.5-5.1); Sodium Level 141 mmol/L (136-145)
[2020-09-22] MEDS: VITAL AF 1,000 ML BOT RTH SCH (06:30)
[2020-09-22] MEDS: ASPIRIN 81 MG CHEWABLE TABLET PO SCH (08:07)
[2020-09-22] MEDS: ENOXAPARIN 60 MG/0.6 ML SQ SCH (08:08)
[2020-09-22] MEDS: INSULIN 70/30 100 UNITS/ML SQ SCH ×2 (08:08→16:53)
[2020-09-22] MEDS: METHYLPREDNISOLONE 40 MG INJ IV SCH ×2 (08:08→22:12)
[2020-09-22] MEDS: FAMOTIDINE 20 MG TAB PO SCH ×2 (08:10→22:12)
--- NOTE | 2020-09-22 08:21 | RAD REPORT ---
EXAM DESCRIPTION: [facility] Single View09/22/2020 5:50 am CLINICAL HISTORY: Chest pain COMPARISON: September 21, 2020 FINDINGS: Endotracheal tube has its tip 1.4 centimeters above the josé. The tip overlies the mid aspect of the aortic arch. No significant change in the bilateral pulmonary opacities and cardiomegaly. NG tube with its tip in the stomach
[2020-09-22] MEDS: AMOXICILLIN TRIHYDR 250 MG CAP PO SCH ×3 (09:36→22:12)
[2020-09-22] MEDS ORDERED: METHYLPREDNISOLONE 125 MG INJ IV ONE (10:33)
--- NOTE | 2020-09-22 10:51 | P.PN ---
Date of Service: 09/22/20 Subjective Inflammatory markers have worsened. Give extra dose of IV steroids. Continue with diuresing. Patient with spontaneous breathing trial again today. Following commands and complaining of some abdominal discomfort. Nurses state he is constipated. Physical Examination - Vital Signs reviewed - Physical Exam General: Intubated and with light sedation Respiratory: Diminished, Crackles/rales Cardiovascular: Regular rate/rhythm, Normal S1 S2, No murmurs Gastrointestinal: Normal bowel sounds, Soft and benign, Non-distended, No tenderness Musculoskeletal: Minimal lower extremity edema Neurological: Sedated and intubated; patient is following commands; patient responds appropriately Assessment & Plan - Problems (Diagnosis) (1) Acute respiratory failure due to severe acute respiratory syndrome coronavirus 2 (SARS-CoV-2) infection Current Visit: Yes Status: Acute (2) Morbid obesity Current Visit: Yes Status: Acute - Plan Continue with plan of care as mentioned below; poor prognosis 1. Continue gradually weaning off the mechanical ventilator 2. Continue with IV steroids and continue with diuretics 3. Patient labs chest x-ray with mild improvements 4. Continue neb treatments 5. Prognosis is stable. No new changes 6. GI and DVT prophylaxis
[2020-09-22 12:33] LABS: Blood Morphology Comment NOT SEEN (NOT SEEN); Platelet Estimate ADEQ; White Blood Cell Scan OK (OK)
--- NOTE | 2020-09-22 17:56 | CON ---
Date of Consultation: 09/22/2020 Reason For Consultation: Tracheostomy evaluation. History Of Present Illness: Jasbir Dewey is a 45-year-old black male who presented to the emergency room on August 18, 2020 complaining of shortness of breath. He tested positive for COVID-19 on July 19 with symptoms initially starting on August 11. When he arrived in the emergency room, he was se verely hypoxic with oxygen saturation in the 50s on room air and requiring a significant amount of ox ygen to maintain his saturations. He had a CT of the chest which was negative for pulmonary embolus, but demonstrated marked ground-glass opacities. The patient was treated with steroids and admitted for medical intervention. He initially was admitted to the floor and treated with antiviral medicati ons, oxygen, steroids, and convalescent plasma. The patient continued to deteriorate and required en dotracheal intubation and placement on mechanical ventilation on August 27 or and has been cont inuously maintained on mechanical ventilation since that time. The patient over the last several day s has shown signs of improvement with decreasing oxygen requirements now in the 45% to 60% range over the last 48 hours and a decreased need for positive end-expiratory pressure. Although his prognosis remains guarded, there is some hope that he will recover and consideration for tracheostomy in order to aid in weaning, decrease the need for sedation and to reduce the risk of subglottic stenosis has been requested. Past Medical History: No significant past medical history as far as I can determine from review of t he chart. The patient has a history of an exploratory laparotomy as a child following trauma. Family History: Heart disease. Social History: Daily tobacco. Physical Examination: At the time of my assessment, the patient was mildly sedated in his ICU bed. He is orally intubated. He also has an oral gastric tube for feedings and is on midazolam drip. He did not have any signif icant palpable subcutaneous emphysema of the upper chest or neck. His laryngeal landmarks are palpab le. He is [place] obese. His current ventilator settings include a FiO2 of 45%, PEEP of 10 with SIMV settings and a positive p ressure support of 15. Data: Recent x-ray from this morning demonstrates an endotracheal tube, 1.4 cm. Tip above the sahil a with no significant change in bilateral pulmonary opacities and cardiomegaly. NG tube tip is in th e stomach. Laboratory Studies: WBC 7.2, hemoglobin 9.4, platelet count 200. No recent coagulation studies or D -dimer. His last arterial blood gas was performed on September 20 and demonstrated pCO2 of 56, pO2 of 52. The patient had some elevated blood sugars. His creatinine is normal. His calcium is borderline l ow. His C-reactive protein is 110. Current Medications: Include acetaminophen, amoxicillin, aspirin, Nimbex, Lovenox, famotidine, insul in, lactulose, lorazepam, Solu-Medrol, midazolam, Eliquis, Lasix. Assessment: Acute respiratory failure, requirement for mechanical ventilation, hypoxia, COVID pneumo jose l. Plan: I coordinated care with Dr. Medina and the patient's nursing staff in regard to understanding his overall condition and plan. I spoke with the patient's sister regarding his condition and recom mendations for tracheostomy placement. We discussed the risks and benefits of the tracheostomy and s he expressed understanding. We will tentatively schedule the patient for the procedure on Friday. We will reassess the patient on Friday afternoon. If the patient does very well over the week end and we feel likely the patient would be extubated on Friday or Friday, we would consider cancell ing the procedure. If likely the patient will continue to require mechanical ventilation for more th an 72 hours, we will plan to proceed with the procedure on Friday. The family expressed understandin g and agreement with this plan. I will contact the OR regarding scheduling. Please feel free to contact m e regarding any questions or concerns. LO Voice ID: [id number] Report ID: [id number]
[2020-09-22] MEDS: MIDAZOLAM HCL 100 MG in NA CHLORIDE 0.9% 80 ML IV PRN (20:22)
[2020-09-23] MEDS: LORazepam 2 MG/ML VIAL IV PRN (01:38)
[2020-09-23] MEDS: HYDROMORPHONE HCL 2 MG/ML inj IV PRN ×3 (03:11→19:57)
[2020-09-23] MEDS: FUROSEMIDE 20 MG/ 2ML VIAL IV SCH (04:51)
[2020-09-23 05:14] LABS: Absolute Lymphocytes (CBC) 0.4 K/uL (0.7-4.9); Basophils % 0.3 % (0-1.3); Hematocrit 29.9 % (39.6-49.0); Lymphocytes % 5.2 % (15.3-44.8); MPV 9.9 fL (7.6-11.3); RBC Red Blood Cell Count 3.15 M/uL (4.33-5.43)
[2020-09-23] MEDS: INSULIN -REGULAR HUMAN 50 UNIT/0.5 ML ML SQ SCH ×4 (06:00→17:08)
[2020-09-23 07:05] LABS: BUN Blood Urea Nitrogen 20 mg/dL (7-18); Ferritin 544.7 ng/mL (26-388); Glucose Level 177 mg/dL (74-106); Magnesium 2.4 mg/dL (1.8-2.4); Sodium Level 141 mmol/L (136-145)
[2020-09-23 07:09] LABS: Bicarbonate 41 mmol/L (21-32)
[2020-09-23] MEDS: ASPIRIN 81 MG CHEWABLE TABLET PO SCH (07:48)
[2020-09-23] MEDS: ENOXAPARIN 60 MG/0.6 ML SQ SCH (07:48)
[2020-09-23] MEDS: FAMOTIDINE 20 MG TAB PO SCH ×2 (07:49→19:57)
[2020-09-23] MEDS: METHYLPREDNISOLONE 40 MG INJ IV SCH ×2 (07:49→19:56)
[2020-09-23] MEDS: AMOXICILLIN TRIHYDR 250 MG CAP PO SCH ×3 (07:49→19:56)
[2020-09-23] MEDS: INSULIN 70/30 100 UNITS/ML SQ SCH ×2 (07:53→17:10)
[2020-09-23] MEDS: AMLODIPINE 5 MG TAB PO SCH (09:00)
--- NOTE | 2020-09-23 10:52 | P.PN ---
Subjective Date of Service: 09/23/20 Primary Care Provider: none Chief Complaint: Respiratory failure Patient is improving he is very alert responsive cooperative is he is now started on spontaneous breathing trial with a pressure support of 20 and a peep of 10 no new complaint Review of Systems is unable to be obtained Physical Examination - Vital Signs Temperature: 97.4 F Blood Pressure: 171/131 Pulse: 104 Respirations: 24 Pulse Ox (%): 89 - Studies Medications List Reviewed: Yes Assessment & Plan - Problems (Diagnosis) (1) Acute respiratory failure due to severe acute respiratory syndrome coronavirus 2 (SARS-CoV-2) infection Current Visit: Yes Status: Acute Plan: Respiratory failure patient has improved significantly is non spontaneous breathing trial with a pressure support hopefully will able to wean him off and possible extubate tomorrow if he feels he is scheduled to have a tracheostomy on Friday 3 Dc Lasix is bicarbonate is elevated oxygen requirements have been declining labs medications reviewed patient is on Lovenox blood pressure is little elevated urine culture positive for enterococcus is on amoxicillin no evidence of active ongoing sepsis Physician Review Additional Text: Physical exam: Patient remains intubated. Patient alert. Follows commands. Heart: Regular rate and rhythm Lungs: Currently intubated and sedated currently on 90% FiO2.. Abdomen: Soft nondistended Extremities: No significant edema to the lower extremities noted. Impression: Acute hypoxic respiratory failure secondary to COVID-19 pneumonia Hyperglycemia suspect diabetes mellitus type 2 Elevated troponin likely ischemic demand related to above Acute renal insufficiency likely dehydration Anemia of chronic disease Obesity, BMI 44.5 Plan: Acute hypoxic respiratory failure secondary to COVID-19 pneumonia: Patient remains stable at this time. Patient remains intubated. Currently on 90% FiO2. Patient given sedation as needed. Patient alert and cooperative. Patient receiving IV Lasix with the help of nephrology. Renal function back to baseline. Pulmonology continues to wean off ventilator. DVT prophylaxisEliquis in place. We will continue to monitor closely. Will update family. Anticipate continued improvement. I will turn the service over to the hospitalist team tomorrow. I will go plan of care with him. Hyperglycemia secondary to prediabetes: A1c 6.1. Continue to decrease insulin. Continue to adjust and wean off. Elevated troponin likely ischemic demand related to above: Continue with above plan of care. Cardiology plans for no significant intervention at this time. Now on Lovenox. Will provide metoprolol as needed. Echo unremarkable. Acute renal insufficiency likely dehydration: No function back to baseline. Patient continues with Lasix low-dose to keep on the dry side. Overall stable. Continue with nephrology recommendation. Obesity, BMI 44.5: Addressed lifestyle modification education. Anemia of chronic disease: Overall stable. Will monitor closely. Time Spent Managing Pts Care (In Minutes): 55
[2020-09-23] MEDS ORDERED: FAMOTIDINE 20 MG/2 ML VIAL IV ONE (11:57)
[2020-09-23] MEDS ORDERED: MIDAZOLAM HCL 100 MG in NA CHLORIDE 0.9% 80 ML IV PRN (16:59)
[2020-09-23] MEDS: LACTULOSE 20 GM/30 ML UCUP PO PRN (17:59)
--- NOTE | 2020-09-23 19:12 | RAD REPORT ---
EXAM DESCRIPTION: RAD - Abdomen 1 View (KUB) - 09/23/2020 7:03 pm CLINICAL HISTORY: constipation/ ogt Pain COMPARISON: No comparisons FINDINGS: Tip of the enteric tube is at the gastroesophageal junction. There is moderate retained st ool throughout the colon.
[2020-09-24] MEDS: HYDROMORPHONE HCL 2 MG/ML inj IV PRN (01:19)
[2020-09-24 05:10] LABS: Absolute Lymphocytes (CBC) 0.5 K/uL (0.7-4.9); Basophils % 0.1 % (0-1.3); Hematocrit 28.7 % (39.6-49.0); Lymphocytes % 7.2 % (15.3-44.8); MPV 9.8 fL (7.6-11.3); RBC Red Blood Cell Count 3.02 M/uL (4.33-5.43)
[2020-09-24] MEDS: INSULIN -REGULAR HUMAN 50 UNIT/0.5 ML ML SQ SCH ×4 (06:00→17:41)
[2020-09-24 06:31] LABS: BUN Blood Urea Nitrogen 22 mg/dL (7-18); Glucose Level 160 mg/dL (74-106); Magnesium 2.5 mg/dL (1.8-2.4); Potassium 3.9 mmol/L (3.5-5.1); Sodium Level 141 mmol/L (136-145)
[2020-09-24 06:34] LABS: Bicarbonate 41 mmol/L (21-32)
[2020-09-24 06:57] LABS: Ferritin 522.8 ng/mL (26-388)
[2020-09-24] MEDS: INSULIN 70/30 100 UNITS/ML SQ SCH ×2 (08:30→16:30)
[2020-09-24] MEDS: AMOXICILLIN TRIHYDR 250 MG CAP PO SCH ×3 (08:31→21:51)
[2020-09-24] MEDS: AMLODIPINE 5 MG TAB PO SCH (08:34)
[2020-09-24] MEDS: FAMOTIDINE 20 MG TAB PO SCH ×2 (08:34→21:51)
[2020-09-24] MEDS: ASPIRIN 81 MG CHEWABLE TABLET PO SCH (08:34)
[2020-09-24] MEDS: ENOXAPARIN 60 MG/0.6 ML SQ SCH (08:35)
[2020-09-24] MEDS: METHYLPREDNISOLONE 40 MG INJ IV SCH ×2 (08:35→21:51)
[2020-09-24] MEDS ORDERED: dilTIAZem HCL 25 MG/5 ML VIAL IV ONE (11:43)
--- NOTE | 2020-09-24 16:28 | P.PN ---
Date of Service: 09/23/20 Subjective Inflammatory markers improved. Clinical condition remains about the same. Does well on spontaneous breathing trial for 2 hr but then apparently heart rate and blood pressure are elevated and he is replaced on SIMV or assist control Physical Examination - Vital Signs reviewed - Physical Exam General: Intubated and with light sedation Respiratory: Diminished, Crackles/rales Cardiovascular: Regular rate/rhythm, Normal S1 S2, No murmurs Gastrointestinal: Normal bowel sounds, Soft and benign, Non-distended, No tenderness Musculoskeletal: Minimal lower extremity edema Neurological: Sedated and intubated; patient is following commands; patient responds appropriately Assessment & Plan - Problems (Diagnosis) (1) Acute respiratory failure due to severe acute respiratory syndrome coronavirus 2 (SARS-CoV-2) infection Current Visit: Yes Status: Acute (2) Morbid obesity Current Visit: Yes Status: Acute - Plan Continue with plan of care as mentioned below; poor prognosis 1. Continue gradually weaning off the mechanical ventilator; continue spontaneous breathing trial 2. Continue with IV steroids and continue with diuretics; hold the diuretics as patient has a metabolic alkalosis 3. Repeat chest x-ray is needed 4. Continue neb treatments 5. Prognosis is stable. No new changes 6. GI and DVT prophylaxis
--- NOTE | 2020-09-24 16:31 | P.PN ---
Date of Service: 09/24/20 Subjective Patient self-extubated. Replaced on BiPAP support. Patient currently following commands. Will see how patient does on BiPAP support today. Physical Examination - Vital Signs reviewed - Physical Exam General: Continue with BiPAP support Respiratory: Diminished, Crackles/rales Cardiovascular: Regular rate/rhythm, Normal S1 S2, No murmurs Gastrointestinal: Normal bowel sounds, Soft and benign, Non-distended, No tenderness Musculoskeletal: Minimal lower extremity edema Neurological: Following commands; moving all extremities Assessment & Plan - Problems (Diagnosis) (1) Acute respiratory failure due to severe acute respiratory syndrome coronavirus 2 (SARS-CoV-2) infection Current Visit: Yes Status: Acute (2) Morbid obesity Current Visit: Yes Status: Acute - Plan Continue with plan of care as mentioned below; poor prognosis 1. Self-extubated and monitor on BiPAP support 2. Continue with IV steroids; holding diuretics & weaning off of the steroids 3. Repeat chest x-ray is needed 4. Continue neb treatments 5. GI and DVT prophylaxis
[2020-09-24] MEDS: DILTIAZEM HCL 60 MG TAB PO SCH ×2 (17:00→21:00)
[2020-09-25] MEDS: INSULIN -REGULAR HUMAN 50 UNIT/0.5 ML ML SQ SCH ×4 (06:00→16:28)
[2020-09-25] MEDS: DILTIAZEM HCL 60 MG TAB PO SCH ×3 (08:28→21:00)
[2020-09-25] MEDS: AMLODIPINE 5 MG TAB PO SCH (08:28)
[2020-09-25] MEDS: FAMOTIDINE 20 MG TAB PO SCH ×2 (08:28→21:22)
[2020-09-25] MEDS: ASPIRIN 81 MG CHEWABLE TABLET PO SCH (08:28)
[2020-09-25] MEDS: METHYLPREDNISOLONE 40 MG INJ IV SCH (08:29)
[2020-09-25] MEDS: ENOXAPARIN 60 MG/0.6 ML SQ SCH (08:29)
[2020-09-25] MEDS: AMOXICILLIN TRIHYDR 250 MG CAP PO SCH ×3 (08:30→21:21)
--- NOTE | 2020-09-25 12:20 | P.PN ---
Subjective Date of Service: 09/24/20 Primary Care Provider: none Chief Complaint: Respiratory failure Patient was doing the well currently being weaned of however he self-extubated around no an was then placed on high-flow oxygen condition is remained stable complaining of a so throat Review of Systems General: Weakness Respiratory: Shortness of Breath Physical Examination - Vital Signs Temperature: 98.3 F Blood Pressure: 147/83 Pulse: 84 Respirations: 25 Pulse Ox (%): 91 - Studies Medications List Reviewed: Yes Assessment & Plan - Problems (Diagnosis) (1) Acute respiratory failure due to severe acute respiratory syndrome coronavirus 2 (SARS-CoV-2) infection Current Visit: Yes Status: Acute Plan: Respiratory failure patient self-extubated he is doing well on high-flow oxygen Physician Review Additional Text: Physical exam: Patient remains intubated. Patient alert. Follows commands. Heart: Regular rate and rhythm Lungs: Currently intubated and sedated currently on 90% FiO2.. Abdomen: Soft nondistended Extremities: No significant edema to the lower extremities noted. Impression: Acute hypoxic respiratory failure secondary to COVID-19 pneumonia Hyperglycemia suspect diabetes mellitus type 2 Elevated troponin likely ischemic demand related to above Acute renal insufficiency likely dehydration Anemia of chronic disease Obesity, BMI 44.5 Plan: Acute hypoxic respiratory failure secondary to COVID-19 pneumonia: Patient remains stable at this time. Patient remains intubated. Currently on 90% FiO2. Patient given sedation as needed. Patient alert and cooperative. Patient receiving IV Lasix with the help of nephrology. Renal function back to baseline. Pulmonology continues to wean off ventilator. DVT prophylaxis Eliquis in place. We will continue to monitor closely. Will update family. Anticipate continued improvement. I will turn the service over to the hospitalist team tomorrow. I will go plan of care with him. Hyperglycemia secondary to prediabetes: A1c 6.1. Continue to decrease insulin. Continue to adjust and wean off. Elevated troponin likely ischemic demand related to above: Continue with above plan of care. Cardiology plans for no significant intervention at this time. Now on Lovenox. Will provide metoprolol as needed. Echo unremarkable. Acute renal insufficiency likely dehydration: No function back to baseline. Patient continues with Lasix low-dose to keep on the dry side. Overall stable. Continue with nephrology recommendation. Obesity, BMI 44.5: Addressed lifestyle modification education. Anemia of chronic disease: Overall stable. Will monitor closely. Time Spent Managing Pts Care (In Minutes): 55
--- NOTE | 2020-09-25 12:23 | P.PN ---
Subjective Date of Service: 09/25/20 Primary Care Provider: none Chief Complaint: Respiratory failure Much improved patient is alert oriented responsive cooperative complaining of a so throat he is on high-flow nasal cannula oxygen Review of Systems General: Weakness Respiratory: Shortness of Breath Physical Examination - Vital Signs Temperature: 98.3 F Blood Pressure: 147/83 Pulse: 84 Respirations: 25 Pulse Ox (%): 91 - Studies Medications List Reviewed: Yes Assessment & Plan - Problems (Diagnosis) (1) Acute respiratory failure due to severe acute respiratory syndrome coronavirus 2 (SARS-CoV-2) infection Current Visit: Yes Status: Acute Plan: Doing much better continue O2 titrate him off the O2 speech therapy evaluation is pending complains of was so throat change to low-dose p.o. prednisone Dc insulin change to Eliquis p.o. high risk for thromboembolism continue to wean him off the oxygen patient is likely volume depleted is not eating and drinking start him on off normal saline Physician Review Additional Text: Physical exam: Patient remains intubated. Patient alert. Follows commands. Heart: Regular rate and rhythm Lungs: Currently intubated and sedated currently on 90% FiO2.. Abdomen: Soft nondistended Extremities: No significant edema to the lower extremities noted. Impression: Acute hypoxic respiratory failure secondary to COVID-19 pneumonia Hyperglycemia suspect diabetes mellitus type 2 Elevated troponin likely ischemic demand related to above Acute renal insufficiency likely dehydration Anemia of chronic disease Obesity, BMI 44.5 Plan: Acute hypoxic respiratory failure secondary to COVID-19 pneumonia: Patient remains stable at this time. Patient remains intubated. Currently on 90% FiO2. Patient given sedation as needed. Patient alert and cooperative. Patient receiving IV Lasix with the help of nephrology. Renal function back to baseline. Pulmonology continues to wean off ventilator. DVT p rophylaxisEliquis in place. We will continue to monitor closely. Will update family. Anticipate continued improvement. I will turn the service over to the hospitalist team tomorrow. I will go plan of care with him. Hyperglycemia secondary to prediabetes: A1c 6.1. Continue to decrease insulin. Continue to adjust and wean off. Elevated troponin likely ischemic demand related to above: Continue with above plan of care. Cardiology plans for no significant intervention at this time. Now on Lovenox. Will provide metoprolol as needed. Echo unremarkable. Acute renal insufficiency likely dehydration: No function back to baseline. Patient continues with Lasix low-dose to keep on the dry side. Overall stable. Continue with nephrology recommendation. Obesity, BMI 44.5: Addressed lifestyle modification education. Anemia of chronic disease: Overall stable. Will monitor closely. Time Spent Managing Pts Care (In Minutes): 55
[2020-09-25] MEDS ORDERED: NACHLORIDE 0.45% 1,000 ML IV SCH (13:00)
--- NOTE | 2020-09-25 13:44 | P.PN ---
Subjective Date of Service: 09/25/20 Primary Care Provider: none Chief Complaint: Respiratory failure Subjective: Improving, Doing well Physical Examination - Vital Signs Temperature: 98.3 F Blood Pressure: 147/83 Pulse: 84 Respirations: 25 Pulse Ox (%): 91 - Studies Medications List Reviewed: Yes Assessment & Plan Discharge Plan: Home Plan to discharge in: Greater than 2 days Physician Review Additional Text: Physical exam: Patient remains intubated. Patient alert. Follows commands. Heart: Regular rate and rhythm Lungs: Currently on high flow at 75% FiO2. Abdomen: Soft nondistended Extremities: No significant edema to the lower extremities noted. Impression: Acute hypoxic respiratory failure secondary to COVID-19 pneumonia Hyperglycemia suspect diabetes mellitus type 2 Elevated troponin likely ischemic demand related to above Hypertension Acute renal insufficiency likely dehydration Anemia of chronic disease Obesity, BMI 44.5 Plan: Acute hypoxic respiratory failure secondary to COVID-19 pneumonia: Since I last saw the patient he has done quite well. He has been extubated. Currently on high flow at 70% FiO2. Patient will have speech evaluation to make sure patient able to swallow appropriately. Continue incentive spirometer. Continue to wean off high flow. Continue proning. Continue DVT prophylaxisEliquis. Will monitor closely. Will have physical therapy assess ambulation. Patient does not have any resources for skilled placement or home health. Will go home at discharge. Anticipate continued improvement over the next several days. Hyperglycemia secondary to prediabetes: A1c 6.1. Patient has been weaned off long-acting insulin. Continue sliding scale. Elevated troponin likely ischemic demand related to above: Continue with above plan of care. Cardiology plans for no significant intervention at this time. Echo unremarkable. Hypertension: Continue Norvasc and diltiazem. Will monitor and adjust appropriately. Acute renal insufficiency likely dehydration: Patient doing well at this time. Wean off IV fluids if taking good oral intake. Obesity, BMI 44.5: Addressed lifestyle modification education. Anemia of chronic disease: Overall stable. Will monitor closely. Time Spent Managing Pts Care (In Minutes): 55 Time Spent Managing Pts Care (In Minutes): 55
[2020-09-25] MEDS: NACHLORIDE 0.45% 1,000 ML IV SCH (13:45)
[2020-09-25] MEDS: predniSONE 10 MG TAB PO SCH (21:22)
[2020-09-25] MEDS: APIXABAN 5 MG TABLET PO SCH (21:22)
[2020-09-26 04:52] LABS: Absolute Lymphocytes (CBC) 0.7 K/uL (0.7-4.9); Basophils % 0.2 % (0-1.3); Hematocrit 29.1 % (39.6-49.0); Lymphocytes % 8.9 % (15.3-44.8); MPV 9.2 fL (7.6-11.3); RBC Red Blood Cell Count 3.08 M/uL (4.33-5.43)
[2020-09-26 05:33] LABS: BUN Blood Urea Nitrogen 13 mg/dL (7-18); Bicarbonate 36 mmol/L (21-32); Ferritin 628.1 ng/mL (26-388); Glucose Level 116 mg/dL (74-106); Magnesium 2.5 mg/dL (1.8-2.4); Potassium 3.2 mmol/L (3.5-5.1); Sodium Level 145 mmol/L (136-145)
[2020-09-26] MEDS: NACHLORIDE 0.45% 1,000 ML IV SCH (06:03)
[2020-09-26] MEDS ORDERED: POTASSIUM 25 MEQ EFFERV TAB PO ONE ×2 (06:11→06:31)
[2020-09-26 07:11] LABS: Blood Morphology Comment NOT SEEN (NOT SEEN); Platelet Estimate ADEQ
[2020-09-26] MEDS: INSULIN -REGULAR HUMAN 50 UNIT/0.5 ML ML SQ SCH ×4 (07:30→21:00)
[2020-09-26] MEDS: predniSONE 10 MG TAB PO SCH ×2 (08:08→21:25)
[2020-09-26] MEDS: DILTIAZEM HCL 60 MG TAB PO SCH ×3 (08:08→21:00)
[2020-09-26] MEDS: APIXABAN 5 MG TABLET PO SCH ×2 (08:09→21:25)
[2020-09-26] MEDS: AMLODIPINE 5 MG TAB PO SCH (08:09)
[2020-09-26] MEDS: ASPIRIN 81 MG CHEWABLE TABLET PO SCH (08:09)
[2020-09-26] MEDS: FAMOTIDINE 20 MG TAB PO SCH ×2 (08:09→21:25)
[2020-09-26] MEDS: AMOXICILLIN TRIHYDR 250 MG CAP PO SCH ×3 (08:09→21:24)
--- NOTE | 2020-09-26 08:42 | P.PN ---
Subjective Date of Service: 09/26/20 Primary Care Provider: none Chief Complaint: Respiratory failure Subjective: Improving Physical Examination - Vital Signs Temperature: 98.2 F Blood Pressure: 138/89 Pulse: 92 Respirations: 28 Pulse Ox (%): 88 - Studies Medications List Reviewed: Yes Assessment & Plan Discharge Plan: Home Plan to discharge in: Greater than 2 days Physician Review Additional Text: Physical exam: Patient remains intubated. Patient alert. Follows commands. Heart: Regular rate and rhythm Lungs: Currently on high flow at 75% FiO2. Abdomen: Soft nondistended Extremities: Minimal edema to the lower extremities noted. Impression: Acute hypoxic respiratory failure secondary to COVID-19 pneumonia Hyperglycemia suspect diabetes mellitus type 2 Elevated troponin likely ischemic demand related to above Hypertension Acute renal insufficiency likely dehydration Anemia of chronic disease Obesity, BMI 44.5 Plan: Acute hypoxic respiratory failure secondary to COVID-19 pneumonia: Patient has done well at this time. Currently on 75% FiO2 on high flow. Repeat Covid test negative. Case discussed with pulmonology. We will move patient to regular ICU. This will allow for family to visit. Hopefully this will encourage him and improve his overall condition. Continue incentive spirometer. Continue proning. Continue DVT prophylaxisEliquis. Will discontinue IV fluids. Encourage oral intake. Will have physical therapy assess ambulation. Will verify with clinical social worker to see if patient has any options for skilled placement or long-term acute care facility placement. If not patient will remain in the hospital until he is able to get below 4 L per nasal cannula. We will continue to monitor closely. Hyperglycemia secondary to prediabetes: A1c 6.1. Patient has been weaned off long-acting insulin. Continue sliding scale. Elevated troponin likely ischemic demand related to above: Continue with above plan of care. Cardiology plans for no significant intervention at this time. Echo unremarkable. Hypertension: Continue Norvasc and diltiazem. Will monitor and adjust appropriately. Acute renal insufficiency likely dehydration: Renal function stable. Discontinue IV fluids. Obesity, BMI 44.5: Addressed lifestyle modification education. Anemia of chronic disease: Overall stable. Will monitor closely. CODE STATUS: Patient is full code DVT prophylaxis: Patient on Eliquis Time Spent Managing Pts Care (In Minutes): 55
[2020-09-26] MEDS: LACTULOSE 20 GM/30 ML UCUP PO PRN (09:36)
[2020-09-26] MEDS: ALPRAZOLAM 0.5 MG TABLET PO PRN (18:00)
[2020-09-26] MEDS ORDERED: ALPRAZOLAM 0.5 MG TABLET ONE (18:19)
[2020-09-27 05:07] LABS: Absolute Lymphocytes (CBC) 0.7 K/uL (0.7-4.9); Basophils % 0.1 % (0-1.3); Hematocrit 28.7 % (39.6-49.0); RBC Red Blood Cell Count 3.03 M/uL (4.33-5.43)
[2020-09-27 06:51] LABS: BUN Blood Urea Nitrogen 10 mg/dL (7-18); Bicarbonate 36 mmol/L (21-32); Ferritin 678.2 ng/mL (26-388); Glucose Level 125 mg/dL (74-106); Magnesium 2.5 mg/dL (1.8-2.4); Potassium 3.4 mmol/L (3.5-5.1); Sodium Level 147 mmol/L (136-145)
[2020-09-27] MEDS: INSULIN -REGULAR HUMAN 50 UNIT/0.5 ML ML SQ SCH ×4 (07:30→21:00)
[2020-09-27] MEDS: DILTIAZEM HCL 60 MG TAB PO SCH ×3 (09:00→21:00)
[2020-09-27] MEDS: ASPIRIN 81 MG CHEWABLE TABLET PO SCH (09:21)
[2020-09-27] MEDS: D5W 1,000 ML IV SCH ×2 (09:21→21:34)
[2020-09-27] MEDS: FAMOTIDINE 20 MG TAB PO SCH ×2 (09:21→21:19)
[2020-09-27] MEDS: predniSONE 10 MG TAB PO SCH ×2 (09:22→21:19)
[2020-09-27] MEDS: APIXABAN 5 MG TABLET PO SCH ×2 (09:22→21:19)
[2020-09-27] MEDS: AMOXICILLIN TRIHYDR 250 MG CAP PO SCH ×3 (09:22→21:19)
[2020-09-27] MEDS: AMLODIPINE 5 MG TAB PO SCH (09:27)
[2020-09-27] MEDS ORDERED: APIXABAN 5 MG TABLET ONE (09:38)
[2020-09-27] MEDS ORDERED: AMLODIPINE 10 MG TAB ONE (09:38)
[2020-09-27] MEDS ORDERED: ASPIRIN 81 MG CHEWABLE TABLET ONE (09:38)
[2020-09-27] MEDS ORDERED: DILTIAZEM HCL 60 MG TAB ONE (09:38)
[2020-09-27] MEDS ORDERED: FAMOTIDINE 20 MG TAB ONE (09:39)
[2020-09-27] MEDS ORDERED: predniSONE 10 MG TAB ONE (09:39)
[2020-09-27] MEDS ORDERED: D5W 1,000 ML IV ONE (09:40)
[2020-09-27] MEDS ORDERED: AMLODIPINE 5 MG TAB ONE (09:46)
--- NOTE | 2020-09-27 10:01 | P.PN ---
Subjective Date of Service: 09/27/20 Primary Care Provider: none Chief Complaint: Respiratory failure Subjective: Doing well Physical Examination - Vital Signs Temperature: 97.5 F Blood Pressure: 139/86 Pulse: 100 Respirations: 29 Pulse Ox (%): 97 - Studies Medications List Reviewed: Yes Assessment & Plan Discharge Plan: Home Plan to discharge in: Greater than 2 days Physician Review Additional Text: Physical exam: Patient remains intubated. Patient alert. Follows commands. Heart: Regular rate and rhythm Lungs: Currently on high flow at 75% FiO2. Abdomen: Soft nondistended Extremities: Minimal edema to the lower extremities noted. Impression: Acute hypoxic respiratory failure secondary to COVID-19 pneumonia Hyperglycemia suspect diabetes mellitus type 2 Elevated troponin likely ischemic demand related to above Hypertension Acute renal insufficiency likely dehydration Anemia of chronic disease Obesity, BMI 44.5 Plan: Acute hypoxic respiratory failure secondary to COVID-19 pneumonia: Continues to slowly improve. Currently on high flow at 75 to 80%. Repeat Covid test negative. We will repeat another Covid test in 24 hours. If negative then will transition to regular ICU bed. Case discussed with pulmonology. Continue incentive spirometer. Continue proning. Continue DVT prophylaxisEliquis. Will discontinue IV fluids. Encourage oral intake. Will have physical therapy assess ambulation. Patient without any insurance. Will need to consider home at discharge with oxygen once medically stable. Hyperglycemia secondary to prediabetes: A1c 6.1. Patient has been weaned off long-acting insulin. Continue sliding scale. Elevated troponin likely ischemic demand related to above: Continue with above plan of care. Cardiology plans for no significant intervention at this time. Echo unremarkable. Hypertension: Continue Norvasc and diltiazem. Will monitor and adjust appropriately. Acute renal insufficiency likely dehydration and hypernatremia: Nephrology added D5W. Obesity, BMI 44.5: Addressed lifestyle modification education. Anemia of chronic disease: Overall stable. Will monitor closely. CODE STATUS: Patient is full code DVT prophylaxis: Patient on Eliquis Time Spent Managing Pts Care (In Minutes): 55
[2020-09-27 10:26] LABS: Arterial Blood Carboxyhemoglob 1.6 % (0-1.5); Blood Gas Oxyhemoglobin 79.1 % (94-97)
[2020-09-28 05:51] LABS: Absolute Lymphocytes (CBC) 0.8 K/uL (0.7-4.9); Basophils % 0.4 % (0-1.3); Hematocrit 28.3 % (39.6-49.0); Lymphocytes % 10.6 % (15.3-44.8); MPV 9.1 fL (7.6-11.3)
[2020-09-28 06:33] LABS: BUN Blood Urea Nitrogen 8 mg/dL (7-18); Bicarbonate 34 mmol/L (21-32); Ferritin 678.2 ng/mL (26-388); Glucose Level 130 mg/dL (74-106); Magnesium 2.5 mg/dL (1.8-2.4); Potassium 3.4 mmol/L (3.5-5.1); Sodium Level 143 mmol/L (136-145)
[2020-09-28] MEDS: INSULIN -REGULAR HUMAN 50 UNIT/0.5 ML ML SQ SCH ×4 (07:30→20:06)
[2020-09-28] MEDS: AMLODIPINE 5 MG TAB PO SCH (11:20)
[2020-09-28] MEDS: ASPIRIN 81 MG CHEWABLE TABLET PO SCH (11:22)
[2020-09-28] MEDS: APIXABAN 5 MG TABLET PO SCH ×2 (11:22→20:47)
[2020-09-28] MEDS: predniSONE 10 MG TAB PO SCH ×2 (11:22→20:47)
[2020-09-28] MEDS: FAMOTIDINE 20 MG TAB PO SCH ×2 (11:22→20:48)
[2020-09-28] MEDS: D5W 1,000 ML IV SCH ×2 (11:23→23:07)
[2020-09-28] MEDS: DILTIAZEM HCL 60 MG TAB PO SCH ×3 (11:23→20:47)
[2020-09-28] MEDS: AMOXICILLIN TRIHYDR 250 MG CAP PO SCH ×3 (11:24→20:45)
--- NOTE | 2020-09-28 12:37 | P.PN ---
Subjective Date of Service: 09/28/20 Primary Care Provider: none Chief Complaint: Respiratory failure Oxygen requirements are declining Isabel catheter removed date side physical therapy Review of Systems General: Weakness Respiratory: Shortness of Breath Physical Examination - Vital Signs Temperature: 97.7 F Blood Pressure: 138/87 Pulse: 96 Respirations: 34 Pulse Ox (%): 96 - Studies Medications List Reviewed: Yes Assessment & Plan - Problems (Diagnosis) (1) Acute respiratory failure due to severe acute respiratory syndrome coronavirus 2 (SARS-CoV-2) infection Current Visit: Yes Status: Acute Plan: Respiratory failure continue to wean off oxygen patient is on IV fluid fully anti coagulated vital signs stable medications reviewed continue with low-dose prednisone Physician Review: Patient Assessed, Agree with Above Assessment and Plan Physician Review Additional Text: Physical exam: Patient remains intubated. Patient alert. Follows commands. Heart: Regular rate and rhythm Lungs: Currently on high flow at 75% FiO2. Abdomen: Soft nondistended Extremities: Minimal edema to the lower extremities noted. Impression: Acute hypoxic respiratory failure secondary to COVID-19 pneumonia Hyperglycemia suspect diabetes mellitus type 2 Elevated troponin likely ischemic demand related to above Hypertension Acute renal insufficiency likely dehydration Anemia of chronic disease Obesity, BMI 44.5 Plan: Acute hypoxic respiratory failure secondary to COVID-19 pneumonia: Continues to slowly improve. Currently on high flow at 75 to 80%. Repeat Covid test negative. We will repeat another Covid test in 24 hours. If negative then will transition to regular ICU bed. Case discussed with pulmonology. Continue incentive spirometer. Continue proning. Continue DVT prophylaxisEliquis. Will discontinue IV fluids. Encourage oral intake. Will have physical therapy assess ambulation. Patient without any insurance. Will need to consider home at discharge with oxygen once medically stable. Hyperglycemia secondary to prediabetes: A1c 6.1. Patient has been weaned off long-acting insulin. Continue sliding scale. Elevated troponin likely ischemic demand related to above: Continue with above plan of care. Cardiology plans for no significant intervention at this time. Echo unremarkable. Hypertension: Continue Norvasc and diltiazem. Will monitor and adjust appropriately. Acute renal insufficiency likely dehydration and hypernatremia: Nephrology added D5W. Obesity, BMI 44.5: Addressed lifestyle modification education. Anemia of chronic disease: Overall stable. Will monitor closely. CODE STATUS: Patient is full code DVT prophylaxis: Patient on Eliquis
--- NOTE | 2020-09-28 14:56 | P.PN ---
Subjective Date of Service: 09/28/20 Primary Care Provider: none Chief Complaint: Respiratory failure Subjective: Improving, Doing well Physical Examination - Vital Signs Temperature: 97.7 F Blood Pressure: 138/87 Pulse: 96 Respirations: 34 Pulse Ox (%): 96 - Studies Medications List Reviewed: Yes Assessment & Plan Discharge Plan: Home Plan to discharge in: Greater than 2 days Physician Review Additional Text: Physical exam: Patient remains intubated. Patient alert. Follows commands. Heart: Regular rate and rhythm Lungs: Currently on high flow at 80 % FiO2. Abdomen: Soft nondistended Extremities: Minimal edema to the lower extremities noted. Impression: Acute hypoxic respiratory failure secondary to COVID-19 pneumonia Hyperglycemia suspect diabetes mellitus type 2 Elevated troponin likely ischemic demand related to above Hypertension Acute renal insufficiency likely dehydration Anemia of chronic disease Obesity, BMI 44.5 Plan: Acute hypoxic respiratory failure secondary to COVID-19 pneumonia: Continues to slowly improve. Currently on high flow at 75 to 80%. Repeat Covid test negative. We will repeat another Covid test today. If negative then will transition to regular ICU bed. Case discussed with pulmonology. Continue kathia ntive spirometer. Continue proning. Continue DVT prophylaxisEliquis. Encourage oral intake. Will have physical therapy assess ambulation. Patient without any insurance. Will need to consider home at discharge with oxygen once medically stable. Hyperglycemia secondary to prediabetes: A1c 6.1. Patient has been weaned off long-acting insulin. Continue sliding scale. Elevated troponin likely ischemic demand related to above: Continue with above plan of care. Cardiology plans for no significant intervention at this time. Echo unremarkable. Hypertension: Continue Norvasc and diltiazem. Will monitor and adjust appropriately. Acute renal insufficiency likely dehydration and hypernatremia: Nephrology added D5W. Obesity, BMI 44.5: Addressed lifestyle modification education. Anemia of chronic disease: Overall stable. Will monitor closely. CODE STATUS: Patient is full code DVT prophylaxis: Patient on Eliquis Time Spent Managing Pts Care (In Minutes): 55
[2020-09-28 15:02] LABS: Arterial Blood Carboxyhemoglob 1.6 % (0-1.5); Blood Gas Oxyhemoglobin 85.4 % (94-97); Blood O2 Saturation 87.6 % (92-98.5)
--- NOTE | 2020-09-28 16:15 | RAD REPORT ---
EXAM DESCRIPTION: RAD - Chest Single View - 09/28/2020 4:07 pm CLINICAL HISTORY: Monitor COVID pneumonia Chest pain. COMPARISON: Abdomen 1 View (KUB) dated 09/23/2020; Chest Single View dated 09/22/2020; Chest Single View dated 09/21/2020; Chest Single View dated 09/20/2020 FINDINGS: Portable technique limits examination quality. Bilateral pulmonary opacities have mildly worsened on the left since comparative study. The heart is mildly enlarged in size. Right-sided PICC line has tip in the SVC.
[2020-09-29 06:22] LABS: BUN Blood Urea Nitrogen 7 mg/dL (7-18); Bicarbonate 37 mmol/L (21-32); Ferritin 604.1 ng/mL (26-388); Glucose Level 125 mg/dL (74-106); Magnesium 2.4 mg/dL (1.8-2.4); Potassium 3.3 mmol/L (3.5-5.1); Sodium Level 152 mmol/L (136-145)
[2020-09-29] MEDS: INSULIN -REGULAR HUMAN 50 UNIT/0.5 ML ML SQ SCH ×4 (07:30→20:04)
[2020-09-29] MEDS: AMLODIPINE 5 MG TAB PO SCH (08:25)
[2020-09-29] MEDS: ASPIRIN 81 MG CHEWABLE TABLET PO SCH (08:25)
[2020-09-29] MEDS: APIXABAN 5 MG TABLET PO SCH ×2 (08:25→20:16)
[2020-09-29] MEDS: FAMOTIDINE 20 MG TAB PO SCH ×2 (08:26→20:16)
[2020-09-29] MEDS: AMOXICILLIN TRIHYDR 250 MG CAP PO SCH (08:26)
[2020-09-29] MEDS: predniSONE 10 MG TAB PO SCH ×2 (08:26→20:16)
[2020-09-29] MEDS: DILTIAZEM HCL 60 MG TAB PO SCH ×3 (08:27→20:16)
[2020-09-29] MEDS ORDERED: POTASSIUM CL SA 10 MEQ TAB PO ONE ×2 (09:00→21:00)
[2020-09-29] MEDS: D5W 1,000 ML IV SCH ×4 (11:22→19:28)
--- NOTE | 2020-09-29 17:08 | P.PN ---
Subjective Date of Service: 09/29/20 Primary Care Provider: none Chief Complaint: Respiratory failure Subjective: Doing well Physical Examination - Vital Signs Temperature: 98.4 F Blood Pressure: 129/90 Pulse: 91 Respirations: 29 Pulse Ox (%): 85 - Studies Medications List Reviewed: Yes Assessment & Plan Discharge Plan: Home Plan to discharge in: Greater than 2 days Physician Review Additional Text: Physical exam: Patient remains intubated. Patient alert. Follows commands. Heart: Regular rate and rhythm Lungs: Currently on high flow at 80 % FiO2. Abdomen: Soft nondistended Extremities: Minimal edema to the lower extremities noted. Impression: Acute hypoxic respiratory failure secondary to COVID-19 pneumonia Hyperglycemia suspect diabetes mellitus type 2 Elevated troponin likely ischemic demand related to above Hypertension Acute renal insufficiency likely dehydration Anemia of chronic disease Obesity, BMI 44.5 Plan: Acute hypoxic respiratory failure secondary to COVID-19 pneumonia: Continues to slowly improve. Currently on high flow at 75 to 80%. Repeat COVID x2 negative. If bed available will transition to regular ICU. Case discussed with pulmonology. Continue incentive spirometer. Continue proning. Continue DVT prophylaxisEliquis. Encourage oral intake. Will have physical therapy assess ambulation. Patient without any insurance. Will need to consider home at discharge with oxygen once medically stable. Continue with physical therapy. Hyperglycemia secondary to prediabetes: A1c 6.1. Patient has been weaned off long-acting insulin. Continue sliding scale. Elevated troponin likely ischemic demand related to above: Continue with above plan of care. Cardiology plans for no significant intervention at this time. Echo unremarkable. Hypertension: Continue Norvasc and diltiazem. Will monitor and adjust appropriately. Acute renal insufficiency likely dehydration and hypernatremia: Nephrology added D5W. Obesity, BMI 44.5: Addressed lifestyle modification education. Anemia of chronic disease: Overall stable. Will monitor closely. CODE STATUS: Patient is full code DVT prophylaxis: Patient on Eliquis Time Spent Managing Pts Care (In Minutes): 55
[2020-09-29] MEDS: ENSURE HIGH PROTEIN 237 ML CAN PO SCH (20:38)
[2020-09-30] MEDS: D5W 1,000 ML IV SCH (03:38)
[2020-09-30 05:08] LABS: BUN Blood Urea Nitrogen 5 mg/dL (7-18); Bicarbonate 36 mmol/L (21-32); Ferritin 568.3 ng/mL (26-388); Glucose Level 123 mg/dL (74-106); Potassium 3.6 mmol/L (3.5-5.1); Sodium Level 145 mmol/L (136-145)
[2020-09-30] MEDS: INSULIN -REGULAR HUMAN 50 UNIT/0.5 ML ML SQ SCH ×4 (07:30→20:45)
[2020-09-30] MEDS: APIXABAN 5 MG TABLET PO SCH ×2 (08:27→20:44)
[2020-09-30] MEDS: AMLODIPINE 5 MG TAB PO SCH (08:28)
[2020-09-30] MEDS: ASPIRIN 81 MG CHEWABLE TABLET PO SCH (08:28)
[2020-09-30] MEDS: predniSONE 10 MG TAB PO SCH ×2 (08:28→20:44)
[2020-09-30] MEDS: FAMOTIDINE 20 MG TAB PO SCH ×2 (08:28→20:44)
[2020-09-30] MEDS: ENSURE HIGH PROTEIN 237 ML CAN PO SCH ×2 (08:29→20:45)
[2020-09-30] MEDS: DILTIAZEM HCL 60 MG TAB PO SCH (08:30)
[2020-09-30] MEDS ORDERED: POTASSIUM CL SA 10 MEQ TAB PO ONE (09:00)
--- NOTE | 2020-09-30 10:36 | P.PN ---
Subjective Date of Service: 09/30/20 Primary Care Provider: none Chief Complaint: Respiratory failure Condition stable still very weak significant shortness of breath on mild exertion on high-flow oxygen 65% Review of Systems General: Weakness Respiratory: Shortness of Breath Physical Examination - Vital Signs Temperature: 97.7 F Blood Pressure: 133/83 Pulse: 100 Respirations: 31 Pulse Ox (%): 91 - Physical Exam General: Alert, Moderate distress Respiratory: Clear to auscultation bilaterally, Diminished Cardiovascular: No edema, Regular rate/rhythm - Studies Medications List Reviewed: Yes Assessment & Plan - Problems (Diagnosis) (1) Acute respiratory failure due to severe acute respiratory syndrome coronavirus 2 (SARS-CoV-2) infection Current Visit: Yes Status: Acute Plan: Respiratory failure still very weak short of breath hypoxic Dc IV fluids indications reviewed blood gases show significant hypoxemia Dc diltiazem Physician Review: Patient Assessed, Agree with Above Assessment and Plan Physician Review Additional Text: Physical exam: Patient remains intubated. Patient alert. Follows commands. Heart: Regular rate and rhythm Lungs: Currently on high flow at 80 % FiO2. Abdomen: Soft nondistended Extremities: Minimal edema to the lower extremities noted. Impression: Acute hypoxic respiratory failure secondary to COVID-19 pneumonia Hyperglycemia suspect diabetes mellitus type 2 Elevated troponin likely ischemic demand related to above Hypertension Acute renal insufficiency likely dehydration Anemia of chronic disease Obesity, BMI 44.5 Plan: Acute hypoxic respiratory failure secondary to COVID-19 pneumonia: Continues to slowly improve. Currently on high flow at 75 to 80%. Repeat COVID x2 negative. If bed available will transition to regular ICU. Case discussed with pulmonology. Continue incentive spirometer. Continue proning. Continue DVT prophylaxisEliquis. Encourage oral intake. Will have physical therapy assess ambulation. Patient without any insurance. Will need to consider home at discharge with oxygen once medically stable. Continue with physical therapy. Hyperglycemia secondary to prediabetes: A1c 6.1. Patient has been weaned off long-acting insulin. Continue sliding scale. Elevated troponin likely ischemic demand related to above: Continue with above plan of care. Cardiology plans for no significant intervention at this time. Echo unremarkable. Hypertension: Continue Norvasc and diltiazem. Will monitor and adjust appropriately. Acute renal insufficiency likely dehydration and hypernatremia: Nephrology added D5W. Obesity, BMI 44.5: Addressed lifestyle modification education. Anemia of chronic disease: Overall stable. Will monitor closely. CODE STATUS: Patient is full code DVT prophylaxis: Patient on Eliquis
--- NOTE | 2020-09-30 11:24 | P.PN ---
Subjective Date of Service: 09/30/20 Primary Care Provider: none Chief Complaint: Respiratory failure Subjective: Improving Physical Examination - Vital Signs Temperature: 97.7 F Blood Pressure: 133/83 Pulse: 100 Respirations: 31 Pulse Ox (%): 91 - Studies Medications List Reviewed: Yes Assessment & Plan Discharge Plan: Home Plan to discharge in: Greater than 2 days Physician Review Additional Text: Physical exam: Patient remains intubated. Patient alert. Follows commands. Heart: Regular rate and rhythm Lungs: Currently on high flow at 60-75% FiO2. Abdomen: Soft nondistended Extremities: Minimal edema to the lower extremities noted. Impression: Acute hypoxic respiratory failure secondary to COVID-19 pneumonia Hyperglycemia suspect diabetes mellitus type 2 Elevated troponin likely ischemic demand related to above Hypertension Acute renal insufficiency likely dehydration Anemia of chronic disease Obesity, BMI 44.5 Plan: Acute hypoxic respiratory failure secondary to COVID-19 pneumonia: Continues to improve. He wants to ambulate. Will have PT work with the patient. Continue to wean off HF. Repeat COVID x2 negative. If bed available will transition to regular ICU. Case discussed with pulmonology. Continue incentive spirometer. Continue proning. Continue DVT prophylaxisEliquis. Encourage oral intake. Will consider DC home once below 4 liters per NC. Hyperglycemia secondary to prediabetes: A1c 6.1. Patient has been weaned off long-acting insulin. Continue sliding scale. Elevated troponin likely ischemic demand related to above: Continue with above plan of care. Cardiology plans for no significant intervention at this time. Echo unremarkable. Hypertension: Diltiazem discontinued by Pulmonary. Continue Norvasc. Will monitor and adjust appropriately. Acute renal insufficiency likely dehydration and hypernatremia: Nephrology to adjust and monitor. Off IV fluids. Obesity, BMI 44.5: Addressed lifestyle modification education. Anemia of chronic disease: Overall stable. Will monitor closely. CODE STATUS: Patient is full code DVT prophylaxis: Patient on Eliquis Time Spent Managing Pts Care (In Minutes): 55
[2020-09-30 11:25] LABS: Arterial Blood Carboxyhemoglob 1.6 % (0-1.5); Blood Gas Oxyhemoglobin 88.6 % (94-97)
[2020-10-01] MEDS: ALPRAZOLAM 0.5 MG TABLET PO PRN ×2 (00:52→20:45)
[2020-10-01 05:20] LABS: BUN Blood Urea Nitrogen 8 mg/dL (7-18); Bicarbonate 35 mmol/L (21-32); Glucose Level 100 mg/dL (74-106); Potassium 3.6 mmol/L (3.5-5.1); Sodium Level 146 mmol/L (136-145)
[2020-10-01] MEDS ORDERED: POTASSIUM CL SA 10 MEQ TAB PO ONE (05:55)
[2020-10-01] MEDS: INSULIN -REGULAR HUMAN 50 UNIT/0.5 ML ML SQ SCH ×4 (07:30→20:44)
[2020-10-01] MEDS: APIXABAN 5 MG TABLET PO SCH ×2 (08:25→20:45)
[2020-10-01] MEDS: AMLODIPINE 5 MG TAB PO SCH (08:25)
[2020-10-01] MEDS: FAMOTIDINE 20 MG TAB PO SCH ×2 (08:25→20:45)
[2020-10-01] MEDS: ASPIRIN 81 MG CHEWABLE TABLET PO SCH (08:25)
[2020-10-01] MEDS: predniSONE 10 MG TAB PO SCH ×2 (08:25→20:45)
[2020-10-01] MEDS: ENSURE HIGH PROTEIN 237 ML CAN PO SCH ×2 (08:26→20:54)
--- NOTE | 2020-10-01 08:37 | P.PN ---
Subjective Date of Service: 10/01/20 Primary Care Provider: none Chief Complaint: Respiratory failure Subjective: Improving, Doing well Physical Examination - Vital Signs Temperature: 97.2 F Blood Pressure: 137/92 Pulse: 106 Respirations: 31 Pulse Ox (%): 91 - Studies Medications List Reviewed: Yes Assessment & Plan Discharge Plan: Home Plan to discharge in: Greater than 2 days Physician Review Additional Text: Physical exam: Patient doing at this time. Patient remains on high flow oxygen. Patient was able to sit at bedside yesterday. Heart: Regular rate and rhythm Lungs: Currently on high flow at 55 % FiO2. No respiratory distress noted. Abdomen: Soft nondistended Extremities: Minimal edema to the lower extremities noted. Good range of motion to the upper lower extremities. Impression: Acute hypoxic respiratory failure secondary to COVID-19 pneumonia Hyperglycemia suspect diabetes mellitus type 2 Elevated troponin likely ischemic demand related to above Hypertension Acute renal insufficiency likely dehydration Anemia of chronic disease Obesity, BMI 44.5 Plan: Acute hypoxic respiratory failure secondary to COVID-19 pneumonia: Patient continues to improve. Currently on 55% FiO2 high flow. Respiratory to continue to wean off hopefully to nasal cannula today. Continue physical therapy. Patient desires to ambulate. Patient will need to increase his strength first before this occurs. Continue to work with physical therapy to increase strength. Continue current medication. Repeat COVID x2 negative. If bed available will transition to regular ICU or the floor tomorrow depending on his strength. Case discussed with pulmonology. Continue incentive spirometer. Continue proning. Continue DVT prophylaxisEliquis. Encourage oral intake. Will consider discharge once he is able to ambulate and requires less than 4 L per nasal cannula. Anticipate continued improvement over the next 3 to 5 days. I will turn the service over to the hospitalist team tomorrow. I will go over the plan of care with him. Hyperglycemia secondary to prediabetes: A1c 6.1. Patient has been weaned off long-acting insulin. Continue sliding scale. Recommend repeat hemoglobin A1c in 3 to 6 months to monitor his progress. Elevated troponin likely ischemic demand related to above: Continue with above plan of care. Cardiology plans for no significant intervention at this time. Echo unremarkable. Hypertension: Blood pressure controlled on Norvasc. Will monitor and adjust appropriately. Acute renal insufficiency likely dehydration and hypernatremia: Sodium slightly elevated. Increase water intake. Nephrology to adjust and monitor. Off IV fluids. Obesity, BMI 44.5: Addressed lifestyle modification education. Anemia of chronic disease: Overall stable. Will monitor closely. CODE STATUS: Patient is full code DVT prophylaxis: Patient on Eliquis Time Spent Managing Pts Care (In Minutes): 55
--- NOTE | 2020-10-01 11:00 | RAD REPORT ---
EXAM DESCRIPTION: RAD - Chest Single View - 10/01/2020 10:52 am CLINICAL HISTORY: Resp failure COMPARISON: July 29 TECHNIQUE: AP portable chest image was obtained 10/01/2020 10:52 am . FINDINGS: Left lung field alveolar opacification has improved slightly. There is better visualizatio n of the left hemidiaphragm and left heart border. Significant lung parenchymal disease remains. No s ignificant change to the right lung field. Trachea is midline. Cardiac silhouette is prominent. No pn eumothorax or enlarging pleural effusion. No acute bony abnormality seen. No acute aortic findings davis spected. IMPRESSION: Slight improvement in the left lung field opacification. Substantial lung parenchymal di sease remains.
[2020-10-02 05:43] LABS: BUN Blood Urea Nitrogen 9 mg/dL (7-18); Bicarbonate 34 mmol/L (21-32); Ferritin 575.3 ng/mL (26-388); Glucose Level 98 mg/dL (74-106); Potassium 3.5 mmol/L (3.5-5.1); Sodium Level 147 mmol/L (136-145)
[2020-10-02] MEDS ORDERED: POTASSIUM CL SA 10 MEQ TAB PO ONE (06:31)
[2020-10-02] MEDS: INSULIN -REGULAR HUMAN 50 UNIT/0.5 ML ML SQ SCH (07:30)
[2020-10-02] MEDS: ENSURE HIGH PROTEIN 237 ML CAN PO SCH ×2 (09:00→20:05)
[2020-10-02] MEDS: AMLODIPINE 5 MG TAB PO SCH (09:06)
[2020-10-02] MEDS: ASPIRIN 81 MG CHEWABLE TABLET PO SCH (09:06)
[2020-10-02] MEDS: APIXABAN 5 MG TABLET PO SCH ×2 (09:06→20:06)
[2020-10-02] MEDS: predniSONE 10 MG TAB PO SCH ×2 (09:06→21:33)
[2020-10-02] MEDS: FAMOTIDINE 20 MG TAB PO SCH ×2 (09:07→20:06)
[2020-10-02] MEDS: ALPRAZOLAM 0.5 MG TABLET PO PRN (21:08)
[2020-10-03 05:05] LABS: BUN Blood Urea Nitrogen 10 mg/dL (7-18); Bicarbonate 34 mmol/L (21-32); Ferritin 546.8 ng/mL (26-388); Glucose Level 109 mg/dL (74-106); Magnesium 2.1 mg/dL (1.8-2.4); Phosphorus 3.4 mg/dL (2.5-4.9); Potassium 3.7 mmol/L (3.5-5.1); Sodium Level 146 mmol/L (136-145)
[2020-10-03] MEDS: AMLODIPINE 5 MG TAB PO SCH (05:22)
[2020-10-03] MEDS: ASPIRIN 81 MG CHEWABLE TABLET PO SCH (07:21)
[2020-10-03] MEDS: FAMOTIDINE 20 MG TAB PO SCH ×2 (07:21→20:07)
[2020-10-03] MEDS: predniSONE 10 MG TAB PO SCH ×2 (07:21→20:07)
[2020-10-03] MEDS: APIXABAN 5 MG TABLET PO SCH ×2 (07:21→20:07)
[2020-10-03] MEDS: ENSURE HIGH PROTEIN 237 ML CAN PO SCH ×2 (07:22→20:08)
[2020-10-03] MEDS ORDERED: POTASSIUM 25 MEQ EFFERV TAB PO ONE (08:00)
[2020-10-03] MEDS: ALPRAZOLAM 0.5 MG TABLET PO PRN (20:07)
[2020-10-03] MEDS: BENZONATATE 100 MG CAP PO PRN (21:18)
[2020-10-04] MEDS ORDERED: MELATONIN 5 MG TABLET PO ONE ×2 (00:10→23:49)
[2020-10-04 05:46] LABS: BUN Blood Urea Nitrogen 15 mg/dL (7-18); Bicarbonate 35 mmol/L (21-32); Ferritin 515.8 ng/mL (26-388); Glucose Level 124 mg/dL (74-106); Magnesium 2.2 mg/dL (1.8-2.4); Phosphorus 3.8 mg/dL (2.5-4.9); Potassium 3.8 mmol/L (3.5-5.1); Sodium Level 145 mmol/L (136-145)
[2020-10-04] MEDS ORDERED: POTASSIUM 25 MEQ EFFERV TAB PO ONE (08:00)
[2020-10-04] MEDS: AMLODIPINE 5 MG TAB PO SCH (08:04)
[2020-10-04] MEDS: APIXABAN 5 MG TABLET PO SCH ×2 (08:04→19:59)
[2020-10-04] MEDS: FAMOTIDINE 20 MG TAB PO SCH ×2 (08:05→19:59)
[2020-10-04] MEDS: ENSURE HIGH PROTEIN 237 ML CAN PO SCH ×2 (08:05→20:00)
[2020-10-04] MEDS: predniSONE 10 MG TAB PO SCH ×2 (08:05→19:59)
[2020-10-04] MEDS: ASPIRIN 81 MG CHEWABLE TABLET PO SCH (08:05)
--- NOTE | 2020-10-04 10:54 | P.PN ---
Date of Service: 10/02/20 Subjective Patient looks to be doing better. Patient is awake and alert and following commands. Gently weaning off the oxygen. Will start physical therapy and work on improving his strength. Physical Examination - Vital Signs reviewed - Physical Exam General: Wall on nasal cannula Respiratory: Bibasilar crackles Cardiovascular: Regular rate/rhythm, Normal S1 S2, No murmurs Gastrointestinal: Normal bowel sounds, Soft and benign, Non-distended, No tenderness Musculoskeletal: Minimal lower extremity edema Neurological: Following commands; moving all extremities Assessment & Plan - Problems (Diagnosis) (1) Acute respiratory failure due to severe acute respiratory syndrome coronavirus 2 (SARS-CoV-2) infection Current Visit: Yes Status: Acute (2) Morbid obesity Current Visit: Yes Status: Acute - Plan Continue with plan of care as mentioned below; poor prognosis 1. Patient is clinically feeling much better. Strength is improving. 2. Weaning off steroids. May gently diurese to help with oxygenation. 3. Chest x-ray as needed 4. Continue neb treatments 5. GI and DVT prophylaxis
--- NOTE | 2020-10-04 10:56 | P.PN ---
Date of Service: 10/04/20 Subjective Continue work with physical therapy attempting to try to get patient to inpatient rehab. Physical Examination - Vital Signs reviewed - Physical Exam General: Decreased oxygen to 6 L Respiratory: Clear bilaterally Cardiovascular: Regular rate/rhythm, Normal S1 S2, No murmurs Gastrointestinal: Normal bowel sounds, Soft and benign, Non-distended, No tenderness Musculoskeletal: No clubbing/no cyanosis/no edema Neurological: Following commands; moving all extremities Assessment & Plan - Problems (Diagnosis) (1) Acute respiratory failure due to severe acute respiratory syndrome coronavirus 2 (SARS-CoV-2) infection Current Visit: Yes Status: Acute (2) Morbid obesity Current Visit: Yes Status: Acute - Plan Continue with plan of care as mentioned below; poor prognosis 1. Patient is clinically feeling much better. Strength is improving. 2. Attempting to get patient to inpatient rehab. Hopefully will find out of the next few days. 3. Chest x-ray as needed 4. Continue neb treatments 5. GI and DVT prophylaxis
--- NOTE | 2020-10-04 10:56 | P.PN ---
Date of Service: 10/03/20 Subjective Patient is doing much better. Strength is significantly improving. He is working better with physical therapy as well Physical Examination - Vital Signs reviewed - Physical Exam General: Decreased oxygen to 6 L Respiratory: Clear bilaterally Cardiovascular: Regular rate/rhythm, Normal S1 S2, No murmurs Gastrointestinal: Normal bowel sounds, Soft and benign, Non-distended, No tenderness Musculoskeletal: No clubbing/no cyanosis/no edema Neurological: Following commands; moving all extremities Assessment & Plan - Problems (Diagnosis) (1) Acute respiratory failure due to severe acute respiratory syndrome coronavirus 2 (SARS-CoV-2) infection Current Visit: Yes Status: Acute (2) Morbid obesity Current Visit: Yes Status: Acute - Plan Continue with plan of care as mentioned below; poor prognosis 1. Patient is clinically feeling much better. Strength is improving. 2. Weaning off steroids. Work on going to inpatient rehab or SNF if he qualifies. If not were going to have good keep pushing a.m. heart here to get his strength improved so he can get stable to go home 3. Chest x-ray as needed 4. Continue neb treatments 5. GI and DVT prophylaxis
[2020-10-04] MEDS: BENZONATATE 100 MG CAP PO PRN (19:59)
[2020-10-04] MEDS: MELATONIN 5 MG TABLET PO PRN (19:59)
[2020-10-04] MEDS: ALPRAZOLAM 0.5 MG TABLET PO PRN (23:58)
[2020-10-05 05:29] LABS: Absolute Lymphocytes (CBC) 1.1 K/uL (0.7-4.9); Basophils % 0.5 % (0-1.3); Hematocrit 27.3 % (39.6-49.0); Lymphocytes % 16.5 % (15.3-44.8); MPV 9.3 fL (7.6-11.3); RBC Red Blood Cell Count 2.84 M/uL (4.33-5.43)
[2020-10-05 05:56] LABS: BUN Blood Urea Nitrogen 12 mg/dL (7-18); Bicarbonate 35 mmol/L (21-32); Ferritin 480.3 ng/mL (26-388); Glucose Level 122 mg/dL (74-106); Magnesium 2.2 mg/dL (1.8-2.4); Phosphorus 3.4 mg/dL (2.5-4.9); Potassium 3.7 mmol/L (3.5-5.1); Sodium Level 147 mmol/L (136-145)
[2020-10-05 06:08] VITALS: BMI 37.1
[2020-10-05] MEDS ORDERED: POTASSIUM 25 MEQ EFFERV TAB PO ONE (08:00)
[2020-10-05] MEDS: ASPIRIN 81 MG CHEWABLE TABLET PO SCH (08:49)
[2020-10-05] MEDS: AMLODIPINE 5 MG TAB PO SCH (08:49)
[2020-10-05] MEDS: FAMOTIDINE 20 MG TAB PO SCH ×2 (08:49→20:23)
[2020-10-05] MEDS: APIXABAN 5 MG TABLET PO SCH ×2 (08:50→20:23)
[2020-10-05] MEDS: predniSONE 10 MG TAB PO SCH ×2 (08:50→20:23)
[2020-10-05] MEDS: ENSURE HIGH PROTEIN 237 ML CAN PO SCH ×2 (08:50→20:24)
[2020-10-05] MEDS: MELATONIN 5 MG TABLET PO PRN (23:13)
[2020-10-06 06:30] LABS: BUN Blood Urea Nitrogen 14 mg/dL (7-18); Bicarbonate 33 mmol/L (21-32); Ferritin 466.3 ng/mL (26-388); Glucose Level 121 mg/dL (74-106); Potassium 3.8 mmol/L (3.5-5.1); Sodium Level 146 mmol/L (136-145)
[2020-10-06] MEDS: predniSONE 10 MG TAB PO SCH (08:23)
[2020-10-06] MEDS: APIXABAN 5 MG TABLET PO SCH (08:23)
[2020-10-06] MEDS: AMLODIPINE 5 MG TAB PO SCH (08:23)
[2020-10-06] MEDS: ASPIRIN 81 MG CHEWABLE TABLET PO SCH (08:23)
[2020-10-06] MEDS: FAMOTIDINE 20 MG TAB PO SCH (08:23)
[2020-10-06] MEDS: ENSURE HIGH PROTEIN 237 ML CAN PO SCH (08:24)
[2020-10-06] MEDS: LACTULOSE 20 GM/30 ML UCUP PO PRN (09:50)
[2020-10-06] MEDS ORDERED: FLEET ENEMA ADULT PR ONE (11:19)
[2020-10-06 13:04] VITALS: O2SAT 89
[2020-10-06 15:06] VITALS: BP 142/89; TEMP 97.6
[2020-10-06] MEDS ORDERED: predniSONE 10 MG TAB PO SCH (21:00)
--- NOTE | 2020-10-23 03:23 | P.PN ---
Date of Service: 10/05/20 Subjective They have tried to get cessation rehab established through [facility]. Hopefully will get acceptance later today. Physical Examination - Vital Signs reviewed - Physical Exam General: Decreased oxygen to 4L Respiratory: Clear bilaterally Cardiovascular: Regular rate/rhythm, Normal S1 S2, No murmurs Gastrointestinal: Normal bowel sounds, Soft and benign, Non-distended, No tenderness Musculoskeletal: No clubbing/no cyanosis/no edema Neurological: Following commands; moving all extremities Assessment & Plan - Problems (Diagnosis) (1) Acute respiratory failure due to severe acute respiratory syndrome coronavirus 2 (SARS-CoV-2) infection Current Visit: Yes Status: Acute (2) Morbid obesity Current Visit: Yes Status: Acute - Plan Continue with plan of care as mentioned below; poor prognosis 1. Patient is clinically feeling much better. Strength is improving. Oxygen is tapering down to 4 L. Will continue to taper down over the next few days. 2. Attempting to get patient to inpatient rehab. Patient most likely will get [facility] acceptance to transfer to inpatient rehab in a.m. 3. Continue close medical management at discharge 4. Continue neb treatments; tapering steroid does 5. GI and DVT prophylaxis
--- NOTE | 2020-10-23 03:28 | P.DS ---
Discharge Date: 10/06/20 Primary Care Provider: none Disposition: TRANSFER TO INPATIENT REHAB Discharge Condition: FAIR Reason for Admission: Respiratory failure - Problems (1) Acute respiratory failure due to severe acute respiratory syndrome coronavirus 2 (SARS-CoV-2) infection Status: Acute Brief History of Present Illness: Patient is a 45-year-old male with no significant past medical history presents emergency department for shortness of breath. Patient reports testing positive for Mccabe virus on August 15, 2020, symptoms since August 11. Upon arrival to the emergency department patient significantly hypoxic with saturations in the 40s to 50s on room air. Patient requiring significant amount of oxygen to maintain saturations greater than 90% currently on non-rebreather at 15 L. lab significant for potassium 3.3 CRP 196 pro calcitonin 0.2, ferritin 499 chest x-ray demonstrates marked bilateral pulmonary opacities CT PE protocol negative for PE presents with marked bilateral ground-glass opacities. Patient given steroids in the emergency department, discuss plan of care with patient, okay for remdecevir and ivermectin. Patient not dyspneic or tachypneic but is hypoxic, will admit for further evaluation and management. Hospital Course: Patient had prolonged hospitalization. Patient was intubated for almost 4-5 weeks. Patient had a prolonged hospitalization on mechanical ventilation. Patient was on paralytics and sedatives for quite a while. Patient self- extubated and he gradually improved after extubation. Patient continues to slowly improve. Were able to get juanis acceptance to inpatient rehab. He will need to continue working while he is on the rehab floor. Patient is stable for transfer to inpatient rehab. Vital Signs/Physical Exam: Temp Pulse Resp BP Pulse Ox 97.6 F 106 H 24 H 142/89 H 92 10/06/20 12:00 10/06/20 15:00 10/06/20 15:00 10/06/20 14:00 10/06/20 14:00 General: Alert, In no apparent distress, Oriented x3 Laboratory Data at Discharge: WBC 6.50 K/uL (4.3-10.9) D 10/05/20 04:30 Hgb 9.1 g/dL (13.6-17.9) L 10/05/20 04:30 Hct 27.3 % (39.6-49.0) L 10/05/20 04:30 Plt Count 238 K/uL (152-406) 10/05/20 04:30 PT 13.8 SECONDS (9.5-12.5) H 08/18/20 16:18 INR 1.20 08/18/20 16:18 APTT 28.4 SECONDS (24.3-36.9) 08/18/20 16:18 Sodium 146 mmol/L (136-145) H 10/06/20 04:15 Potassium 3.8 mmol/L (3.5-5.1) 10/06/20 04:15 BUN 14 mg/dL (7-18) 10/06/20 04:15 Creatinine 0.53 mg/dL (0.55-1.3) L 10/06/20 04:15 Glucose 121 mg/dL (74-106) H 10/06/20 04:15 Phosphorus 3.4 mg/dL (2.5-4.9) 10/05/20 04:30 Magnesium 2.2 mg/dL (1.8-2.4) 10/05/20 04:30 Total Bilirubin 0.3 mg/dL (0.2-1.0) 09/13/20 04:00 AST 15 U/L (15-37) 09/13/20 04:00 ALT 37 U/L (12-78) 09/13/20 04:00 Alkaline Phosphatase 81 U/L (45-117) 09/13/20 04:00 Troponin I 3.10 ng/mL (0.0-0.045) H* 08/29/20 05:02 Amylase 64 U/L (25-115) 08/18/20 16:18 Lipase 72 U/L (73-393) L 08/18/20 16:18 Home Medications: Amlodipine [Norvasc*] 5 mg PO DAILY tab 10/15/20 Apixaban [Eliquis] 5 mg PO BID tablet 10/15/20 Benzonatate [Tessalon Perle*] 100 mg PO TID PRN cap 10/15/20 Ensure High Protein 237 ml PO BID can 10/15/20 Famotidine [Pepcid*] 20 mg PO BID tab 10/15/20 Ferrous Sulfate [Ferrous Sulfate*] 325 mg PO DAILY tab 10/15/20 Metoprolol Tartrate [Lopressor*] 25 mg PO BID 6AM 6PM tab 10/15/20 Ondansetron [Zofran*] 4 mg IV Q6H PRN vial 10/15/20 Potassium Oral Tab [Klor-Con 10 mEq Tab*] 10 meq PO BID tab 10/15/20 Trazodone [Desyrel*] 50 mg PO BEDTIME PRN PRN tablet 10/15/20 Physician Discharge Instructions: Transfer to an inpatient rehab PROBLEM: (list out Acute Problems for the Current visit) GOAL: Clear understanding of disease process INSTRUCTIONS: Diet: Regular Activity: Other DME DME: Date Ordered: Name of Company: [employer] Services Needed: DME Company Name of Company: Date or Referral: IMMUNIZATION Influenza Vaccine Indicated: Influenza Vaccine Given: Date Given: Pneumonia Vaccine Indicated: No Pneumonia Vaccine Given: Date Given: Diet: Regular Activity: Per physical therapy recommendation Followup: Rashaad Crenshaw MD [ACTIVE - CAN ADMIT] - NONE,NONE [Primary Care Provider] - Time spent managing pt's care (in minutes): 35
== END 2020-10-06 15:00 | DRG 207 ==
LOC: ER 15:38 → ERHOLD 17:27 → 4TH 19:47 → 3RD-ICU 08-28 00:40
PROVIDERS: ADMIT Family Medicine; ATTEND Hospitalist
PROC: 5A09557 Assistance with Respiratory Ventilation, Greater than 96 Consecutive Hours, Continuous Positive Airway Pressure (ICD-10-PCS; 2020-08-18)
PROC: XW033E5 Introduction of Remdesivir Anti-infective into Peripheral Vein, Percutaneous Approach, New Technology Group 5 (ICD-10-PCS; 2020-08-18)
PROC: 5A1955Z Respiratory Ventilation, Greater than 96 Consecutive Hours (ICD-10-PCS; principal; 2020-08-28)
PROC: 0BH17EZ Insertion of Endotracheal Airway into Trachea, Via Natural or Artificial Opening (ICD-10-PCS; 2020-08-28)
PROC: XW13325 Transfusion of Convalescent Plasma (Nonautologous) into Peripheral Vein, Percutaneous Approach, New Technology Group 5 (ICD-10-PCS; 2020-08-31)
PROC: 02HV33Z Insertion of Infusion Device into Superior Vena Cava, Percutaneous Approach (ICD-10-PCS; 2020-08-31)
DX: U07.1 COVID-19 (principal); J12.82 Pneumonia due to coronavirus disease 2019; J96.01 Acute respiratory failure with hypoxia; G92 Toxic encephalopathy; Z68.41 Body mass index [BMI] 40.0-44.9, adult; I24.8 Other forms of acute ischemic heart disease; E44.0 Moderate protein-calorie malnutrition; T79.7XXA Traumatic subcutaneous emphysema, initial encounter; F17.200 Nicotine dependence, unspecified, uncomplicated; F41.9 Anxiety disorder, unspecified; R73.03 Prediabetes; R77.8 Other specified abnormalities of plasma proteins; E66.01 Morbid (severe) obesity due to excess calories; E86.1 Hypovolemia; E83.51 Hypocalcemia; I10 Essential (primary) hypertension; D63.8 Anemia in other chronic diseases classified elsewhere; N28.9 Disorder of kidney and ureter, unspecified; E86.0 Dehydration; E87.70 Fluid overload, unspecified; R73.9 Hyperglycemia, unspecified; T38.0X5A Adverse effect of glucocorticoids and synthetic analogues, initial encounter; Z78.1 Physical restraint status
CPT/HCPCS: 36415; 36430; 36569; 71045; 71275; 74018; 80048; 80053; 80076; 81001; 81003; 81015; 82150; 82550; 82553; 82570; 82728; 82805; 82947; 83036; 83605; 83690; 83735; 83880; 84100; 84132; 84145; 84300; 84484; 85025; 85379; 85610; 85730; 86140; 86900; 86901; 86927; 87040; 87077; 87086; 87088; 87186; 92526; 92610; 93005; 93306; 94002; 94003; 94010; 94660; 96361; 96374; 97110; 97112; 97116; 97161; 97530; 99285; J0330; J0360; J0696; J1170; J1630; J1650; J1815; J1940; J2250; J2704; J2920; J2930; J3010; J7030; J7050; J7512; Q9967; U0003

== ENCOUNTER 2020-10-06 13:37 | Inpatient (IN) | payer SELFPAY ==
--- NOTE | 2020-10-06 14:41 | R.PREADM ---
PRE-ADMISSION SCREENING FORM SCREENING DATE AND TIME 10/06/2020 14:00 (CDT) ANTICIPATED REHAB ADMISSION DATE 10/08/2020 REFERRING FACILITY [facility] REFERRAL DATE AND TIME 10/06/2020 10:04 (CDT) REFERRAL ROOM# 2A ACUTE ADMIT DATE 08/18/2020 Previous Rehabilitation(s): No. REFERRING PHYSICIAN Dr. Brady REHAB FACILITY [facility] CLINICAL LIAISON Harpreet Schmidt PHYSICIAN REVIEWER Dr. Jamel Ruff M.D. MR# [id number] NAME CINDY MEDRANO ADDRESS [address] [place] [address] DATE OF 1975 AGE 45 SSN# [id number] GENDER male MARITAL STATUS with a Domestic Partner RACE black PREF. LANGUAGE (IF NON-ANGUILLAN) [place] ADMIT FROM 02 - [facility] PRE-HOSPITAL LIVING SETTING 01 - Home (private home/apt. board/care, assisted living, care home, transitional living) HOME TYPE AND DETAILS Type of home: single family house # of levels in the residence: 1 # of steps to enter the residence: 0 # of steps within the residence: 1 Pt. reports being completely independent prior to CoVid19 infection, lives in 1 level home, no steps to enter, has a [id number] w/ ledge, no shower chair. Independent and ambulatory. PRE-HOSPITAL LIVING WITH [facility] FAMILY SUPPORT Yes PRIMARY FAMILY CONTACT NAME Rahel Chester PRIMARY FAMILY CONTACT PHONE PRIMARY FAMILY CONTACT RELATIONSHIP Mother IS PRIMARY FAMILY CONTACT AUTH. REP.? no 1ST EMERGENCY CONTACT Rahel Chester 1ST CONTACT PHONE 1ST CONTACT RELATIONSHIP Mother IS 1ST CONTACT AUTH. REP.? no PHONE 2ND CONTACT ON ADM.? 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 No ANOTHER LIBERTARIAN RESPONSIBLE? No PRIMARY REHAB/ACUTE DIAGNOSIS: POST COVID ONSET DATE 08/18/2020 REHAB IMPAIRMENT CATEGORY (NYA): 15 Pulmonary does NOT meet 60% rule PRIMARY DIAGNOSIS-RELATED SURGERIES: No surgeries related to the primary diagnosis were performed. RISK FOR COMPLICATIONS: - N/A Acute Resp failure - Arrhythmia Tachycardia SUMMARY OF ACUTE HOSPITALIZATION: Pt. is a 45 yo Right-handed black male. On 08/18/2020 he was admitted to [facility] with diagnosis POST COVID. His impairment category is Pulmonary Disorders 10 - Other Pulmonary Disorders (10.9). Pre-morbidly, Pt. was independent/mod-I in Transfers Control, Locomotion, Self-Care, Social Cognition , Sphincter Control, and Communication; and he had good Balance and Safety Awareness. Currently, he has deficits of Transfers Control, Balance, Locomotion, Safety Awareness, and Self-Care . Pt. is now referred to [facility] for acute in-patient rehabilitation in order to maximize patient's functional independence in activities of daily living, strength, ROM, and mobi lity. Patient has realistic goal of being discharged at assistance level 6-Hansel to reside at Home with Fri ends. MEDICATION ALLERGIES: No Known Drug Allergies (NKDA) ENVIRONMENTAL ALLERGIES: None Known - Substance Allergies None Known - Other Allergies None Known CODE STATUS: Full code WEIGHT/HEIGHT/BMI: WEIGHT 244 lbs HEIGHT 5' 8" BMI 37.1 DIET: - Diet Type Regular - Diet - Solid Texture Regular - Diet - Liquid Texture Regular - Tube Feed N/A REVIEW OF SYSTEMS: - Gen Alert and awake Lying in bed No apparent distress Oriented to: person, time, and place - Vital Signs Vital signs stable, afebrile - CVS RRR VITAL SIGNS Temperature: 97.8 F SBP/DBP: 144/99 Pulse: 94 Resp: 31 Vital signs stable, afebrile MEDICATIONS/TREATMENT: Other- See attached MAR (Medication Administration Record). CURRENT SPHINCTER CONTROL: Pre-hospital bladder status: continent Pre-hospital bowel status: continent # of bowel accidents in the last 7 days prior to screenin Last Bowel Movement Date: 10/06/2020 CURRENT LOCOMOTION STATUS: distance walked 0 feet DETAILED CURRENT FUNCTIONAL STATUS: - Walking score based on distance walked: 1(<=50ft) - Wheelchair score based on distance traveled: 1(<=50ft) QI SCORES: - Self-Care A. Eating 03-Partial/moderate assistance B. Oral hygiene 03-Partial/moderate assistance C. Toileting hygiene 02-Substantial/maximal assistance E. Shower/bathe self 02-Substantial/maximal assistance F. Upper body dressing 01-Dependent G. Lower body dressing 01-Dependent H. Putting on/taking off footwear 01-Dependent - Mobility A. Roll left and right 02-Substantial/maximal assistance B. Sit to lying 02-Substantial/maximal assistance C. Lying to sitting on side of bed 02-Substantial/maximal assistance D. Sit to stand 88-Not attempted due to medical condition or safety concerns E. Chair/aco-ag-nbuey transfer 88-Not attempted due to medical condition or safety concerns F. Toilet transfer 88-Not attempted due to medical condition or safety concerns G. Car transfer 88-Not attempted due to medical condition or safety concerns I. Walk 10 feet 88-Not attempted due to medical condition or safety concerns J. Walk 50 feet with two turns 88-Not attempted due to medical condition or safety concerns K. Walk 150 feet 88-Not attempted due to medical condition or safety concerns L. Walking 10 feet on uneven surfaces 88-Not attempted due to medical condition or safety concerns M. 1 step (curb) 88-Not attempted due to medical condition or safety concerns N. 4 steps 88-Not attempted due to medical condition or safety concerns O. 12 steps 88-Not attempted due to medical condition or safety concerns P. Picking up object 88-Not attempted due to medical condition or safety concerns - Bladder and Bowel Bladder continence 0-Always continent Bowel continence 0-Always continent - Endurance Poor - Balance Poor - Safety Awareness Poor CURRENT FUNC. DEFICITS: Self-Care, Mobility, Endurance, Balance, and Safety Awareness HISTORY OF FALLS. HAS THE PATIENT HAD TWO OR MORE FALLS IN THE PAST YEAR OR ANY FALL WITH INJURY IN T HE PAST YEAR?: No PRIOR SURGERY. DID THE PATIENT HAVE MAJOR SURGERY DURING THE 100 DAYS PRIOR TO ADMISSION?: No THERAPY NOTES FROM ACUTE CARE: Attached. SPECIAL NEEDS: - Safety Concerns Skin breakdown precautions needed due to skin breakdown risk PATIENT NEEDS ACTIVE AND ONGOING THERAPEUTIC INTERVENTION OF MULTIPLE THERAPY DISCIPLINES, INCLUDING: - Dietary and Nutrition Adequate Nutrition. Nutritional Education. Nutritional Supplements. PATIENT NEEDS CLOSE MEDICAL SUPERVISION BY A REHABILITATION PHYSICIAN FOR: Coordination of Treatment Team PATIENT REQUIRES 24X7 REHAB NURSING FOR MEDICAL AND FUNCTIONAL MGT. OF THE FOLLOWING DEFICITS: Disease Management Medication Management Patient/Family Education Providing Safe Environment PATIENT REQUIRES INTENSIVE, COORDINATED INTERDISCIPLINARY APPROACH TO REHAB: Arranging Home Equipment/Services Discharge Planning Family Intervention/Training Financial Aid Director/Case Management PATIENT REHAB POTENTIAL: Julissa MEDRANO is able and expected to receive 3 hours of individualized therapy daily on at least 5 7 days Julissa MEDRANO's prognosis for significant practical improvement within a reasonable period of time appears Good Expected level of measurable improvement will be of a practical value to Julissa MEDRANO's functional capaci ty or adaptations to impairments Has a viable Discharge Plan Medically appropriate; condition is sufficiently stable to participate in intensive rehab program DISCHARGE PLAN: - Estimated Length of Stay (days) 11. - Consensus on plan Discharge plan has been discussed with primary caregiver. Patient/Family is in agreement with the rebekah n. Primary caregiver is in agreement with the plan. - Patient/Family Goals Return home independently. - Planned Living Setting Upon Discharge Home, to live with [facility]. Primary caregiver: Friend. RECOMMENDED CARE LEVEL: IRF RECOMMENDATION DETAILS: Recommended Admission to Comprehensive Rehabilitation Program to Increase Functional [place] SCREENER'S COMPLETENESS CONFIRMATION: - Screening Confirmation The patient data collection on this preadmission screening form is finished PHYSICIANS REVIEW AND ADMISSION DETERMINATION Admit - Based on my review of the Pre-Admission Screening results, in my medical judgment and experie nce, I concur with the findings and recommend admission to [facility], as this patient requires an IRF level of care. SIGNATURE PANEL: Poiser - [electronically] signed by Sulma Hatch, Career Development Director on 10/06/2020 at 14:16 (CD T) Poiser - [electronically] signed by Robert Schmidt PT on 10/06/2020 at 14:35 (CDT) Physician Reviewer - [electronically] signed by Dr. Jamel Ruff M.D. on 10/06/2020 at 14:40 (CDT )
--- OUTSIDE RECORDS SUMMARY | 2020-10-06 15:25 | XMS REPORT | Continuity of Care Document ---
:1975 Author Organization [facility] t Address [address] [place] [id number] Care Team Providers Name Role Phone Unavailable Unavailable Unavailable Problems Condition Condition Condition Status Onset Resolution Last Treating Co mments Source Name Details Category Date Date Treatment Clinician Date Adult BMI Adult BMI Diagnosis Active [facility] 40.0-44.9 40.0-44.9 Luke s - kg/sq m kg/sq m [facility] Essential Essential Diagnosis Active [facility] (primary) (primary) Luke s - hypertensi hypertensi Me moria on on l [facility] Tobacco [facility]ics Pure Pure Problem Active [facility] hyperchole hyperchole [place] kes - sterolemia sterolemia [facility]ics Family Family Diagnosis Active [facility] history of history of [place] kes - heart heart Memoria disease in disease in l male [facility] member member Clinics before age before age 55 57 Allergies, Adverse Reactions, Alerts This patient has no known allergies or adverse reactions. Medications Ordered Filled Start Stop Current Ordering Indication Dosage Frequency Signature Comments Components Source Medication Medication Date Date Medication? Clinician (SIG) Name Name -81 Aspir-81 2019-0 2019- No Dariel [address] [facility] 2-12 - [facility] - 00:00: 00:00 Memoria 00 :00 [facility] Clinics Lisinopril Lisinopril 2017- Yes Dariel [address] [facility] 2-13 [facility] - 00:00: Memoria 00 [facility] Immunizations Ordered Filled Immunization Date Status Comments Sourc e Immunization Name Name TDAP > 7 TDAP > 7 2018-04-[address] [facility] - Years-Adacel Years-Adacel 00:00:00 [facility] Flucelvax - Flucelvax - 2018-04-[address] [facility] - multidose vial multidose vial 00:00:00 [facility] Procedures This patient has no known procedures. Encounters Start End Encounter Admission Attending Care Care Encounter Source Date/Time Date/Time Type Type Clinicians Facility Department ID 2018-06-30 2018-06-30 Outpatient Milind Gil [id number] [facility] 11:30:00 11:30:00 [facility] 2018-05-18 2018-05-18 Outpatient Milind Vazt [id number] 09:45:00 09:45:00 [facility] 2018-04-30 2018-04-30 Outpatient Milind Vazt [id number] [address] 14:30:00 14:30:00 [facility] ent Clinics Results This patient has no known results.
[2020-10-06] MEDS ORDERED: predniSONE 10 MG TAB PO SCH (15:40)
[2020-10-06] MEDS ORDERED: LACTULOSE 20 GM/30 ML UCUP PO PRN (16:05)
[2020-10-06] MEDS ORDERED: ACETAMINOPHEN 500 MG TAB PO PRN (16:13)
[2020-10-06] MEDS ORDERED: ONDANSETRON 4 MG/2 ML VIAL IV PRN (16:14)
[2020-10-06 16:49] LABS: Urine Appearance CLEAR (Clear); Urine Bilirubin NEGATIVE (Negative); Urine Blood NEGATIVE (Negative); Urine Color YELLOW (Yellow); Urine Glucose NEGATIVE (Negative); Urine Protein TRACE (Negative); Urine Specific Gravity 1.025 (1.005-1.030); Urine pH 7.5 (5.0-7.0)
[2020-10-06 17:14] VITALS: BMI 38.0
--- NOTE | 2020-10-06 17:28 | R.HP ---
HISTORY AND PHYSICAL FACILITY: [facility] ENCOUNTER DATE AND TIME: 10/06/2020 17:24 (CDT) MR#: [id number] NAME CINDY MEDRANO ADDRESS: [address] [place] [address] CITY: [place]IP [id number] PHONE: DATE OF : 1975 AGE: 45 SSN# [id number] GENDER: Male DEXTERITY Right-handed MARITAL STATUS With a Domestic Partner RACE Black PRE-HOSPITAL LIVING SETTING 01 - Home (private home/apt. board/care, assisted living, fci, transitional living) PRE-HOSPITAL LIVING WITH Friends ENCOUNTER PHYSICIAN: Dr. Jamel Ruff M.D. REFERRING DOCTOR: Dr. Brady DATE OF ADMISSION: 10/06/2020 17:24 (CDT) REFERRING FACILITY [facility] HOME TYPE AND DETAILS: Type of home: single family house # of levels in the residence: 1 # of steps to enter the residence: 0 # of steps within the residence: 1 Pt. reports being completely independent prior to CoVid19 infection, lives in 1 level home, no steps to enter, has a [id number] w/ ledge, no shower chair. Independent and ambulatory. ONSET DATE: 08/18/2020 PRIMARY DIAGNOSIS-RELATED SURGERIES: No surgeries related to the primary diagnosis were performed. HISTORY OF PRESENT ILLNESS (HPI): Pt. is a 45 yo Right-handed black male. On 08/18/2020 he was admitted to [facility] with diagnosis POST COVID. His impairment category is Pulmonary Disorders 10 - Other Pulmonary Disorders (10.9). Pre-morbidly, Pt. was independent/mod-I in Transfers Control, Locomotion, Self-Care, Social Cognition , Sphincter Control, and Communication; and he had good Balance and Safety Awareness. Currently, he has deficits of Transfers Control, Balance, Locomotion, Safety Awareness, and Self-Care . Pt. is now referred to [facility] for acute in-patient rehabilitation in order to maximize patient's functional independence in activities of daily living, strength, ROM, and mobi lity. Patient has realistic goal of being discharged at assistance level 6-Hansel to reside at Home with Fri ends. MEDICATION ALLERGIES: No Known Drug Allergies (NKDA) ENVIRONMENTAL ALLERGIES: None Known - Substance Allergies None Known - Other Allergies None Known REVIEW OF SYSTEMS: - Gen No Chills Fatigue No Fever - Eyes No Double Vision No itchiness - ENMT Difficulty Swallowing - CVS No Chest Discomfort No Chest Pain Fatigue No Weight Gain - Resp No Cough No Shortness of Breath - GI Continent No Abdominal Pain Constipation No Diarrhea - Continent No Kidney Pain No Painful Urination No Urinary Urgency - MSK No Joint Pain Muscle Cramps Stiffness - Skin No Itching No Rash No Suspicious Lesions - Neuro Coordination Difficulty No Difficulty with Concentration No Memory Loss No Seizures Weakness - Psych No Anxiety No Depression No HIV Exposure No Persistent Infections No Seasonal Allergies - Endo No Cold/Heat Intolerance No Excessive Hunger No Excessive Thirst No Excessive Urination PHYSICAL EXAM - Gen Alert and awake Lying in bed No apparent distress Oriented to: person, time, and place Normacephalic - Eyes No abnormalities - ENMT No abnormalities - Neck No abnormalities No cervical adenopathy - CVS RRR - Chest No abnormalities - Abd Soft - GI Non distended Deferred - No abnormalities - Ext Mild edema in both lower extremities. - MSK 4+/5 weakness in both lower extremities. - Neuro 4/5 strength bilaterally upper and lower extremities. - Psych Mild depression. VITAL SIGNS Temperature: 98.2 F SBP/DBP: 141/100 Pulse: 88 Resp: 15 NURSING: - Shower allowing shower ACTIVITIES OOB only with supervision QI SCORES: - Self-Care A. Eating 03-Partial/moderate assistance B. Oral hygiene 03-Partial/moderate assistance C. Toileting hygiene 02-Substantial/maximal assistance E. Shower/bathe self 02-Substantial/maximal assistance F. Upper body dressing 01-Dependent G. Lower body dressing 01-Dependent H. Putting on/taking off footwear 01-Dependent - Mobility A. Roll left and right 02-Substantial/maximal assistance B. Sit to lying 02-Substantial/maximal assistance C. Lying to sitting on side of bed 02-Substantial/maximal assistance D. Sit to stand 88-Not attempted due to medical condition or safety concerns E. Chair/hur-rb-yfdgy transfer 88-Not attempted due to medical condition or safety concerns F. Toilet transfer 88-Not attempted due to medical condition or safety concerns G. Car transfer 88-Not attempted due to medical condition or safety concerns I. Walk 10 feet 88-Not attempted due to medical condition or safety concerns J. Walk 50 feet with two turns 88-Not attempted due to medical condition or safety concerns K. Walk 150 feet 88-Not attempted due to medical condition or safety concerns L. Walking 10 feet on uneven surfaces 88-Not attempted due to medical condition or safety concerns M. 1 step (curb) 88-Not attempted due to medical condition or safety concerns N. 4 steps 88-Not attempted due to medical condition or safety concerns O. 12 steps 88-Not attempted due to medical condition or safety concerns P. Picking up object 88-Not attempted due to medical condition or safety concerns - Bladder and Bowel Bladder continence 0-Always continent Bowel continence 0-Always continent - Endurance Poor - Balance Poor - Safety Awareness Poor CURRENT FUNC. DEFICITS: Self-Care, Mobility, Endurance, Balance, and Safety Awareness MEDICATIONS: - Other See attached MAR (Medication Administration Record) ASSESSMENT: Pt. is a 45 yo Right-handed black male.On 08/18/2020 he was admitted to [facility] with diag nosis POST COVID.His impairment category is Pulmonary Disorders 10 - Other Pulmonary Disorders (10.9 ).Pre-morbidly, Pt. was independent/mod-I in Transfers Control, Locomotion, Self-Care, Social Cogniti on, Sphincter Control, and Communication; and he had good Balance and Safety Awareness.Currently, he has deficits of Transfers Control, Balance, Locomotion, Safety Awareness, and Self-Care.Pt. is now re ferred to [facility] for acute in-patient rehabilitation in order to maximize patient's functional independence in activities of daily living, strength, ROM, and mobility.- Rehab Goal Patient has realistic goal of being discharged at assistance level 6-Hansel to reside at Home with Fri ends. REHAB PLAN: - Physical Therapy Gait dysfunction - to improve, our physical therapists will perform initial evaluation of pt's status upon admission and devise an individualized program for Gait Training, and Wheel Chair mobility Inability to transfer - to improve, our physical therapists will perform initial evaluation of pt's s tatus upon admission and devise an individualized program for Bed mobility Need for home safety evaluation - to improve, our physical therapists will perform initial evaluation of pt's status upon admission and devise an individualized program for Home Evaluation Need in caregiver upon discharge - to improve, our physical therapists will perform initial evaluatio n of pt's status upon admission and devise an individualized program for Caregiver Training Edema - to improve, our physical therapists will perform initial evaluation of pt's status upon admi ssion and devise an individualized program for Elevation Training, and Lymphedema Therapy New precaution - to improve, our physical therapists will perform initial evaluation of pt's status u lorenzo admission and devise an individualized program for Patient precaution education Poor balance - to improve, our physical therapists will perform initial evaluation of pt's status upo n admission and devise an individualized program for Balance Training Weakness - to improve, our physical therapists will perform initial evaluation of pt's status upon ad mission and devise an individualized program for Aquatic Therapy, Neuromuscular Reeducation, and Stre ngthening Achieving independence - to improve, our physical therapists will perform initial evaluation of pt's status upon admission and devise an individualized program for Community Reintegration Activities - Occupational Therapy ADL deficits - to improve, our occupation therapists will perform initial evaluation of pt's status u lorenzo admission and devise an individualized program for Bathing, Bed mobility, Community Reintegration , Cooking, Dressing, Eating, Fine Motor Skills, Grooming, Homemaking, Kitchen Mobility, Laundry, Angelica ent Education, Safety Awareness, Splinting - Positioning, Transfers(Toilet, Tub, Shower), and Wheel C hair Management Need for menagerie caretaker - to improve, our occupation therapists will perform initial evaluation of pt's s tatus upon admission and devise an individualized program for Caregiver Training Weakness - to improve, our occupation therapists will perform initial evaluation of pt's status upon admission and devise an individualized program for Aquatic Therapy, Balance, Endurance, UE ROM, and U E strengthening MEDICAL PLAN: - Diet Type Start Regular - Diet - Liquid Texture Start Regular - Tube Feed Start N/A - Other See attached MAR (Medication Administration Record) - Diet - Solid Texture Regular - Shower shower DISCHARGE PLAN: - Estimated Length of Stay (days) 11. - Consensus on plan Discharge plan has been discussed with primary caregiver. Patient/Family is in agreement with the rebekah n. Primary caregiver is in agreement with the plan. - Patient/Family Goals Return home independently. - Planned Living Setting Upon Discharge Home, to live with Friends. Primary caregiver: Friend. SIGNATURE PANEL: (CDT)
--- NOTE | 2020-10-06 17:31 | PAPE ---
POST ADMISSION PHYSICIAN EVALUATION PATIENT: [facility] MR# [id number] REFERRING DOCTOR Dr. Brady EVALUATION DATE AND TIME 10/06/2020 17:29 (CDT) NAME CINDY MEDRANO DATE OF 1975 AGE 45 PHONE SSN# [id number] GENDER male EVALUATING PHYSICIAN Dr. Jamel Ruff M.D. ADMISSION DIAGNOSIS: POST COVID ONSET DATE 08/18/2020 POST-ADMISSION FUNCTIONAL/MEDICAL STATUS: - Walking Same score based on distance walked: 1(<=50ft) - Wheelchair Same score based on distance traveled: 1(<=50ft) STATUS CHANGE EVALUATION: No change in Functional or Medical Status is identified compared with Pre-Admission screening. PATIENT NEEDS CLOSE MEDICAL SUPERVISION BY A REHABILITATION PHYSICIAN FOR: Coordination of Treatment Team PATIENT REQUIRES 24X7 REHAB NURSING FOR MEDICAL AND FUNCTIONAL MGT. OF THE FOLLOWING DEFICITS: Disease Management Medication Management Patient/Family Education Providing Safe Environment PATIENT REQUIRES INTENSIVE, COORDINATED INTERDISCIPLINARY APPROACH TO REHAB: Arranging Home Equipment/Services Discharge Planning Family Intervention/Training Tree Climber/Case Management LIST OF IDENTIFIED AND POTENTIAL PROBLEMS: Alteration in leisure activities Infection, Actual or Potential Mobility Impaired Pain, Alteration in Comfort Self Care Deficit Skin Integrity, Actual or Potential Urinary Tract Infection (UTI), Actual or Potential RISK FOR COMPLICATIONS - N/A Acute Resp failure. - Arrhythmia Tachycardia. PATIENT COULD BE AT RISK FOR COMPLICATIONS FROM ADVERSE MEDICAL CONDITIONS DUE TO HIS/HER COMORBIDITI ES AND THE RIGORS OF THE INTENSIVE REHABILLITATION PROGRAM. METHODS OR INTERVENTIONS TO AVOID COMPLIC ATIONS INCLUDE: - Infection Clinical staff to assess and manage the signs and symptoms of infection including fever, redness, war mth, etc. - Urinary Tract Infection - Falls Patient will be evaluated for Fall Precautions and will be placed on Fall Precautions as indicated pe r protocol. - Skin Breakdown Nursing will assess skin daily using assessment tool and will place on Skin Breakdown Precautions as indicated per protocol. - Pain Clinical staff may employ non-medication methods such as massage, distraction, decrease stimulus, etc . as needed. Clinical staff will assess patient's pain level every shift per protocol to assess and e nsure pain management effectiveness. Medications will be given and the pain level re-assessed. PRELIMINARY PLAN OF CARE: - Physical Therapy Patient needs Physical Therapy for a daily minimum of 1.5 hours at least 5 out of 7 days, to improve: Mobility, Strengthening, Transfers, Stretching, ROM, Endurance, Ability to manage stairs, Gait, and Balance. - Speech Therapy Patient needs Speech Therapy for a daily minimum of 0.5 hours at least 5 out of 7 days, to improve: S wallowing, Cognition, Language Skills, and Compensatory Strategies. - Rehabilitation Nursing Patient requires 24x7 Rehabilitation Nursing for: Pain Issues, Identifying and preventing risk factor s, Monitoring and reporting current medical conditions, Assisting with ambulation and transfer, Elder ting with all ADL-s, Teaching patients about disease process and medications, Family teaching, Provid ing safe environment, Bowel and Bladder Issues, Skin Integrity, and Medication Management. Patient needs Tree Climber and/or Case Management for: Discharge Planning, Arranging Home Equipmen t or Services, and Family Interventions. - Dietary and Nutrition Services Patient needs Dietary and Nutrition Services for: Adequate Nutrition, Nutritional Supplements, and Nu tritional Education. - Occupational Therapy Patient needs Occupational Therapy for a daily minimum of 1.5 hours at least 5 out of 7 days, to impr ove Activities of Daily Living, including: Eating, Grooming, Bathing, Dressing, Toileting, Toilet Tra nsfers, Community Reintegration, Higher functional activities, Adaptive Equipment, Splinting, Househo ld Tasks, and Other activities as determined. QI SCORES: - Self-Care A. Eating 03-Partial/moderate assistance B. Oral hygiene 03-Partial/moderate assistance C. Toileting hygiene 02-Substantial/maximal assistance E. Shower/bathe self 02-Substantial/maximal assistance F. Upper body dressing 01-Dependent G. Lower body dressing 01-Dependent H. Putting on/taking off footwear 01-Dependent - Mobility A. Roll left and right 02-Substantial/maximal assistance B. Sit to lying 02-Substantial/maximal assistance C. Lying to sitting on side of bed 02-Substantial/maximal assistance D. Sit to stand 88-Not attempted due to medical condition or safety concerns E. Chair/vqs-zu-rkahb transfer 88-Not attempted due to medical condition or safety concerns F. Toilet transfer 88-Not attempted due to medical condition or safety concerns G. Car transfer 88-Not attempted due to medical condition or safety concerns I. Walk 10 feet 88-Not attempted due to medical condition or safety concerns J. Walk 50 feet with two turns 88-Not attempted due to medical condition or safety concerns K. Walk 150 feet 88-Not attempted due to medical condition or safety concerns L. Walking 10 feet on uneven surfaces 88-Not attempted due to medical condition or safety concerns M. 1 step (curb) 88-Not attempted due to medical condition or safety concerns N. 4 steps 88-Not attempted due to medical condition or safety concerns O. 12 steps 88-Not attempted due to medical condition or safety concerns P. Picking up object 88-Not attempted due to medical condition or safety concerns - Bladder and Bowel Bladder continence 0-Always continent Bowel continence 0-Always continent - Endurance Poor - Balance Poor - Safety Awareness Poor POTENTIAL FUNCTIONAL GOALS FOR PATIENT TO ACHIEVE BY DISCHARGE: - Safety Precaution Patient will remain free from falls or injury at time of discharge. - Bed Mobility Patient will perform bed mobility at 4-Thao level of assistance. - Transfers Patient will complete transfers from bed to chair at 4-Thao level of assistance. - Mobility Patient will ambulate 150 ft with 4-Thao level of assistance with RW. PATIENT REHAB POTENTIAL Julissa MEDRANO is able and expected to receive 3 hours of individualized therapy daily on at least 5 of nguyễn ry 7 days ARuba MEDRANO's prognosis for significant practical improvement within a reasonable period of time appears Good Expected level of measurable improvement will be of a practical value to Julissa MEDRANO's functional capaci ty or adaptations to impairments Has a viable Discharge Plan Medically appropriate; condition is sufficiently stable to participate in intensive rehab program DISCHARGE PLAN: - Estimated Length of Stay (days) 11. - Consensus on plan Discharge plan has been discussed with primary caregiver. Patient/Family is in agreement with the rebekah n. Primary caregiver is in agreement with the plan. - Patient/Family Goals Return home independently. - Planned Living Setting Upon Discharge Home, to live with Friends. Primary caregiver: Friend. CONCLUSION ON REHABILITATION NECESSITY: I have evaluated patient's pre-admission functional status and, comparing it to the patient's post-ad mission functional status now, I conclude that the pre-admission assessment was accurate. Patient's c ondition on admission supports the medical necessity of admission to [facility]. It is safe to proceed with patient's therapy program. SIGNATURE PANEL: (CDT)
[2020-10-06] MEDS: MELATONIN 5 MG TABLET PO PRN (18:49)
[2020-10-06] MEDS: SODIUM CHLORIDE 0.9% 10ML INJ IV SCH (18:49)
[2020-10-06] MEDS: ENSURE HIGH PROTEIN 237 ML CAN PO SCH (18:49)
[2020-10-06] MEDS: APIXABAN 5 MG TABLET PO SCH (18:49)
[2020-10-06] MEDS: FAMOTIDINE 20 MG TAB PO SCH (18:49)
[2020-10-06 18:55] LABS: Urine Amorphous Sediment TRACE /HPF (NONE SEEN); Urine Bacteria 20-50 /HPF (NONE SEEN); Urine Mucus 1+ /HPF (NONE SEEN); Urine RBC <5 /HPF (NONE SEEN)
[2020-10-07 07:36] LABS: Absolute Lymphocytes (CBC) 1.2 K/uL (0.7-4.9); Basophils % 1.1 % (0-1.3); MPV 9.4 fL (7.6-11.3); RBC Red Blood Cell Count 2.84 M/uL (4.33-5.43)
[2020-10-07 07:46] LABS: Albumin 2.5 g/dL (3.4-5.0); BUN Blood Urea Nitrogen 8 mg/dL (7-18); Bicarbonate 35 mmol/L (21-32); Glucose Level 95 mg/dL (74-106); Magnesium 2.1 mg/dL (1.8-2.4); Potassium 3.2 mmol/L (3.5-5.1); Prealbumin 17.6 mg/dL (20-40); Sodium Level 149 mmol/L (136-145)
[2020-10-07] MEDS: ENSURE HIGH PROTEIN 237 ML CAN PO SCH ×3 (08:00→20:30)
[2020-10-07] MEDS ORDERED: predniSONE 5 MG TAB PO SCH (08:00)
[2020-10-07] MEDS: AMLODIPINE 5 MG TAB PO SCH (08:23)
[2020-10-07] MEDS: FAMOTIDINE 20 MG TAB PO SCH ×2 (08:24→20:31)
[2020-10-07] MEDS: APIXABAN 5 MG TABLET PO SCH ×2 (08:24→20:31)
[2020-10-07] MEDS: ASPIRIN EC 81 MG TAB PO SCH (08:24)
[2020-10-07] MEDS: predniSONE 5 MG TAB PO SCH (08:24)
[2020-10-07] MEDS: SODIUM CHLORIDE 0.9% 10ML INJ IV SCH ×2 (08:25→20:00)
[2020-10-07] MEDS: BENZONATATE 100 MG CAP PO PRN (11:52)
[2020-10-07] MEDS ORDERED: POTASSIUM CL SA 10 MEQ TAB PO ONE (13:34)
[2020-10-07] MEDS ORDERED: POTASSIUM CL SA 10 MEQ TAB PO SCH (20:00)
[2020-10-07] MEDS: CRANBERRY FRUIT EXTRACT 200 MG CAP PO SCH (20:30)
[2020-10-07] MEDS: MELATONIN 5 MG TABLET PO PRN (21:15)
[2020-10-08] MEDS: SODIUM CHLORIDE 0.9% 10ML INJ IV SCH ×2 (07:02→20:00)
[2020-10-08] MEDS: BENZONATATE 100 MG CAP PO PRN (07:28)
[2020-10-08] MEDS: CRANBERRY FRUIT EXTRACT 200 MG CAP PO SCH ×2 (08:13→20:27)
[2020-10-08] MEDS: AMLODIPINE 5 MG TAB PO SCH (08:13)
[2020-10-08] MEDS: FAMOTIDINE 20 MG TAB PO SCH ×2 (08:13→20:26)
[2020-10-08] MEDS: predniSONE 5 MG TAB PO SCH (08:13)
[2020-10-08] MEDS: APIXABAN 5 MG TABLET PO SCH ×2 (08:13→20:26)
[2020-10-08] MEDS: ENSURE HIGH PROTEIN 237 ML CAN PO SCH ×2 (08:14→20:27)
[2020-10-08] MEDS: ASPIRIN EC 81 MG TAB PO SCH (08:14)
[2020-10-08] MEDS: POTASSIUM CL SA 10 MEQ TAB PO SCH (08:14)
[2020-10-08] MEDS: MELATONIN 5 MG TABLET PO PRN (20:27)
[2020-10-09] MEDS: ASPIRIN EC 81 MG TAB PO SCH (08:00)
[2020-10-09] MEDS: SODIUM CHLORIDE 0.9% 10ML INJ IV SCH ×2 (08:00→19:53)
[2020-10-09] MEDS: ENSURE HIGH PROTEIN 237 ML CAN PO SCH ×2 (09:00→19:53)
[2020-10-09] MEDS: CRANBERRY FRUIT EXTRACT 200 MG CAP PO SCH ×2 (09:06→19:53)
[2020-10-09] MEDS: APIXABAN 5 MG TABLET PO SCH ×2 (09:07→19:53)
[2020-10-09] MEDS: FAMOTIDINE 20 MG TAB PO SCH ×2 (09:07→19:53)
[2020-10-09] MEDS: predniSONE 5 MG TAB PO SCH (09:08)
[2020-10-09] MEDS: POTASSIUM CL SA 10 MEQ TAB PO SCH (09:08)
[2020-10-09] MEDS: AMLODIPINE 5 MG TAB PO SCH (09:08)
--- NOTE | 2020-10-09 16:23 | R.PN ---
PROGRESS NOTES ENCOUNTER DATE AND TIME: 10/09/2020 16:16 (CDT) NAME CINDY MEDRANO DATE OF : 1975 DATE OF ADMISSION: 10/06/2020 17:24 (CDT) POST COVIDCHIEF COMPLAINT: Post COVID syndrome, debility. SUBJECTIVE: Pt denied any depression. Pt denied any Shortness of Breath. WBC 5.4, Hgb 9.0, Na 149, CfO2 35, prealbumin 17.6, COVID-19 negative. Max assistance in parallel bars. Only stands 15-30 seconds. VITAL SIGNS Temperature: 98.2 F SBP/DBP: 141/100 Pulse: 88 Resp: 15 MEDICATION ALLERGIES: No Known Drug Allergies (NKDA) ENVIRONMENTAL ALLERGIES: None Known - Substance Allergies None Known - Other Allergies None Known NURSING: - Shower allowing shower ACTIVITIES OOB only with supervision THERAPIES: - Dietary and Nutrition Adequate Nutrition. Nutritional Education. Nutritional Supplements. PHYSICAL EXAM - Gen Alert and awake Lying in bed No apparent distress Oriented to: person, time, and place Normacephalic - Eyes No abnormalities - ENMT No abnormalities - Neck No abnormalities No cervical adenopathy - CVS RRR - Chest No abnormalities - Abd Soft - GI Non distended Deferred - No abnormalities - Ext Mild edema in both lower extremities. - MSK 4+/5 weakness in both lower extremities. - Neuro 4/5 strength bilaterally upper and lower extremities. - Psych Mild depression. ASSESSMENT: Pt. is a 45 yo Right-handed black male.On 08/18/2020 he was admitted to [facility] with diag nosis POST COVID.His impairment category is Pulmonary Disorders 10 - Other Pulmonary Disorders (10.9 ).Pre-morbidly, Pt. was independent/mod-I in Transfers Control, Locomotion, Self-Care, Social Cogniti on, Sphincter Control, and Communication; and he had good Balance and Safety Awareness.Currently, he has deficits of Transfers Control, Balance, Locomotion, Safety Awareness, and Self-Care.Pt. is now re ferred to [facility] for acute in-patient rehabilitation in order to maximize patient's functional independence in activities of daily living, strength, ROM, and mobility.- Rehab Goal Patient has realistic goal of being discharged at assistance level 6-Hansel to reside at Home with Fri ends. MDM/PLAN: - Physical Therapy Gait dysfunction - to improve, our physical therapists will perform initial evaluation of pt's statu s upon admission and devise an individualized program for Gait Training, and Wheel Chair mobility Inability to transfer - to improve, our physical therapists will perform initial evaluation of pt's status upon admission and devise an individualized program for Bed mobility Need for home safety evaluation - to improve, our physical therapists will perform initial evaluatio n of pt's status upon admission and devise an individualized program for Home Evaluation Need in caregiver upon discharge - to improve, our physical therapists will perform initial evaluati on of pt's status upon admission and devise an individualized program for Caregiver Training Edema - to improve, our physical therapists will perform initial evaluation of pt's status upon admis neida and devise an individualized program for Elevation Training, and Lymphedema Therapy New precaution - to improve, our physical therapists will perform initial evaluation of pt's status upon admission and devise an individualized program for Patient precaution education Poor balance - to improve, our physical therapists will perform initial evaluation of pt's status up on admission and devise an individualized program for Balance Training Weakness - to improve, our physical therapists will perform initial evaluation of pt's status upon a dmission and devise an individualized program for Aquatic Therapy, Neuromuscular Reeducation, and Str engthening Achieving independence - to improve, our physical therapists will perform initial evaluation of pt's status upon admission and devise an individualized program for Community Reintegration Activities - Occupational Therapy ADL deficits - to improve, our occupation therapists will perform initial evaluation of pt's status upon admission and devise an individualized program for Bathing, Bed mobility, Community Reintegratio n, Cooking, Dressing, Eating, Fine Motor Skills, Grooming, Homemaking, Kitchen Mobility, Laundry, Pat ient Education, Safety Awareness, Splinting - Positioning, Transfers(Toilet, Tub, Shower), and Wheel Chair Management Need for career services officer - to improve, our occupation therapists will perform initial evaluation of pt's status upon admission and devise an individualized program for Caregiver Training Weakness - to improve, our occupation therapists will perform initial evaluation of pt's status upon admission and devise an individualized program for Aquatic Therapy, Balance, Endurance, UE ROM, and UE strengthening - Other See attached MAR (Medication Administration Record) - Diet Type Continue Regular - Diet - Liquid Texture Continue Regular - Tube Feed Continue N/A - Diet - Solid Texture Continue Regular - Shower allowing shower FUNCTIONAL STATUS: UPDATED AT WEEKLY TEAM CONFERENCE - Walking Same score based on distance walked: 1(<=50ft) - Wheelchair Same score based on distance traveled: 1(<=50ft) FUNCTIONAL STATUS: - Self-Care A. Eating Hansel B. Grooming Thao C. Bathing maxA D. Dressing - Upper modA E. Dressing - Lower maxA F. Toileting maxA - Sphincter Control G. Bladder control Hansel H. Bowel control Hansel - Transfers Control I. Bed/Chair/Wheelchair maxA J. Toilet maxA K. Tub/Shower maxA - Locomotion L. Walk/Wheelchair (B) maxA M. Stairs ADNO - Communication N. Comprehension (B) Hansel O. Expression (B) Hansel - Social Cognition P. Social Interaction Hansel Q. Problem Solving Thao R. Memory Hansel - Endurance Poor - Balance Poor - Safety Awareness Fair QI SCORES: - Self-Care A. Eating 03-Partial/moderate assistance B. Oral hygiene 03-Partial/moderate assistance C. Toileting hygiene 02-Substantial/maximal assistance E. Shower/bathe self 02-Substantial/maximal assistance F. Upper body dressing 01-Dependent G. Lower body dressing 01-Dependent H. Putting on/taking off footwear 01-Dependent - Mobility A. Roll left and right 02-Substantial/maximal assistance B. Sit to lying 02-Substantial/maximal assistance C. Lying to sitting on side of bed 02-Substantial/maximal assistance D. Sit to stand 88-Not attempted due to medical condition or safety concerns E. Chair/[id number] transfer 88-Not attempted due to medical condition or safety concerns F. Toilet transfer 88-Not attempted due to medical condition or safety concerns G. Car transfer 88-Not attempted due to medical condition or safety concerns I. Walk 10 feet 88-Not attempted due to medical condition or safety concerns J. Walk 50 feet with two turns 88-Not attempted due to medical condition or safety concerns K. Walk 150 feet 88-Not attempted due to medical condition or safety concerns L. Walking 10 feet on uneven surfaces 88-Not attempted due to medical condition or safety concerns M. 1 step (curb) 88-Not attempted due to medical condition or safety concerns N. 4 steps 88-Not attempted due to medical condition or safety concerns O. 12 steps 88-Not attempted due to medical condition or safety concerns P. Picking up object 88-Not attempted due to medical condition or safety concerns - Bladder and Bowel Bladder continence 0-Always continent Bowel continence 0-Always continent - Endurance Poor - Balance Poor - Safety Awareness Poor CURRENT FUNC. DEFICITS: Self-Care, Mobility, Endurance, Balance, and Safety Awareness SIGNATURE PANEL: (CDT)
[2020-10-09] MEDS: BENZONATATE 100 MG CAP PO PRN (19:53)
[2020-10-09] MEDS: MELATONIN 5 MG TABLET PO PRN (19:53)
[2020-10-09] MEDS: TRAZODONE 50 MG TABLET PO PRN (22:38)
[2020-10-10 05:12] LABS: Absolute Lymphocytes (CBC) 1.7 K/uL (0.7-4.9); Basophils % 0.7 % (0-1.3); Hematocrit 29.1 % (39.6-49.0); Lymphocytes % 22.9 % (15.3-44.8); MPV 9.2 fL (7.6-11.3); RBC Red Blood Cell Count 3.03 M/uL (4.33-5.43)
[2020-10-10] MEDS: METOPROLOL TAR 25 MG TAB PO SCH (05:15)
[2020-10-10 05:24] LABS: BUN Blood Urea Nitrogen 6 mg/dL (7-18); Bicarbonate 35 mmol/L (21-32); Glucose Level 141 mg/dL (74-106); Potassium 3.6 mmol/L (3.5-5.1); Sodium Level 146 mmol/L (136-145)
[2020-10-10] MEDS: ENSURE HIGH PROTEIN 237 ML CAN PO SCH ×2 (07:52→20:00)
[2020-10-10] MEDS: FERROUS SULFATE 325 MG TAB PO SCH (07:53)
[2020-10-10] MEDS: APIXABAN 5 MG TABLET PO SCH ×2 (07:53→20:01)
[2020-10-10] MEDS: CRANBERRY FRUIT EXTRACT 200 MG CAP PO SCH ×2 (07:53→20:01)
[2020-10-10] MEDS: AMLODIPINE 5 MG TAB PO SCH (07:53)
[2020-10-10] MEDS: predniSONE 5 MG TAB PO SCH (07:53)
[2020-10-10] MEDS: POTASSIUM CL SA 10 MEQ TAB PO SCH (07:54)
[2020-10-10] MEDS: SODIUM CHLORIDE 0.9% 10ML INJ IV SCH ×2 (07:54→20:00)
[2020-10-10] MEDS: FAMOTIDINE 20 MG TAB PO SCH ×2 (07:54→20:01)
[2020-10-10] MEDS: BENZONATATE 100 MG CAP PO PRN ×2 (12:31→20:01)
[2020-10-10] MEDS ORDERED: DOCUSATE NA/SENNA CONC 1 TAB PO PRN (17:47)
[2020-10-10] MEDS: TRAZODONE 50 MG TABLET PO PRN (20:01)
[2020-10-11] MEDS: MELATONIN 5 MG TABLET PO PRN ×2 (00:03→19:46)
[2020-10-11] MEDS: METOPROLOL TAR 25 MG TAB PO SCH (05:02)
[2020-10-11] MEDS ORDERED: predniSONE 10 MG TAB PO SCH (08:00)
[2020-10-11] MEDS: ENSURE HIGH PROTEIN 237 ML CAN PO SCH ×2 (08:00→19:46)
[2020-10-11] MEDS: SODIUM CHLORIDE 0.9% 10ML INJ IV SCH ×2 (08:00→19:46)
[2020-10-11] MEDS ORDERED: LABETALOL HCL 100 MG TAB PO SCH (08:00)
[2020-10-11] MEDS: CRANBERRY FRUIT EXTRACT 200 MG CAP PO SCH ×2 (09:02→19:46)
[2020-10-11] MEDS: FAMOTIDINE 20 MG TAB PO SCH ×2 (09:02→19:46)
[2020-10-11] MEDS: predniSONE 5 MG TAB PO SCH (09:02)
[2020-10-11] MEDS: APIXABAN 5 MG TABLET PO SCH ×2 (09:02→19:46)
[2020-10-11] MEDS: POTASSIUM CL SA 10 MEQ TAB PO SCH (09:03)
[2020-10-11] MEDS: FERROUS SULFATE 325 MG TAB PO SCH (09:03)
[2020-10-11] MEDS: AMLODIPINE 5 MG TAB PO SCH (09:03)
--- NOTE | 2020-10-11 14:47 | FAST ---
[employer] FORM SHIFT START DATE/TIME: 10/11/2020 07:00 (CDT) SHIFT END DATE/TIME: 10/11/2020 19:00 (CDT) NAME CINDY MEDRANO DATE OF : 1975 DATE OF ADMISSION: 10/06/2020 17:24 (CDT) PHONE: AGE: 45 N# [id number] GENDER: Male ENCOUNTER PHYSICIAN: Dr. Jamel Ruff M.D. ADMISSION DIAGNOSIS: - Pulmonary Disorders 10 - Other Pulmonary Disorders (10.9) POST COVID. EATING: EATING - STEP 1: Does the patient complete the activity by him/herself with no assistance (physical, verbal/nonverbal cueing, setup/clean-up)? No. EATING - STEP 2: Does the patient need only setup/clean-up assistance from one helper? Yes. 1. [id number] ADMISSION PERFORMANCE: Setup or clean-up assistance CODE: 05 ORAL HYGIENE: ORAL HYGIENE - STEP 1: Does the patient complete the activity by him/herself with no assistance (physical, verbal/nonverbal cueing, setup/clean-up)? No. ORAL HYGIENE - STEP 2: Does the patient need only setup/clean-up assistance from one helper? Yes. 1. [id number] ADMISSION PERFORMANCE: Setup or clean-up assistance CODE: 05 TOILETING HYGIENE: TOILETING HYGIENE - STEP 1: Does the patient complete the activity by him/herself with no assistance (physical, verbal/nonverbal cueing, setup/clean-up)? No. TOILETING HYGIENE - STEP 2: Does the patient need only setup/clean-up assistance from one helper? No. TOILETING HYGIENE - STEP 3: Does the patient need only verbal/nonverbal cueing or touching/steadying/contact guard assistance fro m one helper? No. TOILETING HYGIENE - STEP 4: Does the patient need physical assistance - for example lifting or trunk support from one helper - wi th the helper providing less than half of the effort? No. TOILETING HYGIENE - STEP 5: Does the patient need physical assistance - for example lifting or trunk support from one helper - wi th the helper providing more than half of the effort? No. TOILETING HYGIENE - STEP 6: Does the helper provide all of the effort? OR Is the assistance of two or more helpers required to co mplete the activity? Yes. 1. [id number] ADMISSION PERFORMANCE: Dependent CODE: 01 BATHING: Not assessed/no information CODE: - DRESSING - UPPER BODY: DRESSING - UPPER BODY - STEP 1: Does the patient complete the activity by him/herself with no assistance (physical, verbal/nonverbal cueing, setup/clean-up)? No. DRESSING - UPPER BODY - STEP 2: Does the patient need only setup/clean-up assistance from one helper? No. DRESSING - UPPER BODY - STEP 3: Does the patient need only verbal/nonverbal cueing or touching/steadying/contact guard assistance fro m one helper? No. DRESSING - UPPER BODY - STEP 4: Does the patient need physical assistance - for example lifting or trunk support from one helper - wi th the helper providing less than half of the effort? Yes. 1. [id number] ADMISSION PERFORMANCE: Partial/moderate assistance CODE: 03 DRESSING - LOWER BODY: DRESSING - LOWER BODY - STEP 1: Does the patient complete the activity by him/herself with no assistance (physical, verbal/nonverbal cueing, setup/clean-up)? No. DRESSING - LOWER BODY - STEP 2: Does the patient need only setup/clean-up assistance from one helper? No. DRESSING - LOWER BODY - STEP 3: Does the patient need only verbal/nonverbal cueing or touching/steadying/contact guard assistance fro m one helper? No. DRESSING - LOWER BODY - STEP 4: Does the patient need physical assistance - for example lifting or trunk support from one helper - wi th the helper providing less than half of the effort? No. DRESSING - LOWER BODY - STEP 5: Does the patient need physical assistance - for example lifting or trunk support from one helper - wi th the helper providing more than half of the effort? Yes. 1. [id number] ADMISSION PERFORMANCE: Substantial/maximal assistance CODE: 02 PUTTING ON/TAKING OFF FOOTWEAR: FOOTWEAR - STEP 1: Does the patient complete the activity by him/herself with no assistance (physical, verbal/nonverbal cueing, setup/clean-up)? No. FOOTWEAR - STEP 2: Does the patient need only setup/clean-up assistance from one helper? No. FOOTWEAR - STEP 3: Does the patient need only verbal/nonverbal cueing or touching/steadying/contact guard assistance fro m one helper? No. FOOTWEAR - STEP 4: Does the patient need physical assistance - for example lifting or trunk support from one helper - wi th the helper providing less than half of the effort? No. FOOTWEAR - STEP 5: Does the patient need physical assistance - for example lifting or trunk support from one helper - wi th the helper providing more than half of the effort? Yes. 1. [id number] ADMISSION PERFORMANCE: Substantial/maximal assistance CODE: 02 ROLL LEFT AND RIGHT: ROLL LEFT AND RIGHT - STEP 1: Does the patient complete the activity by him/herself with no assistance (physical, verbal/nonverbal cueing, setup/clean-up)? No. ROLL LEFT AND RIGHT - STEP 2: Does the patient need only setup/clean-up assistance from one helper? No. ROLL LEFT AND RIGHT - STEP 3: Does the patient need only verbal/nonverbal cueing or touching/steadying/contact guard assistance fro m one helper? No. ROLL LEFT AND RIGHT - STEP 4: Does the patient need physical assistance - for example lifting or trunk support from one helper - wi th the helper providing less than half of the effort? Yes. 1. [id number] ADMISSION PERFORMANCE: Partial/moderate assistance CODE: 03 SIT TO LYING: SIT TO LYING - STEP 1: Does the patient complete the activity by him/herself with no assistance (physical, verbal/nonverbal cueing, setup/clean-up)? No. SIT TO LYING - STEP 2: Does the patient need only setup/clean-up assistance from one helper? No. SIT TO LYING - STEP 3: Does the patient need only verbal/nonverbal cueing or touching/steadying/contact guard assistance fro m one helper? No. SIT TO LYING - STEP 4: Does the patient need physical assistance - for example lifting or trunk support from one helper - wi th the helper providing less than half of the effort? Yes. 1. [id number] ADMISSION PERFORMANCE: Partial/moderate assistance CODE: 03 LYING TO SITTING: LYING TO SITTING ON SIDE OF BED - STEP 1: Does the patient complete the activity by him/herself with no assistance (physical, verbal/nonverbal cueing, setup/clean-up)? No. LYING TO SITTING ON SIDE OF BED - STEP 2: Does the patient need only setup/clean-up assistance from one helper? No. LYING TO SITTING ON SIDE OF BED - STEP 3: Does the patient need only verbal/nonverbal cueing or touching/steadying/contact guard assistance fro m one helper? No. LYING TO SITTING ON SIDE OF BED - STEP 4: Does the patient need physical assistance - for example lifting or trunk support from one helper - wi th the helper providing less than half of the effort? Yes. 1. [id number] ADMISSION PERFORMANCE: Partial/moderate assistance CODE: 03 SIT TO STAND: SIT TO STAND - STEP 1: Does the patient complete the activity by him/herself with no assistance (physical, verbal/nonverbal cueing, setup/clean-up)? No. SIT TO STAND - STEP 2: Does the patient need only setup/clean-up assistance from one helper? No. SIT TO STAND - STEP 3: Does the patient need only verbal/nonverbal cueing or touching/steadying/contact guard assistance fro m one helper? No. SIT TO STAND - STEP 4: Does the patient need physical assistance - for example lifting or trunk support from one helper - wi th the helper providing less than half of the effort? No. SIT TO STAND - STEP 5: Does the patient need physical assistance - for example lifting or trunk support from one helper - wi th the helper providing more than half of the effort? Yes. 1. [id number] ADMISSION PERFORMANCE: Substantial/maximal assistance CODE: 02 [id number] - COMMENTS: Tyrone paz lift TRANSFERS: BED, CHAIR: CHAIR/[id number] TRANSFER - STEP 1: Does the patient complete the activity by him/herself with no assistance (physical, verbal/nonverbal cueing, setup/clean-up)? No. CHAIR/[id number] TRANSFER - STEP 2: Does the patient need only setup/clean-up assistance from one helper? No. CHAIR/[id number]-MWNEA TRANSFER - STEP 3: Does the patient need only verbal/nonverbal cueing or touching/steadying/contact guard assistance fro m one helper? No. CHAIR/[id number] TRANSFER - STEP 4: Does the patient need physical assistance - for example lifting or trunk support from one helper - wi th the helper providing less than half of the effort? No. CHAIR/CFU-DS-NMLBC TRANSFER - STEP 5: Does the patient need physical assistance - for example lifting or trunk support from one helper - wi th the helper providing more than half of the effort? No. CHAIR/[id number] TRANSFER - STEP 6: Does the helper provide all of the effort? OR Is the assistance of two or more helpers required to co mplete the activity? Yes. 1. [id number] ADMISSION PERFORMANCE: Dependent CODE: - COMMENTS: Max assist- danielle lift TRANSFER TOILET: TOILET TRANSFER - STEP 1: Does the patient complete the activity by him/herself with no assistance (physical, verbal/nonverbal cueing, setup/clean-up)? No. TOILET TRANSFER - STEP 2: Does the patient need only setup/clean-up assistance from one helper? No. TOILET TRANSFER - STEP 3: Does the patient need only verbal/nonverbal cueing or touching/steadying/contact guard assistance fro m one helper? No. TOILET TRANSFER - STEP 4: Does the patient need physical assistance - for example lifting or trunk support from one helper - wi th the helper providing less than half of the effort? No. TOILET TRANSFER - STEP 5: Does the patient need physical assistance - for example lifting or trunk support from one helper - wi th the helper providing more than half of the effort? No. TOILET TRANSFER - STEP 6: Does the helper provide all of the effort? OR Is the assistance of two or more helpers required to co mplete the activity? Yes. 1. [id number] ADMISSION PERFORMANCE: Dependent CODE: - COMMENTS: Max assist- danielle lift TRANSFERS: CAR: Not assessed/no information CODE: - WALK 10 FEET: Not assessed/no information CODE: - 1 STEP (CURB): Not assessed/no information CODE: - PICKING UP OBJECT: Not assessed/no information CODE: - DOES THE PATIENT USE A WHEELCHAIR/SCOOTER? Q1. DOES THE PATIENT USE A WHEELCHAIR/SCOOTER?: Yes CODE: 1 WHEEL 50 FEET WITH TWO TURNS: Not assessed/no information CODE: - INDICATE THE TYPE OF WHEELCHAIR/SCOOTER USED: RR1. INDICATE THE TYPE OF WHEELCHAIR/SCOOTER USED.: Manual CODE: 1 WHEEL 150 FEET: Not attempted due to medical condition or safety concerns 1. ADMISSION PERFORMANCE: Dependent CODE: 01 INDICATE THE TYPE OF WHEELCHAIR/SCOOTER USED: SS1. INDICATE THE TYPE OF WHEELCHAIR/SCOOTER USED.: Manual CODE: 1 BLADDER AND BOWEL: H350. BLADDER CONTINENCE (3-DAY ASSESSMENT PERIOD): Always continent (no documented incontinence) CODE: 0 H400. BOWEL CONTINENCE (3-DAY ASSESSMENT PERIOD): Always continent CODE: 0 SIGNATURE PANEL: The following modified sections: 1. [id number] Admission Performance, 1. [id number] Admission Performance, 1. [id number] Admission Performance, 1. [id number] Admission Performance, 1. SC2939p Admission Performance, 1. [id number] Admission Performance, 1. [id number] Admission Performance, 1. [id number] Admission Performance , 1. [id number] Admission Performance, 1. [id number] Admission Performance, 1. [id number] Admission Performanc e, 1. [id number] Admission Performance, 1. [id number] Admission Performance, 1. [id number] Admission Performan ce, [id number] - Comments:, 1. MB1004S Admission Performance, 1. [id number] Admission Performance, 1. [id number] Admission Performance, [id number] - Comments:, 1. [id number] Admission Performance, [id number] - Comments:, Q1. Does the patient use a wheelchair/scooter?, RR1. Indicate the type of wheelchair/scooter used., Code, Code, 1. [id number] Admission Performance, Code, SS1. Indicate the type of wheelchair/scooter used ., H350. Bladder Continence (3-day assessment period), H400. Bowel Continence (3-day assessment perio d) were [electronically] signed by [email or web address] on FriOct 11 2020 14:46:18 T-0500 (Central Daylight Time)
[2020-10-11] MEDS: TRAZODONE 50 MG TABLET PO PRN (19:45)
[2020-10-12] MEDS: METOPROLOL TAR 25 MG TAB PO SCH ×3 (05:37→18:35)
[2020-10-12 06:52] LABS: Absolute Lymphocytes (CBC) 1.4 K/uL (0.7-4.9); Basophils % 0.7 % (0-1.3); Hematocrit 28.3 % (39.6-49.0); Lymphocytes % 19.4 % (15.3-44.8); MPV 9.2 fL (7.6-11.3); RBC Red Blood Cell Count 2.94 M/uL (4.33-5.43)
[2020-10-12 07:00] LABS: Albumin 2.7 g/dL (3.4-5.0); BUN Blood Urea Nitrogen 5 mg/dL (7-18); Bicarbonate 39 mmol/L (21-32); Glucose Level 125 mg/dL (74-106); Potassium 3.3 mmol/L (3.5-5.1); Prealbumin 12.9 mg/dL (20-40); Sodium Level 147 mmol/L (136-145)
[2020-10-12] MEDS: APIXABAN 5 MG TABLET PO SCH ×2 (07:29→19:24)
[2020-10-12] MEDS: AMLODIPINE 5 MG TAB PO SCH (07:30)
[2020-10-12] MEDS: POTASSIUM CL SA 10 MEQ TAB PO SCH ×2 (07:30→19:24)
[2020-10-12] MEDS: FAMOTIDINE 20 MG TAB PO SCH ×2 (07:30→19:24)
[2020-10-12] MEDS: ENSURE HIGH PROTEIN 237 ML CAN PO SCH ×2 (07:31→19:25)
[2020-10-12] MEDS: CRANBERRY FRUIT EXTRACT 200 MG CAP PO SCH ×2 (08:00→10:48)
[2020-10-12] MEDS: SODIUM CHLORIDE 0.9% 10ML INJ IV SCH ×2 (09:00→19:25)
[2020-10-12] MEDS: FERROUS SULFATE 325 MG TAB PO SCH (10:48)
[2020-10-12] MEDS ORDERED: METOPROLOL TAR 25 MG TAB PO ONE (10:58)
[2020-10-12] MEDS ORDERED: POTASSIUM CL SA 10 MEQ TAB PO ONE (11:00)
--- NOTE | 2020-10-12 18:06 | R.PN ---
PROGRESS NOTES ENCOUNTER DATE AND TIME: 10/12/2020 17:59 (CDT) NAME CINDY MEDRANO DATE OF : 1975 DATE OF ADMISSION: 10/06/2020 17:24 (CDT) POST COVIDCHIEF COMPLAINT: Post COVID syndrome, debility. SUBJECTIVE: Pt denied any depression. Pt denied any Shortness of Breath. WBC 7.2, Hgb 9.1, Na 147, CO2 39, prealbumin 12.9, COVID-19 negative. Ambulated 9' x 2 with mininum assistance using a rolling walker. BP up to 160. EKG showed sinus tachy cardia but the patient has h/o afib. VITAL SIGNS Temperature: 97.7 F SBP/DBP: 112 to 155/78 to 99 Pulse: 110 Resp: 16 MEDICATION ALLERGIES: No Known Drug Allergies (NKDA) ENVIRONMENTAL ALLERGIES: None Known - Substance Allergies None Known - Other Allergies None Known NURSING: - Shower allowing shower ACTIVITIES OOB only with supervision THERAPIES: - Dietary and Nutrition Adequate Nutrition. Nutritional Education. Nutritional Supplements. PHYSICAL EXAM - Gen Alert and awake Lying in bed No apparent distress Oriented to: person, time, and place Normacephalic - Eyes No abnormalities - ENMT No abnormalities - Neck No abnormalities No cervical adenopathy - CVS RRR - Chest No abnormalities - Abd Soft - GI Non distended Deferred - No abnormalities - Ext Mild edema in both lower extremities. - MSK 4+/5 weakness in both lower extremities. - Neuro 4/5 strength bilaterally upper and lower extremities. - Psych Mild depression. ASSESSMENT: Pt. is a 45 yo Right-handed black male.On 08/18/2020 he was admitted to [facility] with diamalorie english POST COVID.His impairment category is Pulmonary Disorders 10 - Other Pulmonary Disorders (10.9 ).Pre-morbidly, Pt. was independent/mod-I in Transfers Control, Locomotion, Self-Care, Social Cogniti on, Sphincter Control, and Communication; and he had good Balance and Safety Awareness.Currently, he has deficits of Transfers Control, Balance, Locomotion, Safety Awareness, and Self-Care.Pt. is now re ferred to [facility] for acute in-patient rehabilitation in order to maximize patient's functional independence in activities of daily living, strength, ROM, and mobility.- Rehab Goal Patient has realistic goal of being discharged at assistance level 6-Hansel to reside at Home with Fri ends. MDM/PLAN: - Physical Therapy Gait dysfunction - to improve, our physical therapists will perform initial evaluation of pt's statu s upon admission and devise an individualized program for Gait Training, and Wheel Chair mobility Inability to transfer - to improve, our physical therapists will perform initial evaluation of pt's status upon admission and devise an individualized program for Bed mobility Need for home safety evaluation - to improve, our physical therapists will perform initial evaluatio n of pt's status upon admission and devise an individualized program for Home Evaluation Need in caregiver upon discharge - to improve, our physical therapists will perform initial evaluati on of pt's status upon admission and devise an individualized program for Caregiver Training Edema - to improve, our physical therapists will perform initial evaluation of pt's status upon admi ssion and devise an individualized program for Elevation Training, and Lymphedema Therapy New precaution - to improve, our physical therapists will perform initial evaluation of pt's status upon admission and devise an individualized program for Patient precaution education Poor balance - to improve, our physical therapists will perform initial evaluation of pt's status up on admission and devise an individualized program for Balance Training Weakness - to improve, our physical therapists will perform initial evaluation of pt's status upon a dmission and devise an individualized program for Aquatic Therapy, Neuromuscular Reeducation, and Str engthening Achieving independence - to improve, our physical therapists will perform initial evaluation of pt's status upon admission and devise an individualized program for Community Reintegration Activities - Occupational Therapy ADL deficits - to improve, our occupation therapists will perform initial evaluation of pt's status upon admission and devise an individualized program for Bathing, Bed mobility, Community Reintegratio n, Cooking, Dressing, Eating, Fine Motor Skills, Grooming, Homemaking, Kitchen Mobility, Laundry, Pat ient Education, Safety Awareness, Splinting - Positioning, Transfers(Toilet, Tub, Shower), and Wheel Chair Management Need for caretaker - to improve, our occupation therapists will perform initial evaluation of pt's status upon admission and devise an individualized program for Caregiver Training Weakness - to improve, our occupation therapists will perform initial evaluation of pt's status upon admission and devise an individualized program for Aquatic Therapy, Balance, Endurance, UE ROM, and UE strengthening - Other See attached MAR (Medication Administration Record) - Diet Type Continue Regular - Diet - Liquid Texture Continue Regular - Tube Feed Continue N/A - Diet - Solid Texture Continue Regular - Shower allowing shower FUNCTIONAL STATUS: UPDATED AT WEEKLY TEAM CONFERENCE - Walking Same score based on distance walked: 1(<=50ft) - Wheelchair Same score based on distance traveled: 1(<=50ft) FUNCTIONAL STATUS: - Self-Care A. Eating Hansel B. Grooming Thao C. Bathing maxA D. Dressing - Upper modA E. Dressing - Lower maxA F. Toileting maxA - Sphincter Control G. Bladder control Hansel H. Bowel control Hansel - Transfers Control I. Bed/Chair/Wheelchair maxA J. Toilet maxA K. Tub/Shower maxA - Locomotion L. Walk/Wheelchair (B) maxA M. Stairs ADNO - Communication N. Comprehension (B) Hansel O. Expression (B) Hansel - Social Cognition P. Social Interaction Hansel Q. Problem Solving Thao R. Memory Hansel - Endurance Poor - Balance Poor - Safety Awareness Fair QI SCORES: - Self-Care A. Eating 03-Partial/moderate assistance B. Oral hygiene 03-Partial/moderate assistance C. Toileting hygiene 02-Substantial/maximal assistance E. Shower/bathe self 02-Substantial/maximal assistance F. Upper body dressing 01-Dependent G. Lower body dressing 01-Dependent H. Putting on/taking off footwear 01-Dependent - Mobility A. Roll left and right 02-Substantial/maximal assistance B. Sit to lying 02-Substantial/maximal assistance C. Lying to sitting on side of bed 02-Substantial/maximal assistance D. Sit to stand 88-Not attempted due to medical condition or safety concerns E. Chair/[id number] transfer 88-Not attempted due to medical condition or safety concerns F. Toilet transfer 88-Not attempted due to medical condition or safety concerns G. Car transfer 88-Not attempted due to medical condition or safety concerns I. Walk 10 feet 88-Not attempted due to medical condition or safety concerns J. Walk 50 feet with two turns 88-Not attempted due to medical condition or safety concerns K. Walk 150 feet 88-Not attempted due to medical condition or safety concerns L. Walking 10 feet on uneven surfaces 88-Not attempted due to medical condition or safety concerns M. 1 step (curb) 88-Not attempted due to medical condition or safety concerns N. 4 steps 88-Not attempted due to medical condition or safety concerns O. 12 steps 88-Not attempted due to medical condition or safety concerns P. Picking up object 88-Not attempted due to medical condition or safety concerns - Bladder and Bowel Bladder continence 0-Always continent Bowel continence 0-Always continent - Endurance Poor - Balance Poor - Safety Awareness Poor CURRENT FUNC. DEFICITS: Self-Care, Mobility, Endurance, Balance, and Safety Awareness SIGNATURE PANEL: (CDT)
[2020-10-12] MEDS: TRAZODONE 50 MG TABLET PO PRN (19:24)
[2020-10-12] MEDS: MELATONIN 5 MG TABLET PO PRN (19:24)
[2020-10-12] MEDS: MAGNESIUM OXIDE 400 MG TAB PO SCH (19:25)
[2020-10-13] MEDS: METOPROLOL TAR 25 MG TAB PO SCH ×2 (05:41→16:59)
[2020-10-13] MEDS ORDERED: METOPROLOL TAR 25 MG TAB PO SCH (06:00)
[2020-10-13] MEDS: AMLODIPINE 5 MG TAB PO SCH (08:00)
[2020-10-13] MEDS: FERROUS SULFATE 325 MG TAB PO SCH (08:27)
[2020-10-13] MEDS: POTASSIUM CL SA 10 MEQ TAB PO SCH ×2 (08:28→20:00)
[2020-10-13] MEDS: MAGNESIUM OXIDE 400 MG TAB PO SCH ×2 (08:28→20:37)
[2020-10-13] MEDS: FAMOTIDINE 20 MG TAB PO SCH ×2 (08:28→20:36)
[2020-10-13] MEDS: APIXABAN 5 MG TABLET PO SCH ×2 (08:28→20:36)
[2020-10-13] MEDS: ENSURE HIGH PROTEIN 237 ML CAN PO SCH ×2 (08:28→20:36)
[2020-10-13] MEDS: SODIUM CHLORIDE 0.9% 10ML INJ IV SCH ×2 (08:29→20:00)
--- NOTE | 2020-10-13 09:44 | P.RH.PN ---
Estimated Length of Stay: 22 Expected Discharge Date: 10/27/20 Discharge Disposition Plan: Home Family Support: Yes Half-Way Goal: Mobility, Transfers, Self Care Vital Signs: Last Vital Signs Temp 96.9 F 10/13/20 07:00 Pulse 77 10/13/20 07:00 Resp 20 10/13/20 07:00 BP 90/50 L 10/13/20 07:00 Pulse Ox 99 10/13/20 07:00 Laboratory: Laboratory Last Values WBC Cancelled 10/12/20 06:00 RBC Cancelled 10/12/20 06:00 Hgb Cancelled 10/12/20 06:00 Hct Cancelled 10/12/20 06:00 MCV Cancelled 10/12/20 06:00 MCH Cancelled 10/12/20 06:00 MCHC Cancelled 10/12/20 06:00 RDW Cancelled 10/12/20 06:00 Plt Count Cancelled 10/12/20 06:00 MPV Cancelled 10/12/20 06:00 Plt Distribution Width Cancelled 10/12/20 06:00 Absolute Nucleated RBC Cancelled 10/12/20 06:00 Neutrophils % Cancelled 10/12/20 06:00 Lymphocytes % Cancelled 10/12/20 06:00 Monocytes % Cancelled 10/12/20 06:00 Eosinophils % Cancelled 10/12/20 06:00 Basophils % Cancelled 10/12/20 06:00 Nucleated RBC % Cancelled 10/12/20 06:00 Absolute Neutrophils Cancelled 10/12/20 06:00 Absolute Lymphocytes Cancelled 10/12/20 06:00 Absolute Monocytes Cancelled 10/12/20 06:00 Absolute Eosinophils Cancelled 10/12/20 06:00 Absolute Basophils Cancelled 10/12/20 06:00 Diff Path Review Cancelled 10/12/20 06:00 Sodium 147 mmol/L (136-145) H 10/12/20 05:40 Potassium 3.3 mmol/L (3.5-5.1) L 10/12/20 05:40 Chloride 107 mmol/L (98-107) 10/12/20 05:40 Carbon Dioxide 39 mmol/L (21-32) H 10/12/20 05:40 BUN 5 mg/dL (7-18) L 10/12/20 05:40 Creatinine 0.39 mg/dL (0.55-1.3) L 10/12/20 05:40 Estimated GFR > 90 mL/min (=/>90) 10/12/20 05:40 Glucose 125 mg/dL (74-106) H 10/12/20 05:40 Calcium 8.8 mg/dL (8.5-10.1) 10/12/20 05:40 Magnesium 2.0 mg/dL (1.8-2.4) 10/12/20 05:40 Albumin 2.7 g/dL (3.4-5.0) L 10/12/20 05:40 Prealbumin 12.9 mg/dL (20-40) L 10/12/20 05:40 Urine Color Yellow (Yellow) 10/06/20 16:00 Urine Appearance Clear (Clear) 10/06/20 16:00 Urine pH 7.5 (5.0-7.0) H 10/06/20 16:00 Ur Specific [place] 1.025 (1.005-1.030) 10/06/20 16:00 Glucose (UA)(Auto) Negative (Negative) 10/06/20 16:00 Urine Ketones Trace (Negative) H 10/06/20 16:00 Urine Blood Negative (Negative) 10/06/20 16:00 Urine Nitrite Negative (Negative) 10/06/20 16:00 Urine Bilirubin Negative (Negative) 10/06/20 16:00 Urine Urobilinogen 1.0 mg/dL (0.2-1.0) 10/06/20 16:00 Ur Leukocyte Esterase Negative (Negative) 10/06/20 16:00 Urine RBC <5 /HPF (NONE SEEN) 10/06/20 16:00 Urine WBC <5 /HPF (<5) 10/06/20 16:00 Ur Squamous Epith Cells <5 /HPF (NONE SEEN) 10/06/20 16:00 Amorphous Sediment Trace /HPF (NONE SEEN) 10/06/20 16:00 Urine Bacteria 20-50 /HPF (NONE SEEN) H 10/06/20 16:00 Urine Mucus 1+ /HPF (NONE SEEN) 10/06/20 16:00 Urine Culture Reflexed Not needed 10/06/20 16:00 Urine Total Protein Trace (Negative) H 10/06/20 16:00 SARS-CoV-2 RNA (RT-PCR) Negative (NEGATIVE) 10/06/20 15:30 Weight: 250 lb Wound Present: No Closed Surgical Incision Present: No Negative Pressure Wound Therapy Present: No Physician Update: Labs reviewed and are stable. He is making fair progress overall. Transfered with moderate assistance. Walked 9' twice with a walker. He has easy fatigue and will need to do more incentive spirometry. He may need home O2 and home health. 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 Please see the Rehabilitation Signature page for all necessary signatures.
[2020-10-13] MEDS: TRAZODONE 50 MG TABLET PO PRN (20:43)
[2020-10-14] MEDS: METOPROLOL TAR 25 MG TAB PO SCH ×3 (05:31→17:43)
[2020-10-14] MEDS: SODIUM CHLORIDE 0.9% 10ML INJ IV SCH ×2 (08:00→19:19)
[2020-10-14] MEDS: MAGNESIUM OXIDE 400 MG TAB PO SCH ×2 (09:06→19:19)
[2020-10-14] MEDS: FAMOTIDINE 20 MG TAB PO SCH ×2 (09:06→19:19)
[2020-10-14] MEDS: POTASSIUM CL SA 10 MEQ TAB PO SCH ×2 (09:06→19:19)
[2020-10-14] MEDS: APIXABAN 5 MG TABLET PO SCH ×2 (09:07→19:19)
[2020-10-14] MEDS: FERROUS SULFATE 325 MG TAB PO SCH (09:07)
[2020-10-14] MEDS: AMLODIPINE 5 MG TAB PO SCH (09:07)
[2020-10-14] MEDS: ENSURE HIGH PROTEIN 237 ML CAN PO SCH ×2 (09:08→19:19)
[2020-10-14] MEDS: TRAZODONE 50 MG TABLET PO PRN (19:18)
[2020-10-14] MEDS: BENZONATATE 100 MG CAP PO PRN (19:18)
[2020-10-14] MEDS ORDERED: guaiFENesin 100 MG/5 ML UCUP PO PRN (21:18)
[2020-10-15] MEDS: METOPROLOL TAR 25 MG TAB PO SCH ×2 (05:09→08:13)
[2020-10-15 06:26] LABS: Absolute Lymphocytes (CBC) 1.3 K/uL (0.7-4.9); Basophils % 1.4 % (0-1.3); Hematocrit 26.9 % (39.6-49.0); Lymphocytes % 19.6 % (15.3-44.8); MPV 8.8 fL (7.6-11.3); RBC Red Blood Cell Count 2.78 M/uL (4.33-5.43)
[2020-10-15 06:50] LABS: BUN Blood Urea Nitrogen 5 mg/dL (7-18); Glucose Level 116 mg/dL (74-106); Potassium 4.2 mmol/L (3.5-5.1); Sodium Level 146 mmol/L (136-145)
[2020-10-15 06:55] LABS: Bicarbonate > 45 mmol/L (21-32)
[2020-10-15 07:33] VITALS: BP 151/108; TEMP 98.2
[2020-10-15] MEDS: SODIUM CHLORIDE 0.9% 10ML INJ IV SCH (08:00)
[2020-10-15] MEDS: ENSURE HIGH PROTEIN 237 ML CAN PO SCH (08:10)
[2020-10-15] MEDS: FERROUS SULFATE 325 MG TAB PO SCH (08:10)
[2020-10-15] MEDS: FAMOTIDINE 20 MG TAB PO SCH (08:10)
[2020-10-15] MEDS: MAGNESIUM OXIDE 400 MG TAB PO SCH (08:11)
[2020-10-15] MEDS: POTASSIUM CL SA 10 MEQ TAB PO SCH (08:11)
[2020-10-15] MEDS: AMLODIPINE 5 MG TAB PO SCH (08:11)
[2020-10-15] MEDS: APIXABAN 5 MG TABLET PO SCH (08:12)
[2020-10-15 10:35] LABS: Arterial Blood Carboxyhemoglob 1.5 % (0-1.5); Blood O2 Saturation 96.2 % (92-98.5)
[2020-10-15 10:36] LABS: Blood Gas Oxyhemoglobin 93.7 % (94-97)
--- NOTE | 2020-10-15 10:46 | EKG ---
Test Date: 2020-10-15 Test Time: 09:59:27 Box Inspector: CONSTANTINT MEASUREMENT RESULTS: Intervals: Rate: 168 AR: 128 QRSD: 116 QT: 248 QTc: 414 [place]: P: AR: 128 QRS: 49 T: 199 INTERPRETIVE STATEMENTS: Sinus tachycardia with occasional premature ventricular complexes and fusion complexes Incomplete right bundle branch block ST & T wave abnormality, consider inferior ischemia Abnormal ECG Compared to ECG 10/12/2020 10:50:17 Fusion complex(es) now present Ventricular premature complex(es) now present Incomplete right bundle-branch block now present ST (T wave) deviation now present T-wave abnormality no longer present Possible ischemia still present Electronically Signed On 10-15-20 10:46:30 CDT by Alejandro Sahni
--- NOTE | 2020-10-15 10:52 | RAD REPORT ---
EXAM DESCRIPTION: RAD - Chest Single View - 10/15/2020 10:13 am CLINICAL HISTORY: SOB COMPARISON: October 01 TECHNIQUE: AP portable chest image was obtained 10/15/2020 10:13 am . FINDINGS: Small 10-15% pneumothorax has developed in the right upper lung field. Increased interstit ial and alveolar opacification has occurred in the right lung field. Left lung field opacification no t substantially different. Bilateral pleural effusions have increased. Heart is mostly obscured. Vasc ulature is similar to comparison. No acute bony abnormality seen. No acute aortic findings suspected. Findings telephoned to Dr. Sanchez 10:48 a.m. IMPRESSION: Approximately 10-15% right apical pneumothorax has developed. Substantial progression of right lung field opacification since October 01 with moderate right pleural fl uid.
[2020-10-15] MEDS ORDERED: WATER FOR INJ,STERILE 10 ML ONE (10:58)
[2020-10-15] MEDS ORDERED: ACETAZOLAMIDE 500 MG IV IV ONE (11:00)
--- NOTE | 2020-10-15 12:16 | P.PN ---
Subjective Date of Service: 10/15/20 Chief Complaint: respiratory failure pneumothorax patient's condition is worse he is being tachycardic on the floor UA shows a 10-15% pneumothorax with significant pulmonary fibrosis on the chest x-ray still continues to feel very weak Review of Systems General: Weakness Respiratory: Shortness of Breath Physical Examination - Vital Signs Temperature: 98.2 F Blood Pressure: 151/108 Pulse: 119 Respirations: 20 Pulse Ox (%): 100 - Physical Exam General: Alert, Moderate distress Neck: Supple Respiratory: Crackles/rales - Studies Laboratory Data (last 24 hrs) 10/15/20 05:50: Sodium 146 H, Potassium 4.2, BUN 5 L, Creatinine 0.38 L, Glucose 116 H 10/15/20 05:50: WBC 6.60, Hgb 8.5 L, Hct 26.9 L, Plt Count 528 H D Assessment & Plan - Problems (Diagnosis) (1) Pneumothorax Current Visit: Yes Status: Acute Plan: patient is 45 years of age well a spontaneous pneumothorax he still has significant interstitial changes on his chest x-ray patient is very hypoxic hypercapnic start on Diamox change him over to high-flow transfer him to the ICU and P chest x-ray in 4 hr patient is anti coagulated presume Diamox Dc Eliquis patient may need a chest tube prognosis very poor at that D5 half-normal saline patient is hypernatremic blood pressure elevated continue to observe the pneumothorax is worse when may need a chest tube
[2020-10-15 12:25] VITALS: O2SAT 99
[2020-10-15] MEDS ORDERED: dexAMETHasone 4 MG/ML VIAL IV SCH (13:00)
[2020-10-15] MEDS ORDERED: D5 0.45 NS 1,000 ML IV SCH (13:00)
[2020-10-15] MEDS ORDERED: ACETAZOLAMIDE 500 MG IV IV SCH (20:00)
[2020-10-16] MEDS ORDERED: predniSONE 5 MG TAB PO SCH (08:00)
--- NOTE | 2020-10-23 16:39 | R.PREADM ---
PRE-ADMISSION SCREENING FORM SCREENING DATE AND TIME 10/23/2020 13:29 (PDT) ANTICIPATED REHAB ADMISSION DATE 10/25/2020 REFERRING FACILITY [facility] REFERRAL DATE AND TIME 10/23/2020 15:29 (CDT) REFERRAL ROOM# 209 ACUTE ADMIT DATE 10/15/2020 Previous Rehabilitation(s): Y. 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 JOE VALDES REHAB FACILITY [facility] CLINICAL LIAISON Harpreet Schmidt PHYSICIAN REVIEWER Dr. Jamel Ruff M.D. MR# [id number] NAME CINDY MEDRANO ADDRESS [address] [facility] PH[address] [facility] [address] DATE OF 1975 AGE 45 SSN# [id number] GENDER male MARITAL STATUS with a Domestic Partner RACE black PREF. LANGUAGE (IF NON-IRISH) German ADMIT FROM 02 - [facility] PRE-HOSPITAL LIVING SETTING 01 - Home (private home/apt. board/care, assisted living, senior living, transitional living) HOME TYPE AND DETAILS Type of home: single family house # of levels in the residence: 1 # of steps to enter the residence: 0 # of steps within the residence: 1 Pt. reports being completely independent prior to CoVid19 infection, lives in 1 level home, no steps to enter, has a rljk-ly-[id number] w/ ledge, no shower chair. Independent and ambulatory. PRE-HOSPITAL LIVING WITH [facility] FAMILY SUPPORT Yes PRIMARY FAMILY CONTACT NAME Rahel Chester PRIMARY FAMILY CONTACT PHONE PRIMARY FAMILY CONTACT RELATIONSHIP Mother IS PRIMARY FAMILY CONTACT AUTH. REP.? no 1ST EMERGENCY CONTACT Rahel Chester 1ST CONTACT PHONE 1ST CONTACT RELATIONSHIP Mother IS 1ST CONTACT AUTH. REP.? no PHONE 2ND CONTACT ON ADM.? 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 No ANOTHER REPUBLICAN RESPONSIBLE? No PRIMARY REHAB/ACUTE DIAGNOSIS: POST COVID ONSET DATE 08/18/2020 REHAB IMPAIRMENT CATEGORY (NYA): 15 Pulmonary does NOT meet 60% rule PRIMARY DIAGNOSIS-RELATED SURGERIES: No surgeries related to the primary diagnosis were performed. RISK FOR COMPLICATIONS: - N/A Acute Resp failure - Arrhythmia Tachycardia SUMMARY OF ACUTE HOSPITALIZATION: Pt. is a 45 yo Right-handed black male. On 08/18/2020 he was admitted to [facility] with diagnosis POST COVID. His impairment category is Pulmonary Disorders 10 - Other Pulmonary Disorders (10.9). Pre-morbidly, Pt. was independent/mod-I in Transfers Control, Locomotion, Self-Care, Social Cognition , Sphincter Control, and Communication; and he had good Balance and Safety Awareness. Currently, he has deficits of Transfers Control, Balance, Locomotion, Safety Awareness, and Self-Care . Pt. is now referred to [facility] for acute in-patient rehabilitation in order to maximize patient's functional independence in activities of daily living, strength, ROM, and mobi lity. Patient has realistic goal of being discharged at assistance level 6-Hansel to reside at Home with Fri ends. MEDICATION ALLERGIES: No Known Drug Allergies (NKDA) ENVIRONMENTAL ALLERGIES: None Known - Substance Allergies None Known - Other Allergies None Known CODE STATUS: Full code WEIGHT/HEIGHT/BMI: WEIGHT 253 lbs HEIGHT 5' 8" BMI 37.1 DIET: - Diet Type Regular - Diet - Solid Texture Regular - Diet - Liquid Texture Regular - Tube Feed N/A REVIEW OF SYSTEMS: - Gen Alert and awake Lying in bed No apparent distress Oriented to: person, time, and place - Vital Signs Vital signs stable, afebrile - CVS RRR VITAL SIGNS Temperature: 97.5 F SBP/DBP: 136/86 Pulse: 69 Resp: 19 Vital signs stable, afebrile MEDICATIONS/TREATMENT: Other- See attached MAR (Medication Administration Record). CURRENT SPHINCTER CONTROL: Pre-hospital bladder status: continent Pre-hospital bowel status: continent Last Bowel Movement Date: 10/23/2020 CURRENT LOCOMOTION STATUS: distance walked 1 feet DETAILED CURRENT FUNCTIONAL STATUS: - Walking score based on distance walked: 0(N/A) QI SCORES: - Self-Care A. Eating 03-Partial/moderate assistance B. Oral hygiene 03-Partial/moderate assistance C. Toileting hygiene 02-Substantial/maximal assistance E. Shower/bathe self 02-Substantial/maximal assistance F. Upper body dressing 01-Dependent G. Lower body dressing 01-Dependent H. Putting on/taking off footwear 01-Dependent - Mobility A. Roll left and right 02-Substantial/maximal assistance B. Sit to lying 02-Substantial/maximal assistance C. Lying to sitting on side of bed 02-Substantial/maximal assistance D. Sit to stand 02-Substantial/maximal assistance E. Chair/fwy-fk-hlclj transfer 02-Substantial/maximal assistance F. Toilet transfer 02-Substantial/maximal assistance G. Car transfer 88-Not attempted due to medical condition or safety concerns I. Walk 10 feet 88-Not attempted due to medical condition or safety concerns J. Walk 50 feet with two turns 88-Not attempted due to medical condition or safety concerns K. Walk 150 feet 88-Not attempted due to medical condition or safety concerns L. Walking 10 feet on uneven surfaces 88-Not attempted due to medical condition or safety concerns M. 1 step (curb) 88-Not attempted due to medical condition or safety concerns N. 4 steps 88-Not attempted due to medical condition or safety concerns O. 12 steps 88-Not attempted due to medical condition or safety concerns P. Picking up object 88-Not attempted due to medical condition or safety concerns - Bladder and Bowel Bladder continence 0-Always continent Bowel continence 0-Always continent - Endurance Poor - Balance Poor - Safety Awareness Poor CURRENT FUNC. DEFICITS: Self-Care, Mobility, Endurance, Balance, and Safety Awareness HISTORY OF FALLS. HAS THE PATIENT HAD TWO OR MORE FALLS IN THE PAST YEAR OR ANY FALL WITH INJURY IN T HE PAST YEAR?: No PRIOR SURGERY. DID THE PATIENT HAVE MAJOR SURGERY DURING THE 100 DAYS PRIOR TO ADMISSION?: No THERAPY NOTES FROM ACUTE CARE: Attached. SPECIAL NEEDS: - Safety Concerns Skin breakdown precautions needed due to skin breakdown risk PATIENT NEEDS ACTIVE AND ONGOING THERAPEUTIC INTERVENTION OF MULTIPLE THERAPY DISCIPLINES, INCLUDING: - Dietary and Nutrition Adequate Nutrition. Nutritional Education. Nutritional Supplements. PATIENT NEEDS CLOSE MEDICAL SUPERVISION BY A REHABILITATION PHYSICIAN FOR: Coordination of Treatment Team PATIENT REQUIRES 24X7 REHAB NURSING FOR MEDICAL AND FUNCTIONAL MGT. OF THE FOLLOWING DEFICITS: Disease Management Medication Management Patient/Family Education Providing Safe Environment PATIENT REQUIRES INTENSIVE, COORDINATED INTERDISCIPLINARY APPROACH TO REHAB: Arranging Home Equipment/Services Discharge Planning Family Intervention/Training Appraiser Personal Property/Case Management PATIENT REHAB POTENTIAL: Julissa MEDRANO is able and expected to receive 3 hours of individualized therapy daily on at least 5 of nguyễn ry 7 days ARuba MITCHELL's prognosis for significant practical improvement within a reasonable period of time appears Good Expected level of measurable improvement will be of a practical value to Julissa MEDRANO's functional capaci ty or adaptations to impairments Has a viable Discharge Plan Medically appropriate; condition is sufficiently stable to participate in intensive rehab program DISCHARGE PLAN: - Estimated Length of Stay (days) 11. - Consensus on plan Discharge plan has been discussed with primary caregiver. Patient/Family is in agreement with the rebekah n. Primary caregiver is in agreement with the plan. - Patient/Family Goals Return home independently. - Planned Living Setting Upon Discharge Home, to live with Friends. Primary caregiver: Friend. RECOMMENDED CARE LEVEL: IRF RECOMMENDATION DETAILS: Recommended Admission to Comprehensive Rehabilitation Program to Increase Functional [place] SCREENER'S COMPLETENESS CONFIRMATION: - Screening Confirmation The patient data collection on this preadmission screening form is finished PHYSICIANS REVIEW AND ADMISSION DETERMINATION Admit - Based on my review of the Pre-Admission Screening results, in my medical judgment and experie nce, I concur with the findings and recommend admission to [facility], as this patient requires an IRF level of care. SIGNATURE PANEL: Journalism Internship - [electronically] signed by Sulma Hatch Psychological Examiner on 10/23/2020 at 15:36 (CD T) Journalism Internship - [electronically] signed by Robert Schmidt PT on 10/23/2020 at 16:23 (CDT) Physician Reviewer - [electronically] signed by Dr. Jamel Ruff M.D. on 10/23/2020 at 16:38 (CDT )
== END 2020-10-15 13:30 | disposition home or self-care (01) | DRG 948 ==
LOC: 5TH 15:22
PROVIDERS: ADMIT Psychiatry & Neurology Neurology with Special Qualifications in Child Neurology; ATTEND Psychiatry & Neurology Neurology with Special Qualifications in Child Neurology
DX: R53.81 Other malaise (principal); E87.0 Hyperosmolality and hypernatremia; J93.83 Other pneumothorax; R00.0 Tachycardia, unspecified; J84.10 Pulmonary fibrosis, unspecified; Z86.16 Personal history of COVID-19
CPT/HCPCS: 36415; 71045; 80048; 81001; 82040; 82805; 83735; 84134; 85025; 87086; 87088; 93005; 94010; 94660; 94760; 97110; 97112; 97116; 97163; 97530; 97542; J1100; J1120; J7512; J7799; U0003

== ENCOUNTER 2020-10-15 13:47 | Inpatient (IN) | payer SELFPAY ==
--- OUTSIDE RECORDS SUMMARY | 2020-10-15 13:50 | XMS REPORT | Continuity of Care Document ---
:1975 Author Organization [facility] t Address [address] [place] [address] Care Team Providers Name Role Phone Unavailable Unavailable Unavailable Problems Condition Condition Condition Status Onset Resolution Last Treating Co mments Source Name Details Category Date Date Treatment Clinician Date Adult BMI Adult BMI Diagnosis Active [facility] 40.0-44.9 40.0-44.9 Luke s - kg/sq m kg/sq m Memoria l [facility] ent Clinics Essential Essential Diagnosis Active [facility] (primary) (primary) Luke s - hypertensi hypertensi Me moria on on l [facility] ent Clinics Tobacco Tobacco [facility]ics Pure Pure Problem Active [facility] hyperchole hyperchole [place] kes - sterolemia sterolemia Me [facility] Family Family Diagnosis Active [facility] history of history of [place] kes - heart heart Memoria disease in disease in l male male [facility] family family ent member member Clinics before age before age [age] Allergies, Adverse Reactions, Alerts This patient has no known allergies or adverse reactions. Medications Ordered Filled Start Stop Current Ordering Indication Dosage Frequency Signature Comments Components Source Medication Medication Date Date Medication? Clinician (SIG) Name Name -81 Aspir-81 2019-0 2019- No Dariel [address] [facility] 2-12 12-27 [facility] - 00:00: 00:00 Memoria 00 :00 [facility] Lisinopril Lisinopril 2017- Yes Dariel [address] [facility] - Adelita [facility] - 00:00: Memoria 00 [facility] Immunizations Ordered Filled Immunization Date Status Comments Sourc e Immunization Name Name TDAP > 7 TDAP > 7 2018-04-[address] [facility] - Years-Adacel Years-Adacel 00:00:00 [facility] Flucelvax - Flucelvax - 2018-04-[address] [facility] - multidose vial multidose vial 00:00:00 [facility] Procedures This patient has no known procedures. Encounters Start End Encounter Admission Attending Care Care Encounter Source Date/Time Date/Time Type Type Clinicians Facility Department ID 2018-06-30 2018-06-30 Outpatient Milind Gil [id number] [facility] 11:30[facility]00 11[facility]30[facility]00 [facility] 2018-05-18 2018-05-18 Outpatient Milind Gil [id number] [facility] 09:45:00 09:45:00 [facility] 2018-04-30 2018-04-30 Outpatient Milind Gil [id number] [facility] 14:30:00 14:30:00 [facility] ent Clinics Results This patient has no known results.
[2020-10-15] MEDS ORDERED: ONDANSETRON 4 MG/2 ML VIAL IV PRN (14:01)
[2020-10-15] MEDS ORDERED: LACTULOSE 20 GM/30 ML UCUP PO PRN (14:01)
[2020-10-15] MEDS ORDERED: ACETAMINOPHEN 500 MG TAB PO PRN (14:01)
[2020-10-15] MEDS ORDERED: FUROSEMIDE 20 MG/ 2ML VIAL IV SCH (14:17)
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
[2020-10-15] MEDS ORDERED: FUROSEMIDE 20 MG/ 2ML VIAL ONE (14:44)
[2020-10-15] MEDS ORDERED: METHYLPREDNISOLONE 40 MG INJ IV SCH (15:00)
[2020-10-15] MEDS ORDERED: METHYLPREDNISOLONE 40 MG INJ ONE (15:26)
--- NOTE | 2020-10-15 15:27 | RAD REPORT ---
EXAM DESCRIPTION: RAD - Chest Single View - 10/15/2020 2:19 pm CLINICAL HISTORY: pneumothoraxlung parenchymal disease COMPARISON: Portable exam October 15, portable exam October 01 TECHNIQUE: AP portable chest image was obtained 10/15/2020 2:19 pm . FINDINGS: Follow-up portable imaging for 4 hours after the initial examination. As detailed on an ad dendum attached to the earlier examination, the 10/15/2020 10:10 a.m. examination was improperly orie nted resulting in a description of a right-sided pneumothorax. Current imaging is properly oriented. The pneumothorax is still present but is on the left side. The pneumothorax has not enlarged since the examination performed earlier in the day. Left lung parenchymal disease is not substantially different from October 01 imaging. Right lung disease is only slightly progressive compared to October 01. Right-sided PICC line has not changed. Heart size is prominent but stable. No new or progressive vascular engorgement. Pleural fluid is less evident than on earlier imaging. IMPRESSION: LEFT-sided pneumothorax is present unchanged in size from the earlier examination. The [facility] examination was improperly oriented right versus left resulting in the pneumothorax appearing to be on the right side. Left-side lung parenchymal disease is not substantially different from serial imaging. Right-sided laura ng parenchymal disease has progressed minimally from October 01.
[2020-10-15] MEDS: D5W 1,000 ML IV SCH (16:07)
[2020-10-15] MEDS ORDERED: METOPROLOL TAR 25 MG TAB ONE (17:28)
[2020-10-15] MEDS: METOPROLOL TAR 25 MG TAB PO SCH (18:00)
--- NOTE | 2020-10-15 19:32 | RAD REPORT ---
EXAM DESCRIPTION: CT - Chest For Pe Angio - 10/15/2020 6:57 pm CLINICAL HISTORY: R/O PE, eval pneumohistory of COVID-19 infection COMPARISON: Chest For Pe Angio dated 08/18/2020; Chest Single View dated 10/15/2020 TECHNIQUE: Dynamically enhanced 3 mm thick images of the chest were obtained during administration o f approximately 150mL Isovue 370 IV contrast. Coronal and oblique MIP reconstruction images were gene rated and reviewed. Exam utilizes a protocol to evaluate the pulmonary arterial tree. All CT scans are performed using dose optimization technique as appropriate and may include automated exposure control or mA/KV adjustment according to patient size. FINDINGS: No pulmonary emboli are identified. The aorta as imaged shows no acute or suspicious finding. No pericardial thickening or effusion. Numerous bulla and blebs are noted in the lung parenchyma. Largest is in the left upper lobe 3.8 cm i n diameter. Interstitial and alveolar opacities are present scattered in the right lung field. No rig ht-sided pneumothorax or pleural effusion. More dense alveolar opacification is present in the periph jesus of the left upper and left lower lobes. Additional interstitial and ground-glass alveolar opaciti es are present. Left-sided pneumothorax is present. This is approximately 15-20%. In the supine posit ion for this examination the pneumothorax is present along the anterior left hemithorax. No pleural e ffusion or pleural thickening. No mediastinal or hilar suspicious masses. No chest wall masses or abnormal axillary lymphadenopathy. IMPRESSION: No pulmonary emboli identified. Left-sided pneumothorax along the anterior left hemithorax estimated at 15-20%.Assessment of any shelley ge in the size of the pneumothorax is limited when trying to compare in upright portable film with a supine CT study. No substantial change in the size the pneumothorax is felt to have occurred since th e chest films earlier in the day. Patient has prominent peripheral airspace opacification in the left hemithorax with poor scattered in terstitial and alveolar opacities in the right lung field. Lung parenchymal findings are consistent w ith a bilateral pneumonia and such a pattern can be seen with persistent or incompletely resolved COV ID-19 pneumonia. Scattered bulla and bleb in the lung parenchyma.
[2020-10-15] MEDS ORDERED: ADENOSINE 6 MG/ 2ML VIAL IV ONE ×2 (19:50→20:06)
[2020-10-15] MEDS ORDERED: APIXABAN 5 MG TABLET ONE (20:01)
[2020-10-15] MEDS ORDERED: dexAMETHasone 4 MG/ML VIAL ONE (20:01)
[2020-10-15] MEDS ORDERED: FAMOTIDINE 20 MG TAB ONE (20:01)
[2020-10-15] MEDS ORDERED: NA CHLORIDE 0.9% 100 ML ONE (20:06)
[2020-10-15] MEDS: dexAMETHasone 4 MG/ML VIAL IV SCH (20:10)
[2020-10-15] MEDS: FAMOTIDINE 20 MG TAB PO SCH (20:10)
[2020-10-15] MEDS: APIXABAN 5 MG TABLET PO SCH (20:10)
[2020-10-15] MEDS ORDERED: AMIODARONE HCL 150 MG in D5W 100 ML IV STA (20:16)
[2020-10-15] MEDS: AMIODARONE HCL 450 MG in D5W 241 ML IV SCH (20:33)
[2020-10-15] MEDS ORDERED: AMIODARONE HCL 150 MG/3 ML INJ IV ONE ×2 (20:40→20:41)
[2020-10-15] MEDS ORDERED: D5W 100 ML IV ONE (20:40)
[2020-10-15] MEDS ORDERED: D5W 250 ML IV ONE (20:42)
[2020-10-15] MEDS: ENSURE HIGH PROTEIN 237 ML CAN PO SCH (21:00)
[2020-10-15] MEDS: BENZONATATE 100 MG CAP PO PRN (21:52)
[2020-10-15] MEDS ORDERED: BENZONATATE 100 MG CAP PO ONE (22:10)
[2020-10-16] MEDS: METOPROLOL TARTRATE 5 MG/5 ML INJ IV PRN ×2 (03:46→14:33)
[2020-10-16] MEDS ORDERED: METOPROLOL TARTRATE 5 MG/5 ML INJ IV ONE ×2 (04:06→14:53)
[2020-10-16 04:59] LABS: Absolute Lymphocytes (CBC) 0.8 K/uL (0.7-4.9); Basophils % 0.5 % (0-1.3); Hematocrit 26.3 % (39.6-49.0); Lymphocytes % 19.2 % (15.3-44.8); MPV 8.8 fL (7.6-11.3)
[2020-10-16] MEDS: D5W 1,000 ML IV SCH ×2 (05:09→18:10)
[2020-10-16] MEDS: AMIODARONE HCL 450 MG in D5W 241 ML IV SCH (05:10)
[2020-10-16 05:25] LABS: ALT/SGPT 36 U/L (12-78); AST/SGOT 17 U/L (15-37); Albumin 2.7 g/dL (3.4-5.0); Alkaline Phosphatase 78 U/L (45-117); BUN Blood Urea Nitrogen 7 mg/dL (7-18); Bicarbonate 40 mmol/L (21-32); Bilirubin Total 0.2 mg/dL (0.2-1.0); Ferritin 351.6 ng/mL (26-388); Glucose Level 180 mg/dL (74-106); Magnesium 2.4 mg/dL (1.8-2.4); Potassium 4.4 mmol/L (3.5-5.1); Sodium Level 141 mmol/L (136-145)
[2020-10-16] MEDS ORDERED: D5W 1,000 ML IV ONE ×2 (05:27→18:08)
[2020-10-16] MEDS ORDERED: AMIODARONE IN DEXTROSE,ISO-OSM 360 MG/200 ML BAG IV ONE (05:27)
[2020-10-16] MEDS: METOPROLOL TAR 25 MG TAB PO SCH (05:51)
[2020-10-16 05:56] LABS: Arterial Blood Carboxyhemoglob 1.4 % (0-1.5); Blood Gas Oxyhemoglobin 95.6 % (94-97); Blood O2 Saturation 97.9 % (92-98.5)
[2020-10-16] MEDS ORDERED: METOPROLOL TAR 25 MG TAB ONE (06:08)
[2020-10-16] MEDS ORDERED: APIXABAN 5 MG TABLET ONE ×2 (07:41→20:24)
[2020-10-16] MEDS ORDERED: THIAMINE HCL 100 MG TABLET ONE (07:41)
[2020-10-16] MEDS ORDERED: FOLIC ACID 1 MG TABLET ONE (07:41)
[2020-10-16] MEDS ORDERED: dexAMETHasone 4 MG/ML VIAL ONE ×2 (07:42→20:24)
[2020-10-16] MEDS ORDERED: FAMOTIDINE 20 MG TAB ONE ×2 (07:42→20:24)
[2020-10-16] MEDS ORDERED: DOCUSATE NA 100 MG CAP PO ONE (07:44)
[2020-10-16] MEDS: THIAMINE HCL 100 MG TABLET PO SCH (08:16)
[2020-10-16] MEDS: FAMOTIDINE 20 MG TAB PO SCH ×2 (08:16→20:18)
[2020-10-16] MEDS: ENSURE HIGH PROTEIN 237 ML CAN PO SCH ×2 (08:16→21:39)
[2020-10-16] MEDS: APIXABAN 5 MG TABLET PO SCH ×2 (08:16→20:18)
[2020-10-16] MEDS: ACETAZOLAMIDE 500 MG IV IV SCH (08:16)
[2020-10-16] MEDS: FERROUS SULFATE 325 MG TAB PO SCH (08:16)
[2020-10-16] MEDS: DOCUSATE NA 100 MG CAP PO SCH (08:16)
[2020-10-16] MEDS: FOLIC ACID 1 MG TABLET PO SCH (08:16)
[2020-10-16] MEDS: dexAMETHasone 4 MG/ML VIAL IV SCH ×2 (08:16→20:18)
--- NOTE | 2020-10-16 10:16 | RAD REPORT ---
EXAM DESCRIPTION: [facility] Single View10/16/2020 6:31 am CLINICAL HISTORY: Pneumothorax COMPARISON: October 15, 2020 FINDINGS: No change in a small left pneumothorax Bilateral pulmonary opacities unchanged Heart remains enlarged IMPRESSION: No change in a small left pneumothorax No change in bilateral pulmonary opacities
--- NOTE | 2020-10-16 10:33 | CON ---
Date of Consultation: 10/16/2020 Reason For Consultation: Acute respiratory failure and atrial flutter. History Of Present Illness: Mr. Dewey is a 45-year-old male, who had COVID, was in rehab, recovering . Went into respiratory failure, rapid atrial flutter, rate of 165, brought down to the emergency ro om and I was consulted. I recommended using IV amiodarone. He had received adenosine IV because of his fast rate, initially thought to be SVT, but he obviously had some atrial flutter wave, went back into rapid response. Amiodarone has been started. His rate went from 160 to 122, but remained in at rial fibrillation. He also has a pneumothorax. His pO2 is 110, pCO2 is 93 with a pH of 7.25, he is on 90% FiO2. Past Medical History: Includes hypertension, prediabetes, anemia of chronic disease, gastroesophagea l reflux disease, recent bilateral COVID pneumonia. Family History: Positive for heart disease. Review of Systems: Negative. Social History: Negative. Family History: Noncontributory. Medications: Presently include Norvasc, Eliquis, Pepcid, metoprolol, potassium, and trazodone. Physical Examination: Vital Signs: Afebrile, blood pressure 102/73, atrial flutter at 120, pulse ox 100%. HEENT: Negative. Neck: Supple with no bruit. Chest: Revealed decreased breath sounds and crackles bilaterally. Cardiac: Revealed tachycardia. No murmurs, gallops, or rubs. Abdomen: Benign. Extremities: Revealed no clubbing, cyanosis, or edema. Diagnostic Data: Chest x-ray showed 15% right apical pneumothorax with substantial progression of th e right lung field opacification since October 01 with moderate right pleural effusion. EKG showed atr ial flutter. Laboratory evaluation was fairly unremarkable. Impression And Plan: Acute hypoxia, respiratory failure, pneumothorax, right-sided pleural effusion, recent COVID pneumonia with rapid atrial flutter. He needs to be on IV amiodarone. May need to be intubated. We will continue to follow. No other options at this point except for the amiodarone. Rah rosales is stable hemodynamically with a normal blood pressure. If he becomes hypotensive, we may have to resort to a cardioversion electrically. His other problems include hyperglycemia, gastroesophageal r eflux disease, obesity, anemia, and hypertension these are stable at this point. Echocardiogram whic h was done in August 2020 was normal and there is really no need to repeat that at this point. HOLLY/NATALIE Voice ID: [id number] Report ID: [id number]
[2020-10-16] MEDS: BENZONATATE 100 MG CAP PO PRN (11:38)
[2020-10-16] MEDS ORDERED: ONDANSETRON 4 MG/2 ML VIAL ONE (11:58)
[2020-10-16] MEDS ORDERED: BENZONATATE 100 MG CAP PO ONE (11:58)
[2020-10-16] MEDS: METOPROLOL TAR 50 MG TAB PO SCH (17:15)
[2020-10-16] MEDS ORDERED: METOPROLOL TAR 50 MG TAB ONE (17:35)
[2020-10-16] MEDS: LEVALBUTEROL 1.25 MG/3 ML NEB NEB SCH (19:50)
[2020-10-16] MEDS ORDERED: LEVALBUTEROL 1.25 MG/3 ML NEB ONE (20:06)
[2020-10-17] MEDS: LEVALBUTEROL 1.25 MG/3 ML NEB NEB SCH ×4 (01:35→19:25)
[2020-10-17] MEDS ORDERED: LEVALBUTEROL 1.25 MG/3 ML NEB ONE ×4 (02:04→19:43)
[2020-10-17] MEDS: METOPROLOL TARTRATE 5 MG/5 ML INJ IV PRN ×2 (02:21→13:28)
[2020-10-17] MEDS ORDERED: METOPROLOL TARTRATE 5 MG/5 ML INJ IV ONE ×2 (02:39→13:38)
[2020-10-17 04:53] VITALS: BMI 38.5
[2020-10-17 05:09] LABS: Basophils % 0.2 % (0-1.3); Hematocrit 23.8 % (39.6-49.0); Lymphocytes % 13.2 % (15.3-44.8); MPV 8.9 fL (7.6-11.3); RBC Red Blood Cell Count 2.47 M/uL (4.33-5.43)
[2020-10-17] MEDS: METOPROLOL TAR 50 MG TAB PO SCH ×2 (05:22→19:07)
[2020-10-17] MEDS ORDERED: METOPROLOL TAR 50 MG TAB ONE ×2 (05:24→19:26)
[2020-10-17 05:38] LABS: ALT/SGPT 60 U/L (12-78); AST/SGOT 36 U/L (15-37); Albumin 2.9 g/dL (3.4-5.0); Alkaline Phosphatase 78 U/L (45-117); BUN Blood Urea Nitrogen 12 mg/dL (7-18); Bilirubin Total 0.2 mg/dL (0.2-1.0); Ferritin 353.9 ng/mL (26-388); Glucose Level 169 mg/dL (74-106); Magnesium 2.5 mg/dL (1.8-2.4); Potassium 4.1 mmol/L (3.5-5.1); Sodium Level 139 mmol/L (136-145)
[2020-10-17 05:52] LABS: Bicarbonate 42 mmol/L (21-32)
[2020-10-17] MEDS: D5W 1,000 ML IV SCH (06:38)
[2020-10-17] MEDS ORDERED: D5W 1,000 ML IV ONE (06:57)
[2020-10-17] MEDS ORDERED: THIAMINE HCL 100 MG TABLET ONE (07:28)
[2020-10-17] MEDS ORDERED: FOLIC ACID 1 MG TABLET ONE (07:28)
[2020-10-17] MEDS ORDERED: APIXABAN 5 MG TABLET ONE ×2 (07:28→20:08)
[2020-10-17] MEDS ORDERED: FAMOTIDINE 20 MG TAB ONE ×2 (07:29→20:09)
[2020-10-17] MEDS ORDERED: dexAMETHasone 4 MG/ML VIAL ONE ×2 (07:29→20:08)
[2020-10-17] MEDS ORDERED: DOCUSATE NA 100 MG CAP PO ONE (07:30)
--- NOTE | 2020-10-17 07:44 | RAD REPORT ---
[facility] DES[facility] 5:16 am CLINICAL HISTORY: Pneumothorax COMPARISON: October 16 FINDINGS: Left pneumothorax has decreased in size and is very small. No significant change in the bilateral pulmonary opacities
[2020-10-17] MEDS: FOLIC ACID 1 MG TABLET PO SCH (08:00)
[2020-10-17] MEDS: dexAMETHasone 4 MG/ML VIAL IV SCH ×2 (08:00→19:51)
[2020-10-17] MEDS: DOCUSATE NA 100 MG CAP PO SCH (08:00)
[2020-10-17] MEDS: APIXABAN 5 MG TABLET PO SCH ×2 (08:00→19:51)
[2020-10-17] MEDS: FAMOTIDINE 20 MG TAB PO SCH ×2 (08:00→19:51)
[2020-10-17] MEDS: THIAMINE HCL 100 MG TABLET PO SCH (08:00)
[2020-10-17] MEDS: FERROUS SULFATE 325 MG TAB PO SCH (08:00)
[2020-10-17] MEDS: ACETAZOLAMIDE 500 MG IV IV SCH (08:00)
[2020-10-17] MEDS: ENSURE HIGH PROTEIN 237 ML CAN PO SCH ×2 (08:02→19:46)
--- NOTE | 2020-10-17 08:32 | P.PN ---
Subjective Date of Service: 10/16/20 Spoke with Cardiology regarding patient's atrial fibrillation. Increased amiodarone. Increased oral Lopressor. Still quite hypoxic requiring large amounts of FiO2. Hold any sedatives. Continue on high-flow oxygen. Believe he was not placed on BiPAP because of pneumothorax. Continuing high-flow and hop efully continues to reabsorbed. Repeat ABGs. Resume physical therapy as well will once pneumothorax has cleared up. Hopefully, we can start weaning him down off the FiO2 gradually again. Review of Systems 10-point ROS is otherwise unremarkable Physical Examination - Vital Signs Temperature: 97.6 F Blood Pressure: 120/87 Pulse: 107 Respirations: 23 Pulse Ox (%): 98 - Physical Exam General: Alert, In no apparent distress, Oriented x3 HEENT: Atraumatic, PERRLA, EOMI Neck: Supple, JVD not distended Respiratory: Diminished, Crackles/rales Cardiovascular: Regular rate/rhythm, Normal S1 S2, No murmurs Gastrointestinal: Normal bowel sounds, Soft and benign, Non-distended, No tenderness Musculoskeletal: No tenderness Integumentary: No rashes Neurological: Normal speech, Normal tone, Normal affect Lymphatics: No axilla or inguinal lymphadenopathy - Studies Laboratory Data (last 24 hrs) 10/17/20 04:45: Sodium 139, Potassium 4.1, BUN 12, Creatinine 0.56, Glucose 169 H, Magnesium 2.5 H, Total Bilirubin 0.2, AST 36, ALT 60, Alkaline Phosphatase 78 10/17/20 04:45: WBC 7.30 D, Hgb 8.1 L, Hct 23.8 L, Plt Count 424 H Medications List Reviewed: Yes Assessment & Plan - Problems (Diagnosis) (1) Hypercapnia Current Visit: Yes Status: Acute (2) Atrial flutter with rapid ventricular response Current Visit: Yes Status: Acute (3) History of severe acute respiratory syndrome coronavirus 2 (SARS-CoV-2) disease Current Visit: Yes Status: Acute (4) Acute respiratory failure due to severe acute respiratory syndrome coronavirus 2 (SARS-CoV-2) infection Current Visit: No Status: Acute (5) Pneumothorax Current Visit: No Status: Acute - Plan 1. Continue with IV steroids 2. Continue high-flow oxygen 3. Repeat chest x-ray 4. IV amiodarone-will increase dosing; monitor LFTs 5. Appreciate pulmonary consultation and cardiology consultation 6. Continue with nebs as needed 7. O2 per protocol 8. Repeat echocardiogram 9. Repeat labs including CBC and renal function in a.m. 10. GI and DVT prophylaxis Discharge Plan: Other Plan to discharge in: Greater than 2 days - Advance Directives Does patient have a Living Will: No Does patient have a Durable POA for Healthcare: No - Code Status/Comfort Care Code Status Assessed: Yes Code Status: Full Code Critical Care: Yes Time Spent Managing PTS Care (In Minutes): 45
[2020-10-17 11:22] LABS: Arterial Blood Carboxyhemoglob 1.7 % (0-1.5); Blood Gas Oxyhemoglobin 79.9 % (94-97)
--- NOTE | 2020-10-17 13:28 | CON ---
Date of Consultation: 10/15/2020 History Of Present Illness: Mr. Dewey is a 45-year-old patient, seen in the hospital for a long time due to COVID, at one moment he was in the ICU. Apparently, he was sent to rehab unit today. He was found to have subclinical findings and those are respiratory since he has been having the issue sinc e he developed COVID and the patient was transferred to the ICU. During the workup on the chest x-ra y, the patient was found to have pneumothorax that was claimed to be about 50% originally, claimed th at was the right side, but is on the left side after correction by the radiologist. The patient was brought to the ICU for observation. Dr. Sanchez gave me a call to let me know about the pneumothorax. I went to the hospital and I discussed with Dr. Sanchez the findings and finally this patient is sole ng followed by our wheel assembler, Dr. Crenshaw who is aware of the situation. I also , whi ch I am surprised because normally the wheel assembler will put a chest tube. They believe it is proba armen induced by the CPAP treatment. I did not notice the patient in the past. I do not know his lung status. He is only having some difficult breathing, so it is hard for us clinically to determine if there is any deterioration or not, but I discussed that with the family . Past Medical History: As above. Social History: He does smoke. He does not drink alcohol. Family History: Noncontributory. Allergies: REVIEWED. Medications: Reviewed. Review of Systems: As per H and P. Physical Examination: General: The patient is awake, alert. He has oxygen on board. No distress. Chest: Bilateral breath sounds. Abdomen: Soft and depressible. Extremities: Good capillary refill. Laboratory Data: Blood work shows hemoglobin of 8.5, hematocrit of 26. INR 1.2, last INR is a month ago. Chest x-ray on the right side, but is also on the left side. When they compared wi th the previous x-ray, they have not seen any progress of the pneumothorax. Assessment: It is a 45-year-old patient with residual lung disease, previously COVID diagnosis. It has been apparently about a month in the ICU and now is back in the ICU. I discussed with Dr. Sanchez and Dr. Crenshaw as I mentioned before. They have to see chronically how he is doing right now at t his moment because I do not see the patient in the past. Normally at 15%, we can put a chest tube. Obviously, the patient asked me , but it may get bigger since the patient has a BiPAP machi ne. Now, I discussed the case with Dr. Crenshaw and Dr. Sanchez. They are going to start the BiPAP m achine and they are going to treat him conservatively, which from the surgical standpoint, I explaine d to Dr. Sanchez and Dr. Crenshaw that we are successfully and they have to decide the next management. If they need any help from me, I will be happy to help once again. At that moment, the patient does not want the chest tube. The Pulmonary doctor is following the patient and the primary doctor. I suggested that we have not speciality here, we transferred to [place] to somebody who can deal that because I cannot deal with this. I do not work this lung conditions, but Dr. Sanchez had a good point since we have a wheel assembler, then the patient may not need a higher level of care, but in that case then hopefully they will able to manage this patient successfully and then reconsult me if they need me again. Once again, Dr. Crenshaw has been coming to this hospital today and he has be en in communication with the ICU nurses and I am going to follow their guidelines since they are in-c harge of this patient. The patient fully understands the risks of chest tube placement and not place ment. He understands the risks and benefits. HM/MODL Voice ID: [id number] Report ID: [id number]
[2020-10-17] MEDS ORDERED: AMIODARONE IN DEXTROSE,ISO-OSM 360 MG/200 ML BAG IV ONE (23:03)
[2020-10-17] MEDS ORDERED: NA CHLORIDE 0.9% 1,000 ML ONE (23:44)
[2020-10-17] MEDS ORDERED: MORPHINE 4 MG/ML SYR ONE (23:44)
[2020-10-18] MEDS ORDERED: ACETAMINOPHEN 500 MG TAB ONE (00:16)
[2020-10-18] MEDS ORDERED: CLINDAMYCIN 900MG/D5W 900 MG/50 ML IVPB IV ONE (00:17)
[2020-10-18] MEDS: LEVALBUTEROL 1.25 MG/3 ML NEB NEB SCH ×4 (01:00→20:48)
[2020-10-18] MEDS ORDERED: LEVALBUTEROL 1.25 MG/3 ML NEB ONE ×4 (01:28→21:09)
[2020-10-18] MEDS ORDERED: AMIODARONE IN DEXTROSE,ISO-OSM 360 MG/200 ML BAG IV ONE (04:43)
[2020-10-18 05:19] LABS: Absolute Lymphocytes (CBC) 1.3 K/uL (0.7-4.9); Basophils % 0.7 % (0-1.3); Hematocrit 24.9 % (39.6-49.0); Lymphocytes % 15.3 % (15.3-44.8); MPV 8.8 fL (7.6-11.3); RBC Red Blood Cell Count 2.59 M/uL (4.33-5.43)
[2020-10-18 05:45] LABS: ALT/SGPT 49 U/L (12-78); AST/SGOT 15 U/L (15-37); Albumin 2.8 g/dL (3.4-5.0); Alkaline Phosphatase 69 U/L (45-117); BUN Blood Urea Nitrogen 11 mg/dL (7-18); Bilirubin Total 0.3 mg/dL (0.2-1.0); C-Reactive Protein 7.21 mg/L (<3.00); Ferritin 330.8 ng/mL (26-388); Glucose Level 137 mg/dL (74-106); Magnesium 2.3 mg/dL (1.8-2.4); Potassium 3.5 mmol/L (3.5-5.1); Protein, Total 6.5 g/dL (6.4-8.2); Sodium Level 144 mmol/L (136-145)
[2020-10-18 05:48] LABS: Bicarbonate 43 mmol/L (21-32)
[2020-10-18 05:54] LABS: Arterial Blood Carboxyhemoglob 1.8 % (0-1.5); Blood Gas Oxyhemoglobin 93.4 % (94-97); Blood O2 Saturation 96.2 % (92-98.5)
[2020-10-18] MEDS: METOPROLOL TAR 50 MG TAB PO SCH ×2 (06:12→17:13)
[2020-10-18] MEDS ORDERED: METOPROLOL TAR 50 MG TAB ONE ×2 (06:32→17:33)
[2020-10-18] MEDS: dexAMETHasone 4 MG/ML VIAL IV SCH ×3 (07:36→20:31)
[2020-10-18] MEDS: FAMOTIDINE 20 MG TAB PO SCH ×2 (07:36→20:31)
[2020-10-18] MEDS: ENSURE HIGH PROTEIN 237 ML CAN PO SCH ×2 (07:36→20:31)
[2020-10-18] MEDS: ACETAZOLAMIDE 500 MG IV IV SCH (07:36)
[2020-10-18] MEDS: APIXABAN 5 MG TABLET PO SCH ×2 (07:36→20:31)
[2020-10-18] MEDS: DOCUSATE NA 100 MG CAP PO SCH (07:36)
[2020-10-18] MEDS: FERROUS SULFATE 325 MG TAB PO SCH (07:36)
[2020-10-18] MEDS: THIAMINE HCL 100 MG TABLET PO SCH (07:37)
[2020-10-18] MEDS: FOLIC ACID 1 MG TABLET PO SCH (07:37)
[2020-10-18] MEDS ORDERED: dexAMETHasone 4 MG/ML VIAL ONE ×2 (07:53→20:46)
[2020-10-18] MEDS ORDERED: APIXABAN 5 MG TABLET ONE ×2 (07:53→20:46)
[2020-10-18] MEDS ORDERED: THIAMINE HCL 100 MG TABLET ONE (07:53)
[2020-10-18] MEDS ORDERED: FOLIC ACID 1 MG TABLET ONE (07:53)
[2020-10-18] MEDS ORDERED: FAMOTIDINE 20 MG TAB ONE ×2 (07:53→20:47)
[2020-10-18] MEDS ORDERED: WATER FOR INJ,STERILE 10 ML ONE (08:45)
--- NOTE | 2020-10-18 09:01 | RAD REPORT ---
EXAM DESCRIPTION: RAD - Chest Single View - 10/18/2020 8:52 am CLINICAL HISTORY: pneumothorax Chest pain. COMPARISON: Chest Single View dated 10/17/2020; Chest Single View dated 10/16/2020; Chest Single View d ated 10/15/2020; Chest Single View dated 10/15/2020 FINDINGS: Portable technique limits examination quality. No measurable left-sided pneumothorax is evident. Moderate bilateral pulmonary opacities are again se en, unchanged since prior study. The heart is mildly enlarged.
[2020-10-18] MEDS: WATER FOR INJ,STERILE 10 ML IV SCH (09:30)
--- NOTE | 2020-10-18 12:03 | EKG ---
Test Date: 2020-10-16 Test Time: 05:38:41 Information Receptionist: sign2 user MEASUREMENT RESULTS: Intervals: Rate: 152 CO: QRSD: 100 QT: 236 QTc: 375 [place]: P: 76 CO: QRS: 12 T: 175 INTERPRETIVE STATEMENTS: Atrial flutter with 2:1 AV conduction Minimal voltage criteria for LVH, may be normal variant ST elevation, consider early repolarization, pericarditis, or injury T wave abnormality, consider inferolateral ischemia Abnormal ECG Compared to ECG 10/15/2020 09:59:27 Left ventricular hypertrophy now present T-wave abnormality now present Sinus tachycardia no longer present Fusion complex(es) no longer present Ventricular premature complex(es) no longer present Incomplete right bundle-branch block no longer present ST (T wave) deviation still present Possible ischemia still present Electronically Signed On 10-18-20 11:54:49 CDT by Alejandro Sahni
--- NOTE | 2020-10-18 12:04 | EKG ---
Test Date: 2020-10-16 Test Time: 04:23:02 Cleaning Associate: 33 MEASUREMENT RESULTS: Intervals: Rate: 125 [place]: QRSD: 88 QT: 368 QTc: 531 [place]: P: [place]: QRS: 28 T: 72 INTERPRETIVE STATEMENTS: Atrial flutter with variable AV block with premature ventricular or aberrantly conducted complexes ST elevation, consider inferolateral injury or acute infarct ACUTE DE / STEMI Abnormal ECG Compared to ECG 10/15/2020 09:59:27 Myocardial infarct finding now present Sinus tachycardia no longer present Fusion complex(es) no longer present Incomplete right bundle-branch block no longer present Possible ischemia no longer present ST (T wave) deviation still present Electronically Signed On 10-18-20 11:54:50 CDT by Alejandro Sahni
[2020-10-18] MEDS ORDERED: D5 0.45 NS 1,000 ML IV ONE (14:40)
[2020-10-18] MEDS: BENZONATATE 100 MG CAP PO PRN (17:39)
[2020-10-18] MEDS ORDERED: BENZONATATE 100 MG CAP PO ONE (17:59)
[2020-10-19] MEDS: LEVALBUTEROL 1.25 MG/3 ML NEB NEB SCH ×4 (01:38→20:20)
[2020-10-19] MEDS ORDERED: LEVALBUTEROL 1.25 MG/3 ML NEB ONE ×4 (01:57→20:39)
[2020-10-19 05:04] LABS: Absolute Lymphocytes (CBC) 1.3 K/uL (0.7-4.9); Basophils % 0.6 % (0-1.3); Hematocrit 25.1 % (39.6-49.0); Lymphocytes % 15.5 % (15.3-44.8); MPV 9.2 fL (7.6-11.3); RBC Red Blood Cell Count 2.61 M/uL (4.33-5.43)
[2020-10-19 05:21] LABS: BUN Blood Urea Nitrogen 11 mg/dL (7-18); C-Reactive Protein 4.43 mg/L (<3.00); Ferritin 273.9 ng/mL (26-388); Glucose Level 140 mg/dL (74-106); Magnesium 2.3 mg/dL (1.8-2.4); Potassium 3.5 mmol/L (3.5-5.1); Sodium Level 145 mmol/L (136-145)
[2020-10-19 05:22] LABS: Bicarbonate 42 mmol/L (21-32)
[2020-10-19] MEDS: METOPROLOL TAR 50 MG TAB PO SCH ×2 (05:54→16:43)
[2020-10-19] MEDS ORDERED: METOPROLOL TAR 50 MG TAB ONE ×2 (06:13→16:38)
[2020-10-19] MEDS: DOCUSATE NA 100 MG CAP PO SCH (07:32)
[2020-10-19] MEDS: FAMOTIDINE 20 MG TAB PO SCH ×2 (07:32→20:29)
[2020-10-19] MEDS: FOLIC ACID 1 MG TABLET PO SCH (07:32)
[2020-10-19] MEDS: THIAMINE HCL 100 MG TABLET PO SCH (07:32)
[2020-10-19 07:54] LABS: Anisocytosis 1+; Blood Morphology Comment NOTED (NOT SEEN); Platelet Estimate ADEQ; Polychromasia SLIGHT
[2020-10-19] MEDS: ACETAZOLAMIDE 500 MG IV IV SCH (08:02)
[2020-10-19] MEDS: APIXABAN 5 MG TABLET PO SCH ×2 (08:02→20:29)
[2020-10-19] MEDS: ENSURE HIGH PROTEIN 237 ML CAN PO SCH ×2 (08:02→20:30)
[2020-10-19] MEDS: dexAMETHasone 4 MG/ML VIAL IV SCH ×2 (08:02→20:29)
[2020-10-19] MEDS: WATER FOR INJ,STERILE 10 ML IV SCH (08:04)
[2020-10-19] MEDS ORDERED: APIXABAN 5 MG TABLET ONE ×2 (08:18→20:40)
[2020-10-19] MEDS ORDERED: dexAMETHasone 4 MG/ML VIAL ONE ×2 (08:18→20:40)
--- NOTE | 2020-10-19 08:19 | RAD REPORT ---
EXAM DES[facility] 4:55 am CLINICAL HISTORY: Pneumothorax COMPARISON: October 18, 2020 FINDINGS: Left pneumothorax is not visualized on this examination. Bilateral pulmonary opacities are unchanged. Heart remains enlarged. PICC line in place
[2020-10-19] MEDS ORDERED: WATER FOR INJ,STERILE 10 ML ONE (08:24)
[2020-10-19] MEDS ORDERED: NA CHLORIDE 0.9% 1,000 ML ONE (08:24)
--- NOTE | 2020-10-19 08:48 | P.PN ---
Date of Service: 10/17/20 Subjective Patient mentation has gotten a little worse. ABGs on FiO2 of 50% revealed a PaO2 of 50. Will increase FiO2 to 65%. Review of Systems 10-point ROS is otherwise unremarkable Physical Examination - Vital Signs Reviewed - Physical Exam General: Alert, In no apparent distress, Oriented x3 Respiratory: Diminished, Crackles/rales Cardiovascular: Regular rate/rhythm, Normal S1 S2, No murmurs Gastrointestinal: Normal bowel sounds, Soft and benign, Non-distended, No tenderness Neurological: Normal speech, Normal tone, Normal affect; generalize weakness diffusely Assessment & Plan - Problems (Diagnosis) (1) Hypercapnia Current Visit: Yes Status: Acute (2) Atrial flutter with rapid ventricular response Current Visit: Yes Status: Acute (3) History of severe acute respiratory syndrome coronavirus 2 (SARS-CoV-2) disease Current Visit: Yes Status: Acute (4) Acute respiratory failure due to severe acute respiratory syndrome coronavirus 2 (SARS-CoV-2) infection Current Visit: No Status: Acute (5) Pneumothorax Current Visit: No Status: Acute - Plan Continue with plan of care as mentioned below: 1. Continue with IV steroids 2. Continue high-flow oxygen; tapering FiO2 3. Repeat chest x-ray 4. IV amiodarone-will increase dosing; monitor LFTs; spoke with Cardiology and increase to 1 mg/hr 5. Appreciate pulmonary consultation and cardiology consultation 6. Continue with nebs as needed 7. O2 per protocol 8. Echocardiogram pending 9. Repeat labs including CBC and renal function in a.m. 10. GI and DVT prophylaxis Discharge Plan: Other Plan to discharge in: Greater than 2 days - Advance Directives Does patient have a Living Will: No Does patient have a Durable POA for Healthcare: No - Code Status/Comfort Care Code Status Assessed: Yes Code Status: Full Code Critical Care: Yes Time Spent Managing PTS Care (In Minutes): 45
[2020-10-19] MEDS ORDERED: MIDAZOLAM HCL 2 MG/2 ML INJ ONE (08:53)
[2020-10-19] MEDS ORDERED: FLUMAZENIL 0.1 MG/ML (5 mL VIAL) IV ONE (08:53)
[2020-10-19] MEDS ORDERED: ATROPINE SULF 1 MG/10 ML SYR IV ONE (08:54)
--- NOTE | 2020-10-19 08:54 | P.PN ---
Date of Service: 10/18/20 Subjective Patient clinically doing better. Atrial flutter remains but rate is controlled. Low 100s. Spoke with Cardiology and plan to cardiovert in a.m. if not into a normal sinus rhythm. Oxygen patient continues to slowly improve. Hypercapnia stable Review of Systems 10-point ROS is otherwise unremarkable Physical Examination - Vital Signs Reviewed - Physical Exam General: Alert, In no apparent distress, Oriented x3 Respiratory: Diminished, Crackles/rales Cardiovascular: Regular rate/rhythm, Normal S1 S2, No murmurs Gastrointestinal: Normal bowel sounds, Soft and benign, Non-distended, No tenderness Neurological: Normal speech, Normal tone, Normal affect; generalize weakness diffusely Assessment & Plan - Problems (Diagnosis) (1) Hypercapnia Current Visit: Yes Status: Acute (2) Atrial flutter with rapid ventricular response Current Visit: Yes Status: Acute (3) History of severe acute respiratory syndrome coronavirus 2 (SARS-CoV-2) disease Current Visit: Yes Status: Acute (4) Acute respiratory failure due to severe acute respiratory syndrome coronavirus 2 (SARS-CoV-2) infection Current Visit: No Status: Acute (5) Pneumothorax Current Visit: No Status: Acute - Plan Continue with plan of care as mentioned below: 1. Continue with IV steroids 2. Continue high-flow oxygen; tapering FiO2; continue Diamox 3. Chest x-ray shows improvement of pneumothorax; almost completely reabsorbed and will continue to watch it. 4. IV amiodarone-at 1mg/hr; monitor LFTs; 5. Appreciate pulmonary consultation and cardiology consultation 6. Continue with nebs as needed 7. O2 per protocol 8. Physical therapy evaluation - Code Status/Comfort Care Code Status Assessed: Yes Code Status: Full Code Critical Care: Yes Time Spent Managing PTS Care (In Minutes): 45
--- NOTE | 2020-10-19 08:55 | P.PN ---
Date of Service: 10/19/20 Subjective Patient was cardioverted this morning. Patient went into a normal sinus rhythm. Review of Systems 10-point ROS is otherwise unremarkable Physical Examination - Vital Signs Reviewed - Physical Exam General: Alert, In no apparent distress, Oriented x3 Respiratory: Diminished, Crackles/rales Cardiovascular: Regular rate/rhythm, Normal S1 S2, No murmurs Gastrointestinal: Normal bowel sounds, Soft and benign, Non-distended, No tenderness Neurological: Normal speech, Normal tone, Normal affect; generalize weakness diffusely Assessment & Plan - Problems (Diagnosis) (1) Hypercapnia Current Visit: Yes Status: Acute (2) Atrial flutter with rapid ventricular response Current Visit: Yes Status: Acute (3) History of severe acute respiratory syndrome coronavirus 2 (SARS-CoV-2) disease Current Visit: Yes Status: Acute (4) Acute respiratory failure due to severe acute respiratory syndrome coronavirus 2 (SARS-CoV-2) infection Current Visit: No Status: Acute (5) Pneumothorax Current Visit: No Status: Acute - Plan Continue with plan of care as mentioned below: 1. Continue with IV steroids 2. Continue high-flow oxygen; tapering FiO2; continue Diamox 3. Chest x-ray with improvement of pneumothorax 4. Continue amiodarone. 5. Appreciate pulmonary consultation and cardiology consultation 6. Continue with nebs as needed 7. O2 per protocol 8. Physical therapy evaluation - Code Status/Comfort Care Code Status Assessed: Yes Code Status: Full Code Critical Care: No Time Spent Managing PTS Care (In Minutes): 25
[2020-10-19] MEDS: FERROUS SULFATE 325 MG TAB PO SCH (09:00)
[2020-10-19] MEDS ORDERED: POTASSIUM CL SA 10 MEQ TAB PO ONE (09:00)
[2020-10-19 09:29] LABS: Arterial Blood Carboxyhemoglob 1.7 % (0-1.5); Blood Gas Oxyhemoglobin 94.9 % (94-97); Blood O2 Saturation 97.4 % (92-98.5)
[2020-10-19] MEDS ORDERED: MIDAZOLAM HCL 2 MG/2 ML INJ IV ONE (10:05)
[2020-10-19] MEDS ORDERED: FENTANYL CITR 100 MCG/2 ML ONE (10:11)
--- NOTE | 2020-10-19 11:54 | OP ---
Surgeon: Alejandro Sahni MD Procedure: The patient underwent direct current cardioversion today. Indication: Atrial flutter. Procedure In Detail: Mr. Dewey is a patient, who has been in the hospital in the ICU for a few days now with persistent atrial flutter despite amiodarone IV and metoprolol. Rate is varying between 100 and 130 without any symptoms. Has been on Eliquis. We decided to do a cardioversion today. He rec eived 5 mg of Versed IV push for sedation. He received 1 shock of 100 joules and cardioverted to sin us rhythm. There were no complications. Final Diagnosis: Successful cardioversion from atrial flutter to sinus rhythm. We will continue Gela franki. We will continue amiodarone IV for now. I will decrease his dose from 1 mg per minute to 0.5 mg per minute, hopefully take him off the IV amiodarone today, and then put him on p.o. amiodarone la ter. HOLLY/NATALIE Voice ID: [id number] Report ID: [id number]
[2020-10-19] MEDS ORDERED: FAMOTIDINE 20 MG TAB ONE (20:40)
[2020-10-20] MEDS ORDERED: LEVALBUTEROL 1.25 MG/3 ML NEB ONE ×2 (02:34→09:31)
[2020-10-20] MEDS: LEVALBUTEROL 1.25 MG/3 ML NEB NEB SCH ×2 (02:40→10:00)
[2020-10-20 05:49] LABS: Absolute Lymphocytes (CBC) 1.5 K/uL (0.7-4.9); Basophils % 0.3 % (0-1.3); Hematocrit 26.2 % (39.6-49.0); Lymphocytes % 15.8 % (15.3-44.8); MPV 9.4 fL (7.6-11.3); RBC Red Blood Cell Count 2.72 M/uL (4.33-5.43)
[2020-10-20 05:58] LABS: BUN Blood Urea Nitrogen 12 mg/dL (7-18); Bicarbonate 40 mmol/L (21-32); Glucose Level 127 mg/dL (74-106); Potassium 3.3 mmol/L (3.5-5.1); Sodium Level 146 mmol/L (136-145)
[2020-10-20] MEDS: METOPROLOL TAR 50 MG TAB PO SCH ×2 (06:53→18:00)
[2020-10-20] MEDS ORDERED: POTASSIUM 25 MEQ EFFERV TAB PO ONE ×2 (07:04→15:00)
[2020-10-20] MEDS ORDERED: METOPROLOL TAR 50 MG TAB ONE (07:13)
[2020-10-20] MEDS ORDERED: THIAMINE HCL 100 MG TABLET ONE (07:51)
[2020-10-20] MEDS ORDERED: POTASSIUM 25 MEQ EFFERV TAB ONE ×2 (07:52→15:08)
[2020-10-20] MEDS ORDERED: FOLIC ACID 1 MG TABLET ONE (07:52)
[2020-10-20] MEDS ORDERED: APIXABAN 5 MG TABLET ONE (07:52)
[2020-10-20] MEDS ORDERED: FAMOTIDINE 20 MG TAB ONE (07:52)
[2020-10-20] MEDS ORDERED: dexAMETHasone 4 MG/ML VIAL ONE (07:52)
[2020-10-20] MEDS ORDERED: WATER FOR INJ,STERILE 10 ML ONE (07:52)
[2020-10-20 08:14] LABS: Anisocytosis 1+; Blood Morphology Comment NOTED (NOT SEEN); Platelet Estimate ADEQ; Polychromasia 1+
[2020-10-20] MEDS: FAMOTIDINE 20 MG TAB PO SCH ×2 (08:28→22:12)
[2020-10-20] MEDS: dexAMETHasone 4 MG/ML VIAL IV SCH ×2 (08:28→22:12)
[2020-10-20] MEDS: ACETAZOLAMIDE 500 MG IV IV SCH (08:28)
[2020-10-20] MEDS: APIXABAN 5 MG TABLET PO SCH ×2 (08:28→22:12)
[2020-10-20] MEDS: FOLIC ACID 1 MG TABLET PO SCH (08:28)
[2020-10-20] MEDS: THIAMINE HCL 100 MG TABLET PO SCH (08:28)
[2020-10-20] MEDS: ENSURE HIGH PROTEIN 237 ML CAN PO SCH ×2 (08:29→21:00)
[2020-10-20] MEDS: FERROUS SULFATE 325 MG TAB PO SCH (08:29)
[2020-10-20] MEDS: DOCUSATE NA 100 MG CAP PO SCH (08:29)
[2020-10-20] MEDS: WATER FOR INJ,STERILE 10 ML IV SCH (08:30)
--- NOTE | 2020-10-20 08:47 | RAD REPORT ---
EXAM DESCRIPTION: RAD - Chest Single View - 10/20/2020 4:41 am CLINICAL HISTORY: pneumothorax COMPARISON: Portable October 19, October 18, October 17 and October 16 TECHNIQUE: AP portable chest image was obtained 10/20/2020 4:41 am . FINDINGS: Lung volumes remain low. Pleural and parenchymal opacities in the left hemithorax are not clearly different. No pneumothorax is identifiable on this examination. An anterior pneumothorax can be occult on portable imaging. No new or progressive right hemithorax finding. Cardiac silhouette remains enlarged. Vasculature is p rominent. Bilateral pleural fluid collections match comparison. No pneumothorax. IMPRESSION: No identifiable left-sided pneumothorax on portable imaging. Anterior pneumothorax can b e occult on a portable examination. Left greater than right pleural and parenchymal opacification not clearly different.
[2020-10-20] MEDS: acetaZOLAMIDE 250 MG TAB PO SCH (09:00)
[2020-10-20] MEDS ORDERED: LEVALBUTEROL 1.25 MG/3 ML NEB NEB PRN (09:10)
--- NOTE | 2020-10-20 09:13 | P.PN ---
Subjective Date of Service: 10/20/20 Primary Care Provider: none Chief Complaint: Respiratory failure Subjective: Improving (Patient is improving still is weak hypoxic requiring high-flow tolerating a diet) Review of Systems General: Weakness Respiratory: Shortness of Breath Physical Examination - Vital Signs Temperature: 97.4 F Blood Pressure: 144/88 Pulse: 87 Respirations: 24 Pulse Ox (%): 98 - Physical Exam General: Alert, Mild distress Respiratory: Diminished - Studies Laboratory Data (last 24 hrs) 10/20/20 04:50: Sodium 146 H, Potassium 3.3 L, BUN 12, Creatinine 0.54 L, Glucose 127 H 10/20/20 04:50: WBC 9.40, Hgb 8.4 L, Hct 26.2 L, Plt Count 386 Medications List Reviewed: Yes Assessment & Plan - Problems (Diagnosis) (1) History of severe acute respiratory syndrome coronavirus 2 (SARS-CoV-2) disease Current Visit: Yes Status: Acute Plan: Patient is currently stable is still hypoxic has respiratory failure I suspect that she has chronic fibrosis from onofre virus infection continue to wean down his oxygen continue physical therapy he is tolerating a diet patient is also hypoxic hypercarbic will repeat blood gases titrate sat to 90% patient was cardioverted yesterday change to p.o. amiodarone stable to be transferred out of ICU once is off amiodarone drip chest x-ray still shows interstitial changes I suspect he has pulmonary fibrosis previous CT scan shows extensive lung disease prognosis very poor due to the extent of his interstitial lung dizzy change to p.o. Diamox
[2020-10-20] MEDS: AMIODARONE HCL 200 MG TAB PO SCH ×2 (10:09→22:11)
[2020-10-20] MEDS ORDERED: AMIODARONE HCL 200 MG TAB ONE (10:28)
[2020-10-21] MEDS: METOPROLOL TAR 50 MG TAB PO SCH ×2 (06:04→17:40)
[2020-10-21] MEDS: dexAMETHasone 4 MG/ML VIAL IV SCH ×2 (08:54→21:16)
[2020-10-21] MEDS: FOLIC ACID 1 MG TABLET PO SCH (08:55)
[2020-10-21] MEDS: APIXABAN 5 MG TABLET PO SCH ×2 (08:55→21:16)
[2020-10-21] MEDS: acetaZOLAMIDE 250 MG TAB PO SCH (08:55)
[2020-10-21] MEDS: FERROUS SULFATE 325 MG TAB PO SCH (08:55)
[2020-10-21] MEDS: FAMOTIDINE 20 MG TAB PO SCH ×2 (08:55→21:16)
[2020-10-21] MEDS: AMIODARONE HCL 200 MG TAB PO SCH ×2 (08:55→21:16)
[2020-10-21] MEDS: DOCUSATE NA 100 MG CAP PO SCH (08:55)
[2020-10-21] MEDS: THIAMINE HCL 100 MG TABLET PO SCH (08:55)
[2020-10-21] MEDS: ENSURE HIGH PROTEIN 237 ML CAN PO SCH ×2 (08:56→21:00)
[2020-10-21] MEDS: WATER FOR INJ,STERILE 10 ML IV SCH (08:57)
--- NOTE | 2020-10-21 10:27 | P.PN ---
Date of Service: 10/20/20 Subjective Patient continues to show improvement. Transfer to general medical floor. Continue with physical therapy. Repeat imaging studies over the next 24-48 hrs. Review of Systems 10-point ROS is otherwise unremarkable Physical Examination - Vital Signs Reviewed - Physical Exam General: Alert, In no apparent distress, Oriented x3 Respiratory: Diminished bibasilar lung smith Cardiovascular: Regular rate/rhythm, normal S1 S2, no murmurs Gastrointestinal: Normal bowel sounds, soft and benign, non-distended, no tenderness Neurological: Normal speech; generalized weakness diffusely Assessment & Plan - Problems (Diagnosis) (1) Hypercapnia Current Visit: Yes Status: Acute (2) Atrial flutter with rapid ventricular response Current Visit: Yes Status: Acute (3) History of severe acute respiratory syndrome coronavirus 2 (SARS-CoV-2) disease Current Visit: Yes Status: Acute (4) Pneumothorax Current Visit: No Status: Acute - Plan Continue with plan of care as mentioned below: 1. Continue with IV steroids; will taper down as can worsen myopathy 2. Continue high-flow oxygen; tapering FiO2; continue Diamox 3. Chest x-ray shows improvement of pneumothorax; almost completely reabsorbed and will continue to watch it. 4. IV amiodarone-at 0.5mg/hr; monitor LFTs; 5. Appreciate pulmonary consultation and cardiology consultation 6. Continue with nebs as needed 7. O2 per protocol 8. Physical therapy evaluation - Code Status/Comfort Care Code Status Assessed: Yes Code Status: Full Code Critical Care: No Time Spent Managing PTS Care (In Minutes): 25
--- NOTE | 2020-10-21 10:37 | P.PN ---
Date of Service: 10/21/20 Subjective Patient continues to do well with no new complaints. Review of Systems 10-point ROS is otherwise unremarkable Physical Examination - Vital Signs Reviewed - Physical Exam General: Alert, In no apparent distress, Oriented x3 Respiratory: Diminished, Crackles/rales Cardiovascular: Regular rate/rhythm, Normal S1 S2, No murmurs Gastrointestinal: Normal bowel sounds, Soft and benign, Non-distended, No tenderness Neurological: Normal speech, Normal tone, Normal affect; generalize weakness diffusely Assessment & Plan - Problems (Diagnosis) (1) Hypercapnia Current Visit: Yes Status: Acute (2) Atrial flutter with rapid ventricular response Current Visit: Yes Status: Acute (3) History of severe acute respiratory syndrome coronavirus 2 (SARS-CoV-2) disease Current Visit: Yes Status: Acute (4) Acute respiratory failure due to severe acute respiratory syndrome coronavirus 2 (SARS-CoV-2) infection Current Visit: No Status: Acute (5) Pneumothorax Current Visit: No Status: Acute - Plan Continue with plan of care as mentioned below: 1. Continue with IV steroids 2. Continue high-flow oxygen; tapering FiO2; continue Diamox 3. Chest x-ray with improvement of pneumothorax 4. Continue amiodarone. 5. Appreciate pulmonary consultation and cardiology consultation 6. Continue with nebs as needed 7. O2 per protocol 8. Physical therapy evaluation - Code Status/Comfort Care Code Status Assessed: Yes Code Status: Full Code Critical Care: No Time Spent Managing PTS Care (In Minutes): 25
--- NOTE | 2020-10-21 12:40 | RAD REPORT ---
EXAM DESCRIPTION: RAD - Chest Single View - 10/21/2020 6:22 am CLINICAL HISTORY: pneumothorax Chest pain. COMPARISON: Chest Single View dated 10/20/2020; Chest Single View dated 10/19/2020; Chest Single View da nadya 10/18/2020; Chest Single View dated 10/17/2020 FINDINGS: Portable technique limits examination quality. Bilateral pulmonary opacities are present, slightly greater on the left, unchanged. No measurable pne umothorax. The heart is moderately enlarged in size. Right-sided PICC line is unchanged in position.
--- NOTE | 2020-10-21 15:11 | PN ---
Admitted for few days right now because of recent COVID, pneumothorax, hypoxia, and in chronic atrial flutter. Amiodarone but his symptoms used to raise. His blood pressure was 93/52, this will discuss with him, with the family and we will plan a cardioversion electively in the next 24 mazin rs. Continue Eliquis. Continue amiodarone. HOLLY/NATALIE Voice ID: [id number] Report ID: [id number]
--- NOTE | 2020-10-21 15:17 | PN ---
Date of Progress Note: 10/17/2020 rapid atrial flutter that was not being controlled with beta-baljeet, IV amiodarone starte d at 0.5. We will plan to go up to 1 mg/mL per minute. We will discuss the possibility of cardiover neida in the near future. His rate is rapid. He is on Eliquis. He does not have symptoms from the a trial fibrillation or flutter. Continue present regimen otherwise. HOLLY/NATALIE Voice ID: [id number] Report ID: [id number]
[2020-10-22] MEDS: METOPROLOL TAR 50 MG TAB PO SCH ×2 (06:33→17:44)
[2020-10-22] MEDS: APIXABAN 5 MG TABLET PO SCH ×2 (09:00→21:09)
[2020-10-22] MEDS: THIAMINE HCL 100 MG TABLET PO SCH (09:00)
[2020-10-22] MEDS: AMIODARONE HCL 200 MG TAB PO SCH ×2 (09:00→21:09)
[2020-10-22] MEDS: DOCUSATE NA 100 MG CAP PO SCH (09:00)
[2020-10-22] MEDS: ENSURE HIGH PROTEIN 237 ML CAN PO SCH ×2 (09:00→21:10)
[2020-10-22] MEDS: WATER FOR INJ,STERILE 10 ML IV SCH (09:00)
[2020-10-22] MEDS: dexAMETHasone 4 MG/ML VIAL IV SCH ×2 (09:00→21:09)
[2020-10-22] MEDS: FAMOTIDINE 20 MG TAB PO SCH ×2 (09:00→21:09)
[2020-10-22] MEDS: FOLIC ACID 1 MG TABLET PO SCH (09:00)
[2020-10-22] MEDS: FERROUS SULFATE 325 MG TAB PO SCH (09:00)
[2020-10-22] MEDS: acetaZOLAMIDE 250 MG TAB PO SCH (09:00)
--- NOTE | 2020-10-23 00:54 | P.PN ---
Date of Service: 10/22/20 Subjective Patient continues to improve. He looks like he is doing much better. Hopefully, he should be able to go back up to rehab in the morning Review of Systems 10-point ROS is otherwise unremarkable Physical Examination - Vital Signs Reviewed - Physical Exam General: Alert, In no apparent distress, Oriented x3 Respiratory: Diminished, Crackles/rales Cardiovascular: Regular rate/rhythm, Normal S1 S2, No murmurs Gastrointestinal: Normal bowel sounds, Soft and benign, Non-distended, No tenderness Neurological: Normal speech, Normal tone, Normal affect; generalize weakness diffusely Assessment & Plan - Problems (Diagnosis) (1) Hypercapnia Current Visit: Yes Status: Acute (2) Atrial flutter with rapid ventricular response Current Visit: Yes Status: Acute (3) History of severe acute respiratory syndrome coronavirus 2 (SARS-CoV-2) disease Current Visit: Yes Status: Acute (4) Acute respiratory failure due to severe acute respiratory syndrome coronavirus 2 (SARS-CoV-2) infection Current Visit: No Status: Acute (5) Pneumothorax Current Visit: No Status: Acute - Plan Continue with plan of care as mentioned below: 1. Continue with IV steroids; we need to taper 2. Continue high-flow oxygen; tapering FiO2; continue Diamox 3. Chest x-ray with improvement of pneumothorax; may need to repeat it 4. Continue amiodarone; continue with amiodarone 400 b.i.d. and Eliquis therapy 5. Appreciate pulmonary consultation and cardiology consultation 6. Continue with nebs as needed 7. O2 per protocol 8. Physical therapy evaluation appreciated; plan to transfer back to rehab in the next 24-48 hr - Code Status/Comfort Care Code Status Assessed: Yes Code Status: Full Code Critical Care: No Time Spent Managing PTS Care (In Minutes): 25
[2020-10-23] MEDS: METOPROLOL TAR 50 MG TAB PO SCH (06:06)
[2020-10-23 06:40] LABS: BUN Blood Urea Nitrogen 14 mg/dL (7-18); Bicarbonate 35 mmol/L (21-32); Glucose Level 111 mg/dL (74-106); Potassium 3.6 mmol/L (3.5-5.1); Sodium Level 146 mmol/L (136-145)
[2020-10-23] MEDS ORDERED: POTASSIUM CL SA 10 MEQ TAB PO ONE (09:00)
[2020-10-23] MEDS: ENSURE HIGH PROTEIN 237 ML CAN PO SCH (09:00)
[2020-10-23] MEDS: DOCUSATE NA 100 MG CAP PO SCH (09:00)
[2020-10-23] MEDS: WATER FOR INJ,STERILE 10 ML IV SCH (09:00)
[2020-10-23 09:38] VITALS: O2SAT 95
[2020-10-23] MEDS: THIAMINE HCL 100 MG TABLET PO SCH (09:55)
[2020-10-23] MEDS: acetaZOLAMIDE 250 MG TAB PO SCH (09:55)
[2020-10-23] MEDS: AMIODARONE HCL 200 MG TAB PO SCH (09:55)
[2020-10-23] MEDS: FAMOTIDINE 20 MG TAB PO SCH (09:56)
[2020-10-23] MEDS: FOLIC ACID 1 MG TABLET PO SCH (09:56)
[2020-10-23] MEDS: FERROUS SULFATE 325 MG TAB PO SCH (09:56)
[2020-10-23] MEDS: dexAMETHasone 4 MG/ML VIAL IV SCH (09:56)
[2020-10-23] MEDS: APIXABAN 5 MG TABLET PO SCH (09:56)
[2020-10-23 10:12] VITALS: BP 136/86; TEMP 97.5
--- NOTE | 2020-10-23 13:50 | P.PN ---
Subjective Date of Service: 10/23/20 Primary Care Provider: none Chief Complaint: Respiratory failure Subjective: Improving, Doing well Physical Examination - Vital Signs Temperature: 97.5 F Blood Pressure: 136/86 Pulse: 69 Respirations: 19 Pulse Ox (%): 96 - Studies Laboratory Data (last 24 hrs) 10/23/20 05:45: Sodium 146 H, Potassium 3.6, BUN 14, Creatinine 0.46 L, Glucose 111 H Medications List Reviewed: Yes Assessment & Plan Discharge Plan: Other (inpatient rehab) Plan to discharge in: 24 Hours Physician Review Additional Text: Physical exam General: Alert, In no apparent distress, Oriented x3, Cooperative HEENT: Atraumatic, Normocephalic, Mucous membr. moist/pink Neck: Supple Respiratory: Clear anteriorly. Currently on 3.5 L per nasal cannula Cardiovascular: Normal sinus rhythm Gastrointestinal: Normal bowel sounds, No tenderness, No masses, No rebound, No guarding Musculoskeletal: No erythema, No tenderness, No warmth Integumentary: Good range of motion to upper lower extremities. No edema Neurological: Normal speech, Normal strength at 5/5 x4 extr, Normal tone, Normal affect Impression: Acute hypoxic hypercapnic respiratory failure secondary to 10-15% right apical pneumothorax/ right-sided pleural effusion with recent hospitalization for bilateral COVID-19 pneumonia Atrial flutter with RVR Hyperglycemia suspect diabetes mellitus type 2 Hypertension GERD Anemia of chronic disease Obesity, BMI 44.5 Plan: Acute hypoxic hypercapnic respiratory failure secondary to 10-15% right apical pneumothorax/ right-sided pleural effusion with recent hospitalization for bilateral COVID-19 pneumonia: Patient has done well. No need for chest tube. Pneumothorax has reabsorbed. Continue with 3.5 L per nasal cannula. Continue oral steroid. Physical therapy to assess for ambulation. Will place inpatient rehab consult. Continue with current medications. Patient is cleared medically to go back to inpatient rehab. Atrial flutter with RVR: Patient status post cardioversion. Currently stable on amiodarone and Eliquis. Hyperglycemia secondary to prediabetes: A1c 6.1. Will monitor this closely. Hypertension: Continue medication GERD: Continue medication Obesity, BMI 44.5: Addressed lifestyle modification education. Anemia of chronic disease: Overall stable. Will monitor closely. Continue iron supplementation. CODE STATUS: Patient is full code DVT prophylaxis: Patient on Eliquis Advanced care planning-30 min: Return back to inpatient rehab Time Spent Managing Pts Care (In Minutes): 55
--- NOTE | 2020-10-23 16:54 | P.DS ---
Admission Date: 10/15/20 Discharge Date: 10/23/20 Primary Care Provider: none Disposition: TRANSFER TO INPATIENT REHAB Discharge Condition: GOOD Reason for Admission: Respiratory failure Consultations: Cardiology-Dr. Sahni Pulmonary-Dr. Crenshaw Procedures: Medical problem list: Acute hypoxic hypercapnic respiratory failure secondary to 10-15% right apical pneumothorax/ right-sided pleural effusion with recent hospitalization for bilateral COVID-19 pneumonia Atrial flutter with RVR Hyperglycemia suspect diabetes mellitus type 2 Hypertension GERD Anemia of chronic disease Obesity, BMI 44.5 Brief History of Present Illness: 45-year-old male with history of pre diabetes, hypertension, anemia chronic disease. Patient was recently hospitalized for acute hypoxic respiratory failure secondary to COVID 19 pneumonia. The patient had a prolong stay. Patient was eventually sent to inpatient rehab to continue therapy. Today I was asked to evaluate patient due to increasing shortness of breath, edema to the lower extremity. Nurses report increase in edema to the lower extremity. Increased respirations noted. Recent ABG showed hypercapnia and hypoxia. Patient was placed on BiPAP. X-rays were ordered. Other lab ordered as well. Patient also noted to be hypertensive and tachycardic. Patient had been getting metoprolol and Norvasc. X-ray showed 10-15% right apical pneumothorax. Substantial progression of right lung field opacification since October 01 with moderate right pleural fluid. Patient was transferred from inpatient rehab to ICU for close monitoring. Case discussed in detail with pulmonology and surgery. Surgery recommends to recheck another x-ray within 4 hr. If progression of pneumothorax patient would need chest tube. Patient placed on high-flow oxygen. Plan of care discussed with patient and significant other at bedside. Hospital Course: Patient was admitted to the hospital for acute hypoxic hypercapnic respiratory failure secondary to 10-15% right apical pneumothorax and right-sided pleural effusion. Patient had been recently hospitalized for bilateral COVID pneumonia. Patient was recently in inpatient rehab. During the course of his stay the patient was treated in the ICU. Pulmonology and surgery were consulted. There was some suspicion that the patient would require chest tube but this did not transpire. Patient improved not requiring any chest tube. Patient did have atrial flutter which was treated medically and with cardioversion. The patient has significantly improved. Patient currently on 3.5 L per nasal cannula. The patient will return back to inpatient rehab to continue therapy. Case was discussed in detail with pulmonology. For his coving pneumonia at discharge the patient will continue with Decadron 4 mg 1 pill twice daily. Patient will continue with this medication. This can be weaned off over the next 2-4 weeks with the help of pulmonology. The patient will also continue with Eliquis 5 mg 1 pill twice daily, Xopenex 1 unit dose 3 times a day as needed for shortness of breath, iron 325 mg daily, Diamox 250 mg daily, folic acid 1 mg daily, thiamine 100 mg daily and Tessalon Perles 100 mg 3 times a day as needed for shortness of breath/cough. Recommend follow up with pulmonology in 1 week to follow up this hospitalization. Recommend to recheck lab-BMP in 1 week to monitor his progress. Diamox can likely be discontinued with improvement of his hypercapnia. Patient with atrial flutter with RVR. This was treated medically and with cardioversion. Patient now in normal sinus rhythm. Patient remains on amiodarone 400 mg twice daily and Eliquis 5 mg 1 pill twice daily. Patient also takes metoprolol 50 mg 1 pill twice daily. Recommend follow up with cardiology in 1 week to further monitor and adjust his medication. Anticipate amiodarone to be decreased within the next 2-4 weeks. This can be done with the help of Cardiology. Patient with hypertension. As mentioned above patient will continue with metoprolol 50 mg 1 pill twice daily. Recommend to maintain blood pressure less than 130/80. Further adjustment can be done by PCP. Patient with GERD. At discharge patient will continue with Pepcid 20 mg 1 pill twice daily. Patient will continue with his other medications including Ensure supplementation, lactulose as needed for constipation and docusate for stool softener. Further adjustment in medication can be done in inpatient rehab. Vital Signs/Physical Exam: Temp Pulse Resp BP Pulse Ox 97.5 F 69 19 136/86 96 10/23/20 13:52 10/23/20 13:52 10/23/20 13:52 10/23/20 13:52 10/23/20 13:52 General: Alert, In no apparent distress, Oriented x3, Cooperative HEENT: Atraumatic Neck: Supple Respiratory: Clear to auscultation bilaterally, Normal air movement Cardiovascular: Normal pulses, Regular rate/rhythm Gastrointestinal: Normal bowel sounds, Soft and benign, Non-distended, No tenderness, No masses, No rebound, No guarding Musculoskeletal: No erythema, No tenderness Integumentary: No tenderness/swelling Neurological: Normal speech, Normal strength at 5/5 x4 extr, Normal tone, Normal affect Laboratory Data at Discharge: WBC 9.40 K/uL (4.3-10.9) 10/20/20 04:50 Hgb 8.4 g/dL (13.6-17.9) L 10/20/20 04:50 Hct 26.2 % (39.6-49.0) L 10/20/20 04:50 Plt Count 386 K/uL (152-406) 10/20/20 04:50 Sodium 146 mmol/L (136-145) H 10/23/20 05:45 Potassium 3.6 mmol/L (3.5-5.1) 10/23/20 05:45 BUN 14 mg/dL (7-18) 10/23/20 05:45 Creatinine 0.46 mg/dL (0.55-1.3) L 10/23/20 05:45 Glucose 111 mg/dL (74-106) H 10/23/20 05:45 Magnesium 2.3 mg/dL (1.8-2.4) 10/19/20 04:30 Total Bilirubin 0.3 mg/dL (0.2-1.0) 10/18/20 05:00 AST 15 U/L (15-37) 10/18/20 05:00 ALT 49 U/L (12-78) 10/18/20 05:00 Alkaline Phosphatase 69 U/L (45-117) 10/18/20 05:00 Home Medications: Ensure High Protein 237 ml PO BID can 10/15/20 Ferrous Sulfate [Ferrous Sulfate*] 325 mg PO DAILY tab 10/15/20 Amiodarone HCl [Cordarone*] 400 mg PO BID #120 tab 10/23/20 Apixaban [Eliquis] 5 mg PO BID #60 tablet 10/23/20 Benzonatate [Tessalon Perle*] 100 mg PO TID PRN #20 cap 10/23/20 Docusate [Colace Cap*] 100 mg PO DAILY #30 cap 10/23/20 Famotidine [Pepcid*] 20 mg PO BID #60 tab 10/23/20 Levalbuterol [Xopenex*] 3 ml NEB TID PRN #90 vial 10/23/20 Metoprolol Tartrate [Lopressor*] 50 mg PO BID 6AM 6PM #60 tab 10/23/20 Thiamine HCl [Vitamin B-1*] 100 mg PO DAILY #30 tablet 10/23/20 acetaZOLAMIDE [Diamox*] 250 mg PO DAILY #30 tab 10/23/20 dexAMETHasone [Decadron] 4 mg PO BID #28 tab 10/23/20 New Medications: Docusate [Colace Cap*] 100 mg PO DAILY #30 cap Amiodarone HCl [Cordarone*] 400 mg PO BID #120 tab dexAMETHasone [Decadron] 4 mg PO BID #28 tab acetaZOLAMIDE [Diamox*] 250 mg PO DAILY #30 tab Apixaban [Eliquis] 5 mg PO BID #60 tablet Metoprolol Tartrate [Lopressor*] 50 mg PO BID 6AM 6PM #60 tab Famotidine [Pepcid*] 20 mg PO BID #60 tab Benzonatate [Tessalon Perle*] 100 mg PO TID PRN #20 cap PRN Reason: Cough Thiamine HCl [Vitamin B-1*] 100 mg PO DAILY #30 tablet Levalbuterol [Xopenex*] 3 ml NEB TID PRN #90 vial PRN Reason: Shortness Of Breath Physician Discharge Instructions: Patient was admitted to the hospital for acute hypoxic hypercapnic respiratory failure secondary to 10-15% right apical pneumothorax and right-sided pleural effusion. Patient had been recently hospitalized for bilateral COVID pneumonia. Patient was recently in inpatient rehab. During the course of his stay the patient was treated in the ICU. Pulmonology and surgery were consulted. There was some suspicion that the patient would require chest tube but this did not transpire. Patient improved not requiring any chest tube. Patient did have atrial flutter which was treated medically and with cardioversion. The patient has significantly improved. Patient currently on 3.5 L per nasal cannula. The patient will return back to inpatient rehab to continue therapy. Case was discussed in detail with pulmonology. For his coving pneumonia at discharge the patient will continue with Decadron 4 mg 1 pill twice daily. Patient will continue with this medication. This can be weaned off over the next 2-4 weeks with the help of pulmonology. The patient will also continue with Eliquis 5 mg 1 pill twice daily, Xopenex 1 unit dose 3 times a day as needed for shortness of breath, iron 325 mg daily, Diamox 250 mg daily, folic acid 1 mg daily, thiamine 100 mg daily and Tessalon Perles 100 mg 3 times a day as needed for shortness of breath/cough. Recommend follow up with pulmonology in 1 week to follow up this hospitalization. Recommend to recheck lab-BMP in 1 week to monitor his progress. Diamox can likely be discontinued with improvement of his hypercapnia. Patient with atrial flutter with RVR. This was treated medically and with cardi oversion. Patient now in normal sinus rhythm. Patient remains on amiodarone 400 mg twice daily and Eliquis 5 mg 1 pill twice daily. Patient also takes metoprolol 50 mg 1 pill twice daily. Recommend follow up with cardiology in 1 week to further monitor and adjust his medication. Anticipate amiodarone to be decreased within the next 2-4 weeks. This can be done with the help of Cardiology. Patient with hypertension. As mentioned above patient will continue with metoprolol 50 mg 1 pill twice daily. Recommend to maintain blood pressure less than 130/80. Further adjustment can be done by PCP. Patient with GERD. At discharge patient will continue with Pepcid 20 mg 1 pill twice daily. Patient will continue with his other medications including Ensure supplementation, lactulose as needed for constipation and docusate for stool softener. Further adjustment in medication can be done in inpatient rehab. Diet: AHA Activity: Fall precautions Time spent managing pt's care (in minutes): 55
== END 2020-10-23 18:12 | DRG 199 ==
LOC: ERHOLD 13:47 → 2ND 10-20 16:59
PROVIDERS: ADMIT Family Medicine; ATTEND Family Medicine
PROC: 5A09557 Assistance with Respiratory Ventilation, Greater than 96 Consecutive Hours, Continuous Positive Airway Pressure (ICD-10-PCS; principal; 2020-10-15)
PROC: 5A2204Z Restoration of Cardiac Rhythm, Single (ICD-10-PCS; 2020-10-19)
DX: J93.83 Other pneumothorax (principal); J96.02 Acute respiratory failure with hypercapnia; J96.01 Acute respiratory failure with hypoxia; Z68.42 Body mass index [BMI] 45.0-49.9, adult; I48.92 Unspecified atrial flutter; J90 Pleural effusion, not elsewhere classified; B94.8 Sequelae of other specified infectious and parasitic diseases; E66.9 Obesity, unspecified; K21.9 Gastro-esophageal reflux disease without esophagitis; D63.8 Anemia in other chronic diseases classified elsewhere; E11.65 Type 2 diabetes mellitus with hyperglycemia; I48.91 Unspecified atrial fibrillation; I10 Essential (primary) hypertension; R00.0 Tachycardia, unspecified; Z79.01 Long term (current) use of anticoagulants; Z79.899 Other long term (current) drug therapy; Z20.822 Contact with and (suspected) exposure to COVID-19
CPT/HCPCS: 36415; 71045; 71275; 80048; 80053; 82728; 82805; 83735; 84132; 85025; 86140; 93005; 94002; 94003; 94640; 94660; 94760; 97110; 97112; 97162; 97530; J0153; J0282; J1100; J1120; J1940; J2250; J2405; J2920; J3010; J7030; J7060; J7799; Q9967

== ENCOUNTER 2020-10-23 15:26 | Inpatient (IN) | payer SELFPAY ==
--- OUTSIDE RECORDS SUMMARY | 2020-10-23 18:21 | XMS REPORT | Continuity of Care Document ---
:1975 Author Organization [facility] t Address [address] [place] [id number] Care Team Providers Name Role Phone Unavailable Unavailable Unavailable Problems Condition Condition Condition Status Onset Resolution Last Treating Co mments Source Name Details Category Date Date Treatment Clinician Date Adult BMI Adult BMI Diagnosis Active [facility] 40.0-44.9 40.0-44.9 Luke s - kg/sq m kg/sq m Memoria l [facility]ics Essential Essential Diagnosis Active [facility] (primary) (primary) Luke s - hypertensi hypertensi Me moria on on l [facility] Tobacco [facility]ics Pure Pure Problem Active [facility] hyperchole hyperchole [facility] - sterolemia sterolemia [facility] Family Family Diagnosis Active [facility] history of history of [place] [facility] - heart heart Memoria disease in disease in l male male [facility] ent member member Clinics before [...] [facility] - 00:[facility]: 00:00 Memoria 00 :00 [facility] ent Clinics Lisinopril Lisinopril 2017- Yes Dariel [address] [facility] 2-13 Adelita [facility] - 00:[facility]: Memoria 00 [facility] ent [facility] Immunizations Ordered Filled Immunization Date Status Comments Sourc e Immunization Name Name TDAP > 7 TDAP > 7 2018-04-[address] [facility] - Years-Adacel Years-Adacel 00:00:00 [facility] Flucelvax - Flucelvax - 2018-04-[address] [facility] - multidose vial multidose vial 00:00:00 [facility] Outpatient [facility] Procedures This patient has no known procedures. Encounters Start End Encounter Admission Attending Care Care Encounter Source Date/Time Date/Time Type Type Clinicians Facility Department ID 2018-06-30 2018-06-30 Outpatient Milind Gil [id number] [facility] 11:30:00 11:30:00 [facility] ent [facility] 2018-05-18 2018-05-18 Outpatient Milind Vazt [id number] 09:45:00 09:45:00 [facility] ent [facility] 2018-04-30 2018-04-30 Outpatient Milind Vazt [id number] [facility] 14:30:00 14:30:00 [facility] ent Clinics Results This patient has no known results.
[2020-10-23] MEDS ORDERED: BENZONATATE 100 MG CAP PO PRN (19:21)
[2020-10-23] MEDS ORDERED: DOCUSATE NA 100 MG CAP PO PRN (19:21)
[2020-10-23] MEDS ORDERED: ALBUTEROL 2.5 MG/3 ML NEB SOL NEB PRN ×2 (19:22→22:17)
[2020-10-23] MEDS: APIXABAN 5 MG TABLET PO SCH (21:29)
[2020-10-23] MEDS: AMIODARONE HCL 200 MG TAB PO SCH (21:29)
[2020-10-23] MEDS: FAMOTIDINE 20 MG TAB PO SCH (21:30)
[2020-10-23] MEDS: ENSURE HIGH PROTEIN 237 ML CAN PO SCH (21:30)
[2020-10-23] MEDS: dexAMETHasone 4 MG TAB PO SCH (21:31)
[2020-10-23 21:37] LABS: Urine Appearance CLEAR (Clear); Urine Bilirubin NEGATIVE (Negative); Urine Blood NEGATIVE (Negative); Urine Color YELLOW (Yellow); Urine Glucose NEGATIVE (Negative); Urine Protein NEGATIVE (Negative); Urine Urobilinogen 0.2 mg/dL (0.2-1.0); Urine pH 6.5 (5.0-7.0)
[2020-10-23 22:03] LABS: Urine Bacteria NONE SEEN /HPF (NONE SEEN); Urine RBC NONE SEEN /HPF (NONE SEEN)
[2020-10-24] MEDS: METOPROLOL TAR 50 MG TAB PO SCH ×2 (05:02→16:56)
[2020-10-24 05:18] LABS: Absolute Lymphocytes (CBC) 1.3 K/uL (0.7-4.9); Basophils % 0.6 % (0-1.3); Hematocrit 29.9 % (39.6-49.0); Lymphocytes % 14.5 % (15.3-44.8); MPV 9.6 fL (7.6-11.3); RBC Red Blood Cell Count 3.07 M/uL (4.33-5.43)
[2020-10-24 05:47] LABS: Albumin 2.6 g/dL (3.4-5.0); BUN Blood Urea Nitrogen 13 mg/dL (7-18); Bicarbonate 33 mmol/L (21-32); Glucose Level 129 mg/dL (74-106); Potassium 3.8 mmol/L (3.5-5.1); Prealbumin 31.5 mg/dL (20-40); Sodium Level 144 mmol/L (136-145)
[2020-10-24] MEDS: AMIODARONE HCL 200 MG TAB PO SCH ×2 (08:09→20:14)
[2020-10-24] MEDS: FERROUS SULFATE 325 MG TAB PO SCH (08:09)
[2020-10-24] MEDS: FAMOTIDINE 20 MG TAB PO SCH ×2 (08:09→20:14)
[2020-10-24] MEDS: acetaZOLAMIDE 250 MG TAB PO SCH (08:09)
[2020-10-24] MEDS: THIAMINE HCL 100 MG TABLET PO SCH (08:09)
[2020-10-24] MEDS: DOCUSATE NA 100 MG CAP PO SCH (08:09)
[2020-10-24] MEDS: APIXABAN 5 MG TABLET PO SCH ×2 (08:09→20:14)
[2020-10-24] MEDS: dexAMETHasone 4 MG TAB PO SCH ×2 (08:09→16:56)
[2020-10-24] MEDS: ENSURE HIGH PROTEIN 237 ML CAN PO SCH ×2 (08:10→20:15)
--- NOTE | 2020-10-24 16:46 | R.HP ---
HISTORY AND PHYSICAL FACILITY: [facility] ENCOUNTER DATE AND TIME: 10/24/2020 16:39 (CDT) MR#: [id number] NAME CINDY MEDRANO ADDRESS: [address] [place] [address] CITY: [place] [address]IP [address] PHONE: DATE OF : 1975 AGE: 45 SSN# [id number] GENDER: Male DEXTERITY Right-handed MARITAL STATUS With a Domestic Partner RACE Black PRE-HOSPITAL LIVING SETTING 01 - Home (private home/apt. board/care, assisted living, halfway, transitional living) PRE-HOSPITAL LIVING WITH Friends ENCOUNTER PHYSICIAN: Dr. Jamel Ruff M.D. REFERRING DOCTOR: DR. JOE VALDES DATE OF ADMISSION: 10/23/2020 18:16 (CDT) REFERRING FACILITY [facility] HOME TYPE AND DETAILS: Type of home: single family house # of levels in the residence: 1 # of steps to enter the residence: 0 # of steps within the residence: 1 Pt. reports being completely independent prior to CoVid19 infection, lives in 1 level home, no steps to enter, has a [id number] w/ ledge, no shower chair. Independent and ambulatory. ADMISSION DIAGNOSIS: POST COVID ONSET DATE: 08/18/2020 PRIMARY DIAGNOSIS-RELATED SURGERIES: No surgeries related to the primary diagnosis were performed. HISTORY OF PRESENT ILLNESS (HPI): Pt. is a 45 yo Right-handed black male. On 08/18/2020 he was admitted to [facility] with diagnosis POST COVID. His impairment category is Pulmonary Disorders 10 - Other Pulmonary Disorders (10.9). Pre-morbidly, Pt. was independent/mod-I in Transfers Control, Locomotion, Self-Care, Social Cognition , Sphincter Control, and Communication; and he had good Balance and Safety Awareness. Currently, he has deficits of Transfers Control, Balance, Locomotion, Safety Awareness, and Self-Care . Pt. is now referred to [facility] for acute in-patient rehabilitation in order to maximize patient's functional independence in activities of daily living, strength, ROM, and mobi lity. Patient has realistic goal of being discharged at assistance level 6-Hansel to reside at Home with Fri ends. MEDICATION ALLERGIES: No Known Drug Allergies (NKDA) ENVIRONMENTAL ALLERGIES: None Known - Substance Allergies None Known - Other Allergies None Known REVIEW OF SYSTEMS: - Gen No Chills Fatigue No Fever - Eyes No Double Vision No itchiness - ENMT No Difficulty Swallowing - CVS No Chest Discomfort No Chest Pain Fatigue No Weight Gain - Resp No Cough Shortness of Breath - GI Continent No Abdominal Pain Constipation No Diarrhea - Continent No Kidney Pain No Painful Urination No Urinary Urgency - MSK No Joint Pain No Muscle Cramps No Stiffness Mild bilateral leg edema - Skin No Itching No Rash No Suspicious Lesions - Neuro Coordination Difficulty Difficulty with Concentration No Memory Loss No Seizures Weakness - Psych No Anxiety No Depression No HIV Exposure No Persistent Infections No Seasonal Allergies - Endo No Cold/Heat Intolerance No Excessive Hunger No Excessive Thirst No Excessive Urination PHYSICAL EXAM - Gen Alert and awake Lying in bed No apparent distress Oriented to: person, time, and place - Skin No breakdown Normacephalic - Eyes No abnormalities - ENMT No abnormalities - Neck No abnormalities - CVS RRR - Chest Mildly decreased breath sounds bilaterally. - Resp + upper airway ronchi - Abd + bowel sounds - GI Soft Deferred - No abnormalities - Ext Mild edema in both lower extremities. - MSK 4+/5 weakness in both lower and upper extremities. - Neuro No focal deficits - Psych Mild depression. VITAL SIGNS Temperature: 97.3 F SBP/DBP: 144/91 Pulse: 61 Resp: 19 NURSING: - Shower allowing shower ACTIVITIES OOB only with supervision QI SCORES: - Self-Care A. Eating 03-Partial/moderate assistance B. Oral hygiene 03-Partial/moderate assistance C. Toileting hygiene 02-Substantial/maximal assistance E. Shower/bathe self 02-Substantial/maximal assistance F. Upper body dressing 01-Dependent G. Lower body dressing 01-Dependent H. Putting on/taking off footwear 01-Dependent - Mobility A. Roll left and right 02-Substantial/maximal assistance B. Sit to lying 02-Substantial/maximal assistance C. Lying to sitting on side of bed 02-Substantial/maximal assistance D. Sit to stand 02-Substantial/maximal assistance E. Chair/qem-rp-dcuqp transfer 02-Substantial/maximal assistance F. Toilet transfer 02-Substantial/maximal assistance G. Car transfer 88-Not attempted due to medical condition or safety concerns I. Walk 10 feet 88-Not attempted due to medical condition or safety concerns J. Walk 50 feet with two turns 88-Not attempted due to medical condition or safety concerns K. Walk 150 feet 88-Not attempted due to medical condition or safety concerns L. Walking 10 feet on uneven surfaces 88-Not attempted due to medical condition or safety concerns M. 1 step (curb) 88-Not attempted due to medical condition or safety concerns N. 4 steps 88-Not attempted due to medical condition or safety concerns O. 12 steps 88-Not attempted due to medical condition or safety concerns P. Picking up object 88-Not attempted due to medical condition or safety concerns - Bladder and Bowel Bladder continence 0-Always continent Bowel continence 0-Always continent - Endurance Poor - Balance Poor - Safety Awareness Poor CURRENT FUNC. DEFICITS: Self-Care, Mobility, Endurance, Balance, and Safety Awareness MEDICATIONS: - Other See attached MAR (Medication Administration Record) ASSESSMENT: Pt. is a 45 yo Right-handed black male.On 08/18/2020 he was admitted to [facility] with diag amador POST COVID.His impairment category is Pulmonary Disorders 10 - Other Pulmonary Disorders (10.9 ).Pre-morbidly, Pt. was independent/mod-I in Transfers Control, Locomotion, Self-Care, Social Cogniti on, Sphincter Control, and Communication; and he had good Balance and Safety Awareness.Currently, he has deficits of Transfers Control, Balance, Locomotion, Safety Awareness, and Self-Care.Pt. is now re ferred to [facility] for acute in-patient rehabilitation in order to maximize patient's functional independence in activities of daily living, strength, ROM, and mobility.- Rehab Goal Patient has realistic goal of being discharged at assistance level 6-Hansel to reside at Home with Fri ends. REHAB PLAN: - Physical Therapy Gait dysfunction - to improve, our physical therapists will perform initial evaluation of pt's status upon admission and devise an individualized program for Gait Training, and Wheel Chair mobility Inability to transfer - to improve, our physical therapists will perform initial evaluation of pt's s tatus upon admission and devise an individualized program for Bed mobility Need for home safety evaluation - to improve, our physical therapists will perform initial evaluation of pt's status upon admission and devise an individualized program for Home Evaluation Need in caregiver upon discharge - to improve, our physical therapists will perform initial evaluatio n of pt's status upon admission and devise an individualized program for Caregiver Training Edema - to improve, our physical therapists will perform initial evaluation of pt's status upon admi ssion and devise an individualized program for Elevation Training, and Lymphedema Therapy New precaution - to improve, our physical therapists will perform initial evaluation of pt's status u lorenzo admission and devise an individualized program for Patient precaution education Poor balance - to improve, our physical therapists will perform initial evaluation of pt's status upo n admission and devise an individualized program for Balance Training Weakness - to improve, our physical therapists will perform initial evaluation of pt's status upon ad mission and devise an individualized program for Aquatic Therapy, Neuromuscular Reeducation, and Stre ngthening Achieving independence - to improve, our physical therapists will perform initial evaluation of pt's status upon admission and devise an individualized program for Community Reintegration Activities - Occupational Therapy ADL deficits - to improve, our occupation therapists will perform initial evaluation of pt's status u lorenzo admission and devise an individualized program for Bathing, Bed mobility, Community Reintegration , Cooking, Dressing, Eating, Fine Motor Skills, Grooming, Homemaking, Kitchen Mobility, Laundry, Angelica ent Education, Safety Awareness, Splinting - Positioning, Transfers(Toilet, Tub, Shower), and Wheel C hair Management Need for patient care representative - to improve, our occupation therapists will perform initial evaluation of pt's s tatus upon admission and devise an individualized program for Caregiver Training Weakness - to improve, our occupation therapists will perform initial evaluation of pt's status upon admission and devise an individualized program for Aquatic Therapy, Balance, Endurance, UE ROM, and U E strengthening MEDICAL PLAN: - Diet Type Start Regular - Diet - Liquid Texture Start Regular - Tube Feed Start N/A - Other See attached MAR (Medication Administration Record) - Diet - Solid Texture Regular - Shower shower DISCHARGE PLAN: - Estimated Length of Stay (days) 11. - Consensus on plan Discharge plan has been discussed with primary caregiver. Patient/Family is in agreement with the rebekah n. Primary caregiver is in agreement with the plan. - Patient/Family Goals Return home independently. - Planned Living Setting Upon Discharge Home, to live with Friends. Primary caregiver: Friend. SIGNATURE PANEL: (CDT)
--- NOTE | 2020-10-24 16:47 | PAPE ---
POST ADMISSION PHYSICIAN EVALUATION PATIENT: [facility] MR# [id number] REFERRING DOCTOR DR. JOE VALDES EVALUATION DATE AND TIME 10/24/2020 16:45 (CDT) NAME CINDY MEDRANO DATE OF 1975 AGE 45 PHONE SSN# [id number] GENDER male EVALUATING PHYSICIAN Dr. Jamel Ruff M.D. ADMISSION DIAGNOSIS: POST COVID ONSET DATE 08/18/2020 POST-ADMISSION FUNCTIONAL/MEDICAL STATUS: - Walking Same score based on distance walked: 0(N/A) STATUS CHANGE EVALUATION: No change in Functional or Medical Status is identified compared with Pre-Admission screening. PATIENT NEEDS CLOSE MEDICAL SUPERVISION BY A REHABILITATION PHYSICIAN FOR: Coordination of Treatment Team PATIENT REQUIRES 24X7 REHAB NURSING FOR MEDICAL AND FUNCTIONAL MGT. OF THE FOLLOWING DEFICITS: Disease Management Medication Management Patient/Family Education Providing Safe Environment PATIENT REQUIRES INTENSIVE, COORDINATED INTERDISCIPLINARY APPROACH TO REHAB: Arranging Home Equipment/Services Discharge Planning Family Intervention/Training Partner Integration Planner/Case Management LIST OF IDENTIFIED AND POTENTIAL PROBLEMS: Alteration in leisure activities Infection, Actual or Potential Mobility Impaired Pain, Alteration in Comfort Self Care Deficit Skin Integrity, Actual or Potential Urinary Tract Infection (UTI), Actual or Potential RISK FOR COMPLICATIONS - N/A Acute Resp failure. - Arrhythmia Tachycardia. PATIENT COULD BE AT RISK FOR COMPLICATIONS FROM ADVERSE MEDICAL CONDITIONS DUE TO HIS/HER COMORBIDITI ES AND THE RIGORS OF THE INTENSIVE REHABILLITATION PROGRAM. METHODS OR INTERVENTIONS TO AVOID COMPLIC ATIONS INCLUDE: - Infection Clinical staff to assess and manage the signs and symptoms of infection including fever, redness, war mth, etc. - Urinary Tract Infection - Falls Patient will be evaluated for Fall Precautions and will be placed on Fall Precautions as indicated pe r protocol. - Skin Breakdown Nursing will assess skin daily using assessment tool and will place on Skin Breakdown Precautions as indicated per protocol. - Pain Clinical staff may employ non-medication methods such as massage, distraction, decrease stimulus, etc . as needed. Clinical staff will assess patient's pain level every shift per protocol to assess and e nsure pain management effectiveness. Medications will be given and the pain level re-assessed. PRELIMINARY PLAN OF CARE: - Physical Therapy Patient needs Physical Therapy for a daily minimum of 1.5 hours at least 5 out of 7 days, to improve: Mobility, Strengthening, Transfers, Stretching, ROM, Endurance, Ability to manage stairs, Gait, and Balance. - Speech Therapy Patient needs Speech Therapy for a daily minimum of 0.5 hours at least 5 out of 7 days, to improve: S wallowing, Cognition, Language Skills, and Compensatory Strategies. - Rehabilitation Nursing Patient requires 24x7 Rehabilitation Nursing for: Pain Issues, Identifying and preventing risk factor s, Monitoring and reporting current medical conditions, Assisting with ambulation and transfer, Elder ting with all ADL-s, Teaching patients about disease process and medications, Family teaching, Provid ing safe environment, Bowel and Bladder Issues, Skin Integrity, and Medication Management. Patient needs Partner Integration Planner and/or Case Management for: Discharge Planning, Arranging Home Equipmen t or Services, and Family Interventions. - Dietary and Nutrition Services Patient needs Dietary and Nutrition Services for: Adequate Nutrition, Nutritional Supplements, and Nu tritional Education. - Occupational Therapy Patient needs Occupational Therapy for a daily minimum of 1.5 hours at least 5 out of 7 days, to impr ove Activities of Daily Living, including: Eating, Grooming, Bathing, Dressing, Toileting, Toilet Tra nsfers, Community Reintegration, Higher functional activities, Adaptive Equipment, Splinting, Househo ld Tasks, and Other activities as determined. QI SCORES: - Self-Care A. Eating 03-Partial/moderate assistance B. Oral hygiene 03-Partial/moderate assistance C. Toileting hygiene 02-Substantial/maximal assistance E. Shower/bathe self 02-Substantial/maximal assistance F. Upper body dressing 01-Dependent G. Lower body dressing 01-Dependent H. Putting on/taking off footwear 01-Dependent - Mobility A. Roll left and right 02-Substantial/maximal assistance B. Sit to lying 02-Substantial/maximal assistance C. Lying to sitting on side of bed 02-Substantial/maximal assistance D. Sit to stand 02-Substantial/maximal assistance E. Chair/lar-qm-smjhc transfer 02-Substantial/maximal assistance F. Toilet transfer 02-Substantial/maximal assistance G. Car transfer 88-Not attempted due to medical condition or safety concerns I. Walk 10 feet 88-Not attempted due to medical condition or safety concerns J. Walk 50 feet with two turns 88-Not attempted due to medical condition or safety concerns K. Walk 150 feet 88-Not attempted due to medical condition or safety concerns L. Walking 10 feet on uneven surfaces 88-Not attempted due to medical condition or safety concerns M. 1 step (curb) 88-Not attempted due to medical condition or safety concerns N. 4 steps 88-Not attempted due to medical condition or safety concerns O. 12 steps 88-Not attempted due to medical condition or safety concerns P. Picking up object 88-Not attempted due to medical condition or safety concerns - Bladder and Bowel Bladder continence 0-Always continent Bowel continence 0-Always continent - Endurance Poor - Balance Poor - Safety Awareness Poor POTENTIAL FUNCTIONAL GOALS FOR PATIENT TO ACHIEVE BY DISCHARGE: - Safety Precaution Patient will remain free from falls or injury at time of discharge. - Bed Mobility Patient will perform bed mobility at 4-Thao level of assistance. - Transfers Patient will complete transfers from bed to chair at 4-Thao level of assistance. - Mobility Patient will ambulate 150 ft with 4-Thao level of assistance with RW. PATIENT REHAB POTENTIAL Julissa MEDRANO is able and expected to receive 3 hours of individualized therapy daily on at least 5 nguyễn 7 days ARuba MEDRANO's prognosis for significant practical improvement within a reasonable period of time appears Good Expected level of measurable improvement will be of a practical value to Julissa MEDRANO's functional capaci ty or adaptations to impairments Has a viable Discharge Plan Medically appropriate; condition is sufficiently stable to participate in intensive rehab program DISCHARGE PLAN: - Estimated Length of Stay (days) 11. - Consensus on plan Discharge plan has been discussed with primary caregiver. Patient/Family is in agreement with the rebekah n. Primary caregiver is in agreement with the plan. - Patient/Family Goals Return home independently. - Planned Living Setting Upon Discharge Home, to live with Friends. Primary caregiver: Friend. CONCLUSION ON REHABILITATION NECESSITY: I have evaluated patient's pre-admission functional status and, comparing it to the patient's post-ad mission functional status now, I conclude that the pre-admission assessment was accurate. Patient's c ondition on admission supports the medical necessity of admission to [facility]. It is safe to proceed with patient's therapy program. SIGNATURE PANEL: (CDT)
[2020-10-24] MEDS ORDERED: ALBUTEROL 2.5 MG/3 ML NEB SOL NEB PRN (17:00)
[2020-10-24] MEDS: SODIUM CHLORIDE 0.9% 10ML INJ IV SCH (20:15)
[2020-10-25] MEDS: METOPROLOL TAR 50 MG TAB PO SCH ×2 (05:14→17:00)
[2020-10-25] MEDS: SODIUM CHLORIDE 0.9% 10ML INJ IV SCH ×2 (08:00→20:21)
[2020-10-25] MEDS: DOCUSATE NA 100 MG CAP PO SCH (08:00)
[2020-10-25] MEDS: FERROUS SULFATE 325 MG TAB PO SCH (08:21)
[2020-10-25] MEDS: acetaZOLAMIDE 250 MG TAB PO SCH (08:21)
[2020-10-25] MEDS: AMIODARONE HCL 200 MG TAB PO SCH ×2 (08:22→20:21)
[2020-10-25] MEDS: dexAMETHasone 4 MG TAB PO SCH ×2 (08:22→17:00)
[2020-10-25] MEDS: THIAMINE HCL 100 MG TABLET PO SCH (08:22)
[2020-10-25] MEDS: APIXABAN 5 MG TABLET PO SCH ×2 (08:22→20:21)
[2020-10-25] MEDS: FAMOTIDINE 20 MG TAB PO SCH ×2 (08:23→20:21)
[2020-10-25] MEDS: ENSURE HIGH PROTEIN 237 ML CAN PO SCH ×2 (10:32→20:22)
[2020-10-26] MEDS: METOPROLOL TAR 50 MG TAB PO SCH ×2 (05:32→17:12)
[2020-10-26 06:18] LABS: Absolute Lymphocytes (CBC) 1.2 K/uL (0.7-4.9); Basophils % 0.6 % (0-1.3); Hematocrit 26.3 % (39.6-49.0); Lymphocytes % 11.2 % (15.3-44.8); MPV 9.6 fL (7.6-11.3); RBC Red Blood Cell Count 2.74 M/uL (4.33-5.43)
[2020-10-26 06:31] LABS: Albumin 2.7 g/dL (3.4-5.0); BUN Blood Urea Nitrogen 19 mg/dL (7-18); Bicarbonate 35 mmol/L (21-32); Glucose Level 133 mg/dL (74-106); Potassium 3.8 mmol/L (3.5-5.1); Prealbumin 33.2 mg/dL (20-40); Sodium Level 144 mmol/L (136-145)
[2020-10-26] MEDS: SODIUM CHLORIDE 0.9% 10ML INJ IV SCH ×2 (08:00→20:00)
[2020-10-26] MEDS: DOCUSATE NA 100 MG CAP PO SCH (08:00)
[2020-10-26] MEDS: acetaZOLAMIDE 250 MG TAB PO SCH ×2 (09:01→20:54)
[2020-10-26] MEDS: FERROUS SULFATE 325 MG TAB PO SCH ×2 (09:01→20:54)
[2020-10-26] MEDS: dexAMETHasone 4 MG TAB PO SCH ×2 (09:01→17:12)
[2020-10-26] MEDS: AMIODARONE HCL 200 MG TAB PO SCH ×2 (09:01→20:54)
[2020-10-26] MEDS: FAMOTIDINE 20 MG TAB PO SCH ×2 (09:02→20:54)
[2020-10-26] MEDS: THIAMINE HCL 100 MG TABLET PO SCH (09:02)
[2020-10-26] MEDS: APIXABAN 5 MG TABLET PO SCH ×2 (09:02→20:54)
[2020-10-26] MEDS ORDERED: DOCUSATE NA 100 MG CAP PO PRN (09:06)
[2020-10-26] MEDS: ENSURE HIGH PROTEIN 237 ML CAN PO SCH ×2 (09:16→20:53)
--- NOTE | 2020-10-26 18:12 | R.PN ---
PROGRESS NOTES ENCOUNTER DATE AND TIME: 10/26/2020 18:02 (CDT) NAME CINDY MEDRANO DATE OF : 1975 DATE OF ADMISSION: 10/23/2020 18:16 (CDT) POST COVIDCHIEF COMPLAINT: Post covid-19 syndrome and debility SUBJECTIVE: Pt denied any depression. Pt denied any Shortness of Breath. WBC 10.3, Hgb 8.7, prealbumin 33.2, UA is normal. Ambulated 207' with contact guard assistance using a rolling walker. O2 sat dropped to 71%. He recove red well with O2 sat > 90% after resting for 1 minute. VITAL SIGNS Temperature: 97.1 F SBP/DBP: 153/84 Pulse: 79 Resp: 18 MEDICATION ALLERGIES: No Known Drug Allergies (NKDA) ENVIRONMENTAL ALLERGIES: None Known - Substance Allergies None Known - Other Allergies None Known NURSING: - Shower allowing shower ACTIVITIES OOB only with supervision THERAPIES: - Dietary and Nutrition Adequate Nutrition. Nutritional Education. Nutritional Supplements. PHYSICAL EXAM - Gen Alert and awake Lying in bed No apparent distress Oriented to: person, time, and place - Skin No breakdown Normacephalic - Eyes No abnormalities - ENMT No abnormalities - Neck No abnormalities - CVS RRR - Chest Mildly decreased breath sounds bilaterally. - Resp + upper airway ronchi - Abd + bowel sounds - GI Soft Deferred - No abnormalities - Ext Mild edema in both lower extremities. - MSK 4+/5 weakness in both lower and upper extremities. - Neuro No focal deficits - Psych Mild depression. ASSESSMENT: Pt. is a 45 yo Right-handed black male.On 08/18/2020 he was admitted to [facility] with diag nosis POST COVID.His impairment category is Pulmonary Disorders 10 - Other Pulmonary Disorders (10.9 ).Pre-morbidly, Pt. was independent/mod-I in Transfers Control, Locomotion, Self-Care, Social Cogniti on, Sphincter Control, and Communication; and he had good Balance and Safety Awareness.Currently, he has deficits of Transfers Control, Balance, Locomotion, Safety Awareness, and Self-Care.Pt. is now re ferred to [facility] for acute in-patient rehabilitation in order to maximize patient's functional independence in activities of daily living, strength, ROM, and mobility.- Rehab Goal Patient has realistic goal of being discharged at assistance level 6-Hansel to reside at Home with Fri ends. MDM/PLAN: - Physical Therapy Gait dysfunction - to improve, our physical therapists will perform initial evaluation of pt's statu s upon admission and devise an individualized program for Gait Training, and Wheel Chair mobility Inability to transfer - to improve, our physical therapists will perform initial evaluation of pt's status upon admission and devise an individualized program for Bed mobility Need for home safety evaluation - to improve, our physical therapists will perform initial evaluatio n of pt's status upon admission and devise an individualized program for Home Evaluation Need in caregiver upon discharge - to improve, our physical therapists will perform initial evaluati on of pt's status upon admission and devise an individualized program for Caregiver Training Edema - to improve, our physical therapists will perform initial evaluation of pt's status upon admis neida and devise an individualized program for Elevation Training, and Lymphedema Therapy New precaution - to improve, our physical therapists will perform initial evaluation of pt's status upon admission and devise an individualized program for Patient precaution education Poor balance - to improve, our physical therapists will perform initial evaluation of pt's status up on admission and devise an individualized program for Balance Training Weakness - to improve, our physical therapists will perform initial evaluation of pt's status upon a dmission and devise an individualized program for Aquatic Therapy, Neuromuscular Reeducation, and Str engthening Achieving independence - to improve, our physical therapists will perform initial evaluation of pt's status upon admission and devise an individualized program for Community Reintegration Activities - Occupational Therapy ADL deficits - to improve, our occupation therapists will perform initial evaluation of pt's status upon admission and devise an individualized program for Bathing, Bed mobility, Community Reintegratio n, Cooking, Dressing, Eating, Fine Motor Skills, Grooming, Homemaking, Kitchen Mobility, Laundry, Pat ient Education, Safety Awareness, Splinting - Positioning, Transfers(Toilet, Tub, Shower), and Wheel Chair Management Need for director long term care - to improve, our occupation therapists will perform initial evaluation of pt's status upon admission and devise an individualized program for Caregiver Training Weakness - to improve, our occupation therapists will perform initial evaluation of pt's status upon admission and devise an individualized program for Aquatic Therapy, Balance, Endurance, UE ROM, and UE strengthening - Other See attached MAR (Medication Administration Record) - Diet Type Continue Regular - Diet - Liquid Texture Continue Regular - Tube Feed Continue N/A - Diet - Solid Texture Continue Regular - Shower allowing shower FUNCTIONAL STATUS: UPDATED AT WEEKLY TEAM CONFERENCE - Walking Same score based on distance walked: 0(N/A) FUNCTIONAL STATUS: - Self-Care A. Eating Hansel B. Grooming Hansel C. Bathing modA D. Dressing - Upper sup E. Dressing - Lower Thao F. Toileting Thao - Sphincter Control G. Bladder control Hansel H. Bowel control Hansel - Transfers Control I. Bed/Chair/Wheelchair modA J. Toilet modA K. Tub/Shower modA - Locomotion L. Walk/Wheelchair (B) modA M. Stairs ADNO - Communication N. Comprehension (B) Hansel O. Expression (B) Hansel - Social Cognition P. Social Interaction Hansel Q. Problem Solving Hansel R. Memory Hansel - Endurance Poor - Balance Poor - Safety Awareness Fair QI SCORES: - Self-Care A. Eating 03-Partial/moderate assistance B. Oral hygiene 03-Partial/moderate assistance C. Toileting hygiene 02-Substantial/maximal assistance E. Shower/bathe self 02-Substantial/maximal assistance F. Upper body dressing 01-Dependent G. Lower body dressing 01-Dependent H. Putting on/taking off footwear 01-Dependent - Mobility A. Roll left and right 02-Substantial/maximal assistance B. Sit to lying 02-Substantial/maximal assistance C. Lying to sitting on side of bed 02-Substantial/maximal assistance D. Sit to stand 02-Substantial/maximal assistance E. Chair/dos-rn-fmdry transfer 02-Substantial/maximal assistance F. Toilet transfer 02-Substantial/maximal assistance G. Car transfer 88-Not attempted due to medical condition or safety concerns I. Walk 10 feet 88-Not attempted due to medical condition or safety concerns J. Walk 50 feet with two turns 88-Not attempted due to medical condition or safety concerns K. Walk 150 feet 88-Not attempted due to medical condition or safety concerns L. Walking 10 feet on uneven surfaces 88-Not attempted due to medical condition or safety concerns M. 1 step (curb) 88-Not attempted due to medical condition or safety concerns N. 4 steps 88-Not attempted due to medical condition or safety concerns O. 12 steps 88-Not attempted due to medical condition or safety concerns P. Picking up object 88-Not attempted due to medical condition or safety concerns - Bladder and Bowel Bladder continence 0-Always continent Bowel continence 0-Always continent - Endurance Poor - Balance Poor - Safety Awareness Poor CURRENT FUNC. DEFICITS: Self-Care, Mobility, Endurance, Balance, and Safety Awareness SIGNATURE PANEL: (CDT)
[2020-10-27] MEDS: METOPROLOL TAR 50 MG TAB PO SCH ×2 (05:32→16:48)
[2020-10-27] MEDS: SODIUM CHLORIDE 0.9% 10ML INJ IV SCH ×2 (08:00→20:00)
[2020-10-27] MEDS: FAMOTIDINE 20 MG TAB PO SCH ×2 (09:07→21:25)
[2020-10-27] MEDS: acetaZOLAMIDE 250 MG TAB PO SCH ×2 (09:07→21:24)
[2020-10-27] MEDS: FERROUS SULFATE 325 MG TAB PO SCH ×2 (09:07→21:25)
[2020-10-27] MEDS: ENSURE HIGH PROTEIN 237 ML CAN PO SCH ×2 (09:07→21:25)
[2020-10-27] MEDS: AMIODARONE HCL 200 MG TAB PO SCH ×2 (09:07→21:25)
[2020-10-27] MEDS: THIAMINE HCL 100 MG TABLET PO SCH (09:08)
[2020-10-27] MEDS: dexAMETHasone 4 MG TAB PO SCH ×2 (09:08→16:48)
[2020-10-27] MEDS: APIXABAN 5 MG TABLET PO SCH ×2 (09:08→21:24)
--- NOTE | 2020-10-27 10:13 | P.RH.PN ---
Estimated Length of Stay: 14 Expected Discharge Date: 11/05/20 Discharge Disposition Plan: Home Family Support: Yes Alf Goal: Mobility, Transfers, Self Care Vital Signs: Last Vital Signs Temp 98.2 F 10/27/20 09:44 Pulse 74 10/27/20 09:44 Resp 18 10/27/20 09:44 BP 125/69 10/27/20 09:44 Pulse Ox 92 10/27/20 09:44 Laboratory: Laboratory Last Values WBC 10.30 K/uL (4.3-10.9) 10/26/20 05:50 RBC 2.74 M/uL (4.33-5.43) L 10/26/20 05:50 Hgb 8.7 g/dL (13.6-17.9) L 10/26/20 05:50 Hct 26.3 % (39.6-49.0) L 10/26/20 05:50 MCV 95.9 fL (80-100) 10/26/20 05:50 MCH 31.7 pg (27.0-35.0) 10/26/20 05:50 MCHC 33.0 g/dL (32.0-36.0) 10/26/20 05:50 RDW 18.5 % (12.1-15.2) H 10/26/20 05:50 Plt Count 279 K/uL (152-406) 10/26/20 05:50 MPV 9.6 fL (7.6-11.3) 10/26/20 05:50 Neutrophils % 79.0 % (41.7-73.7) H 10/26/20 05:50 Lymphocytes % 11.2 % (15.3-44.8) L 10/26/20 05:50 Monocytes % 9.1 % (3.3-12.3) 10/26/20 05:50 Eosinophils % 0.1 % (0-4.4) 10/26/20 05:50 Basophils % 0.6 % (0-1.3) 10/26/20 05:50 Absolute Neutrophils 8.2 K/uL (1.8-8.0) H 10/26/20 05:50 Absolute Lymphocytes 1.2 K/uL (0.7-4.9) 10/26/20 05:50 Absolute Monocytes 0.9 K/uL (0.1-1.3) 10/26/20 05:50 Absolute Eosinophils 0.0 K/uL (0-0.5) 10/26/20 05:50 Absolute Basophils 0.1 K/uL (0-0.5) 10/26/20 05:50 Sodium 144 mmol/L (136-145) 10/26/20 05:50 Potassium 3.8 mmol/L (3.5-5.1) 10/26/20 05:50 Chloride 107 mmol/L (98-107) 10/26/20 05:50 Carbon Dioxide 35 mmol/L (21-32) H 10/26/20 05:50 BUN 19 mg/dL (7-18) H 10/26/20 05:50 Creatinine 0.55 mg/dL (0.55-1.3) 10/26/20 05:50 Estimated GFR > 90 mL/min (=/>90) 10/26/20 05:50 Glucose 133 mg/dL (74-106) H 10/26/20 05:50 Calcium 8.0 mg/dL (8.5-10.1) L 10/26/20 05:50 Magnesium 2.0 mg/dL (1.8-2.4) 10/26/20 05:50 Albumin 2.7 g/dL (3.4-5.0) L 10/26/20 05:50 Prealbumin 33.2 mg/dL (20-40) 10/26/20 05:50 Urine Color Yellow (Yellow) 10/23/20 21:19 Urine Appearance Clear (Clear) 10/23/20 21:19 Urine pH 6.5 (5.0-7.0) 10/23/20 21:19 Ur Specific [place] 1.020 (1.005-1.030) 10/23/20 21:19 Glucose (UA)(Auto) Negative (Negative) 10/23/20 21:19 Urine Ketones Negative (Negative) 10/23/20 21:19 Urine Blood Negative (Negative) 10/23/20 21:19 Urine Nitrite Negative (Negative) 10/23/20 21:19 Urine Bilirubin Negative (Negative) 10/23/20 21:19 Urine Urobilinogen 0.2 mg/dL (0.2-1.0) 10/23/20 21:19 Ur Leukocyte Esterase Negative (Negative) 10/23/20 21:19 Urine RBC None seen /HPF (NONE SEEN) 10/23/20 21:19 Urine WBC <5 /HPF (<5) 10/23/20 21:19 Ur Squamous Epith Cells <5 /HPF (NONE SEEN) 10/23/20 21:19 Urine Bacteria None seen /HPF (NONE SEEN) 10/23/20 21:19 Urine Culture Reflexed Not needed 10/23/20 21:19 Urine Total Protein Negative (Negative) 10/23/20 21:19 Weight: 268 lb Wound Present: No Closed Surgical Incision Present: No Negative Pressure Wound Therapy Present: No Physician Update: Labs reviewed and are stable. He is improving is leg swelling. He walked 80' and 57' x 2 with minimum assistance. He is making good progress but is limited by poor lung function. 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 Please see the Rehabilitation Signature page for all necessary signatures.
[2020-10-28] MEDS: METOPROLOL TAR 50 MG TAB PO SCH ×2 (05:25→17:17)
[2020-10-28 05:56] VITALS: BMI 42.0
[2020-10-28] MEDS: THIAMINE HCL 100 MG TABLET PO SCH (08:42)
[2020-10-28] MEDS: FAMOTIDINE 20 MG TAB PO SCH ×2 (08:42→19:55)
[2020-10-28] MEDS: acetaZOLAMIDE 250 MG TAB PO SCH ×2 (08:42→19:55)
[2020-10-28] MEDS: AMIODARONE HCL 200 MG TAB PO SCH ×2 (08:42→19:58)
[2020-10-28] MEDS: dexAMETHasone 4 MG TAB PO SCH ×2 (08:42→17:18)
[2020-10-28] MEDS: ENSURE HIGH PROTEIN 237 ML CAN PO SCH ×2 (08:43→19:56)
[2020-10-28] MEDS: APIXABAN 5 MG TABLET PO SCH ×2 (08:43→19:55)
[2020-10-28] MEDS: FERROUS SULFATE 325 MG TAB PO SCH ×2 (08:43→19:55)
[2020-10-28] MEDS: SODIUM CHLORIDE 0.9% 10ML INJ IV SCH ×2 (09:23→19:55)
[2020-10-29] MEDS: METOPROLOL TAR 50 MG TAB PO SCH ×2 (05:01→17:14)
[2020-10-29] MEDS: FAMOTIDINE 20 MG TAB PO SCH ×2 (09:06→19:56)
[2020-10-29] MEDS: APIXABAN 5 MG TABLET PO SCH ×2 (09:06→19:57)
[2020-10-29] MEDS: acetaZOLAMIDE 250 MG TAB PO SCH ×2 (09:06→19:56)
[2020-10-29] MEDS: dexAMETHasone 4 MG TAB PO SCH ×2 (09:07→17:14)
[2020-10-29] MEDS: AMIODARONE HCL 200 MG TAB PO SCH ×2 (09:07→19:56)
[2020-10-29] MEDS: FERROUS SULFATE 325 MG TAB PO SCH ×2 (09:07→19:57)
[2020-10-29] MEDS: ENSURE HIGH PROTEIN 237 ML CAN PO SCH ×2 (09:07→19:57)
[2020-10-29] MEDS: THIAMINE HCL 100 MG TABLET PO SCH (09:07)
[2020-10-29] MEDS: SODIUM CHLORIDE 0.9% 10ML INJ IV SCH ×2 (09:08→19:57)
[2020-10-30] MEDS: METOPROLOL TAR 50 MG TAB PO SCH ×2 (05:05→17:16)
[2020-10-30] MEDS: SODIUM CHLORIDE 0.9% 10ML INJ IV SCH ×2 (08:00→19:49)
[2020-10-30] MEDS: ENSURE HIGH PROTEIN 237 ML CAN PO SCH ×2 (09:00→19:49)
[2020-10-30] MEDS: acetaZOLAMIDE 250 MG TAB PO SCH ×2 (09:26→19:48)
[2020-10-30] MEDS: dexAMETHasone 4 MG TAB PO SCH ×2 (09:26→17:15)
[2020-10-30] MEDS: AMIODARONE HCL 200 MG TAB PO SCH ×2 (09:26→19:48)
[2020-10-30] MEDS: APIXABAN 5 MG TABLET PO SCH ×2 (09:26→19:48)
[2020-10-30] MEDS: FAMOTIDINE 20 MG TAB PO SCH ×2 (09:26→19:48)
[2020-10-30] MEDS: THIAMINE HCL 100 MG TABLET PO SCH (09:26)
[2020-10-30] MEDS: FERROUS SULFATE 325 MG TAB PO SCH ×2 (09:27→19:48)
--- NOTE | 2020-10-30 16:42 | R.PN ---
PROGRESS NOTES ENCOUNTER DATE AND TIME: 10/30/2020 16:37 (CDT) NAME CINDY MEDRANO DATE OF : 1975 DATE OF ADMISSION: 10/23/2020 18:16 (CDT) POST COVIDCHIEF COMPLAINT: Post covid-19 syndrome and debility SUBJECTIVE: Pt denied any depression. Pt denied any Shortness of Breath. WBC 10.3, Hgb 8.7, prealbumin 33.2, UA is normal. Therapeutic exercises done with 3.5L O2 and saturation 86 to 99%. VITAL SIGNS Temperature: 98.2 F SBP/DBP: 160/91 Pulse: 72 Resp: 16 MEDICATION ALLERGIES: No Known Drug Allergies (NKDA) ENVIRONMENTAL ALLERGIES: None Known - Substance Allergies None Known - Other Allergies None Known NURSING: - Shower allowing shower ACTIVITIES OOB only with supervision THERAPIES: - Dietary and Nutrition Adequate Nutrition. Nutritional Education. Nutritional Supplements. PHYSICAL EXAM - Gen Alert and awake Lying in bed No apparent distress Oriented to: person, time, and place - Skin No breakdown Normacephalic - Eyes No abnormalities - ENMT No abnormalities - Neck No abnormalities - CVS RRR - Chest Mildly decreased breath sounds bilaterally. - Resp + upper airway ronchi - Abd + bowel sounds - GI Soft Deferred - No abnormalities - Ext Mild edema in both lower extremities. - MSK 4+/5 weakness in both lower and upper extremities. - Neuro No focal deficits - Psych Mild depression. ASSESSMENT: Pt. is a 45 yo Right-handed black male.On 08/18/2020 he was admitted to [facility] with diag nosis POST COVID.His impairment category is Pulmonary Disorders 10 - Other Pulmonary Disorders (10.9 ).Pre-morbidly, Pt. was independent/mod-I in Transfers Control, Locomotion, Self-Care, Social Cogniti on, Sphincter Control, and Communication; and he had good Balance and Safety Awareness.Currently, he has deficits of Transfers Control, Balance, Locomotion, Safety Awareness, and Self-Care.Pt. is now re ferred to [facility] for acute in-patient rehabilitation in order to maximize patient's functional independence in activities of daily living, strength, ROM, and mobility.- Rehab Goal Patient has realistic goal of being discharged at assistance level 6-Hansel to reside at Home with Fri ends. MDM/PLAN: - Physical Therapy Gait dysfunction - to improve, our physical therapists will perform initial evaluation of pt's statu s upon admission and devise an individualized program for Gait Training, and Wheel Chair mobility Inability to transfer - to improve, our physical therapists will perform initial evaluation of pt's status upon admission and devise an individualized program for Bed mobility Need for home safety evaluation - to improve, our physical therapists will perform initial evaluatio n of pt's status upon admission and devise an individualized program for Home Evaluation Need in caregiver upon discharge - to improve, our physical therapists will perform initial evaluati on of pt's status upon admission and devise an individualized program for Caregiver Training Edema - to improve, our physical therapists will perform initial evaluation of pt's status upon admi ssion and devise an individualized program for Elevation Training, and Lymphedema Therapy New precaution - to improve, our physical therapists will perform initial evaluation of pt's status upon admission and devise an individualized program for Patient precaution education Poor balance - to improve, our physical therapists will perform initial evaluation of pt's status up on admission and devise an individualized program for Balance Training Weakness - to improve, our physical therapists will perform initial evaluation of pt's status upon a dmission and devise an individualized program for Aquatic Therapy, Neuromuscular Reeducation, and Str engthening Achieving independence - to improve, our physical therapists will perform initial evaluation of pt's status upon admission and devise an individualized program for Community Reintegration Activities - Occupational Therapy ADL deficits - to improve, our occupation therapists will perform initial evaluation of pt's status upon admission and devise an individualized program for Bathing, Bed mobility, Community Reintegratio n, Cooking, Dressing, Eating, Fine Motor Skills, Grooming, Homemaking, Kitchen Mobility, Laundry, Pat ient Education, Safety Awareness, Splinting - Positioning, Transfers(Toilet, Tub, Shower), and Wheel Chair Management Need for child caregiver - to improve, our occupation therapists will perform initial evaluation of pt's status upon admission and devise an individualized program for Caregiver Training Weakness - to improve, our occupation therapists will perform initial evaluation of pt's status upon admission and devise an individualized program for Aquatic Therapy, Balance, Endurance, UE ROM, and UE strengthening - Other See attached MAR (Medication Administration Record) - Diet Type Continue Regular - Diet - Liquid Texture Continue Regular - Tube Feed Continue N/A - Diet - Solid Texture Continue Regular - Shower allowing shower FUNCTIONAL STATUS: UPDATED AT WEEKLY TEAM CONFERENCE - Walking Same score based on distance walked: 0(N/A) FUNCTIONAL STATUS: - Self-Care A. Eating Hansel B. Grooming Hansel C. Bathing modA D. Dressing - Upper sup E. Dressing - Lower Thao F. Toileting Thao - Sphincter Control G. Bladder control Hansel H. Bowel control Hansel - Transfers Control I. Bed/Chair/Wheelchair modA J. Toilet modA K. Tub/Shower modA - Locomotion L. Walk/Wheelchair (B) modA M. Stairs ADNO - Communication N. Comprehension (B) Hansel O. Expression (B) Hansel - Social Cognition P. Social Interaction Hansel Q. Problem Solving Hansel R. Memory Hansel - Endurance Poor - Balance Poor - Safety Awareness Fair QI SCORES: - Self-Care A. Eating 03-Partial/moderate assistance B. Oral hygiene 03-Partial/moderate assistance C. Toileting hygiene 02-Substantial/maximal assistance E. Shower/bathe self 02-Substantial/maximal assistance F. Upper body dressing 01-Dependent G. Lower body dressing 01-Dependent H. Putting on/taking off footwear 01-Dependent - Mobility A. Roll left and right 02-Substantial/maximal assistance B. Sit to lying 02-Substantial/maximal assistance C. Lying to sitting on side of bed 02-Substantial/maximal assistance D. Sit to stand 02-Substantial/maximal assistance E. Chair/von-be-liwpw transfer 02-Substantial/maximal assistance F. Toilet transfer 02-Substantial/maximal assistance G. Car transfer 88-Not attempted due to medical condition or safety concerns I. Walk 10 feet 88-Not attempted due to medical condition or safety concerns J. Walk 50 feet with two turns 88-Not attempted due to medical condition or safety concerns K. Walk 150 feet 88-Not attempted due to medical condition or safety concerns L. Walking 10 feet on uneven surfaces 88-Not attempted due to medical condition or safety concerns M. 1 step (curb) 88-Not attempted due to medical condition or safety concerns N. 4 steps 88-Not attempted due to medical condition or safety concerns O. 12 steps 88-Not attempted due to medical condition or safety concerns P. Picking up object 88-Not attempted due to medical condition or safety concerns - Bladder and Bowel Bladder continence 0-Always continent Bowel continence 0-Always continent - Endurance Poor - Balance Poor - Safety Awareness Poor CURRENT FUNC. DEFICITS: Self-Care, Mobility, Endurance, Balance, and Safety Awareness SIGNATURE PANEL: (CDT)
[2020-10-31] MEDS: METOPROLOL TAR 50 MG TAB PO SCH ×2 (05:16→17:30)
[2020-10-31 06:02] LABS: BUN Blood Urea Nitrogen 22 mg/dL (7-18); Bicarbonate 34 mmol/L (21-32); Glucose Level 119 mg/dL (74-106); Potassium 3.8 mmol/L (3.5-5.1); Sodium Level 143 mmol/L (136-145)
[2020-10-31 06:03] LABS: Absolute Lymphocytes (CBC) 1.2 K/uL (0.7-4.9); Basophils % 0.3 % (0-1.3); Hematocrit 27.8 % (39.6-49.0); Lymphocytes % 12.1 % (15.3-44.8); MPV 9.5 fL (7.6-11.3); RBC Red Blood Cell Count 2.85 M/uL (4.33-5.43)
[2020-10-31] MEDS: acetaZOLAMIDE 250 MG TAB PO SCH ×2 (08:28→20:17)
[2020-10-31] MEDS: AMIODARONE HCL 200 MG TAB PO SCH ×2 (08:28→20:18)
[2020-10-31] MEDS: dexAMETHasone 4 MG TAB PO SCH ×2 (08:29→17:30)
[2020-10-31] MEDS: FAMOTIDINE 20 MG TAB PO SCH ×2 (08:29→20:18)
[2020-10-31] MEDS: THIAMINE HCL 100 MG TABLET PO SCH (08:29)
[2020-10-31] MEDS: FERROUS SULFATE 325 MG TAB PO SCH ×2 (08:29→20:18)
[2020-10-31] MEDS: APIXABAN 5 MG TABLET PO SCH ×2 (08:30→20:18)
[2020-10-31] MEDS: SODIUM CHLORIDE 0.9% 10ML INJ IV SCH ×2 (08:31→20:00)
[2020-10-31] MEDS: ENSURE HIGH PROTEIN 237 ML CAN PO SCH ×2 (11:43→20:18)
--- NOTE | 2020-10-31 17:48 | R.PN ---
PROGRESS NOTES ENCOUNTER DATE AND TIME: 10/31/2020 17:40 (CDT) NAME CINDY MEDRANO DATE OF : 1975 DATE OF ADMISSION: 10/23/2020 18:16 (CDT) POST COVIDCHIEF COMPLAINT: Post covid-19 syndrome and debility SUBJECTIVE: Pt denied any depression. Pt denied any Shortness of Breath. WBC 10.2, Hgb 8.9, prealbumin 33.2, UA is normal. Therapeutic exercises done with 3.5L O2 and saturation 86 to 99%. Ambulated 274' with standby assistance using a rolling walker and 3L O2 and 82% to 96% VITAL SIGNS Temperature: 97.4 F SBP/DBP: 165/88 Pulse: 81 Resp: 16 MEDICATION ALLERGIES: No Known Drug Allergies (NKDA) ENVIRONMENTAL ALLERGIES: None Known - Substance Allergies None Known - Other Allergies None Known NURSING: - Shower allowing shower ACTIVITIES OOB only with supervision THERAPIES: - Dietary and Nutrition Adequate Nutrition. Nutritional Education. Nutritional Supplements. PHYSICAL EXAM - Gen Alert and awake Lying in bed No apparent distress Oriented to: person, time, and place - Skin No breakdown Normacephalic - Eyes No abnormalities - ENMT No abnormalities - Neck No abnormalities - CVS RRR - Chest Mildly decreased breath sounds bilaterally. - Resp + upper airway ronchi - Abd + bowel sounds - GI Soft Deferred - No abnormalities - Ext Mild edema in both lower extremities. - MSK 4+/5 weakness in both lower and upper extremities. - Neuro No focal deficits - Psych Mild depression. ASSESSMENT: Pt. is a 45 yo Right-handed black male.On 08/18/2020 he was admitted to [facility] with diag nosis POST COVID.His impairment category is Pulmonary Disorders 10 - Other Pulmonary Disorders (10.9 ).Pre-morbidly, Pt. was independent/mod-I in Transfers Control, Locomotion, Self-Care, Social Cogniti on, Sphincter Control, and Communication; and he had good Balance and Safety Awareness.Currently, he has deficits of Transfers Control, Balance, Locomotion, Safety Awareness, and Self-Care.Pt. is now re ferred to [facility] for acute in-patient rehabilitation in order to maximize patient's functional independence in activities of daily living, strength, ROM, and mobility.- Rehab Goal Patient has realistic goal of being discharged at assistance level 6-Hansel to reside at Home with Fri ends. MDM/PLAN: - Physical Therapy Gait dysfunction - to improve, our physical therapists will perform initial evaluation of pt's statu s upon admission and devise an individualized program for Gait Training, and Wheel Chair mobility Inability to transfer - to improve, our physical therapists will perform initial evaluation of pt's status upon admission and devise an individualized program for Bed mobility Need for home safety evaluation - to improve, our physical therapists will perform initial evaluatio n of pt's status upon admission and devise an individualized program for Home Evaluation Need in caregiver upon discharge - to improve, our physical therapists will perform initial evaluati on of pt's status upon admission and devise an individualized program for Caregiver Training Edema - to improve, our physical therapists will perform initial evaluation of pt's status upon admi ssion and devise an individualized program for Elevation Training, and Lymphedema Therapy New precaution - to improve, our physical therapists will perform initial evaluation of pt's status upon admission and devise an individualized program for Patient precaution education Poor balance - to improve, our physical therapists will perform initial evaluation of pt's status up on admission and devise an individualized program for Balance Training Weakness - to improve, our physical therapists will perform initial evaluation of pt's status upon a dmission and devise an individualized program for Aquatic Therapy, Neuromuscular Reeducation, and Str engthening Achieving independence - to improve, our physical therapists will perform initial evaluation of pt's status upon admission and devise an individualized program for Community Reintegration Activities - Occupational Therapy ADL deficits - to improve, our occupation therapists will perform initial evaluation of pt's status upon admission and devise an individualized program for Bathing, Bed mobility, Community Reintegratio n, Cooking, Dressing, Eating, Fine Motor Skills, Grooming, Homemaking, Kitchen Mobility, Laundry, Pat ient Education, Safety Awareness, Splinting - Positioning, Transfers(Toilet, Tub, Shower), and Wheel Chair Management Need for group care worker - to improve, our occupation therapists will perform initial evaluation of pt's status upon admission and devise an individualized program for Caregiver Training Weakness - to improve, our occupation therapists will perform initial evaluation of pt's status upon admission and devise an individualized program for Aquatic Therapy, Balance, Endurance, UE ROM, and UE strengthening - Other See attached MAR (Medication Administration Record) - Diet Type Continue Regular - Diet - Liquid Texture Continue Regular - Tube Feed Continue N/A - Diet - Solid Texture Continue Regular - Shower allowing shower FUNCTIONAL STATUS: UPDATED AT WEEKLY TEAM CONFERENCE - Walking Same score based on distance walked: 0(N/A) FUNCTIONAL STATUS: - Self-Care A. Eating Hansel B. Grooming Hansel C. Bathing modA D. Dressing - Upper sup E. Dressing - Lower Thao F. Toileting Thao - Sphincter Control G. Bladder control Hansel H. Bowel control Hansel - Transfers Control I. Bed/Chair/Wheelchair modA J. Toilet modA K. Tub/Shower modA - Locomotion L. Walk/Wheelchair (B) modA M. Stairs ADNO - Communication N. Comprehension (B) Hansel O. Expression (B) Hansel - Social Cognition P. Social Interaction Hansel Q. Problem Solving Hansel R. Memory Hansel - Endurance Poor - Balance Poor - Safety Awareness Fair QI SCORES: - Self-Care A. Eating 03-Partial/moderate assistance B. Oral hygiene 03-Partial/moderate assistance C. Toileting hygiene 02-Substantial/maximal assistance E. Shower/bathe self 02-Substantial/maximal assistance F. Upper body dressing 01-Dependent G. Lower body dressing 01-Dependent H. Putting on/taking off footwear 01-Dependent - Mobility A. Roll left and right 02-Substantial/maximal assistance B. Sit to lying 02-Substantial/maximal assistance C. Lying to sitting on side of bed 02-Substantial/maximal assistance D. Sit to stand 02-Substantial/maximal assistance E. Chair/[id number] transfer 02-Substantial/maximal assistance F. Toilet transfer 02-Substantial/maximal assistance G. Car transfer 88-Not attempted due to medical condition or safety concerns I. Walk 10 feet 88-Not attempted due to medical condition or safety concerns J. Walk 50 feet with two turns 88-Not attempted due to medical condition or safety concerns K. Walk 150 feet 88-Not attempted due to medical condition or safety concerns L. Walking 10 feet on uneven surfaces 88-Not attempted due to medical condition or safety concerns M. 1 step (curb) 88-Not attempted due to medical condition or safety concerns N. 4 steps 88-Not attempted due to medical condition or safety concerns O. 12 steps 88-Not attempted due to medical condition or safety concerns P. Picking up object 88-Not attempted due to medical condition or safety concerns - Bladder and Bowel Bladder continence 0-Always continent Bowel continence 0-Always continent - Endurance Poor - Balance Poor - Safety Awareness Poor CURRENT FUNC. DEFICITS: Self-Care, Mobility, Endurance, Balance, and Safety Awareness SIGNATURE PANEL: (CDT)
[2020-11-01] MEDS: METOPROLOL TAR 50 MG TAB PO SCH ×2 (05:03→16:56)
[2020-11-01] MEDS: AMIODARONE HCL 200 MG TAB PO SCH ×2 (08:09→19:43)
[2020-11-01] MEDS: APIXABAN 5 MG TABLET PO SCH ×2 (08:09→19:43)
[2020-11-01] MEDS: FERROUS SULFATE 325 MG TAB PO SCH ×2 (08:09→19:43)
[2020-11-01] MEDS: THIAMINE HCL 100 MG TABLET PO SCH (08:09)
[2020-11-01] MEDS: FAMOTIDINE 20 MG TAB PO SCH ×2 (08:10→19:43)
[2020-11-01] MEDS: SODIUM CHLORIDE 0.9% 10ML INJ IV SCH ×2 (08:10→19:43)
[2020-11-01] MEDS: ENSURE HIGH PROTEIN 237 ML CAN PO SCH (08:10)
[2020-11-01] MEDS: dexAMETHasone 4 MG TAB PO SCH ×2 (08:10→16:56)
[2020-11-01] MEDS: acetaZOLAMIDE 250 MG TAB PO SCH ×2 (08:10→19:43)
--- NOTE | 2020-11-01 17:00 | R.PN ---
PROGRESS NOTES ENCOUNTER DATE AND TIME: 11/01/2020 16:56 (CDT) NAME CINDY MEDRANO DATE OF : 1975 DATE OF ADMISSION: 10/23/2020 18:16 (CDT) POST COVIDCHIEF COMPLAINT: Post covid-19 syndrome and debility SUBJECTIVE: Pt denied any depression. Pt denied any Shortness of Breath. WBC 10.2, Hgb 8.9, prealbumin 33.2, UA is normal. Ambulated 240' with standby assistance using a rolling walker and 2L O2 and 79% to 93% VITAL SIGNS Temperature: 98.1 F SBP/DBP: 135/77 Pulse: 83 Resp: 15 MEDICATION ALLERGIES: No Known Drug Allergies (NKDA) ENVIRONMENTAL ALLERGIES: None Known - Substance Allergies None Known - Other Allergies None Known NURSING: - Shower allowing shower ACTIVITIES OOB only with supervision THERAPIES: - Dietary and Nutrition Adequate Nutrition. Nutritional Education. Nutritional Supplements. PHYSICAL EXAM - Gen Alert and awake Lying in bed No apparent distress Oriented to: person, time, and place - Skin No breakdown Normacephalic - Eyes No abnormalities - ENMT No abnormalities - Neck No abnormalities - CVS RRR - Chest Mildly decreased breath sounds bilaterally. - Resp + upper airway ronchi - Abd + bowel sounds - GI Soft Deferred - No abnormalities - Ext Mild edema in both lower extremities. - MSK 4+/5 weakness in both lower and upper extremities. - Neuro No focal deficits - Psych Mild depression. ASSESSMENT: Pt. is a 45 yo Right-handed black male.On 08/18/2020 he was admitted to [facility] with diag nosis POST COVID.His impairment category is Pulmonary Disorders 10 - Other Pulmonary Disorders (10.9 ).Pre-morbidly, Pt. was independent/mod-I in Transfers Control, Locomotion, Self-Care, Social Cogniti on, Sphincter Control, and Communication; and he had good Balance and Safety Awareness.Currently, he has deficits of Transfers Control, Balance, Locomotion, Safety Awareness, and Self-Care.Pt. is now re ferred to [facility] for acute in-patient rehabilitation in order to maximize patient's functional independence in activities of daily living, strength, ROM, and mobility.- Rehab Goal Patient has realistic goal of being discharged at assistance level 6-Hansel to reside at Home with Fri ends. MDM/PLAN: - Physical Therapy Gait dysfunction - to improve, our physical therapists will perform initial evaluation of pt's statu s upon admission and devise an individualized program for Gait Training, and Wheel Chair mobility Inability to transfer - to improve, our physical therapists will perform initial evaluation of pt's status upon admission and devise an individualized program for Bed mobility Need for home safety evaluation - to improve, our physical therapists will perform initial evaluatio n of pt's status upon admission and devise an individualized program for Home Evaluation Need in caregiver upon discharge - to improve, our physical therapists will perform initial evaluati on of pt's status upon admission and devise an individualized program for Caregiver Training Edema - to improve, our physical therapists will perform initial evaluation of pt's status upon admi ssion and devise an individualized program for Elevation Training, and Lymphedema Therapy New precaution - to improve, our physical therapists will perform initial evaluation of pt's status upon admission and devise an individualized program for Patient precaution education Poor balance - to improve, our physical therapists will perform initial evaluation of pt's status up on admission and devise an individualized program for Balance Training Weakness - to improve, our physical therapists will perform initial evaluation of pt's status upon a dmission and devise an individualized program for Aquatic Therapy, Neuromuscular Reeducation, and Str engthening Achieving independence - to improve, our physical therapists will perform initial evaluation of pt's status upon admission and devise an individualized program for Community Reintegration Activities - Occupational Therapy ADL deficits - to improve, our occupation therapists will perform initial evaluation of pt's status upon admission and devise an individualized program for Bathing, Bed mobility, Community Reintegratio n, Cooking, Dressing, Eating, Fine Motor Skills, Grooming, Homemaking, Kitchen Mobility, Laundry, Pat ient Education, Safety Awareness, Splinting - Positioning, Transfers(Toilet, Tub, Shower), and Wheel Chair Management Need for care provider - to improve, our occupation therapists will perform initial evaluation of pt's status upon admission and devise an individualized program for Caregiver Training Weakness - to improve, our occupation therapists will perform initial evaluation of pt's status upon admission and devise an individualized program for Aquatic Therapy, Balance, Endurance, UE ROM, and UE strengthening - Other See attached MAR (Medication Administration Record) - Diet Type Continue Regular - Diet - Liquid Texture Continue Regular - Tube Feed Continue N/A - Diet - Solid Texture Continue Regular - Shower allowing shower FUNCTIONAL STATUS: UPDATED AT WEEKLY TEAM CONFERENCE - Walking Same score based on distance walked: 0(N/A) FUNCTIONAL STATUS: - Self-Care A. Eating Hansel B. Grooming Hansel C. Bathing modA D. Dressing - Upper sup E. Dressing - Lower Thao F. Toileting Thao - Sphincter Control G. Bladder control Hansel H. Bowel control Hansel - Transfers Control I. Bed/Chair/Wheelchair modA J. Toilet modA K. Tub/Shower modA - Locomotion L. Walk/Wheelchair (B) modA M. Stairs ADNO - Communication N. Comprehension (B) Hansel O. Expression (B) Hansel - Social Cognition P. Social Interaction Hansel Q. Problem Solving Hansel R. Memory Hansel - Endurance Poor - Balance Poor - Safety Awareness Fair QI SCORES: - Self-Care A. Eating 03-Partial/moderate assistance B. Oral hygiene 03-Partial/moderate assistance C. Toileting hygiene 02-Substantial/maximal assistance E. Shower/bathe self 02-Substantial/maximal assistance F. Upper body dressing 01-Dependent G. Lower body dressing 01-Dependent H. Putting on/taking off footwear 01-Dependent - Mobility A. Roll left and right 02-Substantial/maximal assistance B. Sit to lying 02-Substantial/maximal assistance C. Lying to sitting on side of bed 02-Substantial/maximal assistance D. Sit to stand 02-Substantial/maximal assistance E. Chair/qss-lq-epdkh transfer 02-Substantial/maximal assistance F. Toilet transfer 02-Substantial/maximal assistance G. Car transfer 88-Not attempted due to medical condition or safety concerns I. Walk 10 feet 88-Not attempted due to medical condition or safety concerns J. Walk 50 feet with two turns 88-Not attempted due to medical condition or safety concerns K. Walk 150 feet 88-Not attempted due to medical condition or safety concerns L. Walking 10 feet on uneven surfaces 88-Not attempted due to medical condition or safety concerns M. 1 step (curb) 88-Not attempted due to medical condition or safety concerns N. 4 steps 88-Not attempted due to medical condition or safety concerns O. 12 steps 88-Not attempted due to medical condition or safety concerns P. Picking up object 88-Not attempted due to medical condition or safety concerns - Bladder and Bowel Bladder continence 0-Always continent Bowel continence 0-Always continent - Endurance Poor - Balance Poor - Safety Awareness Poor CURRENT FUNC. DEFICITS: Self-Care, Mobility, Endurance, Balance, and Safety Awareness SIGNATURE PANEL: (CDT)
[2020-11-01 19:25] LABS: Absolute Lymphocytes (CBC) 0.6 K/uL (0.7-4.9); Basophils % 0.5 % (0-1.3); Hematocrit 28.3 % (39.6-49.0); Lymphocytes % 6.1 % (15.3-44.8); MPV 9.5 fL (7.6-11.3); RBC Red Blood Cell Count 2.89 M/uL (4.33-5.43)
[2020-11-01 19:54] LABS: Albumin 2.8 g/dL (3.4-5.0); BUN Blood Urea Nitrogen 16 mg/dL (7-18); Bicarbonate 30 mmol/L (21-32); Glucose Level 148 mg/dL (74-106); Magnesium 2.1 mg/dL (1.8-2.4); Potassium 3.8 mmol/L (3.5-5.1); Prealbumin 35.4 mg/dL (20-40); Sodium Level 144 mmol/L (136-145)
[2020-11-02] MEDS: METOPROLOL TAR 50 MG TAB PO SCH ×2 (05:42→17:05)
[2020-11-02] MEDS: AMIODARONE HCL 200 MG TAB PO SCH ×2 (07:01→20:10)
[2020-11-02] MEDS: acetaZOLAMIDE 250 MG TAB PO SCH ×2 (07:01→20:10)
[2020-11-02] MEDS: SODIUM CHLORIDE 0.9% 10ML INJ IV SCH ×2 (07:01→20:00)
[2020-11-02] MEDS: dexAMETHasone 4 MG TAB PO SCH ×2 (07:37→17:06)
[2020-11-02] MEDS: APIXABAN 5 MG TABLET PO SCH ×2 (07:37→20:10)
[2020-11-02] MEDS: FERROUS SULFATE 325 MG TAB PO SCH ×2 (07:37→20:10)
[2020-11-02] MEDS: FAMOTIDINE 20 MG TAB PO SCH ×2 (07:37→20:08)
[2020-11-02] MEDS: THIAMINE HCL 100 MG TABLET PO SCH (07:38)
--- NOTE | 2020-11-02 10:03 | P.RH.PN ---
Estimated Length of Stay: 12 Expected Discharge Date: 11/03/20 Discharge Disposition Plan: Home Vital Signs: Last Vital Signs Temp 98.8 F 11/02/20 07:25 Pulse 74 11/02/20 09:25 Resp 18 11/02/20 07:25 BP 165/96 H 11/02/20 09:25 Pulse Ox 98 11/02/20 07:25 Laboratory: Laboratory Last Values WBC 9.70 K/uL (4.3-10.9) 11/01/20 19:13 RBC 2.89 M/uL (4.33-5.43) L 11/01/20 19:13 Hgb 9.2 g/dL (13.6-17.9) L 11/01/20 19:13 Hct 28.3 % (39.6-49.0) L 11/01/20 19:13 MCV 97.8 fL (80-100) 11/01/20 19:13 MCH 31.8 pg (27.0-35.0) 11/01/20 19:13 MCHC 32.5 g/dL (32.0-36.0) 11/01/20 19:13 RDW 19.7 % (12.1-15.2) H 11/01/20 19:13 Plt Count 280 K/uL (152-406) 11/01/20 19:13 MPV 9.5 fL (7.6-11.3) 11/01/20 19:13 Neutrophils % 83.8 % (41.7-73.7) H 11/01/20 19:13 Lymphocytes % 6.1 % (15.3-44.8) L 11/01/20 19:13 Monocytes % 9.4 % (3.3-12.3) 11/01/20 19:13 Eosinophils % 0.2 % (0-4.4) 11/01/20 19:13 Basophils % 0.5 % (0-1.3) 11/01/20 19:13 Absolute Neutrophils 8.1 K/uL (1.8-8.0) H 11/01/20 19:13 Absolute Lymphocytes 0.6 K/uL (0.7-4.9) L 11/01/20 19:13 Absolute Monocytes 0.9 K/uL (0.1-1.3) 11/01/20 19:13 Absolute Eosinophils 0.0 K/uL (0-0.5) 11/01/20 19:13 Absolute Basophils 0.1 K/uL (0-0.5) 11/01/20 19:13 Sodium 144 mmol/L (136-145) 11/01/20 19:13 Potassium 3.8 mmol/L (3.5-5.1) 11/01/20 19:13 Chloride 109 mmol/L (98-107) H 11/01/20 19:13 Carbon Dioxide 30 mmol/L (21-32) 11/01/20 19:13 BUN 16 mg/dL (7-18) 11/01/20 19:13 Creatinine 0.58 mg/dL (0.55-1.3) 11/01/20 19:13 Estimated GFR > 90 mL/min (=/>90) 11/01/20 19:13 Glucose 148 mg/dL (74-106) H 11/01/20 19:13 Calcium 7.9 mg/dL (8.5-10.1) L 11/01/20 19:13 Magnesium 2.1 mg/dL (1.8-2.4) 11/01/20 19:13 Albumin 2.8 g/dL (3.4-5.0) L 11/01/20 19:13 Prealbumin 35.4 mg/dL (20-40) 11/01/20 19:13 Urine Color Yellow (Yellow) 10/23/20 21:19 Urine Appearance Clear (Clear) 10/23/20 21:19 Urine pH 6.5 (5.0-7.0) 10/23/20 21:19 Ur Specific [place] 1.020 (1.005-1.030) 10/23/20 21:19 Glucose (UA)(Auto) Negative (Negative) 10/23/20 21:19 Urine Ketones Negative (Negative) 10/23/20 21:19 Urine Blood Negative (Negative) 10/23/20 21:19 Urine Nitrite Negative (Negative) 10/23/20 21:19 Urine Bilirubin Negative (Negative) 10/23/20 21:19 Urine Urobilinogen 0.2 mg/dL (0.2-1.0) 10/23/20 21:19 Ur Leukocyte Esterase Negative (Negative) 10/23/20 21:19 Urine RBC None seen /HPF (NONE SEEN) 10/23/20 21:19 Urine WBC <5 /HPF (<5) 10/23/20 21:19 Ur Squamous Epith Cells <5 /HPF (NONE SEEN) 10/23/20 21:19 Urine Bacteria None seen /HPF (NONE SEEN) 10/23/20 21:19 Urine Culture Reflexed Not needed 10/23/20 21:19 Urine Total Protein Negative (Negative) 10/23/20 21:19 Weight: 288 lb 3.2 oz Wound Present: No Closed Surgical Incision Present: No Negative Pressure Wound Therapy Present: No Physician Update: 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 His O2 sats drop with ambulation but quickly improve with ventilation and 2L of O2. He will be discharged home in the AM. Summary: Patient's care plan and hospice rn goals have been reviewed and revised as necessary. Please see the Rehabilitation Signature page for all necessary signatures.
[2020-11-03] MEDS: METOPROLOL TAR 50 MG TAB PO SCH ×2 (05:45→17:40)
[2020-11-03] MEDS: SODIUM CHLORIDE 0.9% 10ML INJ IV SCH ×2 (08:00→19:21)
[2020-11-03] MEDS: acetaZOLAMIDE 250 MG TAB PO SCH ×2 (08:32→19:03)
[2020-11-03] MEDS: FAMOTIDINE 20 MG TAB PO SCH ×2 (08:32→19:21)
[2020-11-03] MEDS: AMIODARONE HCL 200 MG TAB PO SCH ×2 (08:33→19:03)
[2020-11-03] MEDS: FERROUS SULFATE 325 MG TAB PO SCH ×2 (08:33→19:20)
[2020-11-03] MEDS: dexAMETHasone 4 MG TAB PO SCH ×2 (08:33→17:40)
[2020-11-03] MEDS: THIAMINE HCL 100 MG TABLET PO SCH (08:33)
[2020-11-03] MEDS: APIXABAN 5 MG TABLET PO SCH ×2 (08:33→19:03)
[2020-11-03 11:31] VITALS: O2SAT 94
[2020-11-03 20:08] VITALS: BP 156/65; TEMP 97.6
== END 2020-11-03 19:20 | disposition home or self-care (01) | DRG 179 ==
LOC: 5TH 18:16
PROVIDERS: ADMIT Psychiatry & Neurology Neurology with Special Qualifications in Child Neurology; ATTEND Psychiatry & Neurology Neurology with Special Qualifications in Child Neurology
DX: U07.1 COVID-19 (principal)
CPT/HCPCS: 36415; 80048; 81001; 82040; 83735; 84134; 85025; 87086; 87088; 97110; 97116; 97161; 97530; 97542; J8540

== ENCOUNTER 2020-11-22 14:00 | Emergency (ER) | payer SELFPAY ==
--- OUTSIDE RECORDS SUMMARY | 2020-11-22 15:30 | XMS REPORT | Continuity of Care Document ---
:1975 Author Organization [facility] t Address [address] [place] [id number] Care Team Providers Name Role Phone Unavailable Unavailable Unavailable Problems Condition Condition Condition Status Onset Resolution Last Treating Co mments Source Name Details Category Date Date Treatment Clinician Date Adult BMI Adult BMI Diagnosis Active [facility] 40.0-44.9 40.0-44.9 Luke s - kg/sq m kg/sq m [facility] Essential Essential Diagnosis Active [facility] (primary) (primary) Luke s - hypertensi hypertensi Me moria on on l [facility] Tobacco [facility]ics Pure Pure Problem Active [facility] hyperchole hyperchole Catrachita kes - sterolemia sterolemia [facility] Family Family Diagnosis Active [facility] history of history of Catrachita kes - heart heart Memoria disease in disease in l male [facility] member member Clinics [...] [facility] - 00:00: 00:00 Memoria 00 :00 [facility] Clinics Lisinopril Lisinopril 2017- Yes Dariel [address] [facility] 2-13 Adelita [facility] - 00:00: Memoria 00 [facility] Immunizations Ordered Filled Immunization Date Status Comments Sourc e Immunization Name Name TDAP > 7 TDAP > 7 2018-04-[address] [facility] - Years-Adacel Years-Adacel 00:00:00 [facility] Flucelvax - Flucelvax - 2018-04-[address] [facility] - multidose vial multidose vial 00:00:00 [facility] Outpatient [facility] Procedures This patient has no known procedures. Encounters Start End Encounter Admission Attending Care Care Encounter Source Date/Time Date/Time Type Type Clinicians Facility Department ID 2018-06-30 2018-06-30 Outpatient Milind Gil [id number] [facility] 11:30:00 11:30:00 [facility] 2018-05-18 2018-05-18 Outpatient Milind Vazt [id number] [facility] 09:45:00 09:45:00 [facility] 2018-04-30 2018-04-30 Outpatient Milind Vazt [id number] 14:30:00 14:30:00 [facility] Results This patient has no known results.
--- NOTE | 2020-11-22 15:52 | RAD REPORT ---
EXAM DESCRIPTION: USExtremity Venous Uni Ltd11/22/2020 3:23 pm CLINICAL HISTORY: left leg pain and swelling. COMPARISON: None. FINDINGS: Left common femoral, superficial femoral, popliteal and posterior tibial veins are compre ssible and demonstrate augmentation. Doppler demonstrates good flow. 4 centimeter Mott's cyst IMPRESSION: No evidence of deep venous thrombosis involving the left lower extremity. 4 centimeter Mott's cyst
[2020-11-22] MEDS ORDERED: HYDROCODONE/APAP 10/325 TAB ONE (16:16)
--- NOTE | 2020-11-22 17:19 | RAD REPORT ---
EXAM DESCRIPTION: RAD - Knee Left 3 View - 11/22/2020 4:56 pm CLINICAL HISTORY: Left knee pain FINDINGS: No fracture or dislocation is seen. Mild narrowing of the medial compartment.
--- NOTE | 2020-11-22 17:26 | EDPHYS ---
Physician Documentation [facility] Name: Jasbir Dewey Age: 45 yrs Sex: Male : 1975 Arrival Date: 11/22/2020 Time: 14:02 Bed 16 Private MD: ED Physician Polo Jovel HPI: 11/22 16:28 This 45 yrs old Black Male presents to ER via Wheelchair with complaints of Knee kb Swelling. 16:28 The patient presents with pain, swelling, tenderness. The complaints affect the left kb knee. Context: The problem was sustained at home, resulted from an unknown cause, the patient is not able to bear weight, the patient is not able to ambulate. 16:29 Onset: The symptoms/episode began/occurred 2 day(s) ago. Modifying factors: The kb symptoms are alleviated by nothing. the symptoms are aggravated by movement, weight bearing. Associated signs and symptoms: Pertinent positives: swelling, Pertinent negatives calf tenderness, fever, nausea, numbness, rash, tingling, vomiting, warmth, weakness. Treatment prior to arrival includes: no previous treatment. Severity of symptoms: At their worst the symptoms were moderate, in the emergency department the symptoms are unchanged. The patient has not experienced similar symptoms in the past. The patient has not recently seen a physician. Historical: - Allergies: 14:23 No Known Allergies; ll1 - PMHx: 14:23 "occassional hypertension; Covid pneumonia, blood clot lungs; ll1 - PSHx: 14:23 small intestine SX; ll1 - Immunization history:: Flu vaccine is not up to date. - Social history:: Smoking status: Patient denies any tobacco usage or history of. ROS: 16:27 Constitutional: Negative for fever, chills, and weight loss. kb 16:27 MS/extremity: Positive for pain, swelling, tenderness, of the left knee. 16:27 All other systems are negative. Exam: 16:27 Constitutional: This is a well developed, well nourished patient who is awake, alert, kb and in no acute distress. ENT: Moist Mucous membranes Respiratory: Respirations even and unlabored. No increased work of breathing, no retractions or nasal flaring. Skin: Warm, dry with normal turgor. Normal color. Neuro: Awake and alert, GCS 15, oriented to person, place, time, and situation. Moves all extremities. Normal gait. Psych: Awake, alert, with orientation to person, place and time. Behavior, mood, and affect are within normal limits. 16:27 Musculoskeletal/extremity: Extremities: grossly normal except: noted in the left knee: pain, swelling, tenderness, ROM: limited active range of motion due to pain, in the left knee, Circulation is intact in all extremities. Sensation intact. Vital Signs: 14:20 BP 160 / 105; Pulse 75; Resp 18; Temp 97.9; Pulse Ox 100% ; Weight 122.47 kg; Height 5 ll1 ft. 8 in. (172.72 cm); Pain 10/10; 16:12 BP 163 / 116; Pulse 71; Resp 17; Pulse Ox 100% on 3 lpm NC; tw2 17:25 BP 136 / 104; Pulse 79; Resp 17; Pulse Ox 100% on R/A; tw2 14:20 Body Mass Index 41.05 (122.47 kg, 172.72 cm) ll1 MDM: 15:34 Patient medically screened. kb 16:27 Data reviewed: vital signs, nurses notes. Data interpreted: Pulse oximetry: on room air kb is 100 %. Interpretation: normal. 16:46 Counseling: I had a detailed discussion with the patient and/or guardian regarding: the kb historical points, exam findings, and any diagnostic results supporting the discharge/admit diagnosis, radiology results, the need for outpatient follow up, a orthopedic surgeon, to return to the emergency department if symptoms worsen or persist or if there are any questions or concerns that arise at home. 11/22 14:31 Order name: US Extremity Venous Unilateral Ltd; Complete Time: 15:53 ll1 11/22 15:46 Order name: Knee Left 3 View XRAY; Complete Time: 17:24 kb Administered Medications: 15:57 Drug: Ryan (HYDROcodone-acetaminophen) 10 mg-325 mg 1 tabs Route: PO; tr6 17:25 Follow up: Response: No adverse reaction; Pain is decreased; RASS: Alert and Calm (0) tw2 Disposition: 19:04 Co-signature as Attending Physician, Polo Jovel MD I agree with the assessment and kdr plan of care. Disposition Summary: 11/22/20 17:25 Discharge Ordered Location: Home kb Condition: Stable kb Diagnosis - Synovial cyst of popliteal space [Mott], left knee kb Followup: kb - With: Emergency Department - When: As needed - Reason: Worsening of condition Followup: kb - With: Private Physician - When: 2 - 3 days - Reason: Recheck today's complaints, Continuance of care, Re-evaluation by your physician Discharge Instructions: - Discharge Summary Sheet kb - Mott Cyst kb Forms: - Medication Reconciliation Form kb - Thank You Letter kb - Antibiotic Education kb - Prescription Opioid Use kb - Work release form eb Prescriptions: - Diclofenac Sodium 75 mg Oral tablet,delayed release (DR/EC) - take 1 tablet by ORAL route 2 times per day As needed; 30 tablet; Refills: 0, kb Product Selection Permitted Signatures: Dispatcher [employer] EDMS Lucille Tucker, SEAMLESS HOSIERY KNITTER-C SEAMLESS HOSIERY KNITTER-Polo Miranda MD MD kdr Lewis, Lynsay RN RN ll1 Peggy Campbell RN RN tr6 Kenia Reina RN tw2
--- NOTE | 2020-11-22 17:26 | ER ---
Nurse's Notes [facility] Name: Jasbir Dewey Age: 45 yrs Sex: Male : 1975 Arrival Date: 11/22/2020 Time: 14:02 Bed 16 Private MD: Diagnosis: Synovial cyst of popliteal space [Mott], left knee Presentation: 11/22 14:20 Chief complaint: Patient states: L knee pain and swelling for 2 days. Concerned for ll1 infection or blood clot. Currently on Eliquis for blood clot to the lung during his covid infection last month. Coronavirus screen: Client denies travel out of the [place] in the last 14 days. At this time, the client does not indicate any symptoms associated with coronavirus-19. Ebola Screen: Patient denies travel to an Ebola-affected area in the 21 days before illness onset. Initial Sepsis Screen: Does the patient meet any 2 criteria? No. Patient's initial sepsis screen is negative. Does the patient have a suspected source of infection? No. Patient's initial sepsis screen is negative. Risk Assessment: Do you want to hurt yourself or someone else? Patient reports no desire to harm self or others. Onset of symptoms was November 21, 2020. 14:20 Method Of Arrival: Wheelchair ll1 14:20 Acuity: REJI 3 ll1 Historical: - Allergies: 14:23 No Known Allergies; ll1 - PMHx: 14:23 "occassional hypertension; Covid pneumonia, blood clot lungs; ll1 - PSHx: 14:23 small intestine SX; ll1 - Immunization history:: Flu vaccine is not up to date. - Social history:: Smoking status: Patient denies any tobacco usage or history of. Screenin:12 Abuse screen: Denies threats or abuse. Nutritional screening: No deficits noted. tw2 Tuberculosis screening: No symptoms or risk factors identified. Fall Risk None identified. Assessment: 15:16 Reassessment: pt back from US at this time. tw2 15:16 General: Appears uncomfortable, obese, well groomed, Behavior is calm, cooperative, tw2 appropriate for age. Pain: Complains of pain in left knee. Neuro: Level of Consciousness is awake, alert, obeys commands, Oriented to person, place, time, situation. Cardiovascular: Patient's skin is warm and dry. Respiratory: Airway is patent Respiratory effort is even, unlabored, Respiratory pattern is regular, symmetrical, pt states "use oxygen at home 2-4 L depending on what im doing". GI: No signs and/or symptoms were reported involving the gastrointestinal system. Derm: Reports increased swelling in LEFT knee. Musculoskeletal: Reports pain in left knee. 16:12 Reassessment: No changes from previously documented assessment. Patient and/or family tw2 updated on plan of care and expected duration. Pain level reassessed. Patient is alert, oriented x 3, equal unlabored respirations, skin warm/dry/pink. 16:35 Reassessment: xray at bedside at this time. tw2 17:24 Reassessment: Patient appears in no apparent distress at this time. Patient and/or tw2 family updated on plan of care and expected duration. Pain level reassessed. Patient is alert, oriented x 3, equal unlabored respirations, skin warm/dry/pink. 17:43 Reassessment: Patient appears in no apparent distress at this time. Patient and/or tw2 family updated on plan of care and expected duration. Pain level reassessed. Patient is alert, oriented x 3, equal unlabored respirations, skin warm/dry/pink. Vital Signs: 14:20 BP 160 / 105; Pulse 75; Resp 18; Temp 97.9; Pulse Ox 100% ; Weight 122.47 kg; Height 5 ll1 ft. 8 in. (172.72 cm); Pain 10/10; 16:12 BP 163 / 116; Pulse 71; Resp 17; Pulse Ox 100% on 3 lpm NC; tw2 17:25 BP 136 / 104; Pulse 79; Resp 17; Pulse Ox 100% on R/A; tw2 14:20 Body Mass Index 41.05 (122.47 kg, 172.72 cm) ll1 ED Course: 14:02 Patient arrived in ED. ds1 14:23 Triage completed. ll1 14:24 Arm band placed on. ll1 14:32 Patient notified of wait time. ll1 15:02 Patient placed in an exam room, on a stretcher. ll1 15:15 Kenia Reina, DEANDRA is Primary Nurse. tw2 15:18 Call light in reach. Adult w/ patient. pt chooses to remain in WC at this time for tw2 comfort. Pulse ox on. NIBP on. 15:22 US Extremity Venous Unilateral Ltd In Process Unspecified. EDMS 15:34 Lucille Tucker FNP-C is [facility]. kb 15:34 Polo Jovel MD is Attending Physician. kb 16:56 Knee Left 3 View XRAY In Process Unspecified. EDMS 17:43 No provider procedures requiring assistance completed. Patient did not have IV access tw2 during this emergency room visit. Administered Medications: 15:57 Drug: Hamilton (HYDROcodone-acetaminophen) 10 mg-325 mg 1 tabs Route: PO; tr6 17:25 Follow up: Response: No adverse reaction; Pain is decreased; RASS: Alert and Calm (0) tw2 Outcome: 17:25 Discharge ordered by . kb 17:43 Discharged to home via wheelchair, with significant other. tw2 17:43 Condition: stable 17:43 Discharge instructions given to patient, significant other, Instructed on discharge instructions, follow up and referral plans. medication usage, Demonstrated understanding of instructions, follow-up care, medications, Prescriptions given X 1. 17:43 Patient left the ED. tw2 Signatures: Dispatcher [employer] EDMD Lucille Tucker FNP-C FNP-Deysi Aparicio ds1 Kenia Reina RN RN tw2 Gosia Rouse RN RN ll1 Peggy Campbell, DEANDRA RN tr6 Corrections: (The following items were deleted from the chart) 14:32 14:20 Chief complaint: Patient states: L knee pain and swelling for 2 days. Concerned ll1 for infection or blood clot. ll1 16:35 15:16 Reassessment: pt back from xray at this time. tw2 tw2
[2020-11-22 17:48] VITALS: TEMP 97.9; O2SAT 100
[2020-11-22 17:51] VITALS: BP 136/104
== END 2020-11-22 17:43 | disposition home or self-care (01) ==
LOC: ER 14:00
DX: M71.22 Synovial cyst of popliteal space [Baker], left knee (principal)
CPT/HCPCS: 93971; 99284

== ENCOUNTER 2021-01-30 05:08 | Emergency (ER) | payer SELFPAY ==
--- OUTSIDE RECORDS SUMMARY | 2021-01-30 05:11 | XMS REPORT | Continuity of Care Document ---
:1975 Author Organization [facility] t Address [address] [place] [address] Care Team Providers Name Role Phone Unavailable Unavailable Unavailable Problems Condition Condition Condition Status Onset Resolution Last Treating Co mments Source Name Details Category Date Date Treatment Clinician Date Adult BMI Adult BMI Diagnosis Active [facility] 40.0-44.9 40.0-44.9 Luke s - kg/sq m kg/sq m Memoria l [facility] ent Clinics Essential Essential Diagnosis Active [facility] (primary) (primary) Luke s - hypertensi hypertensi Me [facility] on on l [facility] ent Clinics Tobacco Tobacco [facility] Pure Pure Problem Active [facility] hyperchole hyperchole [place] [facility] - sterolemia [facility] Family Family Diagnosis Active [facility] history of history of [place] kes - heart heart Memoria disease in disease in l male male [facility] family family ent member member Clinics [...] [facility] - 00:00: 00:00 Memoria 00 :00 [facility] ent Clinics Lisinopril Lisinopril 2017- Yes Dariel [address] [facility] 2-13 Adelita [facility] - 00:00: Memoria 00 [facility] ent [facility] Immunizations Ordered Filled Immunization Date Status Comments Sourc e Immunization Name Name TDAP > 7 TDAP > 7 2018-04-[address] [facility] - Years-Adacel Years-Adacel 00:00:00 [facility] Flucelvax - Flucelvax - 2018-04-[address] [facility] - multidose vial multidose vial 00:00:00 [facility] Procedures This patient has no known procedures. Encounters Start End Encounter Admission Attending Care Care Encounter Source Date/Time Date/Time Type Type Clinicians Facility Department ID 2018-06-30 2018-06-30 Outpatient Milind Gil [id number] [facility] 11:30[facility]00 11:30:00 [facility] 2018-05-18 2018-05-18 Outpatient Milind Gil [id number] [facility] 09:45[facility]00 09:45:00 [facility] 2018-04-30 2018-04-30 Outpatient Milind Gil [id number] [facility] 14:30:00 14:30:00 [facility] Results This patient has no known results.
--- NOTE | 2021-01-30 10:53 | ER ---
Nurse's Notes [facility] Name: Jasbir Dewey Age: 45 yrs Sex: Male : 1975 Arrival Date: 01/30/2021 Time: 05:10 Bed 11 Private MD: Diagnosis: Encounter for Oxygen Presentation: 01/30 05:30 Initial Sepsis Screen: Does the patient meet any 2 criteria? No. Patient's initial wg sepsis screen is negative. Does the patient have a suspected source of infection? No. Patient's initial sepsis screen is negative. Risk Assessment: Do you want to hurt yourself or someone else? Patient reports no desire to harm self or others. Onset of symptoms was January 30, 2021 at 04:30. 05:30 Acuity: REJI 4 05:31 Chief complaint: Patient states: Pt arrived by POV needing assistance at [facility] stating he ran out of home O2. Pt had a pulse oximeter reading in the 60% O2. stated pt previously had covid in August and is dependent on O2 at home. Pt's only complaint was SOB. Pt extricated from vehicle and placed on O2 6LNC and brought into ED. Pt denied CP, N/V, dizziness, Abd pain and headache. Coronavirus screen: Client reports previous positive COVID test result. Date of collection: August 2020. Ebola Screen: Patient negative for fever greater than or equal to 101.5 degrees Fahrenheit, and additional compatible Ebola Virus Disease symptoms Patient denies exposure to infectious person. Patient denies travel to an Ebola-affected area in the 21 days before illness onset. No symptoms or risks identified at this time. 05:31 Method Of Arrival: Wheelchair wg 05:41 Note Pt A\\T\\Ox4 and 100% on 3L NC. Pt refusing treatment stating he only needed O2. Dr. vipul Perez made aware. Pt agreed to be monitored on O2 for awhile. Care prior to arrival: None. 05:43 Note Pt unable to walk due to an abcess in Right leg. Pt required multiple staff to wg assist out of vehicle and onto stretcher. Triage Assessment: 05:39 General: Appears comfortable, obese, Initially SOB but following O2 application pt wg A\\T\\Ox4, calm and cooperative. . Behavior is calm, cooperative, appropriate for age. Pain: Denies pain. EENT: No deficits noted. Neuro: No deficits noted. Cardiovascular: Hypertensive. Respiratory: Reports shortness of breath earlier when his O2 ran out. GI: No deficits noted. : No deficits noted. Derm: No deficits noted. Musculoskeletal: No deficits noted. Historical: - Allergies: 05:38 No Known Allergies; wg - PMHx: 05:38 "occassional hypertension; Covid pneumonia, blood clot lungs; wg - Immunization history:: Adult Immunizations up to date, Client reports having NOT received the Covid vaccine. - Social history:: Smoking status: Patient denies any tobacco usage or history of. Screenin:19 Abuse screen: Denies threats or abuse. Denies injuries from another. Nutritional ch5 screening: No deficits noted. Tuberculosis screening: No symptoms or risk factors identified. Fall Risk None identified. Assessment: 06:37 Reassessment: pt refuses labs, currently states he only needs O2. em 11:39 Reassessment: pt moved to ER room 11 to wait for power to be restored at home, at iw bedside, call light given. 15:00 Reassessment: Reassessment: Patient spouse stated that they found a place to go and she kg is going to go home and get his 02 bottle refilled and bring it back. . 17:10 Reassessment: Patient is stable on 4L 02 resting in wheelchair. Spouse states that kg electricity still isn't on at their residence. Pt is stable and resting quietly. Will continue to monitor. ,. Vital Signs: 05:30 BP 180 / 114; Pulse 110; Resp 22; Temp 98.9; Pulse Ox 100% ; Weight 125.19 kg; Height 5 wg ft. 8 in. (172.72 cm); Pain 0/10; 07:19 BP 164 / 112; Pulse 108; Resp 18; Pulse Ox 100% ; ch5 10:06 BP 130 / 80; Pulse 75; Resp 18; Pulse Ox 95% on 2 lpm NC; Pain 0/10; ch5 17:00 BP 166 / 94; Pulse 109; Resp 20; Pulse Ox 100% on 4 lpm NC; kg 05:30 Body Mass Index 41.97 (125.19 kg, 172.72 cm) wg ED Course: 05:10 Patient arrived in ED. bp1 05:38 Triage completed. wg 05:39 Arm band placed on right wrist. wg 06:13 Rudy Perez MD is Attending Physician. pkl 07:06 Ashly Mohr, RN is Primary Nurse. 5 07:19 Bed in low position. Call light in reach. Side rails up X2. 5 07:19 No provider procedures requiring assistance completed. ch5 17:16 Patient did not have IV access during this emergency room visit. kg Administered Medications: No medications were administered Outcome: 10:52 Discharge ordered by . jr8 17:16 Discharged to home via wheelchair, with family. kg 17:16 Condition: good 17:16 Discharge instructions given to patient, family, Instructed on discharge instructions, follow up and referral plans. Demonstrated understanding of instructions, follow-up care. 17:33 Patient left the ED. kg Signatures: Rudy Perez MD MD pkl Munoz, Edgar, RN RN em Christina Rivera RN RN Merrick Cuellar PA PA jr8 Jennifer Ge Kristen, DEANDRA RN Joel Wooten, RN RN [facility] John Martel RN Ashly Mohr, RN RN [facility] Corrections: (The following items were deleted from the chart) 07:23 07:22 CORONAVIRUS+MR.LAB.ANGELESZ drawn and sent. [facility] EDMS
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
[2021-01-30 18:20] VITALS: TEMP 98.9
[2021-01-30 18:24] VITALS: BP 166/94; O2SAT 100
== END 2021-01-30 17:33 | disposition home or self-care (01) ==
LOC: ER 05:08
DX: R06.02 Shortness of breath (principal); Z86.16 Personal history of COVID-19; Z99.81 Dependence on supplemental oxygen; Z20.822 Contact with and (suspected) exposure to COVID-19
CPT/HCPCS: 99281; U0003